=== PATIENT | female | born 1965 | race Hispanic/Latino ===

== ENCOUNTER 2022-10-01 13:36 | Observation (INO) | payer BC ==
--- OUTSIDE RECORDS SUMMARY | 2022-10-01 13:44 | XMS REPORT | Continuity of Care Document ---
:1965 Author Organization [facility] t Address [address] [place] [address] Care Team Providers Name Role Phone Asked, No Pcp Primary Care Physician Unavailable МАРИЯ CANTU Attending Clinician Unavailable XIANG GANDHI Attending Clinician Unavailable ADITI AYON Attending Clinician Unavailable ADITI AYON Attending Clinician Unavailable Mario_R Attending Clinician Unavailable Varsha_Milagro_WAGDNU Attending Clinician Unavailable Juan Ferrari MD Attending Clinician Latanya Jama Attending Clinician Unavailable Deon Treadwell MD Attending Clinician Lauri Clemons Attending Clinician LAURI SUNG Attending Clinician Unavailable Saira Yun RN Attending Clinician Unavailable Xiang Gandhi MD Attending Clinician LATANYA DU Attending Clinician Unavailable Saravanan Melendez MD Attending Clinician Doctor Unassigned, [place] Attending Clinician Unavailable DEON TREADWELL Attending Clinician Unavailable BRETT MONTESINOS Attending Clinician Unavailable Brett Montesinos MD Attending Clinician Fabienne Desai RN Attending Clinician Unavailable Lazara Wan MA Attending Clinician Unavailable Andrew Chairez MD Attending Clinician Tommy FOWLER, Ele Mckeon Attending Clinician TIM MARES Attending Clinician Unavailable Tim Flores Attending Clinician JOSE GARCIA Attending Clinician Unavailable Jose Garcia DO Attending Clinician JULIAN ROBLEDO Attending Clinician Unavailable Jes Clayton DO Attending Clinician Julian Robledo DO Attending Clinician SARAVANAN MELENDEZ Attending Clinician Unavailable SHABNAM MACK Attending Clinician Unavailable Shabnam Mack MD Attending Clinician LUIS ALBERTO CHRISTENSEN Attending Clinician Unavailable Luis Alberto Christensen MD Attending Clinician JES CLAYTON Attending Clinician Unavailable Carlee De La O PT Attending Clinician Unavailable Luigi Ngo MD Attending Clinician LUIGI NGO Attending Clinician Unavailable Nickie PTPaola A Attending Clinician Unavailable Lab, Ang - Db Attending Clinician Unavailable Мария Cantu MD Attending Clinician Te Ortega MD Attending Clinician LINDEN PARIS Attending Clinician Unavailable Ro Claudio Attending Clinician Linden Paris DO Attending Clinician Haleigh Viera RN Attending Clinician Unavailable Joie Nair Attending Clinician Carlee Pierson MD Attending Clinician Provider, [facility] Attending Clinician Unavailable Leta Conn MD Attending Clinician LETA CONN Attending Clinician Unavailable Unknown, Attending Attending Clinician Unavailable UNKNOWN, ATTENDING Attending Clinician Unavailable 2, Adc Lab Attending Clinician Unavailable Alejandra Moreira MD Attending Clinician Brooke RN, Phill A Attending Clinician Unavailable Candice Krishnan Attending Clinician CANDICE LOZA Attending Clinician Unavailable Alejandra Moreira MD Attending Clinician Unavailable МАРИЯ CANTU Admitting Clinician Unavailable Yannick Admitting Clinician Unavailable Bipin Admitting Clinician Unavailable BRETT MONTESINOS Admitting Clinician Unavailable ELE SANDERS Admitting Clinician Unavailable JULIAN ROBLEDO Admitting Clinician Unavailable Julian Robledo DO Admitting Clinician JOSE GARCIA Admitting Clinician Unavailable SHABNAM MACK Admitting Clinician Unavailable Shabnam Mack MD Admitting Clinician LUIS ALBERTO CHRISTENSEN Admitting Clinician Unavailable Мария Cantu MD Admitting Clinician Carlee Pierson MD Admitting Clinician LETA CONN Admitting Clinician Unavailable CANDICE LOZA Admitting Clinician Unavailable Payers Payer Name Policy Type Policy Number Effective Date Expiration Date S lio [employer] [place] [id number] 2012 00:[id number] 2022 [place] [id number] 2012 00:00:00 Problems Condition Condition Condition Status Onset Resolution Last Treating Co mments Source Name Details Category Date Date Treatment Clinician Date Type 2 Type 2 Problem Active [facility] diabetes Diabetes 3-28 Family mellitus Mellitus 00:00: Practi c 00 e Morbid Morbid Problem Active [place] obesity Obesity 3- Family 00:00: Practic 00 e 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 00 e Diabetes Diabetes Problem Active [facility] mellitus Mellitus 2-04 Family 00:00: Practic 00 e Hyperlipid Hyperlipid Problem Active [facility] emia emia 2-04 Family 00:00: Practic 00 e Essential Essential Problem Active [facility] hypertensi Hypertensi 2-04 Fa serge on on 00:00: Practic 00 e Nodule of Nodule of Problem Active [facility] lung Lung 2-04 Family 00:00: Practic 00 e Arthritis Arthritis Problem Active [facility] 2-04 Family 00:00: Practic 00 e Chronic Chronic Problem Active [place] back pain Back Pain 2-04 Fami ly 00:00: Practic 00 e Vertigo Vertigo Problem Active [place] 2-04 Family 00:00: Practic 00 e History of History of Problem Active [facility] malignant Malignant 2-04 Fami ly neoplasm Neoplasm 00:00: Practi c of cervix of Cervix 00 e Pulmonary Pulmonary Disease Active Uni vers nodule nodule 3-25 ity of 00:00: [place] 00 Medical Branch Diabetic Diabetic Disease Active Unive rs gastropare gastropare 3-25 it y of sis sis 00:00: [place] 00 Medical Branch Lactic Lactic Disease Active Methodi acid acid 2-25 st acidosis acidosis 00:00: Hospit a 00 l Abdominal Abdominal Disease Active Met hodi pain, pain, 2-25 st acute, acute, 00:00: Hospita generalize generalize 00 l d d Intractabl Intractabl Disease Active U nivers e vomiting e vomiting 1-14 it y of with with 00:00: [place] nausea nausea 00 Medical Branch Obesity Obesity Disease Active Univers (BMI (BMI 1-14 ity of 30-39.9) 30-39.9) 00:00: [place] 00 Medical Branch Chronic Chronic Disease Active Univers gout due gout due 9-22 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 Added automatic ally from request for surgery [id number] Polyp of Polyp of Disease Active Unive rs colon, colon, 3-08 ity of unspecifie unspecifie [place] of d part of 00 Medi [place] colon, colon, Branch unspecifie unspecifie d type d type Lichen Lichen Disease Active Univers simplex simplex 3-08 ity of chronicus chronicus 00:[place] [facility] [place] Intractabl Intractabl Disease Active U nivers e e 1-14 ity of abdominal abdominal 00:[place] pain pain 00 [facility] Morbid Morbid Disease Active Univers obesity obesity 1-12 ity of with body with body 00:[place] mass index mass index 00 Me dical of of Branch 40.0-49.9 40.0-49.9 Vomiting Vomiting Disease Active Unive rs 1-11 ity of 00:00: [place] [facility] Diabetic Diabetic Disease Active Unive rs retinopath retinopath 5-08 it y of y y 00:00: [place] [facility] Right Right Disease Active Univers sided sided 3-19 ity of sciatica sciatica 00:00: [place] [facility] Elevated Elevated Disease Active 2018-06 Unive rs alkaline alkaline 0-31 ity of phosphatas phosphatas 00:[place] e level 00 Medical [facility] Osteoarthr Osteoarthr Disease Active U nivers itis of itis of 1-02 ity of both hips both hips 00:00[place] [facility] Dyslipidem Dyslipidem Disease Active 2017-06 U nivers ia ia 1-13 ity of 00:00: [place] [facility] TACOS TACOS Disease Active 2017-06 Univers (obstructi (obstructi 1-13 it y of ve sleep ve sleep 00:00: [place] apnea) apnea) 00 Medical Branch Essential Essential Disease Active Uni vers hypertensi hypertensi 4-21 it y of on, benign on, benign 00:00: [place] [facility] Type 2 Type 2 Disease Active Univers diabetes diabetes 4-21 ity of mellitus mellitus 00:00: [place] with with 00 Medical proteinuri proteinuri Br anch c diabetic c diabetic nephropath nephropath y y History of History of Disease Active U nivers colon colon ity of polyps polyps [facility] Branch Allergies, Adverse Reactions, Alerts Allergy Allergy Status Severity Reaction(s) Onset Inactive Treating Comm ents Source Name Type Date Date Clinician Scopolam Propensi Active GI Method i ine ty to Intolerance 08-06 st adverse 00:00: Hospita reaction 00 l s to drug Scopolam Propensi Active Nausea Univer s ine ty to and/or 01-10 ity of adverse Vomiting 00:00: [place] reaction Medical s Branch SCOPOLAM DRUG Active N/V Univers INE INGREDI 01-10 ity of 00:00: [place] 00 [facility] Family History Family Member Diagnosis Comments Start Date Stop Date Source Natural father Diabetes [facility] Natural mother Diabetes [facility] Natural sister Other [facility] Social History Social Habit Start Date Stop Date Quantity Comments Source Alcohol intake 2022-01-10 2022-01-10 Ex-drinker [facility] 00:00:00 00:00:00 (finding) [facility] Tobacco use and 2022-01-06 2022-01-06 Smokeless tobacco Un iversity of exposure 00:00:00 00:00:00 non-user [facility] Sex [birth year] [facility] 00:00:00 00:00:00 Smoking Status Start Date Stop Date Source Tobacco smoking consumption [facility] unknown Never smoked tobacco [facility] Medications Ordered Filled Start Stop Current Ordering Indication Dosage Frequency Signature Comments Components Source Medication Medication Date Date Medication? Clinician (SIG) Name Name lisinopriL- Yes [id number] 1{tbl} TAKE 1 Univers hydrochloro 3-24 TABLET BY ity of thiazide 00:00: MOUTH [place] 20-12.5 mg 00 DAILY Medical per tablet Branch lisinopriL- Yes [id number] 1{tbl} TAKE 1 Univers hydrochloro 3-24 TABLET BY ity of thiazide 00:00: MOUTH [place] 20-12.5 mg 00 DAILY Medical per tablet Branch lisinopriL- 2021-06 Yes [id number] 1{tbl} TAKE 1 Univers hydrochloro 2-24 TABLET BY ity of thiazide 00:00: MOUTH [place] 20-12.5 mg 00 DAILY Medical per tablet Branch lisinopriL- 2021-06 Yes [id number] 1{tbl} TAKE 1 Univers hydrochloro 2-24 TABLET BY ity of thiazide 00:00: MOUTH [place] 20-12.5 mg 00 DAILY Medical per tablet Branch lisinopriL- 2021-06 Yes [id number] 1{tbl} TAKE 1 Univers hydrochloro 2-24 TABLET BY ity of thiazide 00:00: MOUTH [place] 20-12.5 mg 00 DAILY Medical per tablet [place]ie lisinopriL- 2021-06- No [id number] 1{tbl} TAKE 1 Univers hydrochloro 2-24 03-24 TABLET BY it y of thiazide 00:00: 00:00 MOUTH [place] 20-12.5 mg 00 :00 DAILY Medical per tablet Branch flash 2021-06 Yes [id number] 1{each} Apply 1 Un keyonna glucose 2-07 Each to ity of sensor 00:00: skin every [place] (FREESTYLE 00 14 Medical ZELDA 2 (fourteen) Branch SENSOR) Kit days. Change sensor every 14 days. Dx E11.21 flash 2021-06 Yes [id number] 1{each} Apply 1 Un [place] glucose 2-07 Each to ity of sensor 00:00: skin every (FREESTYLE 00 14 Medical ZELDA 2 (fourteen) Branch SENSOR) Kit days. Change sensor every 14 days. Dx E11.21 flash 2021-06 Yes [id number] 1{each} Apply 1 Un [place] glucose 2-07 Each to ity of sensor 00:00: skin every (FREESTYLE 00 14 Medical ZELDA 2 (fourteen) Branch SENSOR) Kit days. Change sensor every 14 days. Dx E11.21 flash 2021-06 Yes [id number] 1{each} Apply 1 Un [place] glucose 2-07 Each to ity of sensor 00:00: skin every (FREESTYLE 00 14 Medical ZELDA 2 (fourteen) Branch SENSOR) Kit days. Change sensor every 14 days. Dx E11.21 flash 2021-06 Yes [id number] 1{each} Apply 1 Un [place] glucose 2-07 Each to ity of sensor 00:00: skin every [place] (FREESTYLE 00 14 Medical ZELDA 2 (fourteen) Branch SENSOR) Kit days. Change sensor every 14 days. Dx E11.21 flash 2021-06 Yes [id number] 1{each} Apply 1 Un [place] glucose 2-07 Each to ity of sensor 00:00: skin every [place] (FREESTYLE 00 14 Medical ZELDA 2 (fourteen) Branch SENSOR) Kit days. Change sensor every 14 days. Dx E11.21 EDVINGA 10 0 Yes [id number] 10mg TAKE 1 U nivers mg tablet 8-28 TABLET BY ity o f 00:00: MOUTH [place] DAILY Medical Branch CARINA 10 0 Yes [id number] 10mg TAKE 1 U nivers mg tablet 8-28 TABLET BY ity o f 00:00: MOUTH DAILY Medical Branch CARINA 10 0 Yes [id number] 10mg TAKE 1 U nivers mg tablet 8-28 TABLET BY ity o f 00:00: MOUTH DAILY Medical Branch CARINA 10 0 Yes [id number] 10mg TAKE 1 U nivers mg tablet 8-28 TABLET BY ity o f 00:00: MOUTH DAILY Medical Branch CARINA 10 Yes [id number] 10mg TAKE 1 U nivers mg tablet 8-28 TABLET BY ity o f 00:00: MOUTH DAILY Medical Branch CARINA 10 0 Yes [id number] 10mg TAKE 1 U nivers mg tablet 8-28 TABLET BY ity o f 00:00: MOUTH DAILY Medical Branch CARINA 10 0 Yes [id number] 10mg TAKE 1 U nivers mg tablet 8-28 TABLET BY ity o f 00:00: MOUTH DAILY Medical Branch CARINA 10 0 Yes [id number] 10mg TAKE 1 U nivers mg tablet 8-28 TABLET BY ity o f 00:00: MOUTH DAILY Medical Branch CARINA 10 0 Yes [id number] 10mg TAKE 1 U nivers mg tablet 8-28 TABLET BY ity o f 00:00: MOUTH [place] DAILY Medical Branch clobetasoL 0 Yes [id number] Apply to Univers 0.05 % 8-01 area(s) 2 ity of ointment 00:00: (two) [place] 00 times Medical daily. Branch clobetasoL 0 Yes [id number] Apply to Univers 0.05 % 8-01 area(s) 2 ity of ointment 00:00: (two) [place] 00 times Medical daily. Branch clobetasoL 0 Yes [id number] Apply to Univers 0.05 % 8-01 area(s) 2 ity of ointment 00:00: (two) [place] 00 times Medical daily. Branch clobetasoL 2022-0 Yes [id number] Apply to Univers 0.05 % 8-01 area(s) 2 ity of ointment 00:00: (two) [place] 00 times Medical daily. Branch clobetasoL 2022-0 Yes [id number] Apply to Univers 0.05 % 8-01 area(s) 2 ity of ointment 00:00: (two) [place] 00 times Medical daily. Branch clobetasoL 2022-0 Yes [id number] Apply to Univers 0.05 % 8-01 area(s) 2 ity of ointment 00:00: (two) [place] 00 times Medical daily. Branch clobetasoL 2022-0 Yes [id number] Apply to Univers 0.05 % 8-01 area(s) 2 ity of ointment 00:00: (two) [place] 00 times Medical daily. Branch clobetasoL 2022-0 Yes [id number] Apply to Univers 0.05 % 8-01 area(s) 2 ity of ointment 00:00: (two) [place] 00 times Medical daily. Branch clobetasoL 2022-0 Yes [id number] Apply to Univers 0.05 % 8-01 area(s) 2 ity of ointment 00:00: (two) [place] 00 times Medical daily. Branch clobetasoL 2022-0 Yes [id number] Apply to Univers 0.05 % 8-01 area(s) 2 ity of ointment 00:00: (two) [place] 00 times Medical daily. Branch canaglifloz 2021-0 2021- No 300mg Take 300 Univers in 7-28 07-28 mg by ity of (INVOKANA) 16:31: 00:00 [place]. [place] 300 mg 42 :00 Medical tablet Branch canaglifloz 2021-0 2021- No 300mg Take 300 Univers in 7-28 07-28 mg by ity of (INVOKANA) 16:31: 00:00 mouth. [place] 300 mg 42 :00 Medical tablet Branch Cholecalcif 2021-0 Yes Take by Uni vers kaycee, 7-28 mouth ity of Vitamin D3, 16:07: daily. [place] 25 mcg 14 Medical (1,000 Branch unit) capsule calcium 2021-0 Yes 1{tbl} Take 1 Univer s carbonate/v 7-28 tablet by ity of itamin D3 16:07: mouth [place] (CALCIUM 14 daily. Medical 600 + D,3, Branch ORAL) insulin 2021-0 Yes 50U inject 50 Unive rs glargine-li 7-28 Units ity of xisenatide 16:07: [place] (SOLIQUA 14 skin. Medical 100/) 100 Branch unit-33 mcg/mL InPn multivitami 0 Yes 1{tbl} Take 1 Un keyonna n tablet 7-28 tablet by ity of 16:07: mouth [place] 14 every Medical morning. Branch Cholecalcif 0 Yes Take by Uni vers kaycee, 7-28 mouth ity of Vitamin D3, 16:07: daily. [place] 25 mcg 14 Medical (1,000 Branch unit) capsule calcium 0 Yes 1{tbl} Take 1 Univer s carbonate/v 7-28 tablet by ity of itamin D3 16:07: mouth [place] (CALCIUM 14 daily. Medical 600 + D,3, Branch ORAL) insulin 2021-0 Yes 50U inject 50 Unive rs glargine-li 7-28 Units ity of xisenatide 16:07: under the [place] (SOLIQUA 14 skin. Medical /) 100 Branch unit-33 mcg/mL InPn multivitami 0 Yes 1{tbl} Take 1 Un keyonna n tablet 7-28 tablet by ity of 16:07: mouth [place] 14 every Medical morning. Branch Cholecalcif 0 Yes Take by Uni vers kaycee, 7-28 mouth ity of Vitamin D3, 16:07: daily. [place] 25 mcg 14 Medical (1,000 Branch unit) capsule calcium 2021-0 Yes 1{tbl} Take 1 Univer s carbonate/v 7-28 tablet by ity of itamin D3 16:07: mouth [place] (CALCIUM 14 daily. Medical 600 + D,3, Branch ORAL) insulin 2021-0 Yes 50U inject 50 Unive rs glargine-li 7-28 Units ity of xisenatide 16:07: under the [place] (SOLIQUA 14 skin. Medical 100/) 100 Branch unit-33 mcg/mL InPn multivitami 0 Yes 1{tbl} Take 1 Un keyonna n tablet 7-28 tablet by ity of 16:07: mouth [place] 14 every Medical morning. Branch Cholecalcif 0 Yes Take by Uni vers kaycee, 7-28 mouth ity of Vitamin D3, 16:07: daily. [place] 25 mcg 14 Medical (1,000 Branch unit) capsule calcium 0 Yes 1{tbl} Take 1 Univer s carbonate/v 7-28 tablet by ity of itamin D3 16:07: mouth [place] (CALCIUM 14 daily. Medical 600 + D,3, Branch ORAL) insulin 2021-0 Yes 50U inject 50 Unive rs glargine-li 7-28 Units ity of xisenatide 16:07: under the [place] (SOLIQUA 14 skin. Medical 100/) 100 Branch unit-33 mcg/mL InPn multivitami 0 Yes 1{tbl} Take 1 Un keyonna n tablet 7-28 tablet by ity of 16:07: mouth [place] 14 every Medical morning. Branch Cholecalcif 0 Yes Take by Uni vers kaycee, 7-28 mouth ity of Vitamin D3, 16:07: daily. [place] 25 mcg 14 Medical (1,000 Branch unit) capsule calcium 0 Yes 1{tbl} Take 1 Univer s carbonate/v 7-28 tablet by ity of itamin D3 16:07: mouth [place] (CALCIUM 14 daily. Medical 600 + D,3, Branch ORAL) insulin 2021-0 Yes 50U inject 50 Unive rs glargine-li 7-28 Units ity of xisenatide 16:07: under the [place] (SOLIQUA 14 skin. Medical 100/) 100 Branch unit-33 mcg/mL InPn multivitami 0 Yes 1{tbl} Take 1 Un keyonna n tablet 7-28 tablet by ity of 16:07: mouth [place] 14 every Medical morning. Branch Cholecalcif 0 Yes Take by Uni vers kaycee, 7-28 mouth ity of Vitamin D3, 16:07: daily. [place] 25 mcg 14 Medical (1,000 Branch unit) capsule calcium 0 Yes 1{tbl} Take 1 Univer s carbonate/v 7-28 tablet by ity of itamin D3 16:07: mouth [place] (CALCIUM 14 daily. Medical 600 + D,3, Branch ORAL) insulin 2021-0 Yes 50U inject 50 Unive rs glargine-li 7-28 Units ity of xisenatide 16:07: under the [place] (SOLIQUA 14 skin. Medical 100/33) 100 Branch unit-33 mcg/mL InPn multivitami 0 Yes 1{tbl} Take 1 Un keyonna n tablet 7-28 tablet by ity of 16:07: mouth [place] 14 every Medical morning. Branch Cholecalcif 0 Yes Take by Uni vers kaycee, 7-28 mouth ity of Vitamin D3, 16:07: daily. [place] 25 mcg 14 Medical (1,000 Branch unit) capsule calcium 0 Yes 1{tbl} Take 1 Univer s carbonate/v 7-28 tablet by ity of itamin D3 16:07: mouth [place] (CALCIUM 14 daily. Medical 600 + D,3, Branch ORAL) insulin 0 Yes 50U inject 50 Unive rs glargine-li 7-28 Units ity of xisenatide 16:07: under the [place] (SOLIQUA 14 skin. Medical 100/) 100 Branch unit-33 mcg/mL InPn multivitami 0 Yes 1{tbl} Take 1 Un keyonna n tablet 7-28 tablet by ity of 16:07: mouth [place] 14 every Medical morning. Branch Cholecalcif 0 Yes Take by Uni vers kaycee, 7-28 mouth ity of Vitamin D3, 16:07: daily. [place] 25 mcg 14 Medical (1,000 Branch unit) capsule calcium 0 Yes 1{tbl} Take 1 Univer s carbonate/v 7-28 tablet by ity of itamin D3 16:07: mouth [place] (CALCIUM 14 daily. Medical 600 + D,3, Branch ORAL) insulin 0 Yes 50U inject 50 Unive rs glargine-li 7-28 Units ity of xisenatide 16:07: under the [place] (SOLIQUA 14 skin. Medical 100/33) 100 Branch unit-33 mcg/mL InPn multivitami 2022-0 Yes 1{tbl} Take 1 Un keyonna n tablet 7-28 tablet by ity of 16:07: mouth [place] 14 every Medical morning. Branch Cholecalcif 0 Yes Take by Uni vers kaycee, 7-28 mouth ity of Vitamin D3, 16:07: daily. [place] 25 mcg 14 Medical (1,000 Branch unit) capsule calcium 2021-0 Yes 1{tbl} Take 1 Univer s carbonate/v 7-28 tablet by ity of itamin D3 16:07: mouth [place] (CALCIUM 14 daily. Medical 600 + D,3, Branch ORAL) insulin 2021-0 Yes 50U inject 50 Unive rs glargine-li 7-28 Units ity of xisenatide 16:07: under the [place] (SOLIQUA 14 skin. Medical 100/33) 100 Branch unit-33 mcg/mL InPn multivitami 2021-0 Yes 1{tbl} Take 1 Un keyonna n tablet 7-28 tablet by ity of 16:07: mouth [place] 14 every Medical morning. Branch Cholecalcif 0 Yes Take by Uni vers kaycee, 7-28 mouth ity of Vitamin D3, 16:07: daily. [place] 25 mcg 14 Medical (1,000 Branch unit) capsule calcium 0 Yes 1{tbl} Take 1 Univer s carbonate/v 7-28 tablet by ity of itamin D3 16:07: mouth [place] (CALCIUM 14 daily. Medical 600 + D,3, Branch ORAL) insulin 2021-0 Yes 50U inject 50 Unive rs glargine-li 7-28 Units ity of xisenatide 16:07: under the [place] (SOLIQUA 14 skin. Medical 100/33) 100 Branch unit-33 mcg/mL InPn multivitami 2021-0 Yes 1{tbl} Take 1 Un keyonna n tablet 7-28 tablet by ity of 16:07: mouth [place] 14 every Medical morning. Branch Cholecalcif 0 Yes Take by Uni vers kaycee, 7-28 mouth ity of Vitamin D3, 16:07: daily. [place] 25 mcg 14 Medical (1,000 Branch unit) capsule calcium 2021-0 Yes 1{tbl} Take 1 Univer s carbonate/v 7-28 tablet by ity of itamin D3 16:07: mouth [place] (CALCIUM 14 daily. Medical 600 + D,3, Branch ORAL) insulin Yes 50U inject 50 Unive rs glargine-li 7-28 Units ity of xisenatide 16:07: under the [place] (SOLIQUA 14 skin. Medical 100/33) 100 Branch unit-33 mcg/mL InPn multivitami Yes 1{tbl} Take 1 Un keyonna n tablet 7-28 tablet by ity of 16:07: mouth [place] 14 every Medical morning. Branch Cholecalcif Yes Take by Uni vers kaycee, 7-28 mouth ity of Vitamin D3, 16:07: daily. [place] 25 mcg 14 Medical (1,000 Branch unit) capsule calcium Yes 1{tbl} Take 1 Univer s carbonate/v 7-28 tablet by ity of itamin D3 16:07: mouth [place] (CALCIUM 14 daily. Medical 600 + D,3, Branch ORAL) insulin Yes 50U inject 50 Unive rs glargine-li 7-28 Units ity of xisenatide 16:07: under the [place] (SOLIQUA 14 skin. Medical 100/33) 100 Branch unit-33 mcg/mL InPn multivitami Yes 1{tbl} Take 1 Un keyonna n tablet 7-28 tablet by ity of 16:07: mouth [place] 14 every Medical morning. Branch hydrocortis 2021- No [id number] Apply to Univers one 2.5 % 01-06 area(s) 2 ity of cream 00:00: 00:00 (two) [place] 00 :00 times Medical daily. Branch hydrocortis 2021- No [id number] Apply to Univers one 2.5 % 01-06 area(s) 2 ity of cream 00:00: 00:00 (two) [place] 00 :00 times Medical daily. Branch hydrocortis 2021- No [id number] Apply to Univers one 2.5 % 01-06 area(s) 2 ity of cream 00:00: 00:00 (two) [place] 00 :00 times Medical daily. Branch pantoprazol Yes [id number] 40mg Take 1 U nivers e 40 mg EC 6-24 tablet by ity of tablet 00:00: mouth [place] 00 daily. Medical Branch metformin 0 Yes [id number] 1000mg Take 2 Univers ER 500 mg 6-24 tablets by ity of 24 hr 00:00: mouth 2 [place] tablet 00 (two) Medical times Branch daily with meals. flash Yes [id number] 1{each} Apply 1 Un keyonna glucose 6-24 Each to ity of sensor 00:00: skin every [place] (FREESTYLE 00 14 Medical ZELDA 2 (fourteen) Branch SENSOR) Kit days. Change sensor every 14 days. Dx E11.21 pioglitazon Yes [id number] 30mg Take 1 Univers e 30 mg 6-24 tablet by ity of tablet 00:00: mouth [place] 00 daily. Medical Branch atorvastati Yes [id number] 40mg Take 1 Univers n 40 mg 6-24 tablet by ity of tablet 00:00: mouth at [place] 00 bedtime. Medical Branch allopurinoL Yes [id number] 100mg Take 1 Univers 100 mg 6-24 9109 tablet by ity of tablet 00:00: mouth [place] 00 daily. Medical Branch lisinopriL- 0 Yes [id number] 1{tbl} Take 1 Univers hydrochloro 6-24 tablet by ity of thiazide 00:00: mouth [place] 20-12.5 mg 00 daily. Medical per tablet Branch pantoprazol Yes [id number] 40mg Take 1 U nivers e 40 mg EC 6-24 tablet by ity of tablet 00:00: mouth [place] 00 daily. Medical Branch metformin Yes [id number] 1000mg Take 2 Univers ER 500 mg 6-24 tablets by ity of 24 hr 00:00: mouth 2 [place] tablet 00 (two) Medical times Branch daily with meals. flash 2021-0 Yes [id number] 1{each} Apply 1 Un kyeonna glucose 6-24 Each to ity of sensor 00:00: skin every [place] (FREESTYLE 00 14 Medical ZELDA 2 (fourteen) Branch SENSOR) Kit days. Change sensor every 14 days. Dx E11.21 pioglitazon 2021-0 Yes [id number] 30mg Take 1 Univers e 30 mg 6-24 tablet by ity of tablet 00:00: mouth [place] 00 daily. Medical Branch atorvastati Yes [id number] 40mg Take 1 Univers n 40 mg 6-24 tablet by ity of tablet 00:00: mouth at [place] 00 bedtime. Medical Branch allopurinoL Yes [id number] 100mg Take 1 [facility] 100 mg 6-24 9109 tablet by ity of tablet 00:00: mouth [place] 00 daily. Medical Branch lisinopriL- 0 Yes [id number] 1{tbl} Take 1 [facility] hydrochloro 6-24 tablet by ity of thiazide 00:00: mouth [place] 20-12.5 mg 00 daily. Medical per tablet Branch pantoprazol Yes [id number] 40mg Take 1 U nivers e 40 mg EC 6-24 tablet by ity of tablet 00:00: mouth [place] 00 daily. Medical Branch metformin Yes [id number] 1000mg Take 2 [facility] ER 500 mg 6-24 tablets by ity of 24 hr 00:00: mouth 2 [place] tablet 00 (two) Medical times Branch daily with meals. pioglitazon Yes [id number] 30mg Take 1 [facility] e 30 mg 6-24 tablet by ity of tablet 00:00: mouth [place] 00 daily. Medical Branch atorvastati Yes [id number] 40mg Take 1 [facility] n 40 mg 6-24 tablet by ity of tablet 00:00: mouth at [place] 00 bedtime. Medical Branch allopurinoL Yes [id number] 100mg Take 1 [facility] 100 mg 6-24 9109 tablet by ity of tablet 00:00: mouth [place] 00 daily. Medical Branch lisinopriL- Yes [id number] 1{tbl} Take 1 [facility] hydrochloro 6-24 tablet by ity of thiazide 00:00: mouth [place] 20-12.5 mg 00 daily. Medical per tablet Branch pantoprazol 0 Yes [id number] 40mg Take 1 U nivers e 40 mg EC 6-24 tablet by ity of tablet 00:00: mouth [place] 00 daily. Medical Branch metformin 0 Yes [id number] 1000mg Take 2 [facility] ER 500 mg 6-24 tablets by ity of 24 hr 00:00: mouth 2 [place] tablet 00 (two) Medical times Branch daily with meals. pioglitazon 0 Yes [id number] 30mg Take 1 [facility] e 30 mg 6-24 tablet by ity of tablet 00:00: mouth [place] 00 daily. Medical Branch atorvastati 0 Yes [id number] 40mg Take 1 [facility] n 40 mg 6-24 tablet by ity of tablet 00:00: mouth at [place] 00 bedtime. Medical Branch allopurinoL 0 Yes [id number] 100mg Take 1 [facility] 100 mg 6-24 9109 tablet by ity of tablet 00:00: mouth [place] 00 daily. Medical Branch pantoprazol 0 Yes [id number] 40mg Take 1 U nivers e 40 mg EC 6-24 tablet by ity of tablet 00:00: mouth [place] 00 daily. Medical Branch metformin 0 Yes [id number] 1000mg Take 2 [facility] ER 500 mg 6-24 tablets by ity of 24 hr 00:00: mouth 2 [place] tablet 00 (two) Medical times Branch daily with meals. pioglitazon Yes [id number] 30mg Take 1 [facility] e 30 mg 6-24 tablet by ity of tablet 00:00: mouth [place] 00 daily. Medical Branch atorvastati 0 Yes [id number] 40mg Take 1 [facility] n 40 mg 6-24 tablet by ity of tablet 00:00: mouth at [place] 00 bedtime. Medical Branch allopurinoL 0 Yes [id number] 100mg Take 1 [facility] 100 mg 6-24 9109 tablet by ity of tablet 00:00: mouth [place] 00 daily. Medical Branch pantoprazol 0 Yes [id number] 40mg Take 1 U nivers e 40 mg EC 6-24 tablet by ity of tablet 00:00: mouth [place] 00 daily. Medical Branch metformin 2021-0 Yes [id number] 1000mg Take 2 [facility] ER 500 mg 6-24 tablets by ity of 24 hr 00:00: mouth 2 [place] tablet 00 (two) Medical times Branch daily with meals. pioglitazon 0 Yes [id number] 30mg Take 1 [facility] e 30 mg 6-24 tablet by ity of tablet 00:00: mouth [place] 00 daily. Medical Branch atorvastati 0 Yes [id number] 40mg Take 1 [facility] n 40 mg 6-24 tablet by ity of tablet 00:00: mouth at [place] 00 bedtime. Medical [facility] allopurinoL 0 Yes [id number] 100mg Take 1 [facility] 100 mg 6-24 9109 tablet by ity of tablet 00:00: mouth [place] 00 daily. Medical Branch pantoprazol 2021-0 Yes [id number] 40mg Take 1 [facility] nivers e 40 mg EC 6-24 tablet by ity of tablet 00:00: mouth [place] 00 daily. Medical Branch metformin 2021-0 Yes [id number] 1000mg Take 2 [facility] ER 500 mg 6-24 tablets by ity of 24 hr 00:00: mouth 2 [place] tablet 00 (two) Medical times Branch daily with meals. pioglitazon 0 Yes [id number] 30mg Take 1 [facility] e 30 mg 6-24 tablet by ity of tablet 00:00: mouth [place] 00 daily. Medical Branch atorvastati 0 Yes [id number] 40mg Take 1 [facility] n 40 mg 6-24 tablet by ity of tablet 00:00: mouth at [place] 00 bedtime. Medical Branch allopurinoL 0 Yes [id number] 100mg Take 1 [facility] 100 mg 6-24 9109 tablet by ity of tablet 00:00: mouth [place] 00 daily. Medical Branch pantoprazol 0 Yes [id number] 40mg Take 1 [facility] nivers e 40 mg EC 6-24 tablet by ity of tablet 00:00: mouth [place] 00 daily. Medical Branch metformin 0 Yes [id number] 1000mg Take 2 [facility] ER 500 mg 6-24 tablets by ity of 24 hr 00:00: mouth 2 [place] tablet 00 (two) Medical times Branch daily with meals. pioglitazon 2021-0 Yes [id number] 30mg Take 1 [facility] e 30 mg 6-24 tablet by ity of tablet 00:00: mouth [place] 00 daily. Medical Branch atorvastati 0 Yes [id number] 40mg Take 1 [facility] n 40 mg 6-24 tablet by ity of tablet 00:00: mouth at [place] 00 bedtime. Medical Branch allopurinoL 0 Yes [id number] 100mg Take 1 [facility] 100 mg 6-24 9109 tablet by ity of tablet 00:00: mouth [place] 00 daily. Medical Branch pantoprazol 2021-0 Yes [id number] 40mg Take 1 [facility] nivers e 40 mg EC 6-24 tablet by ity of tablet 00:00: mouth [place] 00 daily. Medical Branch metformin Yes [id number] 1000mg Take 2 [facility] ER 500 mg 6-24 tablets by ity of 24 hr 00:00: mouth 2 [place] tablet 00 (two) Medical times Branch daily with meals. flash Yes [id number] 1{each} Apply 1 [facility] keyonna glucose 6-24 Each to ity of sensor 00:00: skin every [place] (FREESTYLE 00 14 Medical ZELDA 2 (fourteen) Branch SENSOR) Kit days. Change sensor every 14 days. Dx E11.21 pioglitazon Yes [id number] 30mg Take 1 [facility] e 30 mg 6-24 tablet by ity of tablet 00:00: mouth [place] 00 daily. Medical Branch atorvastati Yes [id number] 40mg Take 1 [facility] n 40 mg 6-24 tablet by ity of tablet 00:00: mouth at [place] 00 bedtime. Medical Branch allopurinoL Yes [id number] 100mg Take 1 [facility] 100 mg 6-24 9109 tablet by ity of tablet 00:00: mouth [place] 00 daily. Medical Branch lisinopriL- Yes [id number] 1{tbl} Take 1 [facility] hydrochloro 6-24 tablet by ity of thiazide 00:00: mouth [place] 20-12.5 mg 00 daily. Medical per tablet Branch pantoprazol Yes [id number] 40mg Take 1 [facility] nivers e 40 mg EC 6-24 tablet by ity of tablet 00:00: mouth [place] 00 daily. Medical Branch metformin Yes [id number] 1000mg Take 2 [facility] ER 500 mg 6-24 tablets by ity of 24 hr 00:00: mouth 2 [place] tablet 00 (two) Medical times Branch daily with meals. flash 2021-0 Yes [id number] 1{each} Apply 1 [facility] [place] glucose 6-24 Each to ity of sensor 00:00: skin every [place] (FREESTYLE 00 14 Medical ZELDA 2 (fourteen) Branch SENSOR) Kit days. Change sensor every 14 days. Dx E11.21 pioglitazon 0 Yes [id number] 30mg Take 1 [facility] e 30 mg 6-24 tablet by ity of tablet 00:00: mouth [place] 00 daily. Medical Branch atorvastati Yes [id number] 40mg Take 1 [facility] n 40 mg 6-24 tablet by ity of tablet 00:00: mouth at [place] 00 bedtime. Medical Branch allopurinoL Yes [id number] 100mg Take 1 [facility] 100 mg 6-24 9109 tablet by ity of tablet 00:00: mouth [place] 00 daily. Medical Branch lisinopriL- Yes [id number] 1{tbl} Take 1 [facility] hydrochloro 6-24 tablet by ity of thiazide 00:00: mouth [place] 20-12.5 mg 00 daily. Medical per tablet Branch pantoprazol Yes [id number] 40mg Take 1 [facility] nivers e 40 mg EC 6-24 tablet by ity of tablet 00:00: mouth [place] 00 daily. Medical Branch metformin Yes [id number] 1000mg Take 2 [facility] ER 500 mg 6-24 tablets by ity of 24 hr 00:00: mouth 2 [place] tablet 00 (two) Medical times Branch daily with meals. flash Yes [id number] 1{each} Apply 1 [facility] [place] glucose 6-24 Each to ity of sensor 00:00: skin every [place] (FREESTYLE 00 14 Medical ZELDA 2 (fourteen) Branch SENSOR) Kit days. Change sensor every 14 days. Dx E11.21 pioglitazon Yes [id number] 30mg Take 1 [facility] e 30 mg 6-24 tablet by ity of tablet 00:00: mouth [place] 00 daily. Medical Branch atorvastati Yes [id number] 40mg Take 1 [facility] n 40 mg 6-24 tablet by ity of tablet 00:00: mouth at [place] 00 bedtime. Medical Branch allopurinoL Yes [id number] 100mg Take 1 [facility] 100 mg 6-24 9109 tablet by ity of tablet 00:00: mouth [place] 00 daily. Medical Branch lisinopriL- Yes [id number] 1{tbl} Take 1 [facility] hydrochloro 6-24 tablet by ity of thiazide 00:00: mouth [place] 20-12.5 mg 00 daily. Medical per tablet Branch pantoprazol Yes [id number] 40mg Take 1 [facility] nivers e 40 mg EC 6-24 tablet by ity of tablet 00:00: mouth [place] 00 daily. Medical Branch metformin Yes [id number] 1000mg Take 2 [facility] ER 500 mg 6-24 tablets by ity of 24 hr 00:00: mouth 2 [place] tablet 00 (two) Medical times Branch daily with meals. flash Yes [id number] 1{each} Apply 1 [facility] [place] glucose 6-24 Each to ity of sensor 00:00: skin every [place] (FREESTYLE 00 14 Medical ZELDA 2 (fourteen) Branch SENSOR) Kit days. Change sensor every 14 days. Dx E11.21 pioglitazon Yes [id number] 30mg Take 1 [facility] e 30 mg 6-24 tablet by ity of tablet 00:00: mouth [place] 00 daily. Medical Branch atorvastati Yes [id number] 40mg Take 1 [facility] n 40 mg 6-24 tablet by ity of tablet 00:00: mouth at [place] 00 bedtime. Medical Branch allopurinoL Yes [id number] 100mg Take 1 [facility] 100 mg 6-24 9109 tablet by ity of tablet 00:00: mouth [place] 00 daily. Medical Branch lisinopriL- Yes [id number] 1{tbl} Take 1 [facility] hydrochloro 6-24 tablet by ity of thiazide 00:00: mouth [place] 20-12.5 mg 00 daily. Medical per tablet Branch lisinopriL- 2021- No [id number] 1{tbl} Take 1 [facility] hydrochloro 6-24 12-24 tablet by it y of thiazide 00:00: 00:00 mouth [place] 20-12.5 mg 00 :00 daily. Medical per tablet Branch lisinopriL- 2021- No [id number] 1{tbl} Take 1 [facility] hydrochloro 6-24 12-24 tablet by it y of thiazide 00:00: 00:00 mouth [place] 20-12.5 mg 00 :00 daily. Medical per tablet Branch flash 2021- No [id number] 1{each} Apply 1 U nivers glucose 6-24 12-07 Each to ity of sensor 00:00: 00:00 skin [place] (FREESTYLE 00 :00 14 Medical ZELDA 2 (fourteen) Branch SENSOR) Kit days. Change sensor every 14 days. Dx E11.21 insulin Yes [id number] INJECT MAX [facility] aspart 4-18 DOSE 50 ity of U-100 00:00: UNITS [place] (NOVOLOG 00 UNDER THE Medica l FLEXPEN SKIN EVERY Branch U-100 DAY INSULIN) 100 unit/mL (3 mL) injection insulin Yes [id number] INJECT MAX [facility] aspart 4-18 DOSE 50 ity of U-100 00:00: UNITS [place] (NOVOLOG 00 UNDER THE Medica l FLEXPEN SKIN EVERY Branch U-100 DAY INSULIN) 100 unit/mL (3 mL) injection insulin Yes [id number] INJECT MAX [facility] aspart 4-18 DOSE 50 ity of U-100 00:00: UNITS [place] (NOVOLOG 00 UNDER THE Medica l FLEXPEN SKIN EVERY Branch U-100 DAY INSULIN) 100 unit/mL (3 mL) injection insulin Yes [id number] INJECT MAX [facility] aspart 4-18 DOSE 50 ity of U-100 00:00: UNITS [place] (NOVOLOG 00 UNDER THE Medica l FLEXPEN SKIN EVERY Branch U-100 DAY INSULIN) 100 unit/mL (3 mL) injection insulin Yes [id number] INJECT MAX [facility] aspart 4-18 DOSE 50 ity of U-100 00:00: UNITS [place] (NOVOLOG 00 UNDER THE Medica l FLEXPEN SKIN EVERY Branch U-100 DAY INSULIN) 100 unit/mL (3 mL) injection insulin Yes [id number] INJECT MAX [facility] aspart 4-18 DOSE 50 ity of U-100 00:00: UNITS [place] (NOVOLOG 00 UNDER THE Medica l FLEXPEN SKIN EVERY Branch U-100 DAY INSULIN) 100 unit/mL (3 mL) injection insulin Yes [id number] INJECT MAX [facility] aspart 4-18 DOSE 50 ity of U-100 00:00: UNITS [place] (NOVOLOG 00 UNDER THE Medica l FLEXPEN SKIN EVERY Branch U-100 DAY INSULIN) 100 unit/mL (3 mL) injection insulin Yes [id number] INJECT MAX [facility] aspart 4-18 DOSE 50 ity of U-100 00:00: UNITS [place] (NOVOLOG 00 UNDER THE Medica l FLEXPEN SKIN EVERY Branch U-100 DAY INSULIN) 100 unit/mL (3 mL) injection insulin Yes [id number] INJECT MAX [facility] aspart 4-18 DOSE 50 ity of U-100 00:00: UNITS [place] (NOVOLOG 00 UNDER THE Medica l FLEXPEN SKIN EVERY Branch U-100 DAY INSULIN) 100 unit/mL (3 mL) injection insulin Yes [id number] INJECT MAX [facility] aspart 4-18 DOSE 50 ity of U-100 00:00: UNITS [place] (NOVOLOG 00 UNDER THE Medica l FLEXPEN SKIN EVERY Branch U-100 DAY INSULIN) 100 unit/mL (3 mL) injection insulin Yes [id number] INJECT MAX [facility] aspart 4-18 DOSE 50 ity of U-100 00:00: UNITS [place] (NOVOLOG 00 UNDER THE Medica l FLEXPEN SKIN EVERY Branch U-100 DAY INSULIN) 100 unit/mL (3 mL) injection insulin Yes [id number] INJECT MAX [facility] aspart 4-18 DOSE 50 ity of U-100 00:00: UNITS [place] (NOVOLOG 00 UNDER THE Medica l FLEXPEN SKIN EVERY Branch U-100 DAY INSULIN) 100 unit/mL (3 mL) injection insulin Yes [id number] 40U inject 40 U nivers degludec 4-11 Units ity of (TRESIBA 00:00: [place] FLEXTOUCH 00 skin Medical U-200) 200 daily. Branch unit/mL (3 mL) InPn insulin Yes [id number] 40U inject 40 U nivers degludec 4-11 Units ity of (TRESIBA 00:00: under the [place] FLEXTOUCH 00 skin Medical U-200) 200 daily. Branch unit/mL (3 mL) InPn insulin Yes [id number] 40U inject 40 U nivers degludec 4-11 Units ity of (TRESIBA 00:00: under the [place] FLEXTOUCH 00 skin Medical U-200) 200 daily. Branch unit/mL (3 mL) InPn insulin Yes [id number] 40U inject 40 U nivers degludec 4-11 Units ity of (TRESIBA 00:00: under the [place] FLEXTOUCH 00 skin Medical U-200) 200 daily. Branch unit/mL (3 mL) InPn insulin Yes [id number] 40U inject 40 U nivers degludec 4-11 Units ity of (TRESIBA 00:00: under the [place] FLEXTOUCH 00 skin Medical U-200) 200 daily. Branch unit/mL (3 mL) InPn insulin Yes [id number] 40U inject 40 U nivers degludec 4-11 Units ity of (TRESIBA 00:00: under [place] FLEXTOUCH 00 skin Medical U-200) 200 daily. Branch unit/mL (3 mL) InPn insulin Yes [id number] 40U inject 40 U nivers degludec 4-11 Units ity of (TRESIBA 00:00: under the [place] FLEXTOUCH 00 skin Medical U-200) 200 daily. Branch unit/mL (3 mL) InPn insulin Yes [id number] 40U inject 40 U nivers degludec 4-11 Units ity of (TRESIBA 00:00: under the [place] FLEXTOUCH 00 skin Medical U-200) 200 daily. Branch unit/mL (3 mL) InPn insulin Yes [id number] 40U inject 40 U nivers degludec 4-11 Units ity of (TRESIBA 00:00: under [place] FLEXTOUCH 00 skin Medical U-200) 200 daily. Branch unit/mL (3 mL) InPn insulin Yes [id number] 40U inject 40 U nivers degludec 4-11 Units ity of (TRESIBA 00:00: under the [place] FLEXTOUCH 00 skin Medical U-200) 200 daily. Branch unit/mL (3 mL) InPn insulin Yes [id number] 40U inject 40 U nivers degludec 4-11 Units ity of (TRESIBA 00:00: under the [place] FLEXTOUCH 00 skin Medical U-200) 200 daily. Branch unit/mL (3 mL) InPn insulin Yes [id number] 40U inject 40 U nivers degludec 4-11 Units ity of (TRESIBA 00:00: [place] FLEXTOUCH 00 skin Medical U-200) 200 daily. Branch unit/mL (3 mL) InPn dapaglifloz Yes [id number] 10mg Take 1 [facility] in 3-02 tablet by ity of (FARXIGA) 00:00: mouth [place] 10 mg 00 daily. Medical tablet Branch dapaglifloz 2021-0 Yes [id number] 10mg Take 1 [facility] in - tablet by ity of ([facility]) 00:00: mouth [place] 10 mg 00 daily. Medical tablet Branch dapaglifloz 2021-0 Yes [id number] 10mg Take 1 [facility] in 08-11 tablet by ity of ([facility]) 00:00: mouth [place] 10 mg 00 daily. Medical tablet Branch dapaglifloz 0 2022- No [id number] 10mg Take 1 [facility] in - 08-28 tablet by ity of ([facility]) 00:00: 00:00 mouth [place] 10 mg 00 :00 daily. Medical tablet Branch multivitami 2021-0 Yes 1{tbl} QD Take 1 [facility] tablet - tablet by [facility] 15:21: mouth [facility] 01 daily. l inulin 0 Yes 1{tbl} QD Take 1 [facility] (FIBER 2- tablet by st GUMMIES 15:21: mouth [facility] ORAL) 01 daily. l allopurinoL 0 Yes 100mg QD Take 100 M ethodi (ZYLOPRIM) 2-[address] 100 MG 15:21: mouth [facility] tablet 01 daily. l atorvastati 0 Yes 40mg QD Take 40 mg Methodi n (LIPITOR) 2-[address] 40 mg 15:21: daily. [facility]ospita tablet 01 l canaglifloz 0 Yes 300mg QD Take 300 M ethodi in 2-[address] (Invokana) 15:21: mouth [facility] 300 mg 01 daily. l tablet flash 0 Yes *Freestyle Method i glucose - Zelda* st sensor 15:21: Hospita (FREESTYLE 01 l ZELDA 2 SENSOR MISC) insulin 0 Yes [id number] Inject Me thodi ASPART - [id number] under the st (NovoLOG) 15:21: 3D skin 3 Hospit a 100 unit/mL 01 (three) l injection times a day before meals. Per sliding scale insulin 2021-0 Yes 50U QD Inject 50 Metho di glargine-li 2-[address] xisenatide 15:21: under the [facility] (Soliqua 01 skin l 100/33) 100 daily. unit-33 mcg/mL insulin pen lisinopriL- Yes 1{tbl} QD Take 1 [facility] hydrochloro 2-[address] thiazide 15:21: mouth [facility] (PRINZIDE) 01 daily. l 20-12.5 mg per tablet metFORMIN 0 Yes 1000mg Q.5D Take 1,000 [facility]i XR 2-[address] (GLUCOPHAGE 15:21: mouth 2 [facility] annalisa -XR) 500 mg 01 (two) l 24 hr times a tablet day. pantoprazol 0 Yes 40mg QD Take 40 mg Methodi e 2-[address] (PROTONIX) 15:21: daily. Hospi ta 40 MG EC 01 l tablet pioglitazon Yes 30mg QD Take 30 mg Methodi e (ACTOS) 2-[address] 30 MG 15:21: daily. [facility]ospita tablet 01 l multivitami Yes 1{tbl} QD Take 1 [facility] n tablet 2-[address] 15:21: mouth [facility] 01 daily. l inulin Yes 1{tbl} QD Take 1 [facility] (FIBER 2-[address] GUMMIES 15:21: mouth [facility] ORAL) 01 daily. l allopurinoL Yes 100mg QD Take 100 M ethodi (ZYLOPRIM) 2-[address] 100 MG 15:21: mouth [facility] tablet 01 daily. l atorvastati Yes 40mg QD Take 40 mg Methodi n (LIPITOR) 2-[address] 40 mg 15:21: daily. [facility]ospita tablet 01 l canaglifloz Yes 300mg QD Take 300 M ethodi in 2-[address] (Invokana) 15:21: mouth [facility] 300 mg 01 daily. l tablet flash Yes *Freestyle Method i glucose 2-28 Zel[address]* [address] sensor 15:21: Hospita (FREESTYLE 01 l ZELDA 2 SENSOR MISC) insulin 2021-0 Yes [id number] Inject Me thodi ASPART 2- [id number] under the st (NovoLOG) 15:21: 3D skin 3 Hospit a 100 unit/mL 01 (three) l injection times a day before meals. Per sliding scale insulin Yes 50U QD Inject 50 Metho di glargine-li 2-[address] xisenatide 15:21: under the [facility] ([place] 01 skin l 100/33) 100 daily. unit-33 mcg/mL insulin pen lisinopriL- Yes 1{tbl} QD Take 1 [facility] hydrochloro 2-[address] thiazide 15:21: mouth [facility] (PRINZIDE) 01 daily. l 20-12.5 mg per tablet metFORMIN Yes 1000mg Q.5D Take 1,000 [facility] XR 2-[address] (GLUCOPHAGE 15:21: mouth 2 [facility]isa -XR) 500 mg 01 (two) l 24 hr times a tablet day. pantoprazol Yes 40mg QD Take 40 mg Methodi e 2-[address] (PROTONIX) 15:21: daily. Hospi ta 40 MG EC 01 l tablet pioglitazon Yes 30mg QD Take 30 mg Methodi e (ACTOS) 2-[address] 30 MG 15:21: daily. Hospita tablet 01 l MAGNESIUM 2021- No 800mg QD Take 800 Me [facility] ORAL 2-28 02-[address] 15:21: 00:00 mouth [facility] 01 :00 daily. l metoclopram 0 2021- No 5mg Q.[id number] Take 5 mg Methodi zheng 2-28 02-[id number] mouth [address] (REGLAN) 5 15:21: 00:00 3D (three) Hos annalisa MG tablet 01 :00 times a l day as needed. promethazin 0 202- No 25mg Q6H Insert 25 Methodi e 2-28 02-[address] (PHENERGAN) 15:21: 00:00 the rectum Hospita 25 MG 01 :00 every 6 l suppository (six) hours as needed for nausea or vomiting. promethazin 0 2022- No 25mg Q6H Take 25 mg Methodi e 2-28 02-[address] (PHENERGAN) 15:21: 00:00 every 6 [facility] spita 25 MG 01 :00 (six) l tablet hours as needed for nausea or vomiting. ondansetron 2021-0 2- No 4mg Q8H Take 1 Met hodi ODT 2-27 03-30 tablet (4 st (ZOFRAN-ODT 00:00: 04:59 mg total) Hospita ) 4 MG 00 :00 by mouth l disintegrat every 8 ing tablet (eight) hours as needed for nausea or vomiting for up to 30 days. metoclopram 2022-0 2022- No 5mg Q.25D Take 0.5 Methodi zheng 2-27 03-15 tablets (5 st (Reglan) 10 00:00: 04:59 mg total) Hospita MG tablet 00 :00 by mouth 4 l (four) times a day for 15 days. To be taken 30 minutes to 1 hour before a meal. Maximum four times a day, not to exceed further, even if taking meals in between. metoclopram 2022-0 Yes [id number] 5mg Take 1 [facility] zheng HCl 5 2-16 tablet by ity o f mg tablet 00:00: mouth [place] 00 every 8 Medical (eight) Branch hours. metoclopram 2022-0 Yes [id number] 5mg Take 1 [facility] zheng HCl 5 2-16 tablet by ity o f mg tablet 00:00: mouth [place] 00 every 8 Medical (eight) Branch hours. metoclopram 2022-0 Yes [id number] 5mg Take 1 [facility] zheng HCl 5 2-16 tablet by ity o f mg tablet 00:00: mouth [place] 00 every 8 Medical (eight) Branch hours. metoclopram 2022-0 Yes [id number] 5mg Take 1 [facility] zheng HCl 5 2-16 tablet by ity o f mg tablet 00:00: mouth [place] 00 every 8 Medical (eight) Branch hours. metoclopram 2022-0 Yes [id number] 5mg Take 1 [facility] zheng HCl 5 2-16 tablet by ity o f mg tablet 00:00: mouth [place] 00 every 8 Medical (eight) Branch hours. metoclopram 2022-0 Yes [id number] 5mg Take 1 [facility] zheng HCl 5 2-16 tablet by ity o f mg tablet 00:00: mouth [place] 00 every 8 Medical (eight) Branch hours. metoclopram 2022-0 Yes [id number] 5mg Take 1 [facility] zheng HCl 5 2-16 tablet by ity o f mg tablet 00:00: mouth [place] 00 every 8 Medical (eight) Branch hours. metoclopram 2022-0 Yes [id number] 5mg Take 1 [facility] zheng HCl 5 2-16 tablet by ity o f mg tablet 00:00: mouth [place] 00 every 8 Medical (eight) Branch hours. metoclopram 2022-0 Yes [id number] 5mg Take 1 [facility] zheng HCl 5 2-16 tablet by ity o f mg tablet 00:00: mouth [place] 00 every 8 Medical (eight) Branch hours. metoclopram 2022-0 Yes [id number] 5mg Take 1 [facility] zheng HCl 5 2-16 tablet by ity o f mg tablet 00:00: mouth [place] 00 every 8 Medical (eight) Branch hours. metoclopram 2022-0 Yes [id number] 5mg Take 1 [facility] zheng HCl 5 2-16 tablet by ity o f mg tablet 00:00: mouth [place] 00 every 8 Medical (eight) Branch hours. metoclopram 2022-0 Yes [id number] 5mg Take 1 [facility] zheng HCl 5 2-16 tablet by ity o f mg tablet 00:00: mouth [place] 00 every 8 Medical (eight) Branch hours. proMETHazin 2-0 Yes [id number] 25mg Insert 1 Univers e 25 mg 2-12 Suppositor ity of suppository 00:00: y into [place] [facility] rectum Medical every 4 Branch (four) hours as needed for N/V unresponsi ve to oral antiemetic s. proMETHazin 2-0 Yes [id number] 25mg Insert 1 Univers e 25 mg 2-12 Suppositor ity of suppository 00:00: y into [place] [facility] rectum Medical every 4 Branch (four) hours as needed for N/V unresponsi ve to oral antiemetic s. proMETHazin 2022-0 Yes [id number] 25mg Insert 1 [facility] e 25 mg 2-12 Suppositor ity of suppository 00:00: y into [place] [facility] rectum Medical every 4 Branch (four) hours as needed for N/V unresponsi ve to oral antiemetic s. proMETHazin 2022-0 Yes [id number] 25mg Insert 1 [facility] e 25 mg 2-12 Suppositor ity of suppository 00:00: y into [place] [id number] rectum Medical every 4 Branch (four) hours as needed for N/V unresponsi ve to oral antiemetic s. proMETHazin 0 Yes [id number] 25mg Insert 1 [facility] e 25 mg 2-12 Suppositor ity of suppository 00:00: y [place] rectum Medical every 4 Branch (four) hours as needed for N/V unresponsi ve to oral antiemetic s. proMETHazin 0 Yes [id number] 25mg Insert 1 [facility] e 25 mg 2-12 Suppositor ity of suppository 00:00: y into [place] rectum Medical every 4 Branch (four) hours as needed for N/V unresponsi ve to oral antiemetic s. proMETHazin 0 Yes [id number] 25mg Insert 1 [facility] e 25 mg 2-12 Suppositor ity of suppository 00:00: y into [place] rectum Medical every 4 Branch (four) hours as needed for N/V unresponsi ve to oral antiemetic s. proMETHazin 0 Yes [id number] 25mg Insert 1 [facility] e 25 mg 2-12 Suppositor ity of suppository 00:00: y into [place] rectum Medical every 4 Branch (four) hours as needed for N/V unresponsi ve to oral antiemetic s. proMETHazin 0 Yes [id number] 25mg Insert 1 [facility] e 25 mg 2-12 Suppositor ity of suppository 00:00: y into [place] rectum Medical every 4 Branch (four) hours as needed for N/V unresponsi ve to oral antiemetic s. proMETHazin 0 Yes [id number] 25mg Insert 1 [facility] e 25 mg 2-12 Suppositor ity of suppository 00:00: y into [place] 00 rectum Medical every 4 Branch (four) hours as needed for N/V unresponsi ve to oral antiemetic s. proMETHazin 0 Yes [id number] 25mg Insert 1 [facility] e 25 mg 2-12 Suppositor ity of suppository 00:00: y into [place] rectum Medical every 4 Branch (four) hours as needed for N/V unresponsi ve to oral antiemetic s. proMETHazin 0 Yes [id number] 25mg Insert 1 [facility] e 25 mg 2-12 Suppositor ity of suppository 00:00: y into [place] 00 rectum Medical every 4 Branch (four) hours as needed for N/V unresponsi ve to oral antiemetic s. dicyclomine 2-0 Yes [id number] 20mg Take 1 [facility] 20 mg 1-10 tablet by ity of tablet 00:00: mouth [place] 00 every 6 Medical (six) Branch hours as needed for Abdominal pain. dicyclomine 2-0 Yes [id number] 20mg Take 1 [facility] 20 mg 1-10 tablet by ity of tablet 00:00: mouth [place] 00 every 6 Medical (six) Branch hours as needed for Abdominal pain. dicyclomine 2-0 Yes [id number] 20mg Take 1 [facility] 20 mg 1-10 tablet by ity of tablet 00:00: mouth [place] 00 every 6 Medical (six) Branch hours as needed for Abdominal pain. dicyclomine 2-0 Yes [id number] 20mg Take 1 [facility] 20 mg 1-10 tablet by ity of tablet 00:00: mouth [place] 00 every 6 Medical (six) Branch hours as needed for Abdominal pain. dicyclomine 2-0 Yes [id number] 20mg Take 1 [facility] 20 mg 1-10 tablet by ity of tablet 00:00: mouth [place] 00 every 6 Medical (six) Branch hours as needed for Abdominal pain. dicyclomine 2-0 Yes [id number] 20mg Take 1 [facility] 20 mg 1-10 tablet by ity of tablet 00:00: mouth [place] 00 every 6 Medical (six) Branch hours as needed for Abdominal pain. dicyclomine 2022-0 Yes [id number] 20mg Take 1 [facility] 20 mg 1-10 tablet by ity of tablet 00:00: mouth [place] 00 every 6 Medical (six) Branch hours as needed for Abdominal pain. dicyclomine 2022-0 Yes [id number] 20mg Take 1 [facility] 20 mg 1-10 tablet by ity of tablet 00:00: mouth [place] 00 every 6 Medical (six) Branch hours as needed for Abdominal pain. dicyclomine 2022-0 Yes [id number] 20mg Take 1 [facility] 20 mg 1-10 tablet by ity of tablet 00:00: mouth [place] 00 every 6 Medical (six) Branch hours as needed for Abdominal pain. dicyclomine 2-0 Yes [id number] 20mg Take 1 [facility] 20 mg 1-10 tablet by ity of tablet 00:00: mouth [place] 00 every 6 Medical (six) Branch hours as needed for Abdominal pain. dicyclomine 2-0 Yes [id number] 20mg Take 1 [facility] 20 mg 1-10 tablet by ity of tablet 00:00: mouth [place] 00 every 6 Medical (six) Branch hours as needed for Abdominal pain. dicyclomine 2-0 Yes [id number] 20mg Take 1 [facility] 20 mg 1-10 tablet by ity of tablet 00:00: mouth [place] 00 every 6 Medical (six) Branch hours as needed for Abdominal pain. flash 2020-06 Yes [id number] 1{each} 1 Each Uni vers glucose 1-23 daily. Use ity of scanning 00:00: [place]. [place] [facility] (FREESTYLE Branch ZELDA 2 READER) [facility] flash 2020-06 Yes [id number] 1{each} 1 Each Uni vers glucose 1-23 daily. Use ity of scanning 00:00: [place]. [place] . Medical (FREESTYLE Branch ZELDA 2 READER) [facility] flash 2020-06 Yes [id number] 1{each} 1 Each Uni vers glucose 1-23 daily. Use ity of scanning 00:00: [place]. [place] . Medical (FREESTYLE Branch ZELDA 2 READER) [facility] flash 2020-06 Yes [id number] 1{each} 1 Each Uni vers glucose 1-23 daily. Use ity of scanning 00:00: [place]. [place] . Medical (FREESTYLE Branch ZELDA 2 READER) [facility] flash 2020-06 Yes [id number] 1{each} 1 Each Uni vers glucose 1-23 daily. Use ity of scanning 00:00: [place]. [place] . Medical (FREESTYLE Branch ZELDA 2 READER) [facility] flash 2020- Yes [id number] 1{each} 1 Each Uni vers glucose 1-23 daily. Use ity of scanning 00:00: daily. [place] . Medical (FREESTYLE Branch ZELDA 2 READER) [facility] flash 2020-06 Yes [id number] 1{each} 1 Each Uni vers glucose 1-23 daily. Use ity of scanning 00:00: daily. [place] E11.21 Medical (FREESTYLE Branch ZELDA 2 READER) [facility] flash 2020-06 Yes [id number] 1{each} 1 Each Uni vers glucose 1-23 daily. Use ity of scanning 00:00: daily. [place] E11.21 Medical (FREESTYLE Branch ZELDA 2 READER) Mis flash 2020-06 Yes [id number] 1{each} 1 Each Uni vers glucose 1-23 daily. Use ity of scanning 00:00: daily. [place] E11. Medical (FREESTYLE Branch ZELDA 2 READER) [facility] flash 2020-06 Yes [id number] 1{each} 1 Each Uni vers glucose 1-23 daily. Use ity of scanning 00:00: daily. D[place] E11. Medical (FREESTYLE Branch ZELDA 2 READER) [facility] flash 2020-06 Yes [id number] 1{each} 1 Each Uni vers glucose 1-23 daily. Use ity of scanning 00:00: daily. [place] E11. Medical (FREESTYLE Branch ZELDA 2 READER) Mis flash 2020-06 Yes [id number] 1{each} 1 Each Uni vers glucose 1-23 daily. Use ity of scanning 00:00: daily. Dx [place] reader E11.21 Medical (FREESTYLE Branch ZELDA 2 READER) [facility] colchicine Yes [id number] 2 tabs po [facility] 0.6 mg 9- 9109 x 1 dose ity of tablet 00:00: PRN at [place] 00 onset of Medical gout Branch attack, may take 1 tab 1 hour later x 1 dose if still in pain; Max 3 tabs per 24 hours. colchicine Yes [id number] 2 tabs po [facility] 0.6 mg 9- 9109 x 1 dose ity of tablet 00:00: PRN at [place] 00 onset of Medical gout Branch attack, may take 1 tab 1 hour later x 1 dose if still in pain; Max 3 tabs per 24 hours. colchicine Yes [id number] 2 tabs po [facility] 0.6 mg 9- 9109 x 1 dose ity of tablet 00:00: PRN at [place] 00 onset of Medical gout Branch attack, may take 1 tab 1 hour later x 1 dose if still in pain; Max 3 tabs per 24 hours. colchicine 2020-0 Yes [id number] 2 tabs po [facility] 0.6 mg 9-22 9109 x 1 dose ity of tablet 00:00: PRN at [place] 00 onset of Medical gout Branch attack, may take 1 tab 1 hour later x 1 dose if still in pain; Max 3 tabs per 24 hours. colchicine 2020-0 Yes [id number] 2 tabs po Univers 0.6 mg 9-22 9109 x 1 dose ity of tablet 00:00: PRN at [place] [address] onset of Medical gout Branch attack, may take 1 tab 1 hour later x 1 dose if still in pain; Max 3 tabs per 24 hours. colchicine 2020-0 Yes [id number] 2 tabs po Univers 0.6 mg 9-22 9109 x 1 dose ity of tablet 00:00: PRN at [place] [address] onset of Medical gout Branch attack, may take 1 tab 1 hour later x 1 dose if still in pain; Max 3 tabs per 24 hours. colchicine 2020-0 Yes [id number] 2 tabs po [facility] 0.6 mg 9-22 9109 x 1 dose ity of tablet 00:00: PRN at [place] [address] onset of Medical gout Branch attack, may take 1 tab 1 hour later x 1 dose if still in pain; Max 3 tabs per 24 hours. colchicine 2020-0 Yes [id number] 2 tabs po [facility] 0.6 mg 9-22 9109 x 1 dose ity of tablet 00:00: PRN at [place] [address] onset of Medical gout Branch attack, may take 1 tab 1 hour later x 1 dose if still in pain; Max 3 tabs per 24 hours. colchicine 2020-0 Yes [id number] 2 tabs po [facility] 0.6 mg 9-22 9109 x 1 dose ity of tablet 00:00: PRN at [place] [address] onset of Medical gout Branch attack, may take 1 tab 1 hour later x 1 dose if still in pain; Max 3 tabs per 24 hours. colchicine 2020-0 Yes [id number] 2 tabs po [facility] 0.6 mg 9-22 9109 x 1 dose ity of tablet 00:00: PRN at [place] 00 onset of Medical gout Branch attack, may take 1 tab 1 hour later x 1 dose if still in pain; Max 3 tabs per 24 hours. colchicine Yes [id number] 2 tabs po [facility] 0.6 mg 03-03 9109 x 1 dose ity of tablet 00:00: PRN at [place] 00 onset of Medical gout Branch attack, may take 1 tab 1 hour later x 1 dose if still in pain; Max 3 tabs per 24 hours. colchicine Yes [id number] 2 tabs po [facility] 0.6 mg 03-03 9109 x 1 dose ity of tablet 00:00: PRN at [place] 00 onset of Medical gout Branch attack, may take 1 tab 1 hour later x 1 dose if still in pain; Max 3 tabs per 24 hours. hydrocortis 2021- No [id number] Apply to [facility] one 2.5 % 11-25 area(s) 2 ity of cream 00:00: 00:00 (two) [place] 00 :00 times Medical daily. Branch hydrocortis 2021- No [id number] Apply to Univers one 2.5 % 11-25 area(s) 2 ity of cream 00:00: 00:00 (two) [place] 00 :00 times Medical daily. Branch clobetasoL 2021- No [id number] Apply to Univers 0.05 % 08-18 area(s) ity of ointment 00:00: 00:00 every [place] 00 :00 Monday Medical and Branch in the evening. Use for 6 weeks, if no improvemen t, then make another appointmen t clobetasoL 2021- No [id number] Apply to Univers 0.05 % 08-18 area(s) ity of ointment 00:00: 00:00 every [place] 00 :00 Monday Medical and Branch in the evening. Use for 6 weeks, if no improvemen t, then make another appointmen t clobetasoL 2021- No [id number] Apply to Univers 0.05 % 08-18 area(s) ity of ointment 00:00: 00:00 every [place] 00 :00 Monday Medical and Branch in the evening. Use for 6 weeks, if no improvemen t, then make another appointmen t pen needle, 2018-06 Yes [id number] 1{each} inject 1 Univers diabetic 2-30 Each under ity o f (NOVOFINE 00:00: [place] PLUS[place] 32 00 daily. Use Medic al gauge x as Branch 1/6" Ndle directed. E11.21 once daily pen needle, 2018-06 Yes [id number] 1{each} inject 1 [facility] diabetic 2-30 Each under ity o f (NOVOFINE 00:00: [place] PLUS[place] 32 00 daily. Use Medic al gauge x as Branch 1/6" Ndle directed. E11.21 once daily pen needle, 2018-06 Yes [id number] 1{each} inject 1 [facility] diabetic 2-30 Each under ity o f (NOVOFINE 00:00: [place] PLUS[place] 32 00 daily. Use Medic al gauge x as Branch 1/6" Ndle directed. E11.21 once daily pen needle, 2018-06 Yes [id number] 1{each} inject 1 [facility] diabetic 2-30 Each under ity o f (NOVOFINE 00:00: [place] PLUS[place] 32 00 daily. Use Medic al gauge x as Branch 1/6" Ndle directed. E11.21 once daily pen needle, 2018-06 Yes [id number] 1{each} inject 1 [facility] diabetic 2-30 Each under ity o f (NOVOFINE 00:00: [place] PLUS[place] 32 00 daily. Use Medic al gauge x as Branch 1/6" Ndle directed. E11.21 once daily pen needle, 2018-06 Yes [id number] 1{each} inject 1 [facility] diabetic 2-30 Each under ity o f (NOVOFINE 00:00: [place] PLUS[place] 32 00 daily. Use Medic al gauge x as Branch 1/6" Ndle directed. E11.21 once daily pen needle, 2018-06 Yes [id number] 1{each} inject 1 [facility] diabetic 2-30 Each under ity o f (NOVOFINE 00:00: [place] PLUS[place] 32 00 daily. Use Medic al gauge x as Branch 1/6" Ndle directed. E11.21 once daily pen needle, 2018-06 Yes [id number] 1{each} inject 1 [facility] diabetic 2-30 Each under ity o f (NOVOFINE 00:00: the [place] PLUS[place] 32 00 daily. Use Medic al gauge x as Branch 1/6" Ndle directed. E11. once daily pen needle, 2018-06 Yes [id number] 1{each} inject 1 [facility] diabetic 2-30 Each under ity o f (NOVOFINE 00:00: the [place] PLUS[place] 32 00 daily. Use Medic al gauge x as Branch 1/6" Ndle directed. E11 once daily pen needle, 2018-06 Yes [id number] 1{each} inject 1 [facility] diabetic 2-30 Each under ity o f (NOVOFINE 00:00: the [place] PLUS[place] 32 00 daily. Use Medic al gauge x as Branch 1/6" Ndle directed. E11 once daily pen needle, 2018-06 Yes [id number] 1{each} inject 1 [facility] diabetic 2-30 Each under ity o f (NOVOFINE 00:00: the [place] PLUS[place] 32 00 daily. Use Medic al gauge x as Branch 1/6" Ndle directed. E11. once daily pen needle, 2018-06 Yes [id number] 1{each} inject 1 [facility] diabetic 2-30 Each under ity o f (NOVOFINE 00:00: the [place] PLUS[place] 32 00 daily. Use Medic al gauge x as Branch 1/6" Ndle directed. E11 once daily allopurinol allopurinol No allopurino [place] 100 mg 100 mg l 100 mg Family tablet TAKE tablet TAKE tablet Practic 1 TABLET BY 1 TABLET BY TAKE 1 e MOUTH DAILY MOUTH DAILY TABLET BY MOUTH DAILY atorvastati atorvastati No atorvastat [place] n 40 mg n 40 mg in 40 mg Famil y tablet TAKE tablet TAKE tablet Practic 1 TABLET BY 1 TABLET BY TAKE 1 e MOUTH AT MOUTH AT TABLET BY BEDTIME BEDTIME MOUTH AT BEDTIME clobetasol clobetasol No clobetasol [place] 0.05 % 0.05 % 0.05 % Family topical topical topical Practi c ointment ointment ointment e APPLY APPLY APPLY TOPICALLY TOPICALLY TOPICALLY TO THE TO THE TO THE AFFECTED AFFECTED AFFECTED AREA TWICE AREA TWICE AREA TWICE DAILY DAILY DAILY colchicine colchicine No colchicine [place] 0.6 mg 0.6 mg 0.6 mg Family tablet TAKE tablet TAKE tablet Practic 2 TABLETS 2 TABLETS TAKE 2 e BY MOUTH AT BY MOUTH AT TABLETS BY ONSET OF ONSET OF MOUTH AT GOUT FOR 1 GOUT FOR 1 ONSET OF DOSE DOSE GOUT FOR 1 NEEDED. MAY NEEDED. MAY DOSE TAKE 1 TAKE 1 NEEDED. TABLET 1 TABLET 1 MAY TAKE 1 HOUR LATER HOUR LATER TABLET 1 FOR 1 DOSE FOR 1 DOSE HOUR LATER IF STILL IN IF STILL IN FOR 1 DOSE PAIN. MAX 3 PAIN. MAX 3 IF STILL TABLET PER TABLET PER IN PAIN. 24 HOURS 24 HOURS MAX 3 TABLET PER 24 HOURS cyclobenzap cyclobenzap No 1 TID cyclobenza [facility] rine 5 mg rine 5 mg isabella 5 mg Family tablet Take tablet Take tablet Practic 1 tablet 3 1 tablet 3 Take 1 e times a day times a day tablet 3 by oral by oral times a route as route as day by needed for needed for oral route 10 days. 10 days. as needed for 10 days. Farxiga 10 Farxiga 10 No [employer] [facility] [place] mg tablet mg tablet mg tablet Family TAKE 1 TAKE 1 TAKE 1 Practic TABLET BY TABLET BY TABLET BY e MOUTH DAILY MOUTH DAILY MOUTH DAILY FreeStyle FreeStyle No [facility] 2 Zelda 2 Zelda 2 Family [place] [facility] Practic FOLLOW FOLLOW FOLLOW e DIRECTED DIRECTED DIRECTED FreeStyle Free[facility] Zelda 2 Zelda 2 Family Sensor kit Sensor kit Sensor kit Practic APPLY 1 APPLY 1 APPLY 1 e SENSOR TO SENSOR TO SENSOR TO SKIN EVERY SKIN EVERY SKIN EVERY 14 DAYS 14 DAYS 14 DAYS Humalog Humalog No Humalog [place] KwikPen KwikPen KwikPen Family (U-100) (U-100) (U-100) Practi c Insulin 100 Insulin 100 Insulin e unit/mL unit/mL 100 subcutaneou subcutaneou unit/mL s USE s USE subcutaneo INSTRUCTED. INSTRUCTED. us USE MAX DOSE OF MAX DOSE OF INSTRUCTED 50 UNITS 50 UNITS . MAX DOSE EVERY DAY EVERY DAY OF 50 UNITS EVERY DAY hydrocortis hydrocortis No hydrocorti [facility] one 2.5 % one 2.5 % sone 2.5 % [facility] topical topical topical Practi c cream APPLY cream APPLY cream e TOPICALLY TOPICALLY APPLY TO THE TO THE TOPICALLY AFFECTED AFFECTED TO THE AREA TWICE AREA TWICE AFFECTED DAILY DAILY AREA TWICE DAILY lisinopril lisinopril No lisinopril [facility] 20 20 20 Family mg-hydrochl mg-hydrochl mg-hydroch Practic orothiazide orothiazide lorothiazi e 12.5 mg 12.5 mg de 12.5 mg tablet TAKE tablet TAKE tablet 1 TABLET BY 1 TABLET BY TAKE 1 MOUTH DAILY MOUTH DAILY TABLET BY MOUTH DAILY meloxicam meloxicam No 1 Q1D meloxicam [place] 15 mg 15 mg 15 mg Family tablet Take tablet Take tablet Practic 1 tablet 1 tablet Take 1 e every day every day tablet by oral by oral every day route with route with by oral meals for meals for route with 30 days. 30 days. meals for 30 days. metformin metformin No metformin [place] ER 500 mg ER 500 mg ER 500 mg Family tablet,exte tablet,exte tablet,ext Practic nded nded ended e release 24 release 24 release 24 hr TAKE 2 hr TAKE 2 hr TAKE 2 TABLETS BY TABLETS BY TABLETS BY MOUTH TWICE MOUTH TWICE MOUTH DAILY WITH DAILY WITH TWICE MEALS MEALS DAILY WITH MEALS metoclopram metoclopram No metoclopra [facility] zheng 10 mg zheng 10 mg mide 10 mg Family tablet TAKE tablet TAKE tablet Practic 1 TABLET BY 1 TABLET BY TAKE 1 e MOUTH MOUTH TABLET BY BEFORE BEFORE MOUTH MEALS AND MEALS AND BEFORE AT BEDTIME AT BEDTIME MEALS AND AT BEDTIME metoclopram metoclopram No metoclopra [facility] zheng 5 mg zheng 5 mg mide 5 mg Fa serge tablet TAKE tablet TAKE tablet Practic 1 TABLET BY 1 TABLET BY TAKE 1 e MOUTH EVERY MOUTH EVERY TABLET BY 8 HOURS 8 HOURS MOUTH EVERY 8 HOURS Novolin Novolin No Novolin [place] 70-30 70-30 70-30 Family FlexPen FlexPen FlexPen Practi c U-100 30 U-100 30 U-100 30 e units in units in units in the am and the am and the am and 30 units in 30 units in 30 units pm sq pm sq in pm sq pantoprazol pantoprazol No pantoprazo [place] e 40 mg e 40 mg le 40 mg Famil y tablet,ramiro tablet,ramiro tablet,del Practic yed release yed release ayed e TAKE 1 TAKE 1 release TABLET BY TABLET BY TAKE 1 MOUTH DAILY MOUTH DAILY TABLET BY MOUTH DAILY pioglitazon pioglitazon No pioglitazo [place] e 30 mg e 30 mg ne 30 mg Famil y tablet TAKE tablet TAKE tablet Practic 1 TABLET BY 1 TABLET BY TAKE 1 e MOUTH DAILY MOUTH DAILY TABLET BY MOUTH DAILY allopurinol allopurinol No allopurino [facility] 100 mg 100 mg l 100 mg Family tablet TAKE tablet TAKE tablet Practic 1 TABLET BY 1 TABLET BY TAKE 1 e MOUTH DAILY MOUTH DAILY TABLET BY MOUTH DAILY atorvastati atorvastati No atorvastat [facility] n 40 mg n 40 mg in 40 mg Famil y tablet TAKE tablet TAKE tablet Practic 1 TABLET BY 1 TABLET BY TAKE 1 e MOUTH AT MOUTH AT TABLET BY BEDTIME BEDTIME MOUTH AT BEDTIME clobetasol clobetasol No clobetasol [place] 0.05 % 0.05 % 0.05 % Family topical topical topical Practi c ointment ointment ointment e APPLY APPLY APPLY TOPICALLY TOPICALLY TOPICALLY TO THE TO THE TO THE AFFECTED AFFECTED AFFECTED AREA TWICE AREA TWICE AREA TWICE DAILY DAILY DAILY colchicine colchicine No colchicine [facility] 0.6 mg 0.6 mg 0.6 mg Family tablet TAKE tablet TAKE tablet Practic 2 TABLETS 2 TABLETS TAKE 2 e BY MOUTH AT BY MOUTH AT TABLETS BY ONSET OF ONSET OF MOUTH AT GOUT FOR 1 GOUT FOR 1 ONSET OF DOSE DOSE GOUT FOR 1 NEEDED. MAY NEEDED. MAY DOSE TAKE 1 TAKE 1 NEEDED. TABLET 1 TABLET 1 MAY TAKE 1 HOUR LATER HOUR LATER TABLET 1 FOR 1 DOSE FOR 1 DOSE HOUR LATER IF STILL IN IF STILL IN FOR 1 DOSE PAIN. MAX 3 PAIN. MAX 3 IF STILL TABLET PER TABLET PER IN PAIN. 24 HOURS 24 HOURS MAX 3 TABLET PER 24 HOURS cyclobenzap cyclobenzap No cyclobenza [facility] rine 5 mg rine 5 mg isabella 5 mg Family tablet TAKE tablet TAKE tablet Practic 1 TABLET BY 1 TABLET BY TAKE 1 e MOUTH THREE MOUTH THREE TABLET BY TIMES DAILY TIMES DAILY MOUTH FOR 10 DAYS FOR 10 DAYS THREE NEEDED NEEDED TIMES DAILY FOR 10 DAYS NEEDED Farxiga 10 Farxiga 10 No Farxiga 10 [place] mg tablet mg tablet mg tablet Family TAKE 1 TAKE 1 TAKE 1 Practic TABLET BY TABLET BY TABLET BY e MOUTH DAILY MOUTH DAILY MOUTH DAILY FreeStyle FreeStyle No FreeStyle [facility] Zelda 2 Zelda 2 Zelda 2 Family [place] [facility] FOLLOW FOLLOW FOLLOW e DIRECTED DIRECTED DIRECTED FreeStyle FreeStyle No FreeStyle [facility] Zelda 2 Zelda 2 Zelda 2 Family Sensor kit Sensor kit Sensor kit Practic APPLY 1 APPLY 1 APPLY 1 e SENSOR TO SENSOR TO SENSOR TO SKIN EVERY SKIN EVERY SKIN EVERY 14 DAYS 14 DAYS 14 DAYS furosemide furosemide No 1 Q1D furosemide [place] 20 mg 20 mg 20 mg Family tablet Take tablet Take tablet Practic 1 tablet 1 tablet Take 1 e every day every day tablet by oral by oral every day route in route in by oral the morning the morning route in for 7 days. for 7 days. the morning for 7 days. Humalog Humalog No Humalog [place] KwikPen KwikPen KwikPen Family (U-100) (U-100) (U-100) Practi c Insulin 100 Insulin 100 Insulin e unit/mL unit/mL 100 subcutaneou subcutaneou unit/mL s USE s USE subcutaneo INSTRUCTED. INSTRUCTED. us USE MAX DOSE OF MAX DOSE OF INSTRUCTED 50 UNITS 50 UNITS . MAX DOSE EVERY DAY EVERY DAY OF 50 UNITS EVERY DAY hydrocortis hydrocortis No hydrocorti [place] one 2.5 % one 2.5 % sone 2.5 % Family topical topical topical Practi c cream APPLY cream APPLY cream e A THIN A THIN APPLY A LAYER TO LAYER TO THIN LAYER THE THE TO THE AFFECTED AFFECTED AFFECTED AREA(S) BY AREA(S) BY AREA(S) BY TOPICAL TOPICAL TOPICAL ROUTE 2 ROUTE 2 ROUTE 2 TIMES PER TIMES PER TIMES PER DAY DAY DAY lidocaine 5 lidocaine 5 No lidocaine [place] % topical % topical 5 % Famil y patch APPLY patch APPLY topical Practic 1 PATCH BY 1 PATCH BY patch e TOPICAL TOPICAL APPLY 1 ROUTE ONCE ROUTE ONCE PATCH BY DAILY (MAY DAILY (MAY TOPICAL WEAR UP TO WEAR UP TO ROUTE ONCE 12HOURS.) 12HOURS.) DAILY (MAY WEAR UP TO 12HOURS.) lisinopril lisinopril No lisinopril [facility] 20 20 20 Family mg-hydrochl mg-hydrochl mg-hydroch Practic orothiazide orothiazide lorothiazi e 12.5 mg 12.5 mg de 12.5 mg tablet TAKE tablet TAKE tablet 1 TABLET BY 1 TABLET BY TAKE 1 MOUTH DAILY MOUTH DAILY TABLET BY MOUTH DAILY meloxicam meloxicam No meloxicam [facility] 15 mg 15 mg 15 mg Family tablet TAKE tablet TAKE tablet Practic 1 TABLET BY 1 TABLET BY TAKE 1 e MOUTH EVERY MOUTH EVERY TABLET BY DAY WITH DAY WITH MOUTH MEALS MEALS EVERY DAY WITH MEALS metformin metformin No metformin [facility] ER 500 mg ER 500 mg ER 500 mg Family tablet,exte tablet,exte tablet,ext Practic nded nded ended e release 24 release 24 release 24 hr TAKE 2 hr TAKE 2 hr TAKE 2 TABLETS BY TABLETS BY TABLETS BY MOUTH TWICE MOUTH TWICE MOUTH DAILY WITH DAILY WITH TWICE MEALS MEALS DAILY WITH MEALS metoclopram metoclopram No metoclopra [place] zheng 10 mg zheng 10 mg mide 10 mg Family tablet TAKE tablet TAKE tablet Practic 1 TABLET BY 1 TABLET BY TAKE 1 e MOUTH MOUTH TABLET BY BEFORE BEFORE MOUTH MEALS AND MEALS AND BEFORE AT BEDTIME AT BEDTIME MEALS AND AT BEDTIME metoclopram metoclopram No metoclopra [place] zheng 5 mg zheng 5 mg mide 5 mg Fa serge tablet TAKE tablet TAKE tablet Practic 1 TABLET BY 1 TABLET BY TAKE 1 e MOUTH EVERY MOUTH EVERY TABLET BY 8 HOURS 8 HOURS MOUTH EVERY 8 HOURS montelukast montelukast No 1 Q1D montelukas [place] 10 mg 10 mg t 10 mg Family tablet Take tablet Take tablet Practic 1 tablet 1 tablet Take 1 e every day every day tablet by oral by oral every day route at route at by oral bedtime for bedtime for route at 30 days. 30 days. bedtime for 30 days. naproxen naproxen No naproxen [place] sodium 550 sodium 550 sodium 550 Family mg tablet mg tablet mg tablet Practic TAKE 1 TAKE 1 TAKE 1 e TABLET BY TABLET BY TABLET BY MOUTH EVERY MOUTH EVERY MOUTH 12 HOURS 12 HOURS EVERY 12 WITH MEALS WITH MEALS HOURS WITH MEALS Novolin Novolin No Novolin [place] 70-30 70-30 70-30 Family FlexPen FlexPen FlexPen Practi c U-100 30 U-100 30 U-100 30 e units in units in units in the am and the am and the am and 30 units in 30 units in 30 units pm sq pm sq in pm sq Novolog Novolog No Novolog [place] FlexPen FlexPen FlexPen Family U-100 U-100 U-100 Practic Insulin Insulin Insulin e aspart 100 aspart 100 aspart 100 unit/mL (3 unit/mL (3 unit/mL (3 mL) mL) mL) subcutaneou subcutaneou subcutaneo s Inject s Inject us Inject max dose of max dose of max dose 50 units 50 units of 50 under the under the units skin daily skin daily under the skin daily pantoprazol pantoprazol No pantoprazo [place] e 40 mg e 40 mg le 40 mg Famil y tablet,ramiro tablet,ramiro tablet,del Practic yed release yed release ayed e TAKE 1 TAKE 1 release TABLET BY TABLET BY TAKE 1 MOUTH DAILY MOUTH DAILY TABLET BY MOUTH DAILY pioglitazon pioglitazon No pioglitazo [place] e 30 mg e 30 mg ne 30 mg Famil y tablet TAKE tablet TAKE tablet Practic 1 TABLET BY 1 TABLET BY TAKE 1 e MOUTH DAILY MOUTH DAILY TABLET BY MOUTH DAILY allopurinol allopurinol No allopurino [facility] 100 mg 100 mg l 100 mg Family tablet TAKE tablet TAKE tablet Practic 1 TABLET BY 1 TABLET BY TAKE 1 e MOUTH DAILY MOUTH DAILY TABLET BY MOUTH DAILY atorvastati atorvastati No atorvastat [place] n 40 mg n 40 mg in 40 mg Famil y tablet TAKE tablet TAKE tablet Practic 1 TABLET BY 1 TABLET BY TAKE 1 e MOUTH AT MOUTH AT TABLET BY BEDTIME BEDTIME MOUTH AT BEDTIME clobetasol clobetasol No 1applic BID clobetasol [place] 0.05 % 0.05 % ation(s 0.05 % Family topical topical ) topical Practi c ointment ointment ointment e Apply 1 Apply 1 Apply 1 application application applicatio twice a day twice a day n twice a by topical by topical day by route for 7 route for 7 topical days. days. route for 7 days. colchicine colchicine No colchicine [facility] 0.6 mg 0.6 mg 0.6 mg Family tablet TAKE tablet TAKE tablet Practic 2 TABLETS 2 TABLETS TAKE 2 e BY MOUTH AT BY MOUTH AT TABLETS BY ONSET OF ONSET OF MOUTH AT GOUT FOR 1 GOUT FOR 1 ONSET OF DOSE DOSE GOUT FOR 1 NEEDED. MAY NEEDED. MAY DOSE TAKE 1 TAKE 1 NEEDED. TABLET 1 TABLET 1 MAY TAKE 1 HOUR LATER HOUR LATER TABLET 1 FOR 1 DOSE FOR 1 DOSE HOUR LATER IF STILL IN IF STILL IN FOR 1 DOSE PAIN. MAX 3 PAIN. MAX 3 IF STILL TABLET PER TABLET PER IN PAIN. 24 HOURS 24 HOURS MAX 3 TABLET PER 24 HOURS FreeStyle FreeStyle No FreeStyle [facility] Zelda 2 Zelda 2 Zelda 2 Family [place] [facility] [place] [facility] FOLLOW FOLLOW FOLLOW e DIRECTED DIRECTED DIRECTED FreeStyle FreeStyle No FreeStyle [facility] Zelda 2 Zelda 2 Zelda 2 Family Sensor kit Sensor kit Sensor kit Practic APPLY 1 APPLY 1 APPLY 1 e SENSOR TO SENSOR TO SENSOR TO SKIN EVERY SKIN EVERY SKIN EVERY 14 DAYS 14 DAYS 14 DAYS furosemide furosemide No furosemide [place] 20 mg 20 mg 20 mg Family tablet TAKE tablet TAKE tablet Practic 1 TABLET BY 1 TABLET BY TAKE 1 e MOUTH EVERY MOUTH EVERY TABLET BY DAY IN THE DAY IN THE MOUTH MORNING FOR MORNING FOR EVERY DAY 7 DAYS 7 DAYS IN THE MORNING FOR 7 DAYS hydrocortis hydrocortis No 1applic BID hydrocorti [place] one 2.5 % one 2.5 % ation(s sone 2.5 % Family topical topical ) topical Practi c cream Apply cream Apply cream e 1 1 Apply 1 application application applicatio twice a day twice a day n twice a by topical by topical day by route for route for topical 15 days. 15 days. route for 15 days. lidocaine 5 lidocaine 5 No 1patch( Q1D lidocaine [place] % topical % topical es) 5 % Famil y patch Apply patch Apply topical Practic 1 patch 1 patch patch e every day every day Apply 1 by topical by topical patch route for route for every day 30 days. 30 days. by topical route for 30 days. lisinopril lisinopril No 1 Q1D lisinopril [facility] 20 20 20 Family mg-hydrochl mg-hydrochl mg-hydroch Practic orothiazide orothiazide lorothiazi e 12.5 mg 12.5 mg de 12.5 mg tablet Take tablet Take tablet 1 tablet 1 tablet Take 1 every day every day tablet by oral by oral every day route for route for by oral 90 days. 90 days. route for 90 days. metformin metformin metformin [facility] ER 500 mg ER 500 mg ER 500 mg Family tablet,exte tablet,exte tablet,ext Practic nded nded ended e release 24 release 24 release 24 hr TAKE 2 hr TAKE 2 hr TAKE 2 TABLETS BY TABLETS BY TABLETS BY MOUTH TWICE MOUTH TWICE MOUTH DAILY WITH DAILY WITH TWICE MEALS MEALS DAILY WITH MEALS montelukast montelukast No 1 Q1D montelukas [facility] 10 mg 10 mg t 10 mg Family tablet Take tablet Take tablet Practic 1 tablet 1 tablet Take 1 e every day every day tablet by oral by oral every day route at route at by oral bedtime for bedtime for route at 90 days. 90 days. bedtime for 90 days. Novolin Novolin No Novolin [facility] 70-30 70-30 70-30 Family FlexPen FlexPen FlexPen Practi c U-100 30 U-100 30 U-100 30 e units in units in units in the am and the am and the am and 30 units in 30 units in 30 units pm sq pm sq in pm sq Novolog Novolog No Novolog [facility] FlexPen FlexPen FlexPen Family U-100 U-100 U-100 Practic Insulin Insulin Insulin e aspart 100 aspart 100 aspart 100 unit/mL (3 unit/mL (3 unit/mL (3 mL) mL) mL) subcutaneou subcutaneou subcutaneo s INJECT s INJECT us INJECT UNDER THE UNDER THE UNDER THE SKIN SKIN SKIN DIRECTED DIRECTED DIRECTED MAX DOSE OF MAX DOSE OF MAX DOSE 50 UNITS 50 UNITS OF 50 DAILY DAILY UNITS DAILY pantoprazol pantoprazol No pantoprazo [place] e 40 mg e 40 mg le 40 mg Famil y tablet,ramiro tablet,ramiro tablet,del Practic yed release yed release ayed e TAKE 1 TAKE 1 release TABLET BY TABLET BY TAKE 1 MOUTH DAILY MOUTH DAILY TABLET BY MOUTH DAILY pioglitazon pioglitazon No 1 Q1D pioglitazo [place] e 30 mg e 30 mg ne 30 mg Famil y tablet Take tablet Take tablet Practic 1 tablet 1 tablet Take 1 e every day every day tablet by oral by oral every day route for route for by oral 90 days. 90 days. route for 90 days. allopurinol allopurinol No allopurino [facility] 100 mg 100 mg l 100 mg Family tablet TAKE tablet TAKE tablet Practic 1 TABLET BY 1 TABLET BY TAKE 1 e MOUTH DAILY MOUTH DAILY TABLET BY MOUTH DAILY atorvastati atorvastati No atorvastat [place] n 40 mg n 40 mg in 40 mg Famil y tablet TAKE tablet TAKE tablet Practic 1 TABLET BY 1 TABLET BY TAKE 1 e MOUTH AT MOUTH AT TABLET BY BEDTIME BEDTIME MOUTH AT BEDTIME clobetasol clobetasol No 1applic BID clobetasol [place] 0.05 % 0.05 % ation(s 0.05 % Family topical topical ) topical Practi c ointment ointment ointment e Apply 1 Apply 1 Apply 1 application application applicatio twice a day twice a day n twice a by topical by topical day by route for 7 route for 7 topical days. days. route for 7 days. colchicine colchicine No colchicine [facility] 0.6 mg 0.6 mg 0.6 mg Family tablet TAKE tablet TAKE tablet Practic 2 TABLETS 2 TABLETS TAKE 2 e BY MOUTH AT BY MOUTH AT TABLETS BY ONSET OF ONSET OF MOUTH AT GOUT FOR 1 GOUT FOR 1 ONSET OF DOSE DOSE GOUT FOR 1 NEEDED. MAY NEEDED. MAY DOSE TAKE 1 TAKE 1 NEEDED. TABLET 1 TABLET 1 MAY TAKE 1 HOUR LATER HOUR LATER TABLET 1 FOR 1 DOSE FOR 1 DOSE HOUR LATER IF STILL IN IF STILL IN FOR 1 DOSE PAIN. MAX 3 PAIN. MAX 3 IF STILL TABLET PER TABLET PER IN PAIN. 24 HOURS 24 HOURS MAX 3 TABLET PER 24 HOURS FreeStyle FreeStyle No FreeStyle [facility] Zelda 2 Zelda 2 Zelda 2 Family [place] [facility] [place] Practic FOLLOW FOLLOW FOLLOW e DIRECTED DIRECTED DIRECTED FreeStyle FreeStyle No FreeStyle [facility] Zelda 2 Zelda 2 Zelda 2 Family Sensor kit Sensor kit Sensor kit Practic APPLY 1 APPLY 1 APPLY 1 e SENSOR TO SENSOR TO SENSOR TO SKIN EVERY SKIN EVERY SKIN EVERY 14 DAYS 14 DAYS 14 DAYS furosemide furosemide No furosemide [facility] 20 mg 20 mg 20 mg [facility] tablet TAKE tablet TAKE tablet Practic 1 TABLET BY 1 TABLET BY TAKE 1 e MOUTH EVERY MOUTH EVERY TABLET BY DAY IN THE DAY IN THE MOUTH MORNING FOR MORNING FOR EVERY DAY 7 DAYS 7 DAYS IN THE MORNING FOR 7 DAYS Humulin R Humulin R No Humulin R [facility] U-500 U-500 U-500 [facility] (Conc) (Conc) (Conc) Practic Insulin Insulin Insulin e Kwikpen 500 Kwikpen 500 Kwikpen unit/mL (3 unit/mL (3 500 mL) mL) unit/mL (3 subcutaneou subcutaneou mL) s Give 40 s Give 40 subcutaneo units units us Give 40 before before units breakfast breakfast before and dinner and dinner breakfast and and and dinner increase as increase as and directed: directed: increase TDD 200 TDD 200 as directed: TDD 200 hydrocortis hydrocortis No 1applic BID hydrocorti [facility] one 2.5 % one 2.5 % ation(s sone 2.5 % [facility] topical topical ) topical Practi c cream Apply cream Apply cream e 1 1 Apply 1 application application applicatio twice a day twice a day n twice a by topical by topical day by route for route for topical 15 days. 15 days. route for 15 days. Jardiance Jardiance No 1 Q1D Jardiance [facility] 25 mg 25 mg 25 mg Family tablet Take tablet Take tablet Practic 1 tablet 1 tablet Take 1 e every day every day tablet by oral by oral every day route in route in by oral the morning the morning route in for 30 for 30 the days. days. morning for 30 days. lidocaine 5 lidocaine 5 No 1patch( Q1D lidocaine [place] % topical % topical es) 5 % Famil y patch Apply patch Apply topical Practic 1 patch 1 patch patch e every day every day Apply 1 by topical by topical patch route for route for every day 30 days. 30 days. by topical route for 30 days. lisinopril lisinopril No lisinopril [facility] 20 20 20 Family mg-hydrochl mg-hydrochl mg-hydroch Practic orothiazide orothiazide lorothiazi e 12.5 mg 12.5 mg de 12.5 mg tablet Take tablet Take tablet 1 tablet 1 tablet Take 1 every day every day tablet by oral by oral every day route for route for by oral 90 days. 90 days. route for 90 days. magnesium magnesium No 1 Q1D magnesium [facility] 250 mg (as 250 mg (as 250 mg (as [facility] magnesium magnesium magnesium Practic oxide) oxide) oxide) e tablet Take tablet Take tablet 1 tablet 1 tablet Take 1 every day every day tablet by oral by oral every day route. route. by oral route. metformin metformin No 2 BID metformin [facility] ER 500 mg ER 500 mg ER 500 mg Family 24 hr 24 hr 24 hr Practic tablet,exte tablet,exte tablet,ext e nded nded ended release release release Take 2 Take 2 Take 2 tablets tablets tablets twice a day twice a day twice a by oral by oral day by route with route with oral route meals for meals for with meals 90 days. 90 days. for 90 days. metformin metformin No metformin [facility] ER 500 mg ER 500 mg ER 500 mg Family tablet,exte tablet,exte tablet,ext Practic nded nded ended e release 24 release 24 release 24 hr TAKE 2 hr TAKE 2 hr TAKE 2 TABLETS BY TABLETS BY TABLETS BY MOUTH TWICE MOUTH TWICE MOUTH DAILY WITH DAILY WITH TWICE MEALS MEALS DAILY WITH MEALS montelukast montelukast No 1 Q1D montekas [facility] 10 mg 10 mg t 10 mg Family tablet Take tablet Take tablet Practic 1 tablet 1 tablet Take 1 e every day every day tablet by oral by oral every day route at route at by oral bedtime for bedtime for route at 90 days. 90 days. bedtime for 90 days. Novolin Novolin No Novolin [facility] 70-30 70-30 70-30 Family FlexPen FlexPen FlexPen Practi c U-100 30 U-100 30 U-100 30 e units in units in units in the am and the am and the am and 30 units in 30 units in 30 units pm sq pm sq in pm sq Novolog Novolog No Novolog [facility] FlexPen FlexPen FlexPen Family U-100 U-100 U-100 Practic Insulin Insulin Insulin e aspart 100 aspart 100 aspart 100 unit/mL (3 unit/mL (3 unit/mL (3 mL) mL) mL) subcutaneou subcutaneou subcutaneo s INJECT s INJECT us INJECT UNDER THE UNDER THE UNDER THE SKIN SKIN SKIN DIRECTED DIRECTED DIRECTED MAX DOSE OF MAX DOSE OF MAX DOSE 50 UNITS 50 UNITS OF 50 DAILY DAILY UNITS DAILY Ozempic 1 Ozempic 1 No 1mg Q1W Ozempic 1 [facility] mg/dose (4 mg/dose (4 mg/dose (4 Family mg/3 mL) mg/3 mL) mg/3 mL) Pra ctic subcutaneou subcutaneou subcutaneo e s pen s pen us pen injector injector injector Inject 1 mg Inject 1 mg Inject 1 every week every week mg every by by week by subcutaneou subcutaneou subcutaneo s route for s route for us route 30 days. 30 days. for 30 days. pantoprazol pantoprazol No pantoprazo [place] e 40 mg e 40 mg le 40 mg Famil y tablet,ramiro tablet,ramiro tablet,del Practic yed release yed release ayed e TAKE 1 TAKE 1 release TABLET BY TABLET BY TAKE 1 MOUTH DAILY MOUTH DAILY TABLET BY MOUTH DAILY pioglitazon pioglitazon No 1 Q1D pioglitazo [place] e 15 mg e 15 mg ne 15 mg Famil y tablet Take tablet Take tablet Practic 1 tablet 1 tablet Take 1 e every day every day tablet by oral by oral every day route for route for by oral 30 days. 30 days. route for 30 days. pioglitazon pioglitazon No pioglitazo [place] e 30 mg e 30 mg ne 30 mg Famil y tablet TAKE tablet TAKE tablet Practic 1 TABLET BY 1 TABLET BY TAKE 1 e MOUTH DAILY MOUTH DAILY TABLET BY MOUTH DAILY allopurinol allopurinol No allopurino [facility] 100 mg 100 mg l 100 mg Family tablet TAKE tablet TAKE tablet Practic 1 TABLET BY 1 TABLET BY TAKE 1 e MOUTH DAILY MOUTH DAILY TABLET BY MOUTH DAILY atorvastati atorvastati No atorvastat [facility] n 40 mg n 40 mg in 40 mg Famil y tablet TAKE tablet TAKE tablet Practic 1 TABLET BY 1 TABLET BY TAKE 1 e MOUTH AT MOUTH AT TABLET BY BEDTIME BEDTIME MOUTH AT BEDTIME clobetasol clobetasol No clobetasol [facility] 0.05 % 0.05 % 0.05 % [facility] topical topical topical Practi c ointment ointment ointment e APPLY APPLY APPLY TOPICALLY TOPICALLY TOPICALLY TO THE TO THE TO THE AFFECTED AFFECTED AFFECTED AREA TWICE AREA TWICE AREA TWICE DAILY DAILY DAILY colchicine colchicine No colchicine [place] 0.6 mg 0.6 mg 0.6 mg Family tablet TAKE tablet TAKE tablet Practic 2 TABLETS 2 TABLETS TAKE 2 e BY MOUTH AT BY MOUTH AT TABLETS BY ONSET OF ONSET OF MOUTH AT GOUT FOR 1 GOUT FOR 1 ONSET OF DOSE DOSE GOUT FOR 1 NEEDED. MAY NEEDED. MAY DOSE TAKE 1 TAKE 1 NEEDED. TABLET 1 TABLET 1 MAY TAKE 1 HOUR LATER HOUR LATER TABLET 1 FOR 1 DOSE FOR 1 DOSE HOUR LATER IF STILL IN IF STILL IN FOR 1 DOSE PAIN. MAX 3 PAIN. MAX 3 IF STILL TABLET PER TABLET PER IN PAIN. 24 HOURS 24 HOURS MAX 3 TABLET PER 24 HOURS cyclobenzap cyclobenzap No 1 TID cyclobenza [place] rine 5 mg rine 5 mg isabella 5 mg Family tablet Take tablet Take tablet Practic 1 tablet 3 1 tablet 3 Take 1 e times a day times a day tablet 3 by oral by oral times a route as route as day by needed for needed for oral route 10 days. 10 days. as needed for 10 days. Farxiga 10 Farxiga 10 No Farxiga 10 [facility] mg tablet mg tablet mg tablet Family TAKE 1 TAKE 1 TAKE 1 Practic TABLET BY TABLET BY TABLET BY e MOUTH DAILY MOUTH DAILY MOUTH DAILY FreeStyle FreeStyle [facility] 2 Zelda 2 Zelda 2 [facility] [place] Practic FOLLOW FOLLOW FOLLOW e DIRECTED DIRECTED DIRECTED FreeStyle FreeStyle No FreeStyle [facility] Zelda 2 Zelda 2 Family Sensor kit Sensor kit Sensor kit Practic APPLY 1 APPLY 1 APPLY 1 e SENSOR TO SENSOR TO SENSOR TO SKIN EVERY SKIN EVERY SKIN EVERY 14 DAYS 14 DAYS 14 DAYS Humalog Humalog No Humalog [place] [facility] KwikPen KwikPen KwikPen Family (U-100) (U-100) (U-100) Practi c Insulin 100 Insulin 100 Insulin e unit/mL unit/mL 100 subcutaneou subcutaneou unit/mL s USE s USE subcutaneo INSTRUCTED. INSTRUCTED. us USE MAX DOSE OF MAX DOSE OF INSTRUCTED 50 UNITS 50 UNITS . MAX DOSE EVERY DAY EVERY DAY OF 50 UNITS EVERY DAY hydrocortis hydrocortis No hydrocorti [facility] one 2.5 % one 2.5 % sone 2.5 % Family topical topical topical Practi c cream APPLY cream APPLY cream e TOPICALLY TOPICALLY APPLY TO THE TO THE TOPICALLY AFFECTED AFFECTED TO THE AREA TWICE AREA TWICE AFFECTED DAILY DAILY AREA TWICE DAILY lisinopril lisinopril No lisinopril [facility] 20 20 20 Family mg-hydrochl mg-hydrochl mg-hydroch Practic orothiazide orothiazide lorothiazi e 12.5 mg 12.5 mg de 12.5 mg tablet TAKE tablet TAKE tablet 1 TABLET BY 1 TABLET BY TAKE 1 MOUTH DAILY MOUTH DAILY TABLET BY MOUTH DAILY meloxicam meloxicam No 1 Q1D meloxicam [facility] 15 mg 15 mg 15 mg Family tablet Take tablet Take tablet Practic 1 tablet 1 tablet Take 1 e every day every day tablet by oral by oral every day route with route with by oral meals for meals for route with 30 days. 30 days. meals for 30 days. metformin metformin No metformin [facility] ER 500 mg ER 500 mg ER 500 mg Family tablet,exte tablet,exte tablet,ext Practic nded nded ended e release 24 release 24 release 24 hr TAKE 2 hr TAKE 2 hr TAKE 2 TABLETS BY TABLETS BY TABLETS BY MOUTH TWICE MOUTH TWICE MOUTH DAILY WITH DAILY WITH TWICE MEALS MEALS DAILY WITH MEALS metoclopram metoclopram No metoclopra [facility] zheng 10 mg zheng 10 mg mide 10 mg Family tablet TAKE tablet TAKE tablet Practic 1 TABLET BY 1 TABLET BY TAKE 1 e MOUTH MOUTH TABLET BY BEFORE BEFORE MOUTH MEALS AND MEALS AND BEFORE AT BEDTIME AT BEDTIME MEALS AND AT BEDTIME metoclopram metoclopram No metoclopra [facility] zheng 5 mg zheng 5 mg mide 5 mg [facility] tablet TAKE tablet TAKE tablet Practic 1 TABLET BY 1 TABLET BY TAKE 1 e MOUTH EVERY MOUTH EVERY TABLET BY 8 HOURS 8 HOURS MOUTH EVERY 8 HOURS Novolin Novolin No Novolin [facility] 70-30 70-30 70-30 Family FlexPen FlexPen FlexPen Practi c U-100 30 U-100 30 U-100 30 e units in units in units in the am and the am and the am and 30 units in 30 units in 30 units pm sq pm sq in pm sq pantoprazol pantoprazol No pantoprazo [place] e 40 mg e 40 mg le 40 mg Famil y tablet,ramiro tablet,ramiro tablet,del Practic yed release yed release ayed e TAKE 1 TAKE 1 release TABLET BY TABLET BY TAKE 1 MOUTH DAILY MOUTH DAILY TABLET BY MOUTH DAILY pioglitazon pioglitazon No pioglitazo [place] e 30 mg e 30 mg ne 30 mg Famil y tablet TAKE tablet TAKE tablet Practic 1 TABLET BY 1 TABLET BY TAKE 1 e MOUTH DAILY MOUTH DAILY TABLET BY MOUTH DAILY Immunizations Ordered Filled Immunization Date Status Comments Sour e Immunization Name Name COVID-19, mRNA, COVID-19, mRNA, 2022-02-24 Completed [facility] Family LNP-S, bivalent LNP-S, bivalent 00:00:00 Prac madsiyn booster, PF, 30 booster, PF, 30 mcg/0.3 mL dose mcg/0.3 mL dose (Yillio) - (Gratafy-GridCraft) - ML ML Influenza Virus 2021-02-19 Completed [facility] Vaccine 00:00:00 [facility] Influenza Virus 2021-02-19 Completed [facility] Vaccine 00:00:00 [facility] Influenza Virus 2021-02-19 Completed [facility] Vaccine 00:00:00 [facility] Influenza Virus 2021-02-19 Completed [facility] Vaccine 00:00:00 [facility] Influenza Virus 2021-02-19 Completed [facility] Vaccine 00:00:00 [facility] Influenza Virus 2021-02-19 Completed [facility] Vaccine 00:00:00 [facility] Influenza Virus 2021-02-19 Completed [facility] Vaccine 00:00:00 [facility] Influenza Virus 2021-02-19 Completed [facility] Vaccine 00:00:00 [facility] Influenza Virus 2021-02-19 Completed [facility] Vaccine 00:00:00 [facility] Influenza Virus 2021-02-19 Completed [facility] Vaccine 00:00:00 [facility] Influenza Virus 2021-02-19 Completed [facility] Vaccine 00:00:00 [facility] Influenza Virus 2021-02-19 Completed [facility] Vaccine 00:00:00 [facility] SARS-COV-2 COVID-19 2020-11-20 Completed Unive rsity of PFIZER VACCINE 00:00:00 [facility] SARS-COV-2 COVID-19 2020-11-20 Completed Unive rsity of PFIZER VACCINE 00:00:00 [facility] SARS-COV-2 COVID-19 2020-11-20 Completed Unive rsity of PFIZER VACCINE 00:00:00 [facility] SARS-COV-2 COVID-19 2020-11-20 Completed Unive rsity of PFIZER VACCINE 00:00:00 [facility] SARS-COV-2 COVID-19 2020-11-20 Completed Unive rsity of PFIZER VACCINE 00:00:00 [facility] SARS-COV-2 COVID-19 2020-11-20 Completed Unive rsity of PFIZER VACCINE 00:00:00 [facility] SARS-COV-2 COVID-19 2020-11-20 Completed Unive rsity of PFIZER VACCINE 00:00:00 [facility] SARS-COV-2 COVID-19 2020-11-20 Completed Unive rsity of PFIZER VACCINE 00:00:00 [facility] SARS-COV-2 COVID-19 2020-11-20 Completed Unive rsity of PFIZER VACCINE 00:00:00 [facility] SARS-COV-2 COVID-19 2020-11-20 Completed Unive rsity of PFIZER VACCINE 00:00:00 [facility] SARS-COV-2 COVID-19 2020-11-20 Completed Unive rsity of PFIZER VACCINE 00:00:00 [facility] SARS-COV-2 COVID-19 2020-11-20 Completed Unive rsity of PFIZER VACCINE 00:00:00 [facility] COVID-19, mRNA, COVID-19, mRNA, 2020-11-20 Completed Vill age Family LNP-S, PF, 30 LNP-S, PF, 30 00:00:00 Practice mcg/0.3 mL dose mcg/0.3 mL dose (Pfizer-BioNTech) - (Pfizer-BioNTech) - ML ML SARS-COV-2 COVID-19 2020-10-30 Completed Unive rsity of PFIZER VACCINE 00:00:00 [facility] SARS-COV-2 COVID-19 2020-10-30 Completed Unive rsity of PFIZER VACCINE 00:00:00 [facility] SARS-COV-2 COVID-19 2020-10-30 Completed Unive rsity of PFIZER VACCINE 00:00:00 [facility] SARS-COV-2 COVID-19 2020-10-30 Completed Unive rsity of PFIZER VACCINE 00:00:00 [facility] SARS-COV-2 COVID-19 2020-10-30 Completed Unive rsity of PFIZER VACCINE 00:00:00 [facility] SARS-COV-2 COVID-19 2020-10-30 Completed Unive rsity of PFIZER VACCINE 00:00:00 [facility] SARS-COV-2 COVID-19 2020-10-30 Completed Unive rsity of PFIZER VACCINE 00:00:00 [facility] SARS-COV-2 COVID-19 2020-10-30 Completed Unive rsity of PFIZER VACCINE 00:00:00 [facility] SARS-COV-2 COVID-19 2020-10-30 Completed Unive rsity of PFIZER VACCINE 00:00:00 [facility] SARS-COV-2 COVID-19 2020-10-30 Completed Unive rsity of PFIZER VACCINE 00:00:00 [facility] SARS-COV-2 COVID-19 2020-10-30 Completed Unive rsity of PFIZER VACCINE 00:00:00 [facility] SARS-COV-2 COVID-19 2020-10-30 Completed Unive rsity of PFIZER VACCINE 00:00:00 [facility] COVID-19, mRNA, COVID-19, mRNA, 2020-10-30 Completed Vill [facility] Family LNP-S, PF, 30 LNP-S, PF, 30 00:00:00 Practice mcg/0.3 mL dose mcg/0.3 mL dose (Pfizer-BioNTech) - (Pfizer-BioNTech) - ML ML influenza, influenza, 2020-03-12 Completed [facility] injectable, injectable, 00:00:00 Practice quadrivalent quadrivalent influenza, influenza, 2020-03-12 Completed [facility] injectable, injectable, 00:00:00 Practice quadrivalent quadrivalent influenza, influenza, 2020-03-12 Completed [facility] injectable, injectable, 00:00:00 Practice quadrivalent quadrivalent influenza, influenza, 2020-03-12 Completed [facility] Family injectable, injectable, 00:00:00 Practice quadrivalent quadrivalent influenza, influenza, 2020-03-12 Completed [facility] Family injectable, injectable, 00:00:00 Practice quadrivalent quadrivalent influenza, influenza, 2020-03-12 Completed [facility] Family injectable, injectable, 00:00:00 Practice quadrivalent quadrivalent Influenza Virus 2020-02-18 Completed [facility] Vaccine Recomb Quad 00:00:00 [facility], Preserv and ABX Branc h Free 18-64 YRS Influenza Virus 2020-02-18 Completed [facility] Vaccine Recomb Quad 00:00:00 [facility], Preserv and ABX Branc h Free 18-64 YRS Influenza Virus 2020-02-18 Completed [facility] Vaccine Recomb Quad 00:00:00 [facility], Preserv and ABX Branc h Free 18-64 YRS Influenza Virus 2020-02-18 Completed [facility] Vaccine Recomb Quad 00:00:00 [facility], Preserv and ABX Branc h Free 18-64 YRS Influenza Virus 2020-02-18 Completed [facility] Vaccine Recomb Quad 00:00:00 [facility], Preserv and ABX Branc h Free 18-64 YRS Influenza Virus 2020-02-18 Completed [facility] Vaccine Recomb Quad 00:00:00 [facility], Preserv and ABX Branc h Free 18-64 YRS Influenza Virus 2020-02-18 Completed [facility] Vaccine Recomb Quad 00:00:00 [facility], Preserv and ABX Branc h Free 18-64 YRS Influenza Virus 2020-02-18 Completed [facility] Vaccine Recomb Quad 00:00:00 [facility], Preserv and ABX Branc h Free 18-64 YRS Influenza Virus 2020-02-18 Completed [facility] Vaccine Recomb Quad 00:00:00 [facility], Preserv and ABX Branc h Free 18-64 YRS Influenza Virus 2020-02-18 Completed [facility] of Vaccine Recomb Quad 00:00:00 [facility], Preserv and ABX Branc h Free 18-64 YRS Influenza Virus 2020-02-18 Completed [facility] Vaccine Recomb Quad 00:00:00 [facility], Preserv and ABX Branc h Free 18-64 YRS Influenza Virus 2020-02-18 Completed [facility] Vaccine Recomb Quad 00:00:00 [facility], Preserv and ABX Branc h Free 18-64 YRS Influenza Virus 2019-02-24 Completed [facility] Vaccine Quad .5 mL 00:00:00 [facility] 6[facility] Influenza Virus 2019-02-24 Completed [facility] Vaccine [facility] .5 mL 00:00:00 [facility] 6[facility] Influenza Virus 2019-02-24 Completed [facility] Vaccine [facility] .5 mL 00:00:00 [facility] 6+ [facility] Influenza Virus 2019-02-24 Completed [facility] Vaccine [facility] .5 mL 00:00:00 [facility] 6+ [place] [facility] Influenza Virus 2019-02-24 Completed [facility] Vaccine [facility] .5 mL 00:00:00 [facility] 6[facility] [place] [facility] Influenza Virus 2019-02-24 Completed [facility] Vaccine [facility] .5 mL 00:00:00 [facility] 6+ [place] [facility] Influenza Virus 2019-02-24 Completed [facility] Vaccine [facility] .5 mL 00:00:00 [facility] 6+ [place] [facility] Influenza Virus 2019-02-24 Completed [facility] Vaccine [facility] .5 mL 00:00:00 [facility] 6+ [place] [facility] Influenza Virus 2019-02-24 Completed [facility] Vaccine Quad .5 mL 00:00:00 [facility] 6+ [place] [facility] Influenza Virus 2019-02-24 Completed [facility] Vaccine Quad .5 mL 00:00:00 [facility] 6+ [place] [facility] Influenza Virus 2019-02-24 Completed [facility] Vaccine [facility] .5 mL 00:00:00 [facility] 6+ [place] [facility] Influenza Virus 2019-02-24 Completed [facility] Vaccine Quad .5 mL 00:00:00 [facility] 6+ [place] [facility] TDAP (ADACEL) 2019-01-03 Completed University of VACCINE 00:00:00 [facility] TDAP (ADACEL) 2019-01-03 Completed University of VACCINE 00:00:00 [facility] TDAP (ADACEL) 2019-01-03 Completed [facility] of VACCINE 00:00:00 [facility] TDAP (ADACEL) 2019-01-03 Completed [facility] of VACCINE 00:00:00 [facility] TDAP (ADACEL) 2019-01-03 Completed [facility] of VACCINE 00:00:00 [facility] TDAP (ADACEL) 2019-01-03 Completed [facility] of VACCINE 00:00:00 [facility] TDAP (ADACEL) 2019-01-03 Completed [facility] of VACCINE 00:00:00 [facility] TDAP (ADACEL) 2019-01-03 Completed University of VACCINE 00:00:00 [facility] TDAP (ADACEL) 2019-01-03 Completed University of VACCINE 00:00:[address] [facility] TDAP (ADACEL) 2019-01-03 Completed University of VACCINE 00:00:00 [facility] TDAP (ADACEL) 2019-01-03 Completed University of VACCINE 00:00:00 [facility] TDAP (ADACEL) 2019-01-03 Completed University of VACCINE 00:00:00 [facility] Zoster Vaccine 2018-06-28 Completed University of Recombinant 00:00:00 [facility] Zoster Vaccine 2018-06-28 Completed University of Recombinant 00:00:00 [facility] Zoster Vaccine 2018-06-28 Completed University of Recombinant 00:00:00 [facility] Zoster Vaccine 2018-06-28 Completed University of Recombinant 00:00:00 [facility] Zoster Vaccine 2018-06-28 Completed University of Recombinant 00:00:00 [facility] Zoster Vaccine 2018-06-28 Completed University of Recombinant 00:00:00 [facility] Zoster Vaccine 2018-06-28 Completed University of Recombinant 00:00:00 [facility] Zoster Vaccine 2018-06-28 Completed University of Recombinant 00:00:00 [facility] Zoster Vaccine 2018-06-28 Completed University of Recombinant 00:00:00 [facility] Zoster Vaccine 2018-06-28 Completed University of Recombinant 00:00:00 [facility] Zoster Vaccine 2018-06-28 Completed University of Recombinant 00:00:00 [facility] Zoster Vaccine 2018-06-28 Completed University of Recombinant 00:00:00 [facility] Zoster Vaccine 2018-03-06 Completed University of Recombinant 00:00:00 [facility] Zoster Vaccine 2018-03-06 Completed University of Recombinant 00:00:00 [facility] Zoster Vaccine 2018-03-06 Completed University of Recombinant 00:00:00 [facility] Zoster Vaccine 2018-03-06 Completed University of Recombinant 00:00:00 [facility] Zoster Vaccine 2018-03-06 Completed University of Recombinant 00:00:[address] [facility] Zoster Vaccine 2018-03-06 Completed University of Recombinant 00:00:00 [facility] Zoster Vaccine 2018-03-06 Completed University of Recombinant 00:00:00 [facility] Zoster Vaccine 2018-03-06 Completed [facility] of Recombinant 00:00:00 [facility] Zoster Vaccine 2018-03-06 Completed University of Recombinant 00:00:00 [facility] Zoster Vaccine 2018-03-06 Completed University of Recombinant 00:00:00 [facility] Zoster Vaccine 2018-03-06 Completed [facility] of Recombinant 00:00:00 [facility] Zoster Vaccine 2018-03-06 Completed [facility] of Recombinant 00:00:00 [facility] Influenza Virus 2018-03-03 Completed Universit y of Vaccine 00:00:00 [facility] Influenza Virus 2018-03-03 Completed Universit y of Vaccine 00:00:00 [facility] Influenza Virus 2018-03-03 Completed Universit y of Vaccine 00:00:00 [facility] Influenza Virus 2018-03-03 Completed Universit y of Vaccine 00:00:00 [facility] Influenza Virus 2018-03-03 Completed Universit y of Vaccine 00:00:00 [facility] Influenza Virus 2018-03-03 Completed Universit y of Vaccine 00:00:00 [facility] Influenza Virus 2018-03-03 Completed Universit y of Vaccine 00:00:00 [facility] Influenza Virus 2018-03-03 Completed Universit y of Vaccine 00:00:00 [facility] Influenza Virus 2018-03-03 Completed Universit y of Vaccine 00:00:00 [facility] Influenza Virus 2018-03-03 Completed Universit y of Vaccine 00:00:00 [facility] Influenza Virus 2018-03-03 Completed Universit y of Vaccine 00:00:00 [facility] Influenza Virus 2018-03-03 Completed Universit y of Vaccine 00:00:00 [facility] Pneumococcal 2016-06-12 Completed University o f Polysaccharide, 00:00:00 [place] [facility] PPSV23 (PNEUMOVAX) [facility] Pneumococcal 2016-06-12 Completed University o f Polysaccharide, 00:00:00 [place] [facility] PPSV23 (PNEUMOVAX) [facility] Pneumococcal 2016-06-12 Completed University o f Polysaccharide, 00:00:00 [place] [facility] PPSV23 (PNEUMOVAX) [facility] Pneumococcal 2016-06-12 Completed University o f Polysaccharide, 00:00:00 [place] [facility] PPSV23 (PNEUMOVAX) Branch Pneumococcal 2016-06-12 Completed University o f Polysaccharide, 00:00:00 [place] [facility] PPSV23 (PNEUMOVAX) Branch Pneumococcal 2016-06-12 Completed University o f Polysaccharide, 00:00:00 [place] [facility] PPSV23 (PNEUMOVAX) Branch Pneumococcal 2016-06-12 Completed University o f Polysaccharide, 00:00:00 [place] [facility] PPSV23 (PNEUMOVAX) Branch Pneumococcal 2016-06-12 Completed University o f Polysaccharide, 00:00:00 [place] [facility] PPSV23 (PNEUMOVAX) Branch Pneumococcal 2016-06-12 Completed University o f Polysaccharide, 00:00:00 [place] [facility] PPSV23 (PNEUMOVAX) Branch Pneumococcal 2016-06-12 Completed University o f Polysaccharide, 00:00:00 [place] [facility] PPSV23 (PNEUMOVAX) Branch Pneumococcal 2016-06-12 Completed University o f Polysaccharide, 00:00:00 [place] [facility] PPSV23 (PNEUMOVAX) [facility] Pneumococcal 2016-06-12 Completed University o f Polysaccharide, 00:00:00 [place] [facility] PPSV23 (PNEUMOVAX) [facility] Vital Signs Vital Name Observation Time Observation Value Comments Source BP Diastolic 2022-09-06 00:00:00 87 mm[Hg] [facility] Height 2022-09-06 00:00:00 61 [in_i] [facility] BMI (Body Mass 2022-09-06 00:00:00 42.4 kg/m2 [facility] BP Systolic 2022-09-06 00:00:00 142 mm[Hg] [facility] Body Weight 2022-09-06 00:00:00 224.6 [lb_av] [facility] BP Diastolic 2022-08-29 00:00:00 86 mm[Hg] [facility] Height 2022-08-29 00:00:00 61 [in_i] [facility] BMI (Body Mass 2022-08-29 00:00:00 41 kg/m2 [facility] BP Systolic 2022-08-29 00:00:00 126 mm[Hg] [facility] Body Weight 2022-08-29 00:00:00 217 [lb_av] [facility] BP Diastolic 2022-08-05 00:00:00 81 mm[Hg] [facility] Height 2022-08-05 00:00:00 61 [in_i] [facility] BMI (Body Mass 2022-08-05 00:00:00 42.4 kg/m2 [facility] BP Systolic 2022-08-05 00:00:00 128 mm[Hg] [facility] Body Weight 2022-08-05 00:00:00 224.4 [lb_av] [facility] BP Diastolic 2022-07-16 00:00:00 79 mm[Hg] [facility] Height 2022-07-16 00:00:00 61 [in_i] [facility] BMI (Body Mass 2022-07-16 00:00:00 40.7 kg/m2 [facility] BP Systolic 2022-07-16 00:00:00 115 mm[Hg] [facility] Body Weight 2022-07-16 00:00:00 215.4 [lb_av] [facility] Systolic blood 2022-01-06 21:04:00 116 mm[Hg] [facility] Diastolic blood 2022-01-06 21:04:00 81 mm[Hg] Unive rs[facility] Heart rate 2022-01-06 21:04:00 101 /min [facility] Respiratory rate 2022-01-06 21:04:00 18 /min [facility] 2022-01-06 21:04:[address] [facility] Body weight 2022-01-06 21:04:[address] [facility] BMI 2022-01-06 21:04:00 34.37 kg/m2 [facility] BP Diastolic 2020-08-10 00:00:00 83 mm[Hg] [facility] Height 2020-08-10 00:00:00 61 [in_i] [facility] BMI (Body Mass 2020-08-10 00:00:00 45.5 kg/m2 [facility] BP Systolic 2020-08-10 00:00:00 120 mm[Hg] [facility] Body Weight 2020-08-10 00:00:00 241 [lb_av] [facility] Respiratory rate 2021-08-08 18:50:52 18 /min [facility] Oxygen saturation in 2021-08-08 18:50:52 95 /min [facility] Arterial blood by Pulse oximetry Systolic blood 2021-08-08 18:50:52 107 mm[Hg] [facility] pressure Diastolic blood 2021-08-08 18:50:52 60 mm[Hg] [facility] pressure Heart rate 2021-08-08 18:50:52 76 /min [facility] Body temperature 2021-08-08 18:50:52 36.72 Veronica [facility] Body weight 2021-08-08 11:28:[address] [facility] Procedures Procedure Date / Time Performing Clinician Source Performed US, abdomen, complete 2022-08-29 00:00:00 [facility] MAMMO, screening, 2022-08-29 00:00:00 [facility] Reina valentine digital, bilateral Practice US, duplex, venous, lower 2022-08-05 00:00:00 [facility] X-RAY OF LUMBAR SPINE 2 2022-07-27 00:00:00 [facility] age Family OR [address], chest, w/o contrast 2022-07-16 00:00:00 [facility] Practice X-RAY OF LUMBAR SPINE 2 2022-07-16 00:00:00 [facility] age Family OR 3 VIEW Practice MAMMO, screening, 2022-07-16 00:00:00 [facility] Reina lua, bilateral Practice bone density 2022-07-16 00:00:00 [facility] HIGH RISK HPV-THIN PREP 2022-01-06 21:32:00 Xiang Gandhi [facility] PAP SMEAR-LIQUID BASED-CP 2022-01-06 21:32:00 [facility] 2021-12-22 00:00:00 [facility] POC GLUCOSE 2021-08-08 18:56:00 [facility] 2021-08-08 14:52:00 [facility]-19 ANTI-SPIKE IGG 2021-08-08 11:21:00 Julian Brown [facility] ANTIBODY TITER Jeremy COMPREHENSIVE METABOLIC 2021-08-08 11:21:00 Katie Dangelo [facility] PANEL MAGNESIUM LEVEL 2021-08-08 11:21:00 Katie Dangelo [facility] spital PHOSPHORUS LEVEL 2021-08-08 11:21:00 [facility] HC COMPLETE BLD COUNT 2021-08-08 11:21:00 [facility], [facility] W/AUTO DIFF COVID-19 SEROLOGY PATIENT 2021-08-08 11:21:00 [facility] Brown [facility] SURVEILLANCE Jeremy ESTIMATED GFR 2021-08-08 11:21:00 [facility] POT[facility]SIUM L[facility] 2021-08-08 04:56:00 Antolin, [facility] POC GLUCOSE 2021-08-08 03:33:00 [facility] POC GLUCOSE 2021-08-07 23:41:00 [facility] ECG 12-LEAD 2021-08-07 23:22:19 [facility]olin, [facility] spital POC GLUCOSE 2021-08-07 18:55:00 [facility] CBC WITH PLATELET AND 2021-08-07 17:11:00 Antolin, [facility] DIFFERENTIAL MANUAL DIFFERENTIAL 2021-08-07 17:11:00 [facility] HCG QUALITATIVE, URINE 2021-08-07 16:49:00 [facility] SCREEN SODIUM LEVEL, URINE, 2021-08-07 16:48:00 [facility], [facility] RANDOM OSMOLALITY, URINE 2021-08-07 16:48:00 [facility], [facility] POTASSIUM, URINE, RANDOM 2021-08-07 16:48:00 Antolin, [facility] CHLORIDE LEVEL, URINE, 2021-08-07 16:48:00 [facility], [facility] RANDOM POC GLUCOSE 2021-08-07 15:21:00 [facility] THYROID STIMULATING 2021-08-07 10:20:00 Antolin, [facility] HORMONE T4, FREE 2021-08-07 10:20:00 Antolin [facility] HEMOGLOBIN A1C 2021-08-07 10:20:00 Antolin [facility] spital COMPREHENSIVE METABOLIC 2021-08-07 10:20:00 Antolin, [facility] PANEL MAGNESIUM LEVEL 2021-08-07 10:20:00 Antolin, [facility] spital PHOSPHORUS LEVEL 2021-08-07 10:20:00 Antolin, [facility] H ospital LACTIC ACID LEVEL 2021-08-07 10:20:00 Antolin, [facility] LIPID PANEL 2021-08-07 10:20:00 Antolin, [facility] spital ESTIMATED GFR 2021-08-07 10:20:00 [facility] TROPONIN T 2021-08-07 06:00:00 Antolin, [facility] spital POC GLUCOSE 2021-08-07 02:32:00 [facility] 2021-08-07 00:55:00 [facility] BLOOD CULTURE, AEROBIC & 2021-08-06 23:53:00 [facility] ANAEROBIC [place] URINE CULTURE 2021-08-06 23:53:00 [facility] URINALYSIS SCREEN AND 2021-08-06 23:53:00 [facility] MICROSCOPY, WITH REFLEX TO CULTURE MAGNESIUM LEVEL 2021-08-06 23:53:00 Antolin, [facility] spital PHOSPHORUS LEVEL 2021-08-06 23:53:00 [facility], [facility] ospital URINE DRUGS OF ABUSE 2021-08-06 23:53:00 [facility] SCREEN [place] CT ABDOMEN PELVIS W 2021-08-06 19:37:22 [facility] CONTRAST RESPIRATORY PATHOGEN 2021-08-06 18:10:00 [facility] PANEL WITH COVID-19 RT-PCR HC COMPLETE BLD COUNT 2021-08-06 17:21:00 [facility] W/AUTO DIFF COMPREHENSIVE METABOLIC 2021-08-06 17:21:00 [facility] PANEL LIPASE LEVEL 2021-08-06 17:21:00 [facility] LACTIC ACID LEVEL, SEPSIS 2021-08-06 17:21:00 [facility] - NOW AND REPEAT 2X EVERY 3 HOURS ESTIMATED GFR 2021-08-06 17:21:00 [facility] ECG 12-LEAD 2021-08-06 17:05:17 [facility] ECG ED PRELIMINARY 2021-08-06 17:04:53 [facility] INTERPRETATION X-RAY OF FOOT 3+ VIEW 2020-08-10 00:00:00 Josemanuel [facility]ier Practice Plan of Care Planned Activity Planned Date Details Comments Source Future Scheduled Test 2022-09-13 Hepatitis C screening [facility] 04:43:19 (procedure) [code = 340193495] Future Scheduled Test 2022-09-13 Screening for [facility] 04:43:19 malignant neoplasm of cervix (procedure) [code = 455201773] Future Scheduled Test 2022-09-13 BREAST CANCER [facility] 04:43:19 SCREENING [code = BREAST CANCER SCREENING] Future Scheduled Test 2022-09-13 COLONOSCOPY SCREENING [facility] 04:43:19 [code = COLONOSCOPY SCREENING] Future Scheduled Test 2022-09-13 COVID-19 VACCINE (3 - [facility] 04:43:19 Booster for Pfizer series) [code = COVID-19 VACCINE (3 - Booster for Pfizer series)] Future Scheduled Test 2022-09-13 INFLUENZA VACCINE [facility] 04:43:19 [code = INFLUENZA VACCINE] Diagnostic Test 2022-09-06 glucose, fingerstick, Mine [facility] Pending 00:00:00 blood [code = Practice glucose, fingerstick, blood] Diagnostic Test 2022-09-06 C-peptide, serum Jaye [facility] Pending 00:00:00 [code = C-peptide, Practice serum] Diagnostic Test 2022-09-06 diabetes panel, serum Mine wayne [facility] Pending 00:00:00 [code = diabetes Practice panel, serum] Future Scheduled Test 2021-10-28 Pneumococcal Vaccine: [facility] 19:26:17 Pediatrics (0 to 5 Years) and At-Risk Patients (6 to 64 Years) (1 - PCV) [code = Pneumococcal Vaccine: Pediatrics (0 to 5 Years) and At-Risk Patients (6 to 64 Years) (1 - PCV)] Future Scheduled Test 2021-10-28 DIABETES: RETINAL EYE [facility] 19:26:17 EXAM [code = DIABETES: RETINAL EYE EXAM] Future Scheduled Test 2021-10-28 DIABETIC FOOT EXAM [facility] 19:26:17 [code = DIABETIC FOOT EXAM] Future Scheduled Test 2021-10-28 URINE MICROALBUMIN [facility] 19:26:17 [code = URINE MICROALBUMIN] Future Scheduled Test 2021-10-28 Hepatitis C screening [facility] 19:26:17 (procedure) [code = 723091347] Future Scheduled Test 2021-10-28 Screening for [facility] 19:26:17 malignant neoplasm of cervix (procedure) [code = [id number]] Future Scheduled Test 2021-10-28 BREAST CANCER [facility] 19:26:17 SCREENING [code = BREAST CANCER SCREENING] Future Scheduled Test 2021-10-28 COLONOSCOPY SCREENING [facility] 19:26:17 [code = COLONOSCOPY SCREENING] Future Scheduled Test 2021-10-28 COVID-19 VACCINE (3 - [facility] 19:26:17 Booster for Pfizer series) [code = COVID-19 VACCINE (3 - Booster for Pfizer series)] Future Scheduled Test 2021-10-28 INFLUENZA VACCINE [facility] 19:26:17 [code = INFLUENZA VACCINE] Future Appointment 2023-01-12 Kasey De Oliveira, [address] [facility] 00:00:00 Jey La Sal ; [address], [place] [address] Future Appointment 2022-11-29 Melissa Rayo, [address] [facility] 10:00:00 Melissa Ruiz; [address], [place] [address] Future Appointment 2022-11-01 Berry Brooks, [address] [facility] 09:30:[address]; Practice [address], [place] [address] Future Appointment 2022-10-18 Berry Brooks, [address] [place] [address] 00:00:[address]; Practice [address], [place] [address] Future Appointment 2022-10-07 Kasey De Oliveira, [address] [facility] 18:00:00 Jey cedeno [address], [place] [address] [facility] Encounters Start End Encounter Admission Attending Care Care Encounter Source Date/Time Date/Time Type Type Clinicians Facility Department ID 2021-04-12 Outpatient R PEPE [facility] [id number] Univers 01:27:09 МАРИЯ [facility] 2021-04-10 Emergency [facility] [id number] Univers 16:36:25 [facility] 2023-01-10 2023-01-10 Outpatient R XIANG GANDHI [facility] [id number] Univers 10:00:00 10:00:00 [facility] 2022-09-12 2022-09-12 Outpatient R ADITI AYON [facility] [id number] Univers 10:30:00 10:30:00 ADITI AYON [facility] 2022-09-06 2022-09-06 Outpatient Alvarez_R VFP VFP [id number] [place] [address] 00:00:00 00:00:00 [id number] Family Practic e 2022-09-06 2022-09-06 Outpatient Dykes_V_WAG VFP VFP [address] [place] [address] 00:00:00 00:00:00 DNU [id number] Family Practic e 2022-09-06 2022-09-06 Berry VFP [place] - [id number] V illage 00:00:00 00:00:00 [facility] Michael Brooks - Shadi rivera MD: [id number] [place] - e Shadow VM_HOU_Sh[address], [place] [address] , Ph. 2022-09-04 2022-09-04 Outpatient Alvarez_R VFP VFP [id number] [place] [address] 00:00:00 00:00:00 [id number] Family Practic e 2022-09-02 2022-09-02 [facility] [id number] Univers 00:00:00 00:00:00 Juan [facility] [id number] it y naif [place] [id number] Jose as ALEXI?BLEA [id number] De max [address] 2022-09-02 2022-09-02 Annabel Ferrari [facility] [id number] Univers 00:00:00 00:00:00 Juan Barreto [facility] [id number] [facility] [id number] Jose as ALEXI?BLEA [id number] [address] 2022-08-29 2022-08-29 Outpatient Alvarez_R VFP VFP [id number] 05-01 [facility] 00:00:00 00:00:00 [id number] Family Practic e 2022-08-29 2022-08-29 Melissa VFP [place] - [id number] V illage 00:00:00 00:00:00 MD Jim: [address] - e [address], _[facility] [address] , Ph. 2022-08-28 2022-08-28 Outpatient Alvarez_R VFP VFP [id number] [facility] 00:00:00 00:00:00 [id number] Family Practic e 2022-08-28 2022-08-28 Outpatient Dykes_V_WAG VFP VFP [id number] [facility] 00:00:00 00:00:00 DNU [id number] Family Practic e 2022-08-19 2022-08-19 Outpatient Alvarez_R VFP VFP [id number] [facility] 00:00:00 00:00:00 [id number] Family Practic e 2022-08-19 2022-08-19 Outpatient Alvarez_R VFP VFP [id number] [facility] 00:00:00 00:00:00 [id number] Family Practic e 2022-08-16 2022-08-16 Outpatient Alvarez_R VFP VFP [id number] [facility] 00:00:00 00:00:00 [id number] Family Practic e 2022-08-16 2022-08-16 Outpatient Dykes_V_WAG VFP VFP [id number] [facility] 00:00:00 00:00:00 DNU [id number] Family Practic e 2022-08-05 2022-08-05 Outpatient Alvarez_R VFP VFP [id number] [place] [address] 00:00:00 00:00:00 [id number] Family Practic e 2022-08-05 2022-08-05 Kasey VFP [place] - [id number] V illage 00:00:00 00:00:00 Alvino PAINTER DECORATOR: [address] [place] e [place], VM_HOU_[place]. [place] [address], [facility] ([facility] [place] [place] [address] , Ph. 2022-08-02 2022-08-02 Outpatient Alvarez_R VFP VFP [id number] [place] [address] 00:00:00 00:00:00 [id number] Family Practic e 2022-08-02 2022-08-02 [facility] [id number] 00:00:00 00:00:00 [facility] [id number] it y of [place] [id number] Jose as ALEXI?BLEA [id number] De lisa[address] MEDICAL OFFICE BUILDING 2022-07-27 2022-07-27 Outpatient Alvarez_R VFP VFP [id number] 00:00:00 00:00:00 [id number] Family Practic e 2022-07-27 2022-07-27 Kasey VFP [place] - [id number] V illage 00:00:00 00:00:00 Alvino PAINTER DECORATOR: [facility] [address] [facility] 3[facility] [place] - [place] ZENAIDA_HOU_Malissa [address] asia Stein , Ph. 2022-07-16 2022-07-16 Outpatient Alvarez_R VFP VFP [id number] [place] [address] 00:00:00 00:00:00 [id number] Family Practic e 2022-07-16 2022-07-16 Outpatient Dykes_V_WAG VFP VFP [id number] [facility] 00:00:00 00:00:00 DNU [id number] Family Practic e 2022-07-16 2022-07-16 Outpatient Dykes_V_WAG VFP VFP [id number] Village 00:00:00 00:00:00 DNU [id number] Family Practic e 2022-07-16 2022-07-16 Kasey VFP [place] - [id number] V illage 00:00:00 00:00:00 Alvino PAINTER DECORATOR: [facility] javan [address] [facility] [place] - e d , VM_HOU_N. [address], [facility] [place] ([place] [address] , Ph. 2022-07-13 2022-07-13 Outpatient Alvarez_R VFP VFP [id number] 11-20 [facility] 00:00:00 00:00:00 [id number] Family Practic e 2022-06-04 2022-06-04 RefANDRES Tafoya [id number] Univers 00:00:00 00:00:00 Latanya HEALTH [id number] it y of [place] [id number] Jose as ALEXI?BLEA [id number] De max [address] MEDICAL OFFICE BUILDING 2022-05-18 2022-05-18 Patient ANDRES Du [id number] Univers 00:00:00 00:00:00 Secure Msg Latanya MULTISPEC [id number] [id number] [place] [id number] [place] f[place]is AND MAURICIO [address] [facility] 2022-04-29 2022-04-29 Annabel Treadwell MIKEYLA [id number] Univers 00:00:00 00:00:00 Wondiful A HEALTH [id number] ity of [place] [id number] Jose as ALEXI?BLEA [id number] De max YARBROUGH [address] MEDICAL OFFICE BUILDING 2022-04-27 2022-04-27 ANDRES Rodas [id number] Univers 00:00:00 00:00:00 Lauri HEALTH [id number] it y of [place] [id number] Jose as ALEXI?BLEA [id number] De max [address] MEDICAL OFFICE BUILDING 2022-02-06 2022-02-06 Annabel Ana [facility] [id number] Univers 00:00:00 00:00:00 Latanya HEALTH [id number] it y of [place] [id number] Jose as ALEXI?BLEA [id number] [facility] Parissania [facility] OFFICE [facility] 2022-01-28 2022-01-28 Outpatient Asia SUNG [facility] [id number] Univers 11:30:00 11:30:00 LAURIMethodist [facility] 2022-01-28 2022-01-28 Outpatient Asia SUNG [facility] [id number] Univers 11:30:00 11:30:00 LAURIMethodist [facility] 2022-01-28 2022-01-28 Outpatient Asia SUNG [facility] [id number] Univers 11:30:00 11:30:00 LAURIMethodist [facility] 2022-01-10 2022-01-10 Patient Case, Saira [facility] 1.2.840.114 [id number] Univers 00:00:00 00:00:00 Secure Msg Rich RAMOS 350.1.13.10 ity of PEDIATRIC 4.[address].7.[address] [facility] [phone] [address] 2022-01-06 2022-01-06 Outpatient R XIANG GANDHI [facility] [id number] Univers 15:30:00 16:47:11 ity of [facility] 2022-01-06 2022-01-06 Office Xiang Gandhi [facility] 1.2.840.114 [id number] Univers 15:30:00 16:47:11 Visit RICHARD 350.1.13.10 it y of [place] [id number] [address] 2022-01-06 2022-01-06 Outpatient R XIANG GANDHI [facility] [id number] Univers 15:30:00 16:47:11 ity of [facility] 2022-01-05 2022-01-05 Xiang aYn [facility] 1.2.840.114 [id number] Univers 00:00:00 00:00:00 (Out) RICHARD 350.1.13.10 it y of [place] [id number] [facility] [address] 2021-12-07 2021-12-07 Refill [facility] 1.2.840.114 [id number] Univers 00:00:00 00:00:00 Latanya HEALTH 350.1.13.10 it y of [place] 4.2.7.2.686 Jose as ALEXI?BLEA [phone] [address] MEDICAL OFFICE BUILDING 2021-12-03 2021-12-03 [facility] [id number] Univers 11:00:00 11:37:11 [facility] 2021-[facility]-03 2021-12-03 Office [facility] 1.2.840.114 [id number] Univers 11:00:00 11:37:11 Visit Latanya HEALTH 350.1.13.10 it y [facility] 4.2.7.2.686 Jose as ALEXI?BLEA [phone] [address] MEDICAL OFFICE BUILDING 2021-12-03 2021-12-03 [facility] [id number] Univers 11:00:00 11:37:11 LATANYA ity [facility] 2021-12-03 2021-12-03 Outpatient [facility] [id number] Univers 11:00:00 11:00:00 LATANYA [facility] 2021-10-27 2021-10-27 Patient [facility] 1.2.840.114 [id number] Univers 00:00:00 00:00:00 Secure Msg Latanya MULTISPEC 350.1.13.10 ity of [place] C[place] [id number] [facility] [address] [facility] 2021-10-14 2021-10-14 Refill Nora MIKEYLA 1.2.840.114 [id number] Univers 00:00:00 00:00:00 Saravanan HEALTH 350.1.13.10 it y [facility] 4.2.7.2.686 Jose as ALEXI?BLEA [id number] [facility] [address] MEDICAL OFFICE BUILDING 2021-10-13 2021-10-13 Refcharla Du MIKEYLA 1.2.840.114 [id number] Univers 00:00:00 00:00:00 Latanya HEALTH 350.1.13.10 it y [facility] 4.2.7.2.686 Jose as ALEXI?BLEA [id number] [facility] [address] MEDICAL OFFICE BUILDING 2021-10-06 2021-10-06 Orders Doctor TIFFANIE 1.2.840.114 [id number] Univers 00:00:00 00:00:00 Only Unassigned, KENDRA 350.1.13.10 [facility] 4.2.7.2.686 Jose as [phone] [facility] [address] 2021-10-04 2021-10-04 Refill Nora [facility] 1.2.840.114 [id number] Univers 00:00:00 00:00:00 Saravanan HEALTH 350.1.13.10 it y [facility] 4.2.7.2.686 Jose as ALEXI?BLEA [phone] [facility] [address] MEDICAL OFFICE BUILDING 2021-09-27 2021-09-27 Refill Eben MIKEYLA 1.2.840.114 [id number] Univers 00:00:00 00:00:00 Wondiful A HEALTH 350.1.13.10 ity of [place] 4.2.7.2.686 Jose as PROFESSIO [phone] [facility] Parissania [address] OFFICE BUILDING ONE 2021-09-25 2021-09-25 Refill Nora MIKEYLA 1.2.840.114 [id number] Univers 00:00:00 00:00:00 Saravanan MULTISPEC 350.1.13.10 ity of [place] [phone] [facility] AND [address] DI[facility]ES CLINIC 2021-09-20 2021-09-20 Patient Ana Laura [facility] 1.2.840.114 [id number] Univers 00:00:00 00:00:00 Secure Msg Latanya HEALTH 350.1.13.10 ity of [place] 4.2.7.2.686 Jose as ALEXI?BLEA [phone] [address] OFFICE [facility] 2021-09-18 2021-09-18 Outpatient Dykes_V_WAG VFP VFP 134 [id number] Village 00:00:00 00:00:00 DNU [id number] Family Practic e 2021-09-18 2021-09-18 Outpatient Alvarez_R VFP VFP [id number] 11-20 [facility] 00:00:00 00:00:00 [id number] Family Practic e 2021-09-17 2021-09-17 Refill Ana [facility] 1.2.840.114 [id number] Univers 00:00:00 00:00:00 [facility] 350.1.13.10 it y of [place] 4.2.7.2.686 Jose as ALEXI?BLEA [id number] [address] OFFICE [facility] 2021-09-11 2021-09-11 [facility]ill [facility] 1.2.840.114 [id number] Univers 00:00:00 00:00:00 Saravanan [place] 350.1.13.10 i ty of [place] 4.2.7.2.686 [place] [facility] [phone] [address] 2021-09-03 2021-09-03 Outpatient [facility] [id number] Univers 15:30:00 16:38:53 LATANYA ity of [facility] 2021-09-03 2021-09-03 Office Ana [facility] 1.2.840.114 [id number] Univers 15:30:00 16:38:[address] HEALTH 350.1.13.10 it y of [place] 4.2.7.2.686 Jose as ALEXI?BLEA [phone] De max YARBROUGHGINNA [address] MEDICAL OFFICE BUILDING 2021-09-03 2021-09-03 Outpatient R ANA LAURA [facility] [id number] Univers 15:30:00 16:38:53 LATANYA ity of [facility] 2021-09-03 2021-09-03 Outpatient R EBEN [facility] [id number] Univers 10:45:00 11:42:07 WONDIFUL ity o f [facility] 2021-09-03 2021-09-03 Office [facility] 1.2.840.114 [id number] Univers 10:45:00 11:42:07 [facility] 350.1.13.10 ity of [place] 4.2.7.2.686 Jose as ALEXI?BLEA [phone] De max [address] MEDICAL OFFICE BUILDING 2021-08-25 2021-08-25 Outpatient R [facility] [id number] Univers 07:40:42 23:59:00 BRETT Judd o f [facility] 2021-08-25 2021-08-25 [facility] 1.2.840.114 [id number] Univers 07:40:42 23:59:00 Encounter Brett judd 350.1.13.10 ity of [place].2.[place] [id number] [facility] [address] 2021-08-24 2021-08-24 Annabel MelendezPRES[facility]TERIAN [facility] 1.2.840.114 [id number] Univers 00:00:00 00:00:00 Saravanan MULTISPEC 350.1.13.10 ity of [facility] 4.2.7.2.686 [place] [phone] [facility] AND MAURICIO [address] [facility] 2021-08-23 2021-08-23 Outpatient XIANG JOHNSON [facility] [id number] Univers 09:00:00 09:00:00 ity of [facility] 2021-08-23 2021-08-23 Outpatient XIANG JOHNSON [facility] [id number] Univers 09:00:00 09:00:00 ity [facility] 2021-08-23 2021-08-23 Outpatient R XIANG GANDHI [facility] [id number] Univers 09:00:00 09:00:00 ity [facility] 2021-08-13 2021-08-13 Orders Doctor TIFFANIE 1.2.840.114 [id number] Univers 00:00:00 00:00:00 Only Unassigned, KENDRA 350.1.13.10 it[place] of [place] [facility] 4.2.7.2.686 Jose [phone] [facility] [address] 2021-08-11 2021-08-11 Patient Ana Laura [facility] 1.2.840.114 [id number] Univers 00:00:00 00:00:00 Secure Msg Latanya TATEPEC 350.1.13.10 ity of [facility] 4.2.7.2.686 [facility] [phone] [facility] AND [facility] [address] [facility] 2021-08-10 2021-08-10 Patient Lloyd, 1.2.840.1 [id number] Methodi 00:00:00 00:00:00 Outreach Fabienne 50844.1.[address] 3.430.2.7 Hospit a .3.295709 l .8 2021-08-09 2021-08-09 Patient Savage, 1.2.840.1 [id number] Methodi 00:00:00 00:00:00 Outreach Lazara 77154.1.[address] 3.430.2.7 Hospit a .3.761438 l .8 2021-08-06 2021-08-08 Hospital Andrew Chairez 1.2.840.1 [id number] Methodi 11:09:00 15:21:00 Encounter Ele Sanders 78343.1.[address] 3.430.2.7 Hospit a .3.234346 l .8 2021-08-06 2021-08-06 Outpatient R ANA LAURA [facility] [id number] Univers 09:30:00 09:30:00 LATANYA ity [facility] 2021-08-04 2021-08-04 Emergency X SUZAN, [facility] ERT [id number] Univers 14:28:00 16:14:00 TIM de souza [facility] 2021-08-04 2021-08-04 Emergency [facility] 1.2.840.114 [id number] Univers 14:28:00 16:14:00 Tim PHANBRIAN 350.1.13.10 i ty of [place] 4.2.7.2.686 [facility] [phone] [address] 2021-08-04 2021-08-04 Emergency X , [facility] ERT [id number] Univers 08:16:00 10:16:00 JOSE de souza [facility] 2021-08-04 2021-08-04 Emergency [facility] 1.2.025.707 [id number] Univers 08:16:00 10:16:00 Jose HATCH 350.1.13.10 i ty of [place] 4.2.7.2.[address] [place] [phone] 2021-07-27 2021-07-28 Outpatient X [facility] ABDON [id number] Univers 07:36:00 14:27:00 JULIAN de souza [facility] 2021-07-27 2021-07-28 Emergency Jes Clayton [facility] 1.2.8 40.114 [id number] Univers 07:36:00 14:27:00 Julian Robledo 350.1.13.10 it[facility] 4.2.7.2.[address] [place] [phone] 2021-07-24 2021-07-24 Emergency X [facility] ERT [id number] Univers 13:22:00 17:15:00 JOSE de souza [facility] 2021-07-24 2021-07-24 Emergency [facility] 1.2.410.348 [id number] Univers 13:22:00 17:15:00 Jose HATCH 350.1.13.10 i ty of [place] 4.2.7.2.686 [facility] [id number] [address] 2021-07-12 2021-07-12 Outpatient R NORA [facility] [id number] Univers 09:30:00 09:30:00 SARAVANAN [facility] 2021-07-04 2021-07-04 Refill Leigh[facility]imPRES[facility] 1.2.840.114 [id number] Univers 00:00:00 00:00:00 [facility] 350.1.13.10 it y of [place] 4.2.7.2.686 Jose as ALEXI?BLEA [id number] [address] MEDICAL OFFICE BUILDING 2021-06-25 2021-06-26 Outpatient X ANDREEA [facility] ABDON [id number] Univers 16:05:00 13:48:00 [facility] 2021-06-25 2021-06-26 Emergency Tim Mares [facility] 1.2.840 .114 [id number] Univers 16:05:00 13:48:00 [facility] 350.1.13.10 ity [facility] 4.2.7.2.686 [facility] [phone] [address] 2021-06-20 2021-06-21 Emergency X [facility]MINPRES[facility] ERT [id number] Univers 22:22:00 01:23:00 [facility] 2021-06-20 2021-06-21 Emergency FerminPRES[facility]TERIAN [facility] 1.2.768.843 [id number] Univers 22:22:00 01:23:00 Luis Alberto HATCH 350.1.13.10 y [facility] 4.2.7.2.686 [facility] [phone] [address] 2021-06-20 2021-06-21 Emergency X [facility]MINPRES[facility] ERT [id number] Univers 22:22:00 01:23:00 LUIS ALBERTO [facility] 2021-06-19 2021-06-20 Emergency X MATILDEPRESBYTERIAN [facility] ERT [id number] Univers 20:47:00 01:30:00 JES [facility] 2021-06-19 2021-06-20 Emergency MatildePRESBYTERIAN [facility] 1.2.840.114 [id number] Univers 20:47:00 01:30:00 Jes HATCH 350.1.13.10 ity [facility] 4.2.7.2.[place] [phone] [facility] [address] 2021-06-19 2021-06-19 Outpatient Dykes_V[facility] 134 6111-20 [facility] 05:46:00 05:46:00 DNU [id number] Family Practic e 2021-06-18 2021-06-18 Telephone EbenPRESBYTERIAN [facility] 1.2.840.114 [id number] Univers 00:00:00 00:00:00 Wondiful A HEALTH 350.1.13.10 ity of [place] 4.2.7.2.686 Jose as ALEXI?BLEA [phone] [address] 2021-05-09 2021-05-09 Refcharla MelendezPRESBYTERIAN [facility] 1.2.840.114 [id number] Univers 00:00:00 00:00:00 Saravanan [facility] 350.1.13.10 i ty of [place] 4.2.7.2.686 [place] [facility] [phone] [address] 2021-05-03 2021-05-03 Annabel MelendezPRESBYTERIAN [facility] 1.2.840.114 [id number] Univers 00:00:00 00:00:00 Saravanan HEALTH 350.1.13.10 it y of [place] 4.2.7.2.686 Jose as ALEXI?BLEA [id number] [address] 2021-05-02 2021-05-02 Refcharla TreadwellPRESBYTERIAN KAS[facility] 1.2.840.114 [id number] Univers 00:00:00 00:00:00 Wondiful A HEALTH 350.1.13.10 ity of [place] 4.2.7.2.686 Jose as ALEXI?BLEA [id number] [address] 2021-04-13 2021-04-13 Annabel MelendezPRESBYTERIAN [facility] 1.2.840.114 [id number] Univers 00:00:00 00:00:00 Saravanan HEALTH 350.1.13.10 it y of [facility] 4.2.7.2.686 Jose as ALEXI?BLEA [id number] [address] OFFICE [facility] 2021-04-10 2021-04-10 Beverleycharla Abrahamjim [facility] 1.2.840.114 [id number] Univers 00:00:00 00:00:00 Saravanan [facility] 350.1.13.10 i ty [facility] 4.2.7.2.[place] PROF[place] [id number] [address] 2021-04-06 2021-04-06 Outpatient R ANA LAURA [facility] [id number] Univers 11:00:00 11:13:50 LATANYA ity of [facility] 2021-04-06 2021-04-06 Office [facility] 1.2.840.114 [id number] Univers 10:36:17 11:13:50 Visit [facility] 350.1.13.10 it y of [place] 4.2.7.2.686 Jose as ALEXI?BLEA [id number] [address] OFFICE [facility] 2021-04-06 2021-04-06 Orders Doctor TIFFANIE 1.2.840.114 [id number] Univers 00:00:00 00:00:00 Only Unassigned, KENDRA 350.1.13.10 [place] [facility] 4.2.7.2.686 Jose as [id number] [address] 2021-03-25 2021-03-25 Orders Doctor TIFFANIE 1.2.840.114 [id number] Univers 00:00:00 00:00:00 Only Unassigned, KENDRA 350.1.13.10 [place] [facility] 4.2.7.2.686 Jose as [id number] [address] 2021-03-23 2021-03-23 Ancillary Carlee De La O [facility] 1.2.840. 114 [id number] Univers 13:01:06 13:44:17 Visit Luigi Ngoton 350.1.13.10 ity of [place].2.[place] [phone] De dical nal [address] 2021-03-23 2021-03-23 Telephone Nora [facility] 1.2.840.114 [id number] Univers 00:00:00 00:00:00 Saravanan MULTISPEC 350.1.13.10 ity of [place].2.686 [place] CENTER [id number] [facility] AND [facility] [address] [facility] 2021-03-21 2021-03-21 Patient Leighjim [facility] 1.2.840.114 [id number] Univers 00:00:00 00:00:00 Secure Msg Saravanan Health 350.1.13.10 ity of [place] 4.2.7.2.686 Jose as Alexi?Blea [phone] [facility] [address] Medical Office Building 2021-03-18 2021-03-18 Ancillary Carlee De La O [facility] 1.2.840. 114 [id number] Univers 14:48:30 15:28:30 Visit Luigi Ngo 350.1.13.10 ity of [place].2.[place] Profess[place] [phone] De dical nal 179 [facility] 2021-03-16 2021-03-16 Ancillary Carlee De La O [facility] 1.2.840. 114 [id number] Univers 14:45:32 15:25:32 Visit Luigi Ngo 350.1.13.10 ity of [place].7.2.[place] [phone] De dical nal [address] [facility] 2021-03-16 2021-03-16 Outpatient R JENI [facility] [id number] Univers 14:40:00 14:40:00 LUIGI de souza of [facility] 2021-03-14 2021-03-14 Refill [facility] 1.2.840.114 [id number] Univers 00:00:00 00:00:00 Saravanan [place] 350.1.13.10 i ty of [place].2.[place] Profess[place] [phone] De dical nal [address] [facility] 2021-03-11 2021-03-11 Ancillary NickieYaneliPaola A [facility] 1.2. 840.114 [id number] Univers 13:01:29 13:41:29 Visit Luigi Ngo 350.1.13.10 ity of [place].2.[place] [phone] De dical nal [address] [facility] 2021-03-09 2021-03-09 Ancillary Carlee De La O [facility] 1.2.840. 114 [id number] Univers 13:00:37 14:00:37 Visit Deon Treadwell 350.1.13. 10 ity of [place].7.2.686 [place] [phone] De dical nal 179 [facility] 2021-03-09 2021-03-09 Outpatient R EBEN [facility] [id number] Univers 13:00:00 13:00:00 DEON ity o f [facility] 2021-03-09 2021-03-09 Refill [facility] 1.2.840.114 [id number] Univers 00:00:00 00:00:00 Saravanan Health 350.1.13.10 it y of [place] 4.2.7.2.686 Jose as Alexi?Blea [phone] [address] Office [facility] 2021-03-05 2021-03-05 Patient Nora [facility] 1.2.840.114 [id number] Univers 00:00:00 00:00:00 Secure Msg Saravanan Health 350.1.13.10 ity of [place] 4.2.7.2.686 Jose as Alexi?Blea [phone] [facility] 220 [facility] Office [facility] 2021-03-05 2021-03-05 Refill Nora [facility] 1.2.840.114 [id number] Univers 00:00:00 00:00:00 Saravanan Health 350.1.13.10 it y of [place] 4.2.7.2.686 Jose as Alexi?Blea [phone] De max [place] [address] Medical Office Building 2021-03-03 2021-03-03 [facility] 1.2.840.114 [id number] Univers 00:00:00 00:00:00 Management Wondiful A Health 350.1.13.10 ity of [place] 4.2.7.2.686 Jose as Alexi?Blea [phone] De max [address] Medical Office [facility] 2021-02-26 2021-02-26 [facility] 1.2.840.114 [id number] Univers 00:00:00 00:00:00 Wondiful A Health 350.1.13.10 ity of [place] 4.2.7.2.686 Jose as Alexi?Blea [phone] [facility] 044 [facility] Office [facility] 2021-02-25 2021-02-25 [facility] 1.2.840.114 [id number] Univers 00:00:00 00:00:00 Saravanan MULTISPEC 350.1.13.10 ity of [place] [id number] [address] [facility] 2021-02-25 2021-02-25 [facility]endez[facility] 1.2.840.114 [id number] Univers 00:00:00 00:00:00 Saravanan MULTISPEC 350.1.13.10 ity of [place].2.[place] [phone] [address] [facility]ES [facility]IC 2021-02-24 2021-02-24 [facility] 1.2.588.859 [id number] Univers 08:31:14 23:59:00 Encounter Wondiful A Health 350.1.13.10 ity of [place] 4.2.7.2.686 Jose as Alexi?Blea [phone] De max [address]rows 809 [facility] Office [facility] 2021-02-24 2021-02-24 Telephonic Case Manager Lab, Ang - Db [facility] 1.2.840.1 14 [id number] Univers 08:30:50 08:45:50 Visit eDon [facility] 350.1.13.1 0 ity of [place] 4.2.7.2.686 Jose as Alexi?Blea [phone] [facility] Parissania [address] [facility] Building 2021-02-24 2021-02-24 [facility] [id number] Univers 08:45:00 08:45:00 WONDIFUL ity o f [facility] 2021-02-24 2021-02-24 [facility] 1.2.224.644 [id number] Univers 08:29:02 08:30:00 Encounter Wondiful A Health 350.1.13.10 ity of [place] 4.2.7.2.686 Jose as Alexi?Blea [phone] [facility] zenon [address] Medical Office [facility] 2021-02-24 2021-02-24 Case [facility] 1.2.840.114 [id number] Univers 00:00:00 00:00:00 Management Wondiful A Health 350.1.13.10 ity of [place] 4.2.7.2.686 Jose as Alexi?Blea [phone] [facility] zenon [address] Medical Office [facility] 2021-02-22 2021-02-22 [facility] 1.2.023.004 [id number] Univers 15:55:00 23:59:00 Encounter Wondiful A Health 350.1.13.10 ity of [place] 4.2.7.2.686 Jose as Alexi?Blea [phone] [facility] Parissania burrows [address] [facility] Building 2021-02-22 2021-02-22 Office [facility] 1.2.840.114 [id number] Univers 15:10:54 16:00:00 Visit Wondiful A Health 350.1.13.10 ity of [place] 4.2.7.2.686 Jose as Alexi?Blea [phone] [facility] zenon [address] [facility] Building 2021-02-22 2021-02-22 [facility] 1.2.496.530 [id number] [facility] 15:50:00 15:54:00 Encounter Wondiful A Health 350.1.13.10 ity of [place] 4.2.7.2.686 Jose as Alexi?Blea [phone] De max burrows 809 [facility] Office [facility] 2021-02-22 2021-02-22 Outpatient [facility] [id number] 2527 [facility] 15:15:00 15:15:00 WONDIFUL ity o f [facility] 2021-02-21 2021-02-21 [facility] 1.2.840.114 [id number] Univers 00:00:00 00:00:00 Saravan[facility] Health 350.1.13.10 it y of [place] 4.2.7.2.686 Jose as Alexi?Blea [phone] [facility] Parissania yarbrough [address] [facility] 2021-02-14 2021-02-14 Refcharla MelendezPRESBYTERIAN [facility] 1.2.840.114 [id number] Univers 00:00:00 00:00:00 Saravanan [place] 350.1.13.10 [place] [phone] [address] 2021-02-14 2021-02-14 Refcharla MelendezPRESBYTERIAN [facility] 1.2.840.114 [id number] Univers 00:00:00 00:00:00 Saravanan [place] 350.1.13.10 i ty of [place].2.[place] [phone] [address] 2021-02-12 2021-02-12 Annabel MelendezPRESBYTERIAN [facility] 1.2.840.114 [id number] Univers 00:00:00 00:00:00 Saravanan [place] 350.1.13.10 i ty of [place] 4[place].2.[place] [phone] [address] 2021-02-12 2021-02-12 Refcharla MelendezPRESBYTERIAN [facility] 1.2.840.114 [id number] Univers 00:00:00 00:00:00 Saravanan [place] 350.1.13.10 i ty of [place].7.2.[place] [id number] De dical nal 220 [facility] 2021-02-10 2021-02-10 Refcharla Melendez, [facility] 1.2.840.114 [id number] [employer] 00:00:00 00:00:00 [place] 350.1.13.10 [place] 4[place]2.[place] [phone] [facility] 2021-02-10 2021-02-10 [facility] 1.2.840.114 [id number] [facility] 00:00:00 00:00:00 [place] 350.1.13.10 [place] 4[place]2.[place] [phone] [facility] [address] [facility] 2021-02-09 2021-02-09 [facility] 1.2.840.114 [id number] [facility] 00:00:00 00:00:00 [place] 350.1.13.10 [place] 4[place]2.[place] [phone] [facility] nal [address] [facility] 2021-02-09 2021-02-09 [facility] 1.2.840.114 [id number] [facility] 00:00:00 00:00:00 [place] 350.1.13.10 [place] 4[place]2.[place] [phone] [facility] [address] [facility] 2021-01-29 2021-01-29 [facility] 1.2.840.114 [id number] [facility] 00:00:00 00:00:00 [place] 350.1.13.10 [place] 4[place]2.[place] [phone] [facility] [address] [place] [address] 2021-01-29 2021-01-29 [facility] 1.2.840.114 [id number] [facility] 00:00:00 00:00:00 [place] 350.1.13.10 [place] 4[place]2.7.2.[place] [phone] [address] 2021-01-15 2021-01-15 [facility] 1.2.840.114 [id number] [facility] 00:00:00 00:00:00 [place] 350.1.13.10 [place] 4[place]7.2.[place] [phone] [address] 2021-01-04 2021-01-04 [facility] 1.2.840.114 [id number] Univers 08:49:36 09:53:15 Visit Saravanan [place] 350.1.13.10 [place] 4[place]7.2.[place] [phone] [address] 2021-01-04 2021-01-04 Outpatient R [facility] [id number] Univers 09:00:00 09:00:00 SARAVANAN ity [facility] 2021-01-03 2021-01-03 [facility] 1.2.840.114 [id number] [facility] 00:00:00 00:00:00 [place]avanan [place] 350.1.13.10 [place] 4[place]7.2.[place] [phone] [address] 2020-12-29 2020-12-29 Refill [facility] 1.2.840.114 [id number] Univers 00:00:00 00:00:00 Saravanan [place] 350.1.13.10 [place] [phone] [address] 2020-12-28 2020-12-28 Office Formerly [facility] 1.2.487.413 [id number] Univers 09:29:13 09:53:17 Visit Мария Holden 350.1.13.10 [place] [phone] [address] 2020-12-28 2020-12-28 [facility] [id number] Univers 09:45:00 09:45:00 МАРИЯ de souza [facility] 2020-12-28 2020-12-28 Orders Doctor TIFFANIE 1.2.840.114 [id number] Univers 00:00:00 00:00:00 Only Unassigned, KENDRA 350.1.13.10 [place] [facility] 4.2.7.2.686 Jose as [phone] [address] 2020-12-11 2020-12-11 Hospital Formerly [facility] 1.2.840.114 [id number] Univers 07:59:00 10:40:00 Encounter Мария Hatch 350.1.13.10 [place] Surgical [phone] [facility] [address] 2020-12-11 2020-12-11 Surgery Formerly [facility] 1.2.185.500 [id number] 0650 Univers 09:27:00 10:21:00 Мария Hatch 350.1.13.10 [place] [phone] [facility] [address] 2020-12-11 2020-12-11 Orders Doctor TIFFANIE 1.2.840.114 [id number] Univers 00:00:00 00:00:00 Only UnassignedKENDRA 350.1.13.10 [place] [facility] 4.2.7.2.686 Jose as [phone] [address] 2020-12-10 2020-12-10 Outpatient [facility] [id number] Univers 08:15:00 08:15:00 МАРИЯ de souza [facility] 2020-11-30 2020-11-30 Refill Nora [facility] 1.2.840.114 [id number] Univers 00:00:00 00:00:00 Saravanan [place] 350.1.13.10 [place] [phone] De dical nal 220 [facility] 2020-11-25 2020-11-25 Patient Jordan, [facility] 1.2.840.114 [id number] Univers 00:00:00 00:00:00 [facility] 350.1.13.10 ity of [place] 4.2.7.2.686 [place] as Professio [phone] [address] Office [facility] One 2020-11-20 2020-11-20 Outpatient R [facility] [id number] Univers 10:00:00 10:00:00 LINDEN ity of [facility] 2020-11-15 2020-11-15 Refill Doctor [facility] 1.2.840.114 [id number] Univers 00:00:00 00:00:00 Unassigned, Holden 350.1.13.10 [place] [phone] [facility] nal [address] [place] [address] 2020-11-15 2020-11-15 Refill Nora [facility] 1.2.840.114 [id number] Univers 00:00:00 00:00:00 Saravanan Hatch 350.1.13.10 [place] [phone] De dical nal 220 [facility] 2020-11-14 2020-11-14 Refill Nora [facility] 1.2.840.114 [id number] [id number] Univers 00:00:00 00:00:00 Saravanan [place] 350.1.13.10 [place] [phone] De dical nal 220 [facility] 2020-11-10 2020-11-10 Office Pepe [facility] 1.2.492.688 [id number] Univers 14:40:02 15:10:02 Visit Мария Holden 350.1.13.10 i ty of [place].2.[place] [phone] De dical nal 188 [facility] 2020-11-10 2020-11-10 Outpatient R CANTU, [facility] [id number] Univers 15:00:00 15:00:00 МАРИЯ [facility] 2020-11-10 2020-11-10 Prep For Barry [facility] 1..840.114 [id number] Univers 00:00:00 00:00:00 Surgery Ro [place] 350.1.13.10 ity of [place] [phone] [facility] 204 [facility] 2020-11-08 2020-11-08 [facility]ill [facility] ..840.114 [id number] [id number] Univers 00:00:00 00:00:00 Saravanan Hatch 350.1.13.10 i ty of [place] [phone] [facility] 220 [facility] 2020-10-30 2020-10-30 Outpatient [facility] [id number] Univers 11:00:00 11:00:00 LINDEN [facility] 2020-10-28 2020-10-28 Patient Nora [facility] 1..840.114 [id number] Univers 00:00:00 00:00:00 Secure Msg Saravanan MULTISPEC 350.1.13.10 ity of [place].2.7.2.[place] C[place] [phone] [place]is AND MAURICIO [address] [facility] 2020-10-22 2020-10-22 Telephone Nora [facility] 1..840.114 8 [id number] Univers 00:00:00 00:00:00 Saravanan Hatch 350.1.13.10 i ty [place] [phone] [address] 2020-10-12 2020-10-12 Refill [facility] 1.2.840.114 [id number] Univers 00:00:00 00:00:00 Saraavnan [place] 350.1.13.10 [place].2.[place] [phone] [address] 2020-10-09 2020-10-09 Office Eben [facility] 1.2.840.114 [id number] Univers 10:23:15 11:35:17 Visit Wondiful [facility] Health 350.1.13.10 ity of [place] 4.2.7.2.686 Jose as Professio [phone] [address] One 2020-10-09 2020-10-09 Outpatient R EBEN [facility] [id number] Univers 10:30:00 10:30:00 WONDIFUL ity o f [facility] 2020-09-25 2020-09-25 Refill [facility] 1.2.840.114 [id number] Univers 00:00:00 00:00:00 Saravanan [place] 350.1.13.10 [place] [phone] [address] 2020-09-18 2020-09-18 Patient Eben [facility] 1.2.840.114 [id number] [id number] Univers 00:00:00 00:00:00 Secure Msg [facility] 350.1.13.10 ity of [place] 4.2.7.2.686 Jose as Professio [phone] [address] One 2020-09-18 2020-09-18 Telephone [facility] 1.2.840.114 [id number] Univers 00:00:00 00:00:00 W[facility]iful [facility] 350.1.13.10 ity of [place] 4.2.7.2.686 Jose as Professio [phone] [address] One 2020-09-14 2020-09-14 Refill Pineda [facility] 1.2.840.114 [id number] Univers 00:00:00 00:00:00 Lauri [facility] 350.1.13.10 it y of [place] 4.2.7.2.686 Jose as Professio [phone] [facility] 044 [facility] One 2020-09-01 2020-09-01 Refcharla [facility] 1.2.840.114 [id number] Univers 00:00:00 00:00:00 Saravanannadia Phanton 350.1.13.10 [place] [facility] [phone] De dical nal 220 [facility] 2020-08-30 2020-08-30 Refcharla [facility] 1.2.840.114 [id number] Univers 00:00:00 00:00:00 [facility] 350.1.13.10 ity of [facility] 4.2.7.2.686 [place] [phone] [facility] AND [facility] [address] [facility] 2020-08-26 2020-08-26 Hospital Xiang Gandhi [facility] 1.2.840.114 [id number] Univers 10:23:06 23:59:00 Encounter [place] 350.1.13.10 it[place] of [place]2.[place].2.[place] [phone] [facility] [address] 2020-08-26 2020-08-26 Outpatient Dykes_V_WAG VFP VFP 134 [id number] [facility] 05:12:00 05:12:00 [id number] Family Practic e 2020-08-26 2020-08-26 Outpatient R XIANG GANDHI [facility] [id number] Univers 00:00:00 00:00:00 ity of [facility] 2020-08-22 2020-08-22 Patient Wellington [facility] 1.2.840.114 [id number] Univers 00:00:00 00:00:00 Outreach Linden NEWBERRY 350.1.13.10 i ty of [facility] 4.2.7.2.[place] PAV[place]ION [phone] De dic[address] 2020-08-18 2020-08-18 Outpatient R XIANG GANDHI [facility] [id number] Univers 10:00:00 10:00:00 [facility] 2020-08-17 2020-08-17 Outpatient R [facility] [id number] Univers 10:00:00 10:00:00 [facility] 2020-08-10 2020-08-10 Outpatient Dykes[facility] [id number] Village 12:27:00 12:27:00 [id number] Family Practic e 2020-08-10 2020-08-10 Outpatient Alvarez_R [facility] 01253 11-20 Village 12:27:00 12:27:00 [id number] Family Practic e 2020-08-10 2020-08-10 Kiranchand [facility] [place] - [id number] Village 00:00:00 00:00:00 [facility] - Pract more Loredo MD: VM_HOU_[facility] [address] [facility], [facility] [address], [place] [address] , Ph. 2020-07-13 2020-07-13 Refcharla Melendez [facility] 1.2.840.114 [id number] Univers 00:00:00 00:00:00 Saravanan Hatch 350.1.13.10 [place] [phone] [address] 2020-07-12 2020-07-12 Refill Nora [facility] 1.2.840.114 [id number] Univers 00:00:00 00:00:00 Saravanan Hatch 350.1.13.10 i [place].2.[place] [phone] [address] 2020-07-06 2020-07-06 Office Nora [facility] 1.2.840.114 [id number] Univers 08:56:51 09:43:26 Visit Saravanan Holden 350.1.13.10 i [place].2.[place] [phone] De dical nal [address] Building 2020-07-06 2020-07-06 Outpatient R NORA [facility] [id number] Univers 09:00:00 09:00:00 SARAVANAN ity of [facility] 2020-07-06 2020-07-06 Orders Doctor TIFFANIE 1.2.840.114 [id number] Univers 00:00:00 00:00:00 Only Unassigned, KENDRA 350.1.13.10 [place] [facility] 4.2.7.2.686 Jose as [phone] [facility] [address] 2020-07-02 2020-07-02 Office Pineda [facility] 1.2.840.114 [id number] Univers 15:26:51 15:56:51 [facility] 350.1.13.10 it y of [place] 4.2.7.2.686 Jose as Professio [phone] [facility] [address] Building One 2020-07-02 2020-07-02 Outpatient R PINEDA [facility] [id number] Univers 15:30:00 15:30:00 LAURI de souza [facility] 2020-06-29 2020-06-29 Transition Juliana Viera 1.2.840.114 [id number] Univers 00:00:00 00:00:00 of Care Haleigh Silva 350.1.13.10 i ty of [place].2.7.2.686 [place] [phone] [facility] [address] 2020-06-22 2020-06-26 Hospital Joie Lauren [facility] 1.2.840.1 14 [id number] Univers 17:40:00 15:27:00 Encounter WaltCarlee vizcarra [place] 350.1.13.10 it[place] of [place].2.[place] [phone] [facility] 0[address] 2020-06-22 2020-06-22 Urgent Provider, [facility] 1.2.840.114 [id number] Univers 10:16:58 10:36:58 Care Lauri Sung [facility] 350.1.13.10 ity of [place] 4.2.7.2.686 Jose as Professio [phone] [facility] [address] Office Building One 2020-06-22 2020-06-22 Outpatient R PINEDA [facility] [id number] Univers 10:20:00 10:20:00 LAURI ity of [facility] 2020-06-21 2020-06-21 Emergency [facility] 1.2.491.057 [id number] Univers 16:19:00 18:50:00 Leta Hatch 350.1.13.10 i [place].2.[place] [phone] [facility] [address] 2020-06-21 2020-06-21 Emergency X [facility] ERT [id number] Univers 16:19:00 18:50:00 LETA ity [facility] 2020-06-21 2020-06-21 Orders Doctor TIFFANIE 1.2.840.114 [id number] Univers 00:00:00 00:00:00 Only Unassigned, KENDRA 350.1.13.10 [place] [facility] 4.2.7.2.686 Jose as [phone] [facility] [address] 2020-06-09 2020-06-09 Refill [facility] 1.2.840.114 [id number] [id number] Univers 00:00:00 00:00:00 Saravanan Hatch 350.1.13.10 [place] [phone] De dical nal 220 [facility] 2020-06-08 2020-06-08 Refcharla MelendezPRES[facility] 1.2.840.114 [id number] [id number] Univers 00:00:00 00:00:00 Saravanan Holden 350.1.13.10 [place].2.[place] [phone] De dical nal 220 [facility] 2020-06-02 2020-06-02 Refill [facility] 1.2.840.114 [id number] Univers 00:00:00 00:00:00 Saravanan [place] 350.1.13.10 [place].2.[place] [phone] [facility] nal [address] [place] [address] 2020-05-27 2020-05-27 Patient Nora, [facility] 1.2.840.114 [id number] Univers 00:00:00 00:00:00 Secure Msg Saravanan [place] 350.1.13.10 [place].2.[place] [phone] [address] 2020-05-25 2020-05-25 Telephone [facility] 1.2.840.114 [id number] Univers 00:00:00 00:00:00 Saravanan [place] 350.1.13.10 [place] 4[place]2.[place].2.[place] [phone] [address] 2020-05-18 2020-05-18 Refill [facility] 1.2.840.114 [id number] Univers 00:00:00 00:00:00 Saravanan [place] 350.1.13.10 i [place] 4[place].7.2.[place] [phone] [address] 2020-05-18 2020-05-18 Patient Nora, [facility] 1.2.840.114 [id number] Univers 00:00:00 00:00:00 Secure Msg Saravanan [place] 350.1.13.10 [place] of [place] 4[place]2.7.2.[place] [phone] [address] 2020-05-17 2020-05-17 Refill [facility] 1.2.840.114 [id number] Univers 00:00:00 00:00:00 Saravanan [place] 350.1.13.10 [place].2.[place] [phone] [facility] 220 [facility] 2020-03-30 2020-03-30 Office Nora [facility] 1.2.840.114 [id number] Univers 08:57:42 09:40:17 Visit Saravanan [place] 350.1.13.10 [place] 4[place]2.[place].2.[place] [phone] [facility] 220 [facility] 2020-03-30 2020-03-30 Outpatient R MARIOZARAJIM [facility] [id number] Univers 09:00:00 09:00:00 SARAVANAN ity of [facility] 2020-03-27 2020-03-27 Urgent Provider, [facility] 1.2.840.114 [id number] Univers 17:20:13 18:51:55 Care Unknown, Attending Health 350.1.13.10 ity of [place] 4.2.7.2.686 Jose as Professio [phone] [facility] [address] Office [facility] One 2020-03-27 2020-03-27 Outpatient R UNKNOWN, [facility] [id number] Univers 17:20:00 17:20:00 ATTENDING ity [facility] 2020-01-30 2020-01-30 Refill MarioluiPRES[facility]TER[facility] 1.2840.114 [id number] Univers 00:00:00 00:00:00 Saravanan MULTISPEC 350.1.13.10 ity of [place].2.[place] C[place] [phone] [facility] AND [address] [facility] 2019-12-25 2019-12-25 Patient Leighrajatalexis [facility] 1.2.840.114 [id number] Univers 00:00:00 00:00:00 Secure Msg Saraavnan [place] 350.1.13.10 [place].2.[place] [phone] [facility] 220 [facility] 2019-12-18 2019-12-18 Refill Eben [facility] 1.2.840.114 [id number] Univers 00:00:00 00:00:00 Wonfigueroa A [place] 350.1.13.10 [place] of [place] 4.2.7.2.[place] [phone] De dical nal 044 [facility] 2019-12-16 2019-12-16 Telephonic Case Manager 2, Adc Lab [facility] 1.2.840.114 [id number] Univers 10:35:24 10:50:24 Visit Saravanan Melendez 350.1.13.10 [place].2.7.2.[place] [phone] De dical nal 353 [facility] 2019-12-16 2019-12-16 Office Nora [facility] 1.2.840.114 [id number] [facility] 09:21:31 10:16:37 Visit Saravanan Hatch 350.1.13.10 i ty of [place] 4.2.7.2.[place] [phone] De dical nal 220 [facility] 2019-12-16 2019-12-16 Outpatient R NORA [facility] [id number] Univers 09:30:00 09:30:00 SARAVANAN ity of [facility] 2019-12-16 2019-12-16 Orders Doctor TIFFANIE 1.2.840.114 [id number] Univers 00:00:00 00:00:00 Only Unassigned, KENDRA 350.1.13.10 [place] [facility] 4.2.7.2.686 Jose as [phone] [address] 2019-12-11 2019-12-11 Refcharla Moreira [facility] 1.2.840.114 [id number] Univers 00:00:00 00:00:00 Alejandra Rich PhanPortis 350.1.13.10 [place] of [place] 4[place].2.[place] [phone] De dical nal 220 [facility] 2019-12-11 2019-12-11 Annabel Moreira [facility] 1.2.840.114 [id number] Univers 00:00:00 00:00:00 Alejandra A [place] 350.1.13.10 [place] of [place] 4.2.7.2.[place] [phone] De dical nal 220 [facility] 2019-11-26 2019-11-26 Transition Juliana Cox 1.2.840.114 [id number] Univers 00:00:00 00:00:00 of Care Phill Hadleyy 350.1.13.10 ity of [place] 4.2.7.2.686 [place] [phone] [facility] [address] 2019-11-23 2019-11-23 Emergency [facility]PRES[facility] 1.2.840.114 [id number] Univers 15:15:30 18:31:00 Folusho F [place] 350.1.13.10 ity of [place] 4.2.7.2.686 [place] [phone] [facility] [address] 2019-11-23 2019-11-23 Emergency X [facility] [id number] Univers 15:15:30 18:31:00 FOLUSHO ity of [facility] 2019-11-23 2019-11-23 Orders Doctor TIFFANIE 1.2.840.114 [id number] Univers 00:00:00 00:00:00 Only Unassigned, KENDRA 350.1.13.10 it[place] [facility] 4.2.7.2.686 Jose as [phone] [facility] [address] 2019-11-14 2019-11-14 Refcharla TreadwellPRESBYTER[facility] 1.2.840.114 [id number] Univers 00:00:00 00:00:00 Wondiful A [place] 350.1.13.10 it[place] of [place] 4.[place].7.2.[place] [phone] [facility] 220 [facility] 2019-11-13 2019-11-13 Refcharla TreadwellPRESBYTERIAN [facility] 1.2.840.114 [id number] Univers 00:00:00 00:00:00 Wondiful A [place] 350.1.13.10 [place].7.2.[place] [phone] [address] 2019-10-16 2019-10-16 Arnold Treadwell [facility] 1.2.840.114 [id number] Univers 00:00:00 00:00:00 Wondiful A [place] 350.1.13.10 [place] 4[place].7.2.[place] [phone] [address] 2019-10-15 2019-10-15 Orders Doctor TIFFANIE 1.2.840.114 [id number] Univers 00:00:00 00:00:00 Only Unassigned, KENDRA 350.1.13.10 [place] [facility] 4.2.7.2.686 Jose as [phone] [address] 2019-10-11 2019-10-11 Telephone [facility] 1.2.840.114 [id number] Univers 00:00:00 00:00:00 Saravanan Holden 350.1.13.10 i ty [place].2.[place] [phone] [facility] 220 [facility] 2019-10-08 2019-10-08 Refcharla Treadwell [facility] 1.2.840.114 [id number] Univers 00:00:00 00:00:00 Wondiful A Health 350.1.13.10 ity of [place] 4.2.7.2.686 Jose as Professio [phone] [address] One 2019-09-09 2019-09-09 Telemedici [facility]PRES[facility] 1.2.840.114 [id number] Univers 08:17:05 08:47:05 ne Visit Saravanan Holden 350.1.13.10 [place] of [place] 4[place]2.7.2.[place] [phone] [address] 2019-09-09 2019-09-09 Outpatient R NORA [facility] [id number] Univers 08:30:00 08:30:00 SARAVANAN ity of [facility] 2019-09-04 2019-09-04 Annabel Moreira [facility] 1.2.840.114 [id number] Univers 00:00:00 00:00:00 Alejandra Holden 350.1.13.10 i ty [place]2.7.2.[place] [phone] [facility] 220 [facility] 2019-09-04 2019-09-04 Refill [facility] 1.2.840.114 [id number] Univers 00:00:00 00:00:00 Wondiful A Health 350.1.13.10 ity of [place] 4.2.7.2.686 Jose as Professio [phone] [address] Office [facility] One 2019-09-04 2019-09-04 Refill L[facility]iePRES[facility] 1.2.840.114 [id number] Univers 00:00:00 00:00:00 Alejandra [place] 350.1.13.10 i ty of [place]2.7.2.[place] [phone] [facility] 220 [facility] 2019-09-04 2019-09-04 Refill [facility] 1.2.840.114 [id number] Univers 00:00:00 00:00:00 Saravanan [place] 350.1.13.10 i ty [place] 4[place]2.7.2.[place] [phone] [facility] 220 [facility] 2019-08-29 2019-08-29 Office [facility] 1.2.840.114 [id number] Univers 15:35:37 16:08:25 Visit Wondiful A Health 350.1.13.10 ity of [place] 4.2.7.2.686 Jose as Professio [phone] [address] Office [facility] 2019-08-29 2019-08-29 Outpatient R EBEN [facility] [id number] Univers 15:30:00 15:30:00 WONDIFUL ity o f [facility] 2019-08-29 2019-08-29 Letter [facility]PRES[facility] 1.2.840.114 [id number] Univers 00:00:00 00:00:00 (Out) Wondiful A Health 350.1.13.10 ity of [place] 4.2.7.2.686 Jose as Professio [phone] [address] Office [facility] One 2019-08-15 2019-08-15 Telephone [facility] 1.2.840.114 [id number] Univers 00:00:00 00:00:00 Saravanan [place] 350.1.13.10 i ty [place].2.[place] [phone] [facility] 220 [facility] 2019-08-13 2019-08-13 Patient Eben [facility] 1.2.840.114 [id number] Univers 00:00:00 00:00:00 Secure Msg Wondiful [facility] 350.1.13.10 ity of [place] 4.2.7.2.686 Jose as Professio [phone] [address] One 2019-08-12 2019-08-12 Refill [facility] 1.2.840.114 [id number] Univers 00:00:00 00:00:00 Wondiful A [place] 350.1.13.10 [place].2.[place] [phone] [facility] 220 [facility] 2019-08-12 2019-08-12 Refill [facility] 1.2.840.114 [id number] Univers 00:00:00 00:00:00 Wondiful A [place] 350.1.13.10 [place].2.[place] [phone] [address] 2019-08-12 2019-08-12 Refcharla Moreira [facility] 1.2.840.114 [id number] Univers 00:00:00 00:00:00 Alejandra [place] 350.1.13.10 i ty [place].2.[place] [phone] [facility] 220 [facility] 2019-08-12 2019-08-12 Refcharla MoreiraPRES[facility]TERIAN [facility] 1.2.840.114 [id number] Univers 00:00:00 00:00:00 Alejandra A [place] 350.1.13.10 [place] [phone] [facility] nal 220 [facility] 2019-07-11 2019-07-11 ANDRES Howard 1.2.840.114 [id number] Univers 00:00:00 00:00:00 Wondiful A [place] 350.1.13.10 [place] [phone] [facility] 044 [facility] 2019-07-10 2019-07-10 Refcharla Treadwell MIKEYLA 1.2.840.114 [id number] Univers 00:00:00 00:00:00 Wondiful A [place] 350.1.13.10 [place] [phone] [facility] 220 [facility] 2019-07-05 2019-07-05 Orders Doctor TIFFANIE 1.2.840.114 [id number] Univers 00:00:00 00:00:00 Only Unassigned, KENDRA 350.1.13.10 [facility] 4.2.7.2.686 Jose as [phone] [address] 2019-02-27 2019-02-27 Annabel Treadwell [facility] 1.2.840.114 [id number] Univers 00:00:00 00:00:00 Wondiful A Health 350.1.13.10 ity of [place] 4.2.7.2.686 [place] as Professio [phone] [address] Office [facility] One 2019-01-25 2019-01-25 ANDRES Casiano 1.2.840.114 [id number] Univers 00:00:00 00:00:00 (Out) Wondiful A Health 350.1.13.10 ity of [place] 4.2.7.2.686 [place] as Professio [phone] [address] Office [facility] 2019-01-10 2019-01-10 ANDRES Hyatt 1.2.840.114 [id number] Univers 00:00:00 00:00:00 Wondiful A Health 350.1.13.10 ity of [place] 4.2.7.2.686 [place] as Professio [phone] De dical nal [address] One Results Test Description Test Time Test Comments Results Result Comments Source Glucose [Mass/volume] in Capillary blood 2022-09-06 15:13:58 Test Item Value Reference Range Interpretation Comme nts Blood Glucose: mg/dl (test code = Blood Glucose: mg/dl) [address] [facility] in Serum or Owieya7609-05-81 00:00:00 Test Item Value Reference Range Interpretation Comments magnesium (test code = magnesium) 1.5 mg/dL 1.6-2.3 L [facility] metabolic alutp1174-69-24 03:30:00 Test Item Value Reference Range Interpretation Comments glucose (test code 120 mg/dL 65-99 H = glucose) urea nitrogen 20 mg/dL 7-25 (BUN) (test code = urea nitrogen (BUN)) creatinine (test 0.76 mg/dL 0.50-1.03 code = creatinine) eGFR (test code = 91 mL/min/1.73m2 See_Comment [Auto mated eGFR) message] The sy stem which generated this result transmitted reference range : > or = 60. The reference range was not used to interpret this result as normal/abnormal . BUN/creatinine not applicable 6-22 ratio (test code = BUN/creatinine ratio) sodium (test code 142 mmol/L 135-146 = sodium) potassium (test 4.2 mmol/L 3.5-5.3 code = potassium) chloride (test 104 mmol/L 98-110 code = chloride) carbon dioxide 29 mmol/L 20-32 (test code = carbon dioxide) calcium (test code 10.6 mg/dL 8.6-10.4 H = calcium) [facility]2022-08-09 03:30:00 Test Item Value Reference Range Interpretation Comments B type natriuretic peptide (BNP) 9 pg/mL <100 (test code = B type natriuretic peptide (BNP)) [facility] metabolic [id number] 03:30:00 Test Item Value Reference Range Interpretation Comments glucose (test code 120 mg/dL 65-99 H = glucose) urea nitrogen 20 mg/dL 7-25 (BUN) (test code = urea nitrogen (BUN)) creatinine (test 0.76 mg/dL 0.50-1.03 code = creatinine) eGFR (test code = 91 mL/min/1.73m2 See_Comment [Auto mated eGFR) message] The sy stem which generated this result transmitted reference range : > or = 60. The reference range was not used to interpret this result as normal/abnormal . BUN/creatinine not applicable 6-22 ratio (test code = BUN/creatinine ratio) sodium (test code 142 mmol/L 135-146 = sodium) potassium (test 4.2 mmol/L 3.5-5.3 code = potassium) chloride (test 104 mmol/L 98-110 code = chloride) carbon dioxide 29 mmol/L 20-32 (test code = carbon dioxide) calcium (test code 10.6 mg/dL 8.6-10.4 H = calcium) [facility]2022-08-09 03:30:00 Test Item Value Reference Range Interpretation Comments B type natriuretic peptide (BNP) 9 pg/mL <100 (test code = B type natriuretic peptide (BNP)) [facility] FEU [Mass/volume] in Platelet poor plasma 2022-08-09 00:00:00 Test Item Value Reference Range Interpretation Comments D-dimer, quantitative (test 0.40 mcg/mL feu <0.50 code = D-dimer, quantitative) [facility] Differential panel - [id number] 00:00:00 Test Item Value Reference Range Interpretation Comments white blood cell count (test 10.1 thousand/uL 3.8-10.8 code = white blood cell count) red blood cell count (test 4.39 million/uL 3.80-5.10 code = red blood cell count) hemoglobin (test code = 13.0 g/dL 11.7-15.5 hemoglobin) hematocrit (test code = 39.7 % 35.0-45.0 hematocrit) MCV (test code = MCV) 90.4 fL 80.0-100.0 MCH (test code = MCH) 29.6 pg 27.0-33.0 MCHC (test code = MCHC) 32.7 g/dL 32.0-36.0 RDW (test code = RDW) 13.9 % 11.0-15.0 platelet count (test code = 398 thousand/uL 140-400 platelet count) MPV (test code = MPV) 10.5 fL 7.5-12.5 absolute neutrophils (test 4262 cells/uL 5249-9315 code = absolute neutrophils) absolute lymphocytes (test 4242 cells/uL 850-3900 H code = absolute lymphocytes) absolute monocytes (test 949 cells/uL 200-950 code = absolute monocytes) absolute eosinophils (test 596 cells/uL 15-500 H code = absolute eosinophils) absolute basophils (test 51 cells/uL 0-200 code = absolute basophils) neutrophils (test code = 42.2 % neutrophils) lymphocytes (test code = 42.0 % lymphocytes) monocytes (test code = 9.4 % monocytes) eosinophils (test code = 5.9 % eosinophils) basophils (test code = 0.5 % basophils) [facility] FEU [Mass/volume] in Platelet poor plasma 2022-08-09 00:00:00 Test Item Value Reference Range Interpretation Comments D-dimer, quantitative (test 0.40 mcg/mL feu <0.50 code = D-dimer, quantitative) [facility] Auto Differential panel - [id number] 00:00:00 Test Item Value Reference Range Interpretation Comments white blood cell count (test 10.1 thousand/uL 3.8-10.8 code = white blood cell count) red blood cell count (test 4.39 million/uL 3.80-5.10 code = red blood cell count) hemoglobin (test code = 13.0 g/dL 11.7-15.5 hemoglobin) hematocrit (test code = 39.7 % 35.0-45.0 hematocrit) MCV (test code = MCV) 90.4 fL 80.0-100.0 MCH (test code = MCH) 29.6 pg 27.0-33.0 MCHC (test code = MCHC) 32.7 g/dL 32.0-36.0 RDW (test code = RDW) 13.9 % 11.0-15.0 platelet count (test code = 398 thousand/uL 140-400 platelet count) MPV (test code = MPV) 10.5 fL 7.5-12.5 absolute neutrophils (test 4262 cells/uL 4716-5447 code = absolute neutrophils) absolute lymphocytes (test 4242 cells/uL 850-3900 H code = absolute lymphocytes) absolute monocytes (test 949 cells/uL 200-950 code = absolute monocytes) absolute eosinophils (test 596 cells/uL 15-500 H code = absolute eosinophils) absolute basophils (test 51 cells/uL 0-200 code = absolute basophils) neutrophils (test code = 42.2 % neutrophils) lymphocytes (test code = 42.0 % lymphocytes) monocytes (test code = 9.4 % monocytes) eosinophils (test code = 5.9 % eosinophils) basophils (test code = 0.5 % basophils) [facility]Hem[facility] A1c/Hemoglobin.total in [id number] 00:00:00 Test Item Value Reference Range Interpretation Comments Hemoglobin A1c/Hemoglobin.total in 8.6 % 1.0-5.7 H Blood (test code = 4548-4) average blood glucose (calculation) 200 mg/dL (test code = average blood glucose (calculation)) [facility] A1c/Hemoglobin.total in [id number] 00:00:00 Test Item Value Reference Range Interpretation Comments Hemoglobin A1c/Hemoglobin.total in 8.6 % 1.0-5.7 H Blood (test code = 4548-4) average blood glucose (calculation) 200 mg/dL (test code = average blood glucose (calculation)) [facility] HospitalLip[facility] 1996 panel - Serum or [id number] 00:00:00 Test Item Value Reference Range Interpretation Comments HDL (test code = HDL) 43 mg/dL L triglyceride (test code = 90 mg/dL <150 triglyceride) VLDL (calculated) (test code = VLDL 18 mg/dL (calculated)) cholesterol/HDL ratio (test code = 2.5 mg/dL cholesterol/HDL ratio) non-HDL cholesterol (calculated) 63 mg/dL <160 (test code = non-HDL cholesterol (calculated)) cholesterol (test code = 106 mg/dL <200 cholesterol) Cholesterol in LDL [Mass/volume] in 45 mg/dL <130 Serum or Plasma (test code = 2089-1) [facility] HospitalYpuhpdrx54-Ikzeoraeykyvif D3+25-Hydroxyvitamin D2 [Mass/volume] in Serum or [id number] 00:00:00 Test Item Value Reference Range Interpretation Comments vitamin D 25OH (test code = 44.6 NG/mL 30.0-96.0 vitamin D 25OH) [facility] HospitalThyrotropin [Units/volume] in Serum or [id number] 00:00:00 Test Item Value Reference Range Interpretation Comments TSH (test code = TSH) 1.553 uIU/mL 0.350-4.[address] [facility]Com[facility] metabolic 1999 panel - Serum or Plasma 2022-07-18 00:00:00 Test Item Value Reference Range Interpretation Comments ALT (test code = ALT) 23 U/L 0-55 AST (test code = AST) 18 U/L 5-34 BUN (test code = BUN) 17.1 mg/dL 9.8-25.0 alk phos (test code = alk phos) 104 unit/L 40-150 glucose (test code = glucose) 89 mg/dL 70-99 albumin (test code = albumin) 4.1 g/dL 3.4-5.1 creatinine (test code = 0.75 mg/dL 0.57-1.11 creatinine) eGFR (test code = eGFR) >60 total bilirubin (test code = 0.6 mg/dL 0.2-1.2 total bilirubin) sodium (test code = sodium) 141 mEq/L 135-145 potassium (test code = potassium) 3.9 mEq/L 3.5-5.3 chloride (test code = chloride) 105 mmol/L 98-110 total protein (test code = total 7.1 g/dL 6.1-8.2 protein) calcium (test code = calcium) 10.3 mg/dL 8.4-10.4 CO2 (test code = CO2) 25.0 mmol/L 20.0-32.0 anion gap (test code = anion gap) [address] [facility] HospitalMicroalbumin/Creatinine [Mass Ratio] in [id number] 00:00:00 Test Item Value Reference Range Interpretation Comments microalbumin random urine 20 ug/mL (test code = microalbumin random urine) creatinine random urine (test 64.7 mg/dL 20.0-320.0 code = creatinine random urine) microalbumin/creatinine 31 mcg/mg creat H (random urine) ratio calculated (test code = microalbumin/creatinine (random urine) ratio calculated) [facility] HospitalLip[facility] 1995 panel - Serum or [id number] 00:00:00 Test Item Value Reference Range Interpretation Comments HDL (test code = HDL) 43 mg/dL L triglyceride (test code = 90 mg/dL <150 triglyceride) VLDL (calculated) (test code = VLDL 18 mg/dL (calculated)) cholesterol/HDL ratio (test code = 2.5 mg/dL cholesterol/HDL ratio) non-HDL cholesterol (calculated) 63 mg/dL <160 (test code = non-HDL cholesterol (calculated)) cholesterol (test code = 106 mg/dL <200 cholesterol) Cholesterol in LDL [Mass/volume] in 45 mg/dL <130 Serum or Plasma (test code = 2089-1) [facility] HospitalTijjonlg02-Emdcexntzcamrh D3+25-Hydroxyvitamin D2 [Mass/volume] in Serum or [id number] 00:00:00 Test Item Value Reference Range Interpretation Comments vitamin D 25OH (test code = 44.6 NG/mL 30.0-96.0 vitamin D 25OH) [facility] HospitalThyrotropin [Units/volume] in Serum or [id number] 00:00:00 Test Item Value Reference Range Interpretation Comments TSH (test code = TSH) 1.553 uIU/mL 0.350-4.[address] [facility]Com[facility] metabolic 2000 panel - Serum or Plasma 2022-07-18 00:00:00 Test Item Value Reference Range Interpretation Comments ALT (test code = ALT) 23 U/L 0-55 AST (test code = AST) 18 U/L 5-34 BUN (test code = BUN) 17.1 mg/dL 9.8-25.0 alk phos (test code = alk phos) 104 unit/L 40-150 glucose (test code = glucose) 89 mg/dL 70-99 albumin (test code = albumin) 4.1 g/dL 3.4-5.1 creatinine (test code = 0.75 mg/dL 0.57-1.11 creatinine) eGFR (test code = eGFR) >60 total bilirubin (test code = 0.6 mg/dL 0.2-1.2 total bilirubin) sodium (test code = sodium) 141 mEq/L 135-145 potassium (test code = potassium) 3.9 mEq/L 3.5-5.3 chloride (test code = chloride) 105 mmol/L 98-110 total protein (test code = total 7.1 g/dL 6.1-8.2 protein) calcium (test code = calcium) 10.3 mg/dL 8.4-10.4 CO2 (test code = CO2) 25.0 mmol/L 20.0-32.0 anion gap (test code = anion gap) [address] [facility] HospitalMicroalbumin/Creatinine [Mass Ratio] in [id number] 00:00:00 Test Item Value Reference Range Interpretation Comments microalbumin random urine 20 ug/mL (test code = microalbumin random urine) creatinine random urine (test 64.7 mg/dL 20.0-320.0 code = creatinine random urine) microalbumin/creatinine 31 mcg/mg creat H (random urine) ratio calculated (test code = microalbumin/creatinine (random urine) ratio calculated) [facility] W Auto Differential panel - [id number] 00:00:00 Test Item Value Reference Range Interpretation Comments WBC (test code = WBC) 10.3 x10e3/uL 3.4-10.8 RBC (test code = RBC) 4.74 x10e6/uL 3.77-5.28 hemoglobin (test code = 14.1 g/dL 11.1-15.9 hemoglobin) hematocrit (test code = 42.4 % 34.0-46.6 hematocrit) MCV (test code = MCV) 90 fL 79-97 MCH (test code = MCH) 29.7 pg 26.6-33.0 MCHC (test code = MCHC) 33.3 g/dL 31.5-35.7 RDW (test code = RDW) 13.9 % 11.7-15.4 platelets (test code = 349 x10e3/uL 150-450 platelets) neutrophils (test code = 40 % not estab. neutrophils) lymphs (test code = lymphs) 47 % not estab. monocytes (test code = 8 % not estab. monocytes) eos (test code = eos) 4 % not estab. basos (test code = basos) 1 % not estab. immature cells (test code = comment immature cells) neutrophils (absolute) (test 4.1 x10e3/uL 1.4-7.0 code = neutrophils (absolute)) lymphs (absolute) (test code = 4.9 x10e3/uL 0.7-3.1 H lymphs (absolute)) monocytes(absolute) (test code 0.8 x10e3/uL 0.1-0.9 = monocytes(absolute)) eos (absolute) (test code = eos 0.4 x10e3/uL 0.0-0.4 (absolute)) baso (absolute) (test code = 0.1 x10e3/uL 0.0-0.2 baso (absolute)) immature granulocytes (test 0 % not estab. code = immature granulocytes) immature grans (abs) (test code 0.0 x10e3/uL 0.0-0.1 = immature grans (abs)) hematology comments: (test code comment = hematology comments:) [facility] HospitalMagnesium [Mass/volume] in Serum or [id number] 00:00:00 Test Item Value Reference Range Interpretation Comments magnesium (test code = magnesium) 1.5 mg/dL 1.6-2.[address] [facility] W Auto Differential panel - [id number] 00:00:00 Test Item Value Reference Range Interpretation Comments WBC (test code = WBC) 10.3 x10e3/uL 3.4-10.8 RBC (test code = RBC) 4.74 x10e6/uL 3.77-5.28 hemoglobin (test code = 14.1 g/dL 11.1-15.9 hemoglobin) hematocrit (test code = 42.4 % 34.0-46.6 hematocrit) MCV (test code = MCV) 90 fL 79-97 MCH (test code = MCH) 29.7 pg 26.6-33.0 MCHC (test code = MCHC) 33.3 g/dL 31.5-35.7 RDW (test code = RDW) 13.9 % 11.7-15.4 platelets (test code = 349 x10e3/uL 150-450 platelets) neutrophils (test code = 40 % not estab. neutrophils) lymphs (test code = lymphs) 47 % not estab. monocytes (test code = 8 % not estab. monocytes) eos (test code = eos) 4 % not estab. basos (test code = basos) 1 % not estab. immature cells (test code = comment immature cells) neutrophils (absolute) (test 4.1 x10e3/uL 1.4-7.0 code = neutrophils (absolute)) lymphs (absolute) (test code = 4.9 x10e3/uL 0.7-3.1 H lymphs (absolute)) monocytes(absolute) (test code 0.8 x10e3/uL 0.1-0.9 = monocytes(absolute)) eos (absolute) (test code = eos 0.4 x10e3/uL 0.0-0.4 (absolute)) baso (absolute) (test code = 0.1 x10e3/uL 0.0-0.2 baso (absolute)) immature granulocytes (test 0 % not estab. code = immature granulocytes) immature grans (abs) (test code 0.0 x10e3/uL 0.0-0.1 = immature grans (abs)) hematology comments: (test code comment = hematology comments:) [facility] HospitalMagnesium [Mass/volume] in Serum or [id number] 00:00:00 Test Item Value Reference Range Interpretation Comments magnesium (test code = magnesium) 1.5 mg/dL 1.6-2.[address] [facility] HospitalEC 12 [id number] 00:40:20 Test Item Value Reference Range Interpretation Comments Ventricular rate (test code = 253) Atrial rate (test code = 255) WA interval (test code = 266) QRSD interval (test code = 260) QT interval (test code = 264) QTC interval (test code = 265) P axis 1 (test code = 267) QRS axis 1 (test code = 268) T wave axis (test code = 270) EKG impression (test Normal sinus rhythm-Low code = 273) voltage QRS-Borderline ECG-In automated comparison with ECG of 06-AUG-2021 11:05,-Nonspecific T wave abnormality no longer evident in Anterolateral leads-QT has shortened-Electronicall y Signed By Batsheva FOWLER, [facility] ([id number]) on 08/07/2021 6:40:15 PM [facility] Preliminary Interpretation - Not an [id number] 17:04:53 Test Item Value Reference Range Interpretation Comments RIZWANA (test code = RIZWANA) Adnrew Chairez MD 08/15/2021 6:59 [facility] Preliminary Interpretation - Not an OrderPerformed by: Andrew Chairez MDAuthorized by: Andrew Chairez MD ECG reviewed by ED Physician in the absence of a drop worker: yes Interpretation: Interpretation: abnormal Rate: ECG rate: 100 ECG rate assessment: tachycardic Rhythm: Rhythm: sinus tachycardia QRS: QRS axis: Normal QRS intervals: NormalST segments: ST segments: NormalT waves: T waves: inverted Other findings: Other findings: prolonged qTc interval Lab Interpretation Abnormal (test code = 43624-8) [facility]
[2022-10-01 14:41] LABS: Absolute Lymphocytes (CBC) 3.6 K/uL (0.7-4.9); Lymphocytes % 19.4 % (15.3-44.8); MCV 89.9 fL (80-100); MPV 8.5 fL (7.6-11.3); RBC Red Blood Cell Count 4.89 M/uL (3.86-4.86)
[2022-10-01 14:49] LABS: Specific Gravity > 1.030 (1.005-1.030); Urine Bacteria <20 /HPF (<20); Urine Bilirubin NEGATIVE (Negative); Urine Blood Negative (Negative); Urine Clarity Clear (Clear); Urine Color Light-Yellow (Yellow); Urine Glucose 4+ (Over) (Negative); Urine Mucus Slight /HPF (None Seen); Urine Protein 1+ (Negative); Urine Urobilinogen Normal (Normal)
[2022-10-01] MEDS ORDERED: FAMOTIDINE 20 MG/2 ML VIAL IV ONE (14:52)
[2022-10-01] MEDS ORDERED: NA CHLORIDE 0.9% 1,000 ML ONE ×2 (14:52→15:09)
[2022-10-01] MEDS ORDERED: ONDANSETRON 4 MG/2 ML VIAL ONE ×2 (14:52→15:47)
[2022-10-01 15:05] LABS: Albumin 4.4 g/dL (3.4-5.0); Potassium 4.2 mEq/L (3.5-5.1); Protein, Total 8.9 g/dL (6.4-8.2)
[2022-10-01] MEDS ORDERED: lisinopriL 20 MG TAB ONE (15:09)
[2022-10-01] MEDS ORDERED: hydroCHLOROthiazide 25 MG TAB ONE (15:09)
--- NOTE | 2022-10-01 15:58 | RAD REPORT ---
EXAM DESCRIPTION: CTAbdomen Pelvis W Contrast - 10/01/2022 3:48 pm CLINICAL HISTORY: ABD PAIN COMPARISON: No comparisons TECHNIQUE: CT of the abdomen and pelvis was performed with IV contrast. All CT scans are performed using dose optimization technique as appropriate and may include automated exposure control or mA/KV adjustment according to patient size. FINDINGS: Lower chest: 4 mm nodule right middle lobe 8 mm nodule in the left lower lobe. Liver: No acute abnormality or suspicious lesions. Biliary: Cholecystectomy. Stomach: No significant focal abnormality. Duodenum: No significant focal abnormality. Pancreas: No significant abnormality. Spleen: No significant abnormality. Adrenal: No suspicious lesions. Kidney/ureter: No hydronephrosis. No renal calculi. Retroperitoneum: No retroperitoneal adenopathy. Vascular: No aneurysm. Atherosclerosis Bowel: No significant focal abnormality. No appendicitis . Peritoneum: No ascites or free air. Bladder: Grossly unremarkable. Reproductive: No adnexal masses. Bones: No acute fracture. Other: n/a IMPRESSION: No acute intra-abdominal or pelvic finding. Pulmonary nodules in the lower lungs, the largest in the left lower lobe measuring 8 millimeters. Rec ommend three-month follow-up dedicated chest CT.
[2022-10-01 16:01] LABS: Blood Gas Oxyhemoglobin 93.2 % (94-97); Blood O2 Saturation 95.9 % (92-98.5)
[2022-10-01] MEDS ORDERED: INSULIN -REGULAR HUMAN 100 UNIT in NA CHLORIDE 0.9% 100 ML IV SCH (16:15)
--- NOTE | 2022-10-01 16:15 | P.HP ---
Certification for Inpatient Patient admitted to: Observation With expected LOS: <2 Midnights Patient will require the following post-hospital care: None Practitioner: I am a practitioner with admitting privileges, knowledge of patient current condition, hospital course, and medical plan of care. Services: Services provided to patient in accordance with Admission requirements found in Title 42 Section 412.3 of the Code of Federal Regulations Patient History Date of Service: 10/01/22 Reason for admission: Diabetic ketoacidosis History of Present Illness: Patient is a 57-year-old female who came to the hospital with diabetic ketoacidosis. Patient has a history of diabetes. Patient also recently started on Ozempic. Patient started having persistent nausea with vomiting. Also was having some abdominal discomfort. Patient came into the emergency room for further evaluation. In the emergency room, patient was found to have diabetic ketoacidosis. Patient was started on IV fluids and insulin drip. Patient clinical symptoms started improving. Patient clinically doing much better. At this time patient was be admitted to the hospital for further treatment of her diabetic ketoacidosis. We will go ahead and start her on clear liquid diet and advance as tolerated. Hopefully we can get her off the insulin drip over the next 24 to 48 hours. Allergies scopolamine Adverse Reaction (Verified 10/01/22 17:39) dizziness Home Medications: Allopurinol 100 mg PO DAILY 10/01/22 Atorvastatin Calcium 10 mg PO BEDTIME 10/01/22 Empagliflozin [Jardiance] 1 tab PO DAILY 10/01/22 Insulin Regular, Human [Humulin R U-500 Kwikpen] 500 unit SQ BREAKFAST 10/01/22 Insulin Regular, Human [Humulin R U-500 Kwikpen] 500 unit SQ DAILY AT SUPPER 10/01/22 Lisinopril/Hydrochlorothiazide [Lisinopril-Hctz 20-12.5 mg Tab] 1 each PO DAILY 10/01/22 Metformin ER [Glucophage ER] 1,000 mg PO BID 10/01/22 Montelukast [Singulair] 10 mg PO DAILY 10/01/22 Pantoprazole Sodium [Protonix] 40 mg PO DAILY 10/01/22 Pioglitazone [Actos] 15 mg PO DAILY 10/01/22 Semaglutide [Ozempic] 0.25 mg SQ TU 10/01/22 - Past Medical/Surgical History -: Diabetes -: Hypertension -: Gout -: Morbid obesity Past Surgical History: Patient denies surgical history - Family History Father Medical History: Diabetes Mother Medical History: Heart disease, Hypertension, Diabetes Brother Medical History: Hypertension, Diabetes Sister Medical History: Diabetes - Social History Smoking Status: Never smoker Alcohol use: No CD- Drugs: No Review of Systems 10-point ROS is otherwise unremarkable Physical Examination - Vital Signs Temperature: 98 F Blood Pressure: 140/80 Pulse: 80 Respirations: 18 Pulse Ox (%): 95 - Physical Exam General: Alert, In no apparent distress, Oriented x3 HEENT: Atraumatic, PERRLA, Mucous membr. moist/pink, EOMI, Sclerae nonicteric Neck: Supple, 2+ carotid pulse no bruit, No LAD, Without JVD or thyroid abnormality Respiratory: Clear to auscultation bilaterally, Normal air movement Cardiovascular: Regular rate/rhythm, Normal S1 S2 Gastrointestinal: Normal bowel sounds, No tenderness Musculoskeletal: No tenderness Integumentary: No rashes Neurological: Normal gait, Normal speech, Normal strength at 5/5 x4 extr, Normal tone, Normal affect Lymphatics: No axilla or inguinal lymphadenopathy - Studies Laboratory Data (last 24 hrs) 10/01/22 14:30: Sodium 130 L, Potassium 4.2, BUN 38 H, Creatinine 1.06 H, Glucose 248 H, Total Bilirubin 1.0, AST 12 L, ALT 30, Alkaline Phosphatase 85, Lipase 18 10/01/22 14:30: WBC 18.30 H, Hgb 14.5, Hct 44.0, Plt Count 372 Assessment & Plan - Problems (Diagnosis) (1) Diabetic ketoacidosis Current Visit: Yes Status: Acute (2) Diabetic neuropathy Current Visit: Yes Status: Acute - Plan 1. Continue with insulin drip 2. Continue with aggressive IV hydration 3. Monitor hemoglobin A1c 4. Blood sugars every hour 5. Check BMP every 6 hours 6. Cad Drafter regarding blood sugars 7. Repeat acetone level in a.m. 8. GI DVT prophylaxis Discharge Plan: Home Plan to discharge in: Greater than 2 days - Advance Directives Does patient have a Living Will: No Does patient have a Durable POA for Healthcare: No - Code Status/Comfort Care Code Status Assessed: Yes Code Status: Full Code Critical Care: No Time Spent Managing PTS Care (In Minutes): 45
--- NOTE | 2022-10-01 16:20 | EDPHYS ---
Physician Documentation [facility] Name: Guerita Loza Age: 57 yrs Sex: Female : 1965 Arrival Date: 10/01/2022 Time: 13:36 Bed 14 Private MD: ED Physician Mikel Cho HPI: 10/01 13:58 This 57 yrs old Female presents to ER via Unassigned with complaints of kb Nausea/Vomiting. 13:58 The patient presents to the emergency department with nausea, vomiting. Onset: The kb symptoms/episode began/occurred 3 day(s) ago. Possible causes: possible due to ozempic that was started 3 weeks ago. The symptoms are aggravated by nothing. The symptoms are alleviated by nothing. Associated signs and symptoms: Pertinent positives: nausea, vomiting, Pertinent negatives: abdominal pain, diarrhea, fever. Severity of symptoms: At their worst the symptoms were moderate in the emergency department the symptoms are unchanged. The patient has not experienced similar symptoms in the past. The patient has not recently seen a physician. Historical: - Allergies: 14:04 unknown medication for dizziness; ll1 - PMHx: 14:04 Diabetes - NIDDM; High Cholesterol; Hypertension; Gout; ll1 - PSHx: 14:04 Cholecystectomy; section; ll1 - Immunization history:: Adult Immunizations up to date. - Social history:: Smoking status: Patient denies any tobacco usage or history of. ROS: 13:56 Constitutional: Negative for fever, chills, and weight loss. kb 13:56 Abdomen/GI: Positive for nausea and vomiting, Negative for abdominal pain. 13:56 All other systems are negative. Exam: 13:56 Constitutional: This is a well developed, well nourished patient who is awake, alert, kb and in no acute distress. Head/Face: Normocephalic, atraumatic. ENT: Moist Mucous membranes Cardiovascular: Regular rate and rhythm with a normal S1 and S2. No gallops, murmurs, or rubs. No pulse deficits. Respiratory: Respirations even and unlabored. No increased work of breathing. Talking in full sentences Abdomen/GI: Soft, non-tender. No distention Skin: Warm, dry with normal turgor. Normal color. MS/ Extremity: Pulses equal, no cyanosis. Neurovascular intact. Full, normal range of motion. Neuro: Awake and alert, GCS 15, oriented to person, place, time, and situation. Moves all extremities. Normal gait. Vital Signs: 14:02 BP 152 / 85; Pulse 105; Resp 22; Temp 98; Pulse Ox 96% ; Weight 97.52 kg; Height 5 ft. ll1 3 in. ; 15:18 BP 176 / 86; Pulse 98; Resp 18; Pulse Ox 97% on R/A; kr3 14:02 Body Mass Index 38.08 (97.52 kg, 160.02 cm) ll1 MDM: 13:56 Patient medically screened. kb 13:57 Differential diagnosis: Nonspecific abd pain, viral gastroenteritis, adverse reaction. kb Data reviewed: vital signs, nurses notes. 16:19 Consideration of Admission/Observation Patient was admitted/placed on observation. kb Management of patient was discussed with the following: Hospitalist: Dr Moreira accepts pt for admission. Counseling: I had a detailed discussion with the patient and/or guardian regarding: the historical points, exam findings, and any diagnostic results supporting the discharge/admit diagnosis, lab results, radiology results, the need for further work-up and treatment in the hospital. 10/01 13:56 Order name: CBC with Diff; Complete Time: 14:50 kb 10/01 13:56 Order name: CMP; Complete Time: 15:27 kb 10/01 13:56 Order name: Lipase; Complete Time: 15:27 kb 10/01 13:56 Order name: Urinalysis w/ reflexes; Complete Time: 14:53 kb 10/01 14:53 Order name: Urine Culture EDPA 10/01 15:27 Order name: Acetone, Serum; Complete Time: 15:58 kb 10/01 15:28 Order name: ABG; Complete Time: 16:52 kb 10/01 16:16 Order name: Acetone Level EDPA 10/01 16:16 Order name: Acetone Level EDPA 10/01 16:16 Order name: Acetone Level EDPA 10/01 16:16 Order name: Acetone Level EDPA 10/01 16:16 Order name: Acetone Level EDPA 10/01 16:16 Order name: Acetone Level EDPA 10/01 16:16 Order name: Basic Metabolic Panel EDPA 10/01 16:16 Order name: Basic Metabolic Panel EDPA 10/01 16:16 Order name: Basic Metabolic Panel EDMS 10/01 16:16 Order name: Basic Metabolic Panel EDMS 10/01 16:16 Order name: Basic Metabolic Panel EDMS 10/01 16:16 Order name: Basic Metabolic Panel EDMS 10/01 16:16 Order name: Calcium Level EDMS 10/01 16:16 Order name: Calcium Level EDMS 10/01 16:16 Order name: Calcium Level EDMS 10/01 16:16 Order name: Calcium Level EDMS 10/01 16:16 Order name: CBC with Automated Diff EDMS 10/01 16:16 Order name: CBC with Automated Diff EDMS 10/01 16:16 Order name: CBC with Automated Diff EDMS 10/01 16:16 Order name: CBC with Automated Diff EDMS 10/01 16:16 Order name: Magnesium EDMS 10/01 16:16 Order name: Magnesium EDMS 10/01 16:16 Order name: Magnesium EDMS 10/01 16:16 Order name: Magnesium EDMS 10/01 14:53 Order name: CT Abd/Pelvis - IV Contrast Only; Complete Time: 16:00 kb 10/01 16:16 Order name: Clear Liquid EDMS 10/01 13:56 Order name: IV Saline Lock; Complete Time: 14:24 kb 10/01 13:56 Order name: Labs collected and sent; Complete Time: 14:24 kb Administered Medications: 14:50 Drug: NS 0.9% IV 1000 ml Route: IV; Rate: 1 bolus; Site: right antecubital; kr3 14:55 Drug: Ondansetron IVP 4 mg Route: IVP; Site: right antecubital; kr3 15:00 Drug: Famotidine IVP 20 mg Route: IVP; Site: right antecubital; kr3 15:13 Drug: NS 0.9% IV 1000 ml Route: IV; Rate: 1000 ml; Site: right antecubital; kr3 15:13 Drug: Lisinopril PO 20 mg Route: PO; kr3 15:13 Drug: Hydrochlorothiazide PO 12.5 mg Route: PO; kr3 15:58 Drug: Ondansetron IVP 4 mg Route: IVP; Site: right antecubital; kr3 17:04 Drug: Insulin Drip - (Insulin Regular Human IVP 100 units, NS 0.9% IV 100 ml) jl7 {Co-Signature: kr3 (Roxana Ford RN).} {Note: Medication mixed and brought to ICU per ADMINISTRATIVE HEARING OFFICER request and ERP gave verbal approval.} Route: IV; Rate: calculated rate; Site: right antecubital; Disposition: 18:40 Co-signature as Attending Physician, Mikel Cho MD I reviewed the patient's care rt provided by the Advanced Practice Provider and agree with the diagnosis and treatment plan. Disposition Summary: 10/01/22 16:19 Hospitalization Ordered Hospitalization Status: Inpatient Admission kb Provider: Stormy Moreira Location: Intensive Care Unit kb Condition: Stable kb Problem: new kb Symptoms: are unchanged kb Bed/Room Type: Standard Room Assignment: 7-(10/01/22 16:30) dw Diagnosis - Diabetes mellitus due to underlying condition with ketoacidosis without coma kb Forms: - Medication Reconciliation Form kb - SBAR form kb Signatures: Dispatcher [employer] EDMS Amalia Monique, SUELLEN QUILL WORKER-Emmy Mondragon RN RN Stephanie Cantu RN RN jl7 Viry Gonzlaes RN RN ll1 Roxana Ford, RACQUEL RN kr3 Mikel Cho MD MD rt Roxana Ford RN kr3 Corrections: (The following items were deleted from the chart) 16:30 16:19 kb dw
--- NOTE | 2022-10-01 16:20 | ER ---
Nurse's Notes [facility] Name: Guerita Loza Age: 57 yrs Sex: Female : 1965 Arrival Date: 10/01/2022 Time: 13:36 Bed 14 Private MD: Diagnosis: Diabetes mellitus due to underlying condition with ketoacidosis without coma Presentation: 10/01 14:02 Chief complaint: Patient states: N/V since . No fevers. Coronavirus screen: ll1 Client denies travel out of the [place] in the last 14 days. At this time, the client does not indicate any symptoms associated with coronavirus-19. Ebola Screen: Patient denies travel to an Ebola-affected area in the 21 days before illness onset. Initial Sepsis Screen: Does the patient meet any 2 criteria? RR > 20 per min. No. Patient's initial sepsis screen is negative. Does the patient have a suspected source of infection? Yes: Acute abdominal pain. Risk Assessment: Do you want to hurt yourself or someone else? Patient reports no desire to harm self or others. Onset of symptoms was September 29, 2022. 14:02 Method Of Arrival: Ambulatory [facility] 14:02 Acuity: BELEN 3 ll1 Historical: - Allergies: 14:04 unknown medication for dizziness; ll1 - PMHx: 14:04 Diabetes - NIDDM; High Cholesterol; Hypertension; Gout; ll1 - PSHx: 14:04 Cholecystectomy; section; ll1 - Immunization history:: Adult Immunizations up to date. - Social history:: Smoking status: Patient denies any tobacco usage or history of. Assessment: 15:14 General: Appears in no apparent distress. uncomfortable, Behavior is calm, cooperative, kr3 appropriate for age. Pain: Complains of pain in abdomen. Neuro: Level of Consciousness is awake, alert, obeys commands, Oriented to person, place, time, situation. Cardiovascular: Patient's skin is warm and dry. Respiratory: Airway is patent Respiratory effort is even, unlabored, Respiratory pattern is regular, symmetrical. GI: Reports nausea. : No signs and/or symptoms were reported regarding the genitourinary system. Derm: No signs and/or symptoms reported regarding the dermatologic system. Musculoskeletal: No signs and/or symptoms reported regarding the musculoskeletal system. Vital Signs: 14:02 BP 152 / 85; Pulse 105; Resp 22; Temp 98; Pulse Ox 96% ; Weight 97.52 kg; Height 5 ft. ll1 3 in. ; 15:18 BP 176 / 86; Pulse 98; Resp 18; Pulse Ox 97% on R/A; kr3 14:02 Body Mass Index 38.08 (97.52 kg, 160.02 cm) ll1 ED Course: 13:42 Patient arrived in ED. jj6 13:44 [facility]alia Mon[facility]C [facility] kb 13:44 Mikel Cho MD is Attending Physician. kb 14:04 Triage completed. ll1 14:05 Arm band placed on Patient placed in an exam room, on a stretcher. ll1 14:24 Initial lab(s) drawn, by me, sent to lab. Inserted saline lock: 22 gauge in right mm9 antecubital area, using aseptic technique. Blood collected. 14:41 Urinalysis w/ reflexes Sent. mm9 14:41 Lipase Sent. mm9 14:41 CMP Sent. mm9 14:41 CBC with Diff Sent. mm9 14:44 Roxana Ford RN is Primary Nurse. kr3 15:39 Acetone, Serum Sent. kr3 15:50 CT Abd/Pelvis - IV Contrast Only In Process Unspecified. EDMS 16:19 Stormy Moreira MD is Hospitalizing Provider. kb 16:54 Report given to RACQUEL Mcgregor ICU. kr3 Administered Medications: 14:50 Drug: NS 0.9% IV 1000 ml Route: IV; Rate: 1 bolus; Site: right antecubital; kr3 14:55 Drug: Ondansetron IVP 4 mg Route: IVP; Site: right antecubital; kr3 15:00 Drug: Famotidine IVP 20 mg Route: IVP; Site: right antecubital; kr3 15:13 Drug: NS 0.9% IV 1000 ml Route: IV; Rate: 1000 ml; Site: right antecubital; kr3 15:13 Drug: Lisinopril PO 20 mg Route: PO; kr3 15:13 Drug: Hydrochlorothiazide PO 12.5 mg Route: PO; kr3 15:58 Drug: Ondansetron IVP 4 mg Route: IVP; Site: right antecubital; kr3 17:04 Drug: Insulin Drip - (Insulin Regular Human IVP 100 units, NS 0.9% IV 100 ml) jl7 {Co-Signature: kr3 (Roxana Ford RN).} {Note: Medication mixed and brought to ICU per SUPERVISOR PUBLICATIONS request and ERP gave verbal approval.} Route: IV; Rate: calculated rate; Site: right antecubital; Outcome: 16:19 Decision to Hospitalize by Provider. kb 17:15 Patient left the ED. kr3 Signatures: Dispatcher [employer] EDMS mAalia Monique, MINA-C RN EMERGENCY ROOM-Stephanie Chanel, RN RN jl7 Viry Gonzales RN RN ll1 Irina Frank jj6 Roxana Ford, RN RN kr3 Kasey Loza 9 Roxana Ford RN kr3 Corrections: (The following items were deleted from the chart) 14:04 14:02 Pulse 105bpm; Resp 22bpm; Pulse Ox 96%; Temp 98F; 97.52 kg; Height 5 ft. 3 in.; ll1 BMI: 38.0; ll1
[2022-10-01] MEDS ORDERED: INSULIN -REGULAR HUMAN 50 UNIT/0.5 ML ML ONE (17:05)
[2022-10-01] MEDS ORDERED: NA CHLORIDE 0.9% 100 ML ONE (17:06)
[2022-10-01] MEDS ORDERED: LORazepam 2 MG/ML VIAL IV ONE (18:09)
[2022-10-01] MEDS ORDERED: PROMETHAZINE 25 MG TABLET PO PRN (18:09)
[2022-10-01] MEDS: D5 0.9 NS 1,000 ML IV SCH (18:11)
[2022-10-01 18:36] VITALS: BMI 36.3
[2022-10-01 20:43] LABS: BUN Blood Urea Nitrogen 29 mg/dL (7-18); Bicarbonate 24 mEq/L (21-32); Glomerular Filtration Rate 71 ml/min (=/>90); Glucose Level 181 mg/dL (74-106); Sodium Level 132 mEq/L (136-145)
[2022-10-01 20:44] LABS: Potassium 4.2 mEq/L (3.5-5.1)
[2022-10-02] MEDS: D5 0.9 NS 1,000 ML IV SCH (00:35)
[2022-10-02 00:47] LABS: BUN Blood Urea Nitrogen 25 mg/dL (7-18); Bicarbonate 23 mEq/L (21-32); Glomerular Filtration Rate 79 ml/min (=/>90); Glucose Level 169 mg/dL (74-106); Potassium 3.7 mEq/L (3.5-5.1); Sodium Level 134 mEq/L (136-145)
[2022-10-02 05:10] LABS: Absolute Lymphocytes (CBC) 3.9 K/uL (0.7-4.9); Hematocrit 40.3 % (36.0-45.0); Lymphocytes % 22.9 % (15.3-44.8); MCV 90.1 fL (80-100); MPV 8.1 fL (7.6-11.3); RBC Red Blood Cell Count 4.48 M/uL (3.86-4.86)
[2022-10-02] MEDS ORDERED: D50W 25 GM/50 ML SYRINGE IV PRN (05:18)
[2022-10-02] MEDS ORDERED: GLUCAGON 1 MG/VIAL IM PRN (05:18)
[2022-10-02 05:23] LABS: BUN Blood Urea Nitrogen 22 mg/dL (7-18); Bicarbonate 25 mEq/L (21-32); Glomerular Filtration Rate 92 ml/min (=/>90); Glucose Level 162 mg/dL (74-106); Magnesium 2.2 mg/dL (1.6-2.4); Potassium 3.5 mEq/L (3.5-5.1); Sodium Level 133 mEq/L (136-145)
[2022-10-02] MEDS ORDERED: D10W 125 ML IV PRN (06:09)
[2022-10-02] MEDS: ENOXAPARIN 40 MG/0.4 ML SQ SCH (07:43)
[2022-10-02] MEDS: CEFTRIAXONE 1,000 MG in NA CHLORIDE 0.9% 50 ML IVPB SCH (07:43)
[2022-10-02] MEDS: allopurinoL 100 MG TAB PO SCH (07:43)
[2022-10-02 08:38] LABS: BUN Blood Urea Nitrogen 20 mg/dL (7-18); Bicarbonate 25 mEq/L (21-32); Glomerular Filtration Rate 92 ml/min (=/>90); Glucose Level 165 mg/dL (74-106); Potassium 3.5 mEq/L (3.5-5.1); Sodium Level 135 mEq/L (136-145)
[2022-10-02] MEDS: INSULIN 70/30 100 UNITS/ML SQ SCH (08:43)
[2022-10-02] MEDS ORDERED: POTASSIUM CL SA 10 MEQ TAB PO ONE (09:00)
[2022-10-02] MEDS ORDERED: PANTOPRAZOLE SODIUM 40 MG PO SCH (09:00)
[2022-10-02] MEDS ORDERED: MONTELUKAST 10 MG PO SCH (09:00)
[2022-10-02] MEDS: ONDANSETRON 4 MG/2 ML VIAL IV PRN ×2 (12:04→17:50)
[2022-10-02 12:29] LABS: BUN Blood Urea Nitrogen 19 mg/dL (7-18); Bicarbonate 24 mEq/L (21-32); Glomerular Filtration Rate 101 ml/min (=/>90); Glucose Level 158 mg/dL (74-106); Potassium 3.9 mEq/L (3.5-5.1); Sodium Level 132 mEq/L (136-145)
[2022-10-02] MEDS ORDERED: PANTOPRAZOLE 40MG TABLET PO ONE (13:00)
--- NOTE | 2022-10-02 13:47 | P.DS ---
Discharge Date: 10/02/22 Disposition: ROUTINE DISCHARGE Discharge Condition: GOOD Reason for Admission: Diabetic ketoacidosis - Problems (1) Diabetic ketoacidosis Current Visit: Yes Status: Acute (2) Diabetic neuropathy Current Visit: Yes Status: Acute Brief History of Present Illness: Patient is a 57-year-old female who came to the hospital with diabetic ketoacidosis. Patient has a history of diabetes. Patient also recently started on Ozempic. Patient started having persistent nausea with vomiting. Also was having some abdominal discomfort. Patient came into the emergency room for further evaluation. In the emergency room, patient was found to have diabetic ketoacidosis. Patient was started on IV fluids and insulin drip. Patient clinical symptoms started improving. Patient clinically doing much better. At this time patient was be admitted to the hospital for further treatment of her diabetic ketoacidosis. We will go ahead and start her on clear liquid diet and advance as tolerated. Hopefully we can get her off the insulin drip over the next 24 to 48 hours. Hospital Course: Patient done well during hospitalization. Continue with long-acting insulin. Continue with antibiotic therapy. Patient is clinically doing well. At this time patient clinically is doing much better and stable for discharge with outpatient follow-up. Vital Signs/Physical Exam: Temp Pulse Resp BP Pulse Ox 98 F 80 18 140/80 95 10/02/22 13:42 10/02/22 13:42 10/02/22 13:42 10/02/22 13:42 10/02/22 13:42 General: Alert, In no apparent distress, Oriented x3 Laboratory Data at Discharge: WBC 17.00 thou/uL (4.3-10.9) H 10/02/22 04:37 Hgb 13.3 g/dL (12.0-15.0) D 10/02/22 04:37 Hct 40.3 % (36.0-45.0) 10/02/22 04:37 Plt Count 312 thou/uL (152-406) 10/02/22 04:37 Sodium 132 mEq/L (136-145) L 10/02/22 12:00 Potassium 3.9 mEq/L (3.5-5.1) 10/02/22 12:00 BUN 19 mg/dL (7-18) H 10/02/22 12:00 Creatinine 0.69 mg/dL (0.55-1.02) 10/02/22 12:00 Glucose 158 mg/dL (74-106) H 10/02/22 12:00 Magnesium Cancelled 10/02/22 05:00 Total Bilirubin 1.0 mg/dL (0.2-1.0) 10/01/22 14:30 AST 12 U/L (15-37) L 10/01/22 14:30 ALT 30 U/L (13-56) 10/01/22 14:30 Alkaline Phosphatase 85 U/L (45-117) 10/01/22 14:30 Lipase 18 U/L (13-75) 10/01/22 14:30 Home Medications: Allopurinol 100 mg PO DAILY 10/01/22 Atorvastatin Calcium 10 mg PO BEDTIME 10/01/22 Lisinopril/Hydrochlorothiazide [Lisinopril-Hctz 20-12.5 mg Tab] 1 each PO DAILY 10/01/22 Metformin ER [Glucophage ER*] 1,000 mg PO BID 10/01/22 Montelukast [Singulair*] 10 mg PO DAILY 10/01/22 Pantoprazole Sodium [Protonix] 40 mg PO DAILY 10/01/22 Pioglitazone [Actos*] 15 mg PO DAILY 10/01/22 Cefdinir [Cefdinir*] 300 mg PO BID #14 cap 10/02/22 Insulin 70/30 NPH/Reg Human [Novolin 70/30*] 15 unit SQ DAILY AT SUPPER #2 vial 10/02/22 Insulin 70/30 NPH/Reg Human [Novolin 70/30*] 20 unit SQ DAILY WITH BREAKFAST #2 vial 10/02/22 Promethazine Tab [Phenergan*] 25 mg PO Q6H PRN tab 10/02/22 New Medications: Cefdinir [Cefdinir*] 300 mg PO BID #14 cap Insulin 70/30 NPH/Reg Human [Novolin 70/30*] 20 unit SQ DAILY WITH BREAKFAST #2 vial Insulin 70/30 NPH/Reg Human [Novolin 70/30*] 15 unit SQ DAILY AT SUPPER #2 vial Physician Discharge Instructions: -DC IV and DC home -Follow-up with PCP in 1 to 2 weeks -Please call Dr. Moreira at [phone] if any questions regarding hospital stay -Please call nursing station at [phone] if any nursing or medication questions -Return to the emergency room if symptoms worsen Diet: ADA Activity: Fall precautions Time spent managing pt's care (in minutes): 35
[2022-10-02] MEDS: PIOGLITAZONE 15 MG TAB PO SCH (13:55)
[2022-10-02] MEDS ORDERED: INSULIN 70/30 100 UNITS/ML SQ SCH (17:00)
[2022-10-02] MEDS: METOCLOPRAMIDE 10 MG/2mL INJ IV SCH (19:04)
[2022-10-02] MEDS ORDERED: ATORVASTATIN 10 MG TAB PO SCH (21:00)
[2022-10-03] MEDS: METOCLOPRAMIDE 10 MG/2mL INJ IV SCH (00:48)
--- NOTE | 2022-10-03 03:25 | P.PN ---
Subjective Date of Service: 10/02/22 Patient started having some vomiting after dinner. She has been worried that she has gastroparesis that she has had diabetes for such a long time. I will go ahead and order a gastric emptying study in the morning. We will restart gentle hydration. Review of Systems 10-point ROS is otherwise unremarkable Physical Examination - Vital Signs Temperature: 97.4 F Blood Pressure: 151/81 Pulse: 91 Respirations: 18 Pulse Ox (%): 94 - Physical Exam General: Alert, In no apparent distress, Oriented x3 Respiratory: Clear to auscultation bilaterally, Normal air movement Cardiovascular: Regular rate/rhythm, Normal S1 S2, No murmurs Gastrointestinal: Normal bowel sounds, Soft and benign, Non-distended, No rebound, No guarding, Tenderness Musculoskeletal: No clubbing, No swelling, No tenderness Neurological: Sensation intact, Cranial nerves 3-12 intact - Studies Medications List Reviewed: Yes Assessment & Plan - Problems (Diagnosis) (1) Diabetic ketoacidosis Current Visit: Yes Status: Acute (2) Diabetic neuropathy Current Visit: Yes Status: Acute (3) Persistent vomiting Current Visit: Yes Status: Acute - Plan Continue with plan of care as mentioned below: 1. Continue with long-acting insulin 2. Continue with hydration 3. Monitor hemoglobin A1c 4. Blood sugars every 6 hours 5. Check BMP in AM 6. Gastric emptying study in the morning 7. Monitor for ketosis 8. If tolerating diet in the morning, and gastric emptying study is okay then possible discharge home 9. GI DVT prophylaxis Discharge Plan: Home Plan to discharge in: 24 Hours - Advance Directives Does patient have a Living Will: No Does patient have a Durable POA for Healthcare: No - Code Status/Comfort Care Code Status: Full Code Critical Care: No Time Spent Managing PTS Care (In Minutes): 35
[2022-10-03] MEDS ORDERED: NA CHLORIDE 0.9% 1,000 ML IV SCH (04:00)
[2022-10-03 05:09] LABS: Absolute Lymphocytes (CBC) 4.5 K/uL (0.7-4.9); Hematocrit 41.5 % (36.0-45.0); Lymphocytes % 36.9 % (15.3-44.8); MCV 89.9 fL (80-100); RBC Red Blood Cell Count 4.61 M/uL (3.86-4.86)
[2022-10-03 05:24] LABS: Magnesium 1.8 mg/dL (1.6-2.4); Potassium 3.5 mEq/L (3.5-5.1)
[2022-10-03] MEDS ORDERED: MAGNESIUM SULFATE 1 gm IVPB 1 GM/100 ML BAG IV ONE (06:00)
[2022-10-03] MEDS ORDERED: METOPROLOL TAR 25 MG TAB PO SCH (06:00)
[2022-10-03] MEDS ORDERED: KCL 20 MEQ/100 mL IVPB 20 MEQ/100 ML BAG IV ONE (06:00)
[2022-10-03 08:01] VITALS: O2SAT 92
[2022-10-03] MEDS ORDERED: PANTOPRAZOLE 40MG TABLET PO SCH (09:00)
[2022-10-03] MEDS ORDERED: MONTELUKAST 10 MG TAB PO SCH (09:00)
--- NOTE | 2022-10-03 11:33 | RAD REPORT ---
EXAM DESCRIPTION: NM - Gastric Emptying Study - 10/03/2022 11:26 am CLINICAL HISTORY: Abdominal pain COMPARISON: None. TECHNIQUE: The patient was administered approximately 1.1 mCi Tc 99m sulfur colloid in solid egg cindy l. Imaging of the left upper quadrant was performed with time/activity curve generated. FINDINGS: Cine-loop images show normal progression of the radiopharmaceutical from the stomach into the small bowel. Time to one-half activity is 103 minutes, moderately delayed. No other significant f indings. IMPRESSION: Moderate delayed gastric emptying seen.
[2022-10-03] MEDS ORDERED: METOCLOPRAMIDE 5 MG TAB PO SCH (12:15)
[2022-10-03] MEDS: CEFTRIAXONE 1,000 MG in NA CHLORIDE 0.9% 50 ML IVPB SCH (12:35)
[2022-10-03] MEDS: INSULIN 70/30 100 UNITS/ML SQ SCH (12:35)
[2022-10-03] MEDS: ENOXAPARIN 40 MG/0.4 ML SQ SCH (12:35)
[2022-10-03] MEDS: allopurinoL 100 MG TAB PO SCH (12:37)
[2022-10-03] MEDS: PIOGLITAZONE 15 MG TAB PO SCH (12:40)
--- NOTE | 2022-10-03 13:28 | RAD REPORT ---
EXAM DESCRIPTION: XR Chest, 1 View CLINICAL HISTORY: The patient is 57 years old and is Female; tachypnea TECHNIQUE: Frontal view of the chest. COMPARISON: No relevant prior studies available. FINDINGS: LUNGS: Unremarkable. No consolidation. PLEURAL SPACE: Unremarkable. No pneumothorax. HEART: Unremarkable. No cardiomegaly. MEDIASTINUM: Unremarkable. BONES/JOINTS: Multilevel degenerative change of the spine is present. VASCULATURE: Atherosclerosis of the aorta is present. UPPER ABDOMEN: Unremarkable as visualized. IMPRESSION: No acute cardiopulmonary process. Electronically signed by: Digna Brown MD 10/02/2022 11:17 PM CDT Due to temporary technical issues with the PACS/Fluency reporting system, reports are being signed by the in house radiologist without review as a courtesy to ensure prompt reporting. The interpreting r adiologist is fully responsible for the content of the report.
[2022-10-03 13:54] VITALS: TEMP 97
--- NOTE | 2022-10-03 15:07 | P.DS ---
Admission Date: 10/01/22 Discharge Date: 10/03/22 Disposition: ROUTINE DISCHARGE Discharge Condition: GOOD Reason for Admission: Diabetic ketoacidosis Hospital Course: DIAGNOSES: # Diabetic Ketoacidosis in Type II Diabetes Mellitus - resolved # Sepsis secondary to a Urinary Tract Infection - improved # Suspect Diabetic Gastroparesis # Hypertension # Gout # Pulmonary Nodules # Microscopic Hematuria HOSPITAL COURSE: Ms. Guerita Loza is a pleasant 57 year old female with a past medical history significant for type 2 diabetes mellitus, hypertension, and gout who was admitted to the [facility] on 10/01/2022 for abdominal pain, nausea, and vomiting. She was admitted to the Medicine service. Upon further evaluation, she was found to have diabetic ketoacidosis. She was started on an IV insulin drip and IV fluids per DKA protocol. Over the course of her hospitalization, her symptoms improved significantly. Despite improvement in her glucose levels and closure of her anion gap, she continued to have some nausea/vomiting when eating. A gastric emptying study was performed, which revealed, "moderate delayed gastric emptying seen." She was started on metoclopramide, and this seemed to help her symptoms. She was advised to eat small frequent meals and to follow-up with Gastroenterology for further evaluation of potential diabetic gastroparesis. She verbalized understanding and agreed to make this follow-up appointment. Incidentally, during her evaluation, her CT abdomen/pelvis revealed, "no acute intra-abdominal or pelvic finding. Pulmonary nodules in the lower lungs, the largest in the left lower lobe measuring 8 millimeters. Recommend three-month follow-up dedicated chest CT." She was counseled extensively on these pulmonary nodules and the possibility that they may represent an underlying malignancy. She stated that she has known about these nodules and has been scheduling routine surveillance CT scans with her PCP. She was also noted to have microscopic hematuria. Although this can be seen with a urinary tract infection, she was advised that this can also be an early sign of an underlying urologic malignancy. She was advised to follow-up with her PCP for further evaluation. She verbalized understanding and agreed to make this appointment. On 10/03/2022, she was seen on rounds and deemed medically stable for discharge. She was discharged with instructions to schedule follow-up appointments with her PCP (Dr. Rayo) and with Gastroenterology (Dr. Dias). She was provided prescriptions for insulin, ondansetron, cefdinir, and metoclopramide. Her QTc interval was measured at 425 msec. She was given the opportunity to ask questions and reported no further questions. Furthermore, all questions were answered to the best of my ability. A copy of this discharge summary will be sent to the above providers to facilitate continuity of care. Today, I personally spent 35 minutes on her case, of which greater than 50% of the time was spent in patient education, counseling, and coordination of care as described above. Vital Signs/Physical Exam: Temp Pulse Resp BP Pulse Ox 97.0 F 90 17 119/72 94 10/03/22 12:00 10/03/22 13:00 10/03/22 13:00 10/03/22 13:00 10/03/22 13:00 General: Alert, In no apparent distress, Oriented x3 HEENT: Atraumatic, Mucous membr. moist/pink, Sclerae nonicteric Neck: JVD not distended Respiratory: Clear to auscultation bilaterally, Normal air movement Cardiovascular: No edema, Regular rate/rhythm, Normal S1 S2, No gallops, No rubs, No murmurs Gastrointestinal: Normal bowel sounds, Soft and benign, Non-distended, No tenderness, No rebound, No guarding Musculoskeletal: No clubbing Integumentary: No rashes Neurological: Normal speech, Normal affect Laboratory Data at Discharge: WBC 12.30 thou/uL (4.3-10.9) H 10/03/22 04:46 Hgb 13.6 g/dL (12.0-15.0) 10/03/22 04:46 Hct 41.5 % (36.0-45.0) 10/03/22 04:46 Plt Count 313 thou/uL (152-406) 10/03/22 04:46 Sodium 132 mEq/L (136-145) L 10/03/22 04:44 Potassium 3.5 mEq/L (3.5-5.1) 10/03/22 04:44 BUN 19 mg/dL (7-18) H 10/03/22 04:44 Creatinine 0.73 mg/dL (0.55-1.02) 10/03/22 04:44 Glucose 164 mg/dL (74-106) H 10/03/22 04:44 Magnesium 1.8 mg/dL (1.6-2.4) 10/03/22 04:44 Total Bilirubin 1.0 mg/dL (0.2-1.0) 10/01/22 14:30 AST 12 U/L (15-37) L 10/01/22 14:30 ALT 30 U/L (13-56) 10/01/22 14:30 Alkaline Phosphatase 85 U/L (45-117) 10/01/22 14:30 Lipase 18 U/L (13-75) 10/01/22 14:30 Home Medications: Allopurinol 100 mg PO DAILY 10/01/22 Atorvastatin Calcium 10 mg PO BEDTIME 10/01/22 Lisinopril/Hydrochlorothiazide [Lisinopril-Hctz 20-12.5 mg Tab] 1 each PO DAILY 10/01/22 Metformin ER [Glucophage ER*] 1,000 mg PO BID 10/01/22 Montelukast [Singulair*] 10 mg PO DAILY 10/01/22 Pantoprazole Sodium [Protonix] 40 mg PO DAILY 10/01/22 Pioglitazone [Actos*] 15 mg PO DAILY 10/01/22 Cefdinir [Cefdinir*] 300 mg PO BID #14 cap 10/02/22 Insulin 70/30 NPH/Reg Human [Novolin 70/30*] 15 unit SQ DAILY AT SUPPER #2 vial 10/02/22 Insulin 70/30 NPH/Reg Human [Novolin 70/30*] 20 unit SQ DAILY WITH BREAKFAST #2 vial 10/02/22 Ondansetron [Zofran] 4 mg PO Q6H PRN #20 tab 10/02/22 Metoclopramide HCl 5 mg PO ACHS PRN 15 Days #60 tab 10/03/22 Metoprolol Tartrate [Lopressor*] 25 mg PO BID 6AM 6PM #60 tab 10/03/22 New Medications: Cefdinir [Cefdinir*] 300 mg PO BID #14 cap Metoprolol Tartrate [Lopressor*] 25 mg PO BID 6AM 6PM #60 tab Metoclopramide HCl 5 mg PO ACHS PRN 15 Days #60 tab PRN Reason: Nausea / Vomiting Insulin 70/30 NPH/Reg Human [Novolin 70/30*] 20 unit SQ DAILY WITH BREAKFAST #2 vial Insulin 70/30 NPH/Reg Human [Novolin 70/30*] 15 unit SQ DAILY AT SUPPER #2 vial Ondansetron [Zofran] 4 mg PO Q6H PRN #20 tab PRN Reason: Nausea / Vomiting Physician Discharge Instructions: PROBLEM: Diabetic Keto Acidosis GOAL: Clear understanding of disease process INSTRUCTIONS:Please call and schedule a follow-up appointment with your PCP (Dr. Rayo) in 3-5 days - As we discussed, you have two small spots on your lung. It is unclear if these are cancer or not. Please follow-up with your PCP for further evaluation. - You were found to have a small amount of blood in your urine, which can sometimes be seen in bladder/kidney cancer. Please follow-up with your PCP for further evaluation. -Please call and schedule a follow-up appointment with Gastroenterology (Dr. Dias) in 5-7 days to further evaluate your gastroparesis -Please call nursing station at [phone] if any nursing or medication questions -Return to the emergency room if symptoms worsen Resume Lisinopril tomorrow 10/04/2022 as per instructions Diet: ADA Activity: Fall precautions DME DME: Date Ordered: Name of Company: [employer] Services Needed: Name of Company: Date or Referral: IMMUNIZATION Influenza Vaccine Indicated: Influenza Vaccine Given: Date Given: Pneumonia Vaccine Indicated: No Pneumonia Vaccine Given: Date Given: -Please call and schedule a follow-up appointment with your PCP (Dr. Rayo) in 3-5 days - As we discussed, you have two small spots on your lung. It is unclear if these are cancer or not. Please follow-up with your PCP for further evaluation. - You were found to have a small amount of blood in your urine, which can sometimes be seen in bladder/kidney cancer. Please follow-up with your PCP for further evaluation. -Please call and schedule a follow-up appointment with Gastroenterology (Dr. Dias) in 5-7 days to further evaluate your gastroparesis -Please call nursing station at [phone] if any nursing or medication questions -Return to the emergency room if symptoms worsen Diet: ADA Activity: Fall precautions Followup: Jarrod Dias MD [OUTSIDE PHYSICIAN] - Time spent managing pt's care (in minutes): 35
[2022-10-03 16:12] VITALS: BP 124/67
[2022-10-04] MEDS ORDERED: HOME MED 1 EA UNK (Semaglutide [Ozempic] 0.25 MG/0.2 ML Pen.Injctr) SQ SCH (05:15)
--- NOTE | 2022-10-05 16:49 | EKG ---
Test Date: 2022-10-03 Test Time: 15:16:31 [employer]: [facility] MEASUREMENT RESULTS: Intervals: Rate: 87 SD: 154 QRSD: 72 QT: 354 QTc: 425 [place]: P: 47 SD: 154 QRS: 57 T: 22 INTERPRETIVE STATEMENTS: Normal sinus rhythm Normal ECG Compared to ECG 05/13/2004 16:28:00 No significant changes Electronically Signed On 10-05-22 16:47:33 CDT by Lavelle Tirado
== END 2022-10-03 16:04 | disposition home or self-care (01) ==
LOC: ER 13:36 → ERHOLD 16:11 → 3RD-ICU 17:08
PROVIDERS: ADMIT Hospitalist; ATTEND Internal Medicine
DX: E11.10 Type 2 diabetes mellitus with ketoacidosis without coma (principal); E11.43 Type 2 diabetes mellitus with diabetic autonomic (poly)neuropathy; K31.84 Gastroparesis; E11.40 Type 2 diabetes mellitus with diabetic neuropathy, unspecified; N39.0 Urinary tract infection, site not specified; M10.9 Gout, unspecified; I10 Essential (primary) hypertension; R31.29 Other microscopic hematuria; R11.10 Vomiting, unspecified; R91.8 Other nonspecific abnormal finding of lung field
CPT/HCPCS: 93005; 87088; 85025 ×3; 81001; 87086; 80048 ×6; 36415 ×2; 82010 ×6; 83735 ×2; 82947 ×17; 83036; 83690; 80053; 74177; 71045; 82805; 78264; 96375; 96374; 99284; Q9967; J1815 ×3; Q0169; J3480; J3475; J2765 ×2; J1650 ×2; J2405 ×4; J7042 ×2; J7030 ×3; J0696 ×2; A9541; G0378 ×4

== ENCOUNTER 2023-01-28 14:58 | Emergency (ER) | payer BC ==
--- OUTSIDE RECORDS SUMMARY | 2023-01-28 15:07 | XMS REPORT | Continuity of Care Document ---
:1965 Author Organization [facility] t Address [address] [place] [address] Care Team Providers Name Role Phone Asked, No Pcp Primary Care Physician Unavailable МАРИЯ CANTU Attending Clinician Unavailable Marlee Attending Clinician Unavailable Juan Ferrari MD Attending Clinician XIANG GANDHI Attending Clinician Unavailable Yohana_BELTRANGDNU Attending Clinician Unavailable Deon Treadwell MD Attending Clinician Latanya Jama Attending Clinician Unavailable ADITI AYON Attending Clinician Unavailable ADITI AYON Attending Clinician Unavailable Mario_Asia Attending Clinician Unavailable Lauri Clemons Attending Clinician LAURI SUNG Attending Clinician Unavailable Saira Yun RN Attending Clinician Unavailable Xiang Gandhi MD Attending Clinician LATANYA DU Attending Clinician Unavailable Saravanan Melendez MD Attending Clinician Doctor Unassigned, [place] Attending Clinician Unavailable DEON TREADWELL Attending Clinician Unavailable BRETT MONTESINOS Attending Clinician Unavailable Brett Montesinos MD Attending Clinician Lloyd CLEMENT, Fabienne Attending Clinician Unavailable Lazara Wan MA Attending Clinician Unavailable Andrew Chairez MD Attending Clinician Ele Sanders MD Attending Clinician TIM MARES Attending Clinician Unavailable [...] Attending Clinician JES CLAYTON Attending Clinician Unavailable Jairon BONDS, Carlee Resendez Attending Clinician Unavailable Luigi Ngo MD Attending Clinician LUIGI NGO Attending Clinician Unavailable Nickie PTPaola Attending Clinician Unavailable Lab, Ang - Db [...] Unavailable Alejandra Moreira MD Attending Clinician Brooke CLEMENT, Phill Villanueva Attending Clinician Unavailable Candice Krishnan Attending Clinician CANDICE LOZA Attending Clinician Unavailable Lillie FOWLER, Alejandra Cross Attending Clinician Unavailable МАРИЯ CANTU Admitting Clinician Unavailable Marlee Admitting Clinician Unavailable Bipin Admitting Clinician Unavailable Mario_R Admitting Clinician Unavailable BRETT MONTESINOS Admitting Clinician [...] Policy Number Effective Date Expiration Date S [facility] [place] [id number] 2012 00:00:00 [place] [id number] 2022 [place] [id number] 2012 00:00:00 Problems Condition Condition Condition Status Onset Resolution Last Treating Co mments Source Name Details Category Date Date Treatment Clinician Date Type 2 Type 2 Problem Active [facility] diabetes Diabetes 3-28 Family mellitus Mellitus 00:00: Practi c 00 e Morbid Morbid Problem Active [place] obesity Obesity 3 Family 00:00: Practic 00 e 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 00 e Diabetes Diabetes Problem Active [place] [facility] mellitus Mellitus 2-04 Family 00:00: Practic 00 e Hyperlipid Hyperlipid Problem Active [facility] emia emia 2-04 Family 00:00: Practic 00 e Essential Essential Problem Active Mine rosana hypertensi Hypertensi 2-04 Fa serge on on 00:00: Practic 00 e Nodule of Nodule of Problem Active Mine k[place]us[place] lung Lung 2-04 Family 00:00: Practic 00 e Arthritis Arthritis Problem Active Mine krausee 2-04 Family 00:00: Practic 00 e Chronic [...] vers nodule nodule 3-25 ity of 00:00: [place] [facility] Diabetic Diabetic Disease Active Unive rs gastropare gastropare 3-25 it y of sis sis 00:00: [place] [facility] Lactic Lactic Disease Active Methodi acid acid 2-25 st acidosis acidosis 00:00: Hospit a 00 l Abdominal Abdominal Disease Active Met hodi pain, pain, 2-25 st acute, acute, 00:00: Hospita generalize generalize 00 l d d Intractabl Intractabl Disease Active U nivers e vomiting e vomiting 1-14 it y of with with 00:00: [place] nausea nausea 00 Medical Branch Obesity Obesity Disease Active Univers (BMI (BMI 1-14 ity of 30-39.9) 30-39.9) 00:00: [place] 00 Medical Branch Chronic Chronic Disease Active Univers gout due gout due 9-22 ity of to drug to drug 00:00: [place] without without 00 Medical tophus, tophus, Branch unspecifie unspecifie d site d site Chronic Chronic Disease Active Univers bilateral bilateral 9-15 ity of low back low back 00:00: [place] pain with pain with 00 Medi [place] bilateral bilateral Bran ch sciatica sciatica Screening Screening Disease Active Overview: Univers for for 11-11 Formattin ity of colorectal colorectal 00:00: g of this [place] cancer cancer 00 note Medical might be Branch different from the original. Added automatic ally from request for surgery [id number] Polyp of Polyp of Disease Active Unive [...] 3-19 ity of sciatica sciatica 00:00: [place] 00 Medical Branch Elevated Elevated Disease Active 2018-06 Unive rs alkaline alkaline 0-31 ity of phosphatas phosphatas 00:[place] e level 00 Medical Branch Osteoarthr Osteoarthr Disease Active U faviolaers itis of itis of 1-02 ity of both hips both hips 00:00[place] [facility] [place] Dyslipidem Dyslipidem Disease Active 2017-06 U nivers ia ia 1-13 ity of 00:00: [place] 00 Medical Branch TACOS TACOS Disease Active 2017-06 Univers (obstructi (obstructi 1-13 it y of ve sleep ve sleep 00:00: [place] apnea) apnea) 00 Medical Branch Essential Essential Disease Active Uni vers hypertensi hypertensi 4-21 it y of on, benign on, benign 00:00[place] [facility] Type 2 Type 2 Disease Active Univers diabetes diabetes 4-21 ity of mellitus mellitus 00:00: [place] with with 00 Medical proteinuri proteinuri Br anch c diabetic c diabetic nephropath nephropath y y History of History of Disease Active U nivers colon colon ity of polyps polyps [facility] Allergies, Adverse Reactions, Alerts Allergy Allergy Status Severity Reaction(s) Onset Inactive Treating Comm ents Source Name Type Date Date Clinician Isabel Springensi Active GI Method i ine ty to Intolerance 08-06 st adverse 00:00: Hospita reaction 00 l s to drug Scopolam Propensi Active Nausea Univer s ine ty to and/or 01-10 ity of adverse Vomiting 00:00: [place] reaction 00 Medical s Branch SCOPOLAM DRUG Active N/V Univers INE INGREDI 01-10 ity of 00:00: [place] 00 [facility] Family History Family Member Diagnosis Comments Start Date Stop Date Source Natural father Diabetes [facility] Natural mother Diabetes [facility] Natural sister Other [facility] Social History Social Habit Start Date Stop Date Quantity Comments Source Sexual orientation Method [facility] Gender identity [facility] Alcohol intake 2022-01-10 2022-01-10 Ex-drinker [facility] 00:00:00 00:00:00 (finding) [facility] Tobacco use and 2022-01-06 2022-01-06 Smokeless Universit y of exposure 00:00:00 00:00:00 tobacco non-user [facility] History of Social 2021-08-08 2021-08-[address] function 00:00:00 00:00:00 Hospital Sex Ass[birth year] At [birth year] Z[employer] 00:00:00 00:00:00 Hospital Smoking Status Start Date Stop Date Source Tobacco smoking consumption [facility] unknown Never smoked tobacco [facility] Medications Ordered Filled Start Stop Current Ordering Indication Dosage Frequency Signature Comments Components Source Medication Medication Date Date Medication? Clinician (SIG) Name Name ALLOPURINOL Yes [id number] 100mg TAKE 1 Univers 100 mg 8-16 9109 TABLET BY ity of tablet 00:00: MOUTH [place] 00 DAILY Medical Branch lisinopriL- Yes [id number] 1{tbl} TAKE 1 Univers hydrochloro 3-24 TABLET BY ity of thiazide 00:00: MOUTH [place] 20-12.5 mg 00 DAILY Medical per tablet Branch lisinopriL- Yes [id number] 1{tbl} TAKE 1 Univers hydrochloro 3-24 TABLET BY ity of thiazide 00:00: MOUTH [place] 20-12.5 mg 00 DAILY Medical per tablet Branch lisinopriL- Yes [id number] 1{tbl} TAKE 1 Univers hydrochloro 3-24 TABLET BY ity of thiazide 00:00: MOUTH [place] 20-12.5 mg 00 DAILY Medical per tablet Branch lisinopriL- Yes [id number] 1{tbl} TAKE 1 Univers hydrochloro 3-24 TABLET BY ity of thiazide 00:00: MOUTH [place] 20-12.5 mg 00 DAILY Medical per tablet Branch lisinopriL- Yes [id number] 1{tbl} TAKE 1 Univers hydrochloro 3-24 TABLET BY ity of thiazide 00:00: MOUTH [place] 20-12.5 mg 00 DAILY Medical per tablet Branch lisinopriL- Yes [id number] 1{tbl} TAKE 1 Univers hydrochloro 3-24 TABLET BY ity of thiazide 00:00: MOUTH [place] 20-12.5 mg 00 DAILY Medical per tablet Branch lisinopriL- 2021-06 Yes [id number] 1{tbl} TAKE 1 Univers hydrochloro 2-24 TABLET BY ity of thiazide 00:00: MOUTH [place] 20-12.5 mg 00 DAILY Medical per tablet Branch lisinopriL- 2021-06 Yes [id number] 1{tbl} TAKE 1 Univers hydrochloro 2-24 TABLET BY ity of thiazide 00:00: MOUTH [place] 20-12.5 mg 00 DAILY Medical per tablet Branch lisinopriL- 2021-06 Yes [id number] 1{tbl} TAKE 1 Univers hydrochloro 2-24 TABLET BY ity of thiazide 00:00: MOUTH [place] 20-12.5 mg 00 DAILY Medical per tablet Branch lisinopriL- 2021-06 No [id number] 1{tbl} TAKE 1 Univers hydrochloro 2-24 03-24 TABLET BY it y of thiazide 00:00: 00:00 MOUTH [place] 20-12.5 mg 00 :00 DAILY Medical per tablet Branch flash 2021-06 Yes [id number] 1{each} Apply 1 Un keyonna glucose 2-07 Each to ity of sensor 00:00: skin every [place] (FREESTYLE 00 14 Medical ZELDA 2 (fourteen) Branch SENSOR) Kit days. Change sensor every 14 days. Dx E11.21 flash 2021-06 Yes [id number] 1{each} Apply 1 Un keyonna glucose 2-07 Each to ity of sensor 00:00: skin every [place] (FREESTYLE 00 14 Medical ZELDA 2 (fourteen) Branch SENSOR) Kit days. Change sensor every 14 days. Dx E11. flash 2021-06 Yes [id number] 1{each} Apply 1 Un keyonna glucose 2-07 Each to ity of sensor 00:00: skin every [place] (FREESTYLE 00 14 Medical ZELDA 2 (fourteen) Branch SENSOR) Kit days. Change sensor every 14 days. Dx E11. flash 2021-06 Yes [id number] 1{each} Apply 1 Un keyonna glucose 2-07 Each to ity of sensor 00:00: skin every [place] (FREESTYLE 00 14 Medical ZELDA 2 (fourteen) Branch SENSOR) Kit days. Change sensor every 14 days. Dx E11. flash 2021-06 Yes [id number] 1{each} Apply 1 Un keyonna glucose 2-07 Each to ity of sensor 00:00: skin every [place] (FREESTYLE 00 14 Medical ZELDA 2 (fourteen) Branch SENSOR) Kit days. Change sensor every 14 days. Dx E11. flash 2021-06 Yes [id number] 1{each} Apply 1 Un keyonna glucose 2-07 Each to ity of sensor 00:00: skin every [place] (FREESTYLE 00 14 Medical ZELDA 2 (fourteen) Branch SENSOR) Kit days. Change sensor every 14 days. Dx E11. flash 2021-06 Yes [id number] 1{each} Apply 1 Un keyonna glucose 2-07 Each to ity of sensor 00:00: skin every [place] (FREESTYLE 00 14 Medical ZELDA 2 (fourteen) Branch SENSOR) Kit days. Change sensor every 14 days. Dx E11. flash 2021-06 Yes [id number] 1{each} Apply 1 Un keyonna glucose 2-07 Each to ity of sensor 00:00: skin every [place] (FREESTYLE 00 14 Medical ZELDA 2 (fourteen) Branch SENSOR) Kit days. Change sensor every 14 days. Dx E11.21 flash 2021-06 Yes [id number] 1{each} Apply 1 Un keyonna glucose 2-07 Each to ity of sensor 00:00: skin every [place] (FREESTYLE 00 14 Medical ZELDA 2 (fourteen) Branch SENSOR) Kit days. Change sensor every 14 days. Dx E11.21 flash 2021-06 Yes [id number] 1{each} Apply 1 Un keyonna glucose 2-07 Each to ity of sensor 00:00: skin every [place] (FREESTYLE 00 14 Medical ZELDA 2 (fourteen) Branch SENSOR) Kit days. Change sensor every 14 days. Dx E11.21 FARXIGA 10 0 Yes [id number] 10mg TAKE 1 U nivers mg tablet 8-28 TABLET BY ity o f 00:00: MOUTH [place] DAILY Medical Branch FARXIGA 10 Yes [id number] 10mg TAKE 1 U nivers mg tablet 8-28 TABLET BY ity o f 00:00: MOUTH [place] DAILY Medical Branch FARXIGA 10 Yes [id number] 10mg TAKE 1 U nivers mg tablet 8-28 TABLET BY ity o f 00:00: MOUTH [place] DAILY Medical Branch FARXIGA 10 Yes [id number] 10mg TAKE 1 U nivers mg tablet 8-28 TABLET BY ity o f 00:00: MOUTH DAILY Medical Branch FARXIGA 10 Yes [id number] 10mg TAKE 1 U nivers mg tablet 8-28 TABLET BY ity o f 00:00: MOUTH DAILY Medical Branch FARXIGA 10 0 Yes [id number] 10mg TAKE 1 U nivers mg tablet 8-28 TABLET BY ity o f 00:00: MOUTH [place] DAILY Medical Branch FARXIGA 10 0 Yes [id number] 10mg TAKE 1 U nivers mg tablet 8-28 TABLET BY ity o f 00:00: MOUTH [place] DAILY Medical Branch FARXIGA 10 0 Yes [id number] 10mg TAKE 1 U nivers mg tablet 8-28 TABLET BY ity o f 00:00: MOUTH [place] DAILY Medical Branch FARXIGA 10 0 Yes [id number] 10mg TAKE 1 U nivers mg tablet 8-28 TABLET BY ity o f 00:00: MOUTH [place] DAILY Medical Branch FARXIGA 10 0 Yes [id number] 10mg TAKE 1 U nivers mg tablet 8-28 TABLET BY ity o f 00:00: MOUTH [place] DAILY Medical Branch FARXIGA 10 Yes [id number] 10mg TAKE 1 U nivers mg tablet 8-28 TABLET BY ity o f 00:00: MOUTH [place] 00 DAILY Medical Branch EDVINGA 10 2-0 Yes [id number] 10mg TAKE 1 U nivers mg tablet 8-28 TABLET BY ity o f 00:00: MOUTH [place] 00 DAILY Medical Branch EDVINGA 10 2-0 Yes [id number] 10mg TAKE 1 U nivers mg tablet 8-28 TABLET BY ity o f 00:00: MOUTH [place] 00 DAILY Medical Branch clobetasoL 2022-0 Yes [id number] Apply to Univers 0.05 % 8-01 area(s) 2 ity of ointment 00:00: (two) [place] 00 times Medical daily. Branch clobetasoL 2022-0 Yes [id number] Apply to Univers 0.05 % 8-01 area(s) 2 ity of ointment 00:00: (two) [place] times Medical daily. Branch clobetasoL 2022-0 Yes [id number] Apply to Univers 0.05 % 8-01 area(s) 2 ity of ointment 00:00: (two) [place] times Medical daily. Branch clobetasoL 2022-0 Yes [id number] Apply to Univers 0.05 % 8-01 area(s) 2 ity of ointment 00:00: (two) [place] times Medical daily. Branch clobetasoL 2022-0 Yes [id number] Apply to Univers 0.05 % 8-01 area(s) 2 ity of ointment 00:00: (two) [place] times Medical daily. Branch clobetasoL 2022-0 Yes [id number] Apply to Univers 0.05 % 8-01 area(s) 2 ity of ointment 00:00: (two) [place] 00 times Medical daily. Branch clobetasoL 2022-0 Yes [id number] Apply to Univers 0.05 % 8-01 area(s) 2 ity of ointment 00:00: (two) [place] 00 times Medical daily. Branch clobetasoL 2022-0 Yes [id number] Apply to Univers 0.05 % 8-01 area(s) 2 ity of ointment 00:00: (two) [place] 00 times Medical daily. Branch clobetasoL 2022-0 Yes [id number] Apply to Univers 0.05 % 8-01 area(s) 2 ity of ointment 00:00: (two) [place] 00 times Medical daily. Branch clobetasoL 2-0 Yes [id number] Apply to Univers 0.05 % 8-01 area(s) 2 ity of ointment 00:00: (two) [place] 00 times Medical daily. Branch clobetasoL 2-0 Yes [id number] Apply to Univers 0.05 % 8-01 area(s) 2 ity of ointment 00:00: (two) [place] 00 times Medical daily. Branch clobetasoL 2-0 Yes [id number] Apply to Univers 0.05 % 8-01 area(s) 2 ity of ointment 00:00: (two) [place] 00 times Medical daily. Branch clobetasoL 2-0 Yes [id number] Apply to Univers 0.05 % 8-01 area(s) 2 ity of ointment 00:00: (two) [place] 00 times Medical daily. Branch clobetasoL 2-0 Yes [id number] Apply to Univers 0.05 % 8-01 area(s) 2 ity of ointment 00:00: (two) [place] 00 times Medical daily. Branch canaglifloz 2021- No 300mg Take 300 Univers in 7-28 07-28 mg by ity of (INVOKANA) 16:31: 00:00 mouth. [place] 300 mg 42 :00 Medical tablet Branch canaglifloz 2021- No 300mg Take 300 Univers in 7-28 07-28 mg by ity of (INVOKANA) 16:31: 00:00 mouth. [place] 300 mg 42 :00 Medical tablet Branch Cholecalcif Yes Take by Uni vers kaycee, 7- mouth ity of Vitamin D3, 16:07: daily. [place] 25 mcg 14 Medical (1,000 Branch unit) capsule calcium Yes 1{tbl} Take 1 Univer s carbonate/v 01-06 tablet by ity of itamin D3 16:07: mouth [place] (CALCIUM 14 daily. Medical 600 + D,3, [...] [place] 14 every Medical morning. Branch Cholecalcif 2021-0 Yes Take by Uni [...] [place] 14 every Medical morning. Branch Cholecalcif 2021-0 Yes Take by Uni vers kaycee, 7-28 mouth ity of Vitamin D3, 16:07: daily. [place] 25 mcg 14 Medical (1,000 Branch unit) capsule calcium 2021-0 Yes 1{tbl} Take 1 Univer s carbonate/v 7-28 tablet by ity of itamin D3 16:07: mouth [place] (CALCIUM 14 daily. Medical 600 + D,3, Branch ORAL) insulin 2-0 Yes 50U inject 50 Unive rs glargine-li [...] 14 Medical (1,000 Branch unit) capsule calcium 2022-0 Yes 1{tbl} Take 1 Univer s carbonate/v [...] every Medical morning. Branch hydrocortis 2021- No [id number] Apply to Univers one 2.5 % 01-06 area(s) 2 ity of cream 00:00: 00:00 (two) [place] 00 :00 times Medical daily. Branch hydrocortis 2021- No [id number] Apply to Univers one 2.5 % 01-06 area(s) 2 ity of cream 00:00: 00:00 (two) [place] 00 :00 times Medical daily. Branch hydrocortis 2021- No [id number] Apply to Univers one 2.5 % 01-06 area(s) 2 ity of cream 00:00: 00:00 (two) [place] 00 :00 times Medical daily. Branch metformin Yes [id number] 1000mg Take 2 Univers ER 500 mg 6-24 tablets by ity of 24 hr 00:00: mouth 2 [place] tablet 00 (two) Medical times [place] daily with meals. flash Yes [id number] 1{each} Apply 1 Un keyonna glucose 6-24 Each to ity of sensor 00:00: skin every [place] (FREESTYLE 00 14 Medical ZELDA 2 (fourteen) Branch SENSOR) Kit days. Change sensor every 14 days. Dx E11.21 pioglitazon Yes [id number] 30mg Take 1 Univers e 30 mg 6-24 tablet by ity of tablet 00:00: mouth [place] 00 daily. Medical Branch atorvastati Yes [id number] 40mg Take 1 Univers n 40 mg 6-24 tablet by ity of tablet 00:00: mouth at [place] 00 bedtime. Medical Branch allopurinoL Yes [id number] 100mg Take 1 Univers 100 mg 6-24 9109 tablet by ity of tablet 00:00: mouth [place] 00 daily. Medical Branch lisinopriL- Yes [id number] 1{tbl} Take 1 Univers hydrochloro 6-24 tablet by ity of thiazide 00:00: mouth [place] 20-12.5 mg 00 daily. Medical per tablet Branch pantoprazol Yes [id number] 40mg Take 1 U nivers e 40 mg EC 6-24 tablet by ity of tablet 00:00: mouth [place] 00 daily. Medical Branch metformin Yes [id number] 1000mg Take 2 Univers ER 500 mg 6-24 tablets by ity of 24 hr 00:00: mouth 2 [place] tablet 00 (two) Medical times Branch daily with meals. flash Yes [id number] 1{each} Apply 1 Un keyonna glucose 6-24 Each to ity of sensor 00:00: skin every [place] (FREESTYLE 00 14 Medical ZELDA 2 (fourteen) Branch SENSOR) Kit days. Change sensor every 14 days. Dx E11.21 pioglitazon Yes [id number] 30mg Take 1 Univers e 30 mg 6-24 tablet by ity of tablet 00:00: mouth [place] 00 daily. Medical Branch atorvastati Yes [id number] 40mg Take 1 Univers n 40 mg 6-24 tablet by ity of tablet 00:00: mouth at [place] 00 bedtime. Medical Branch allopurinoL Yes [id number] 100mg Take 1 Univers 100 mg 6-24 9109 tablet by ity of tablet 00:00: mouth [place] 00 daily. Medical Branch lisinopriL- 0 Yes [id number] 1{tbl} Take 1 Univers hydrochloro 6-24 tablet by ity of thiazide 00:00: mouth [place] 20-12.5 mg 00 daily. Medical per tablet Branch pantoprazol Yes [id number] 40mg Take 1 U nivers e 40 mg EC 6-24 tablet by ity of tablet 00:00: mouth [place] 00 daily. Medical Branch metformin Yes [id number] 1000mg Take 2 Univers ER 500 mg 6-24 tablets by ity of 24 hr 00:00: mouth 2 [place] tablet 00 (two) Medical times Branch daily with meals. flash 2021-0 Yes [id number] 1{each} Apply 1 Un keyonna glucose 6-24 Each to ity of sensor 00:00: skin every [place] (FREESTYLE 00 14 Medical ZELDA 2 (fourteen) Branch SENSOR) Kit days. Change sensor every 14 days. Dx E11.21 pioglitazon 2021-0 Yes [id number] 30mg Take 1 Univers e 30 mg 6-24 tablet by ity of tablet 00:00: mouth [place] 00 daily. Medical Branch atorvastati Yes [id number] 40mg Take 1 Univers n 40 mg 6-24 tablet by ity of tablet 00:00: mouth at [place] 00 bedtime. Medical Branch allopurinoL Yes [id number] 100mg Take 1 Univers 100 mg 6-24 9109 tablet by ity of tablet 00:00: mouth [place] 00 daily. Medical Branch lisinopriL- Yes [id number] 1{tbl} Take 1 Univers hydrochloro 6-24 tablet by ity of thiazide 00:00: mouth [place] 20-12.5 mg 00 daily. Medical per tablet Branch pantoprazol Yes [id number] 40mg Take 1 U nivers e 40 mg EC 6-24 tablet by ity of tablet 00:00: mouth [place] 00 daily. Medical Branch metformin Yes [id number] 1000mg Take 2 Univers ER 500 mg 6-24 tablets by ity of 24 hr 00:00: mouth 2 [place] tablet 00 (two) Medical times Branch daily with meals. flash Yes [id number] 1{each} Apply 1 Un keyonna glucose 6-24 Each to ity of sensor 00:00: skin every [place] (FREESTYLE 00 14 Medical ZELDA 2 (fourteen) Branch SENSOR) Kit days. Change sensor every 14 days. Dx E11.21 pioglitazon Yes [id number] 30mg Take 1 Univers e 30 mg 6-24 tablet by ity of tablet 00:00: mouth [place] 00 daily. Medical Branch atorvastati Yes [id number] 40mg Take 1 Univers n 40 mg 6-24 tablet by ity of tablet 00:00: mouth at [place] 00 bedtime. Medical Branch allopurinoL Yes [id number] 100mg Take 1 Univers 100 mg 6-24 9109 tablet by ity of tablet 00:00: mouth [place] 00 daily. Medical Branch lisinopriL- Yes [id number] 1{tbl} Take 1 Univers hydrochloro 6-24 tablet by ity of thiazide 00:00: mouth [place] 20-12.5 mg 00 daily. Medical per tablet Branch pantoprazol Yes [id number] 40mg Take 1 U nivers e 40 mg EC 6-24 tablet by ity of tablet 00:00: mouth [place] 00 daily. Medical Branch metformin 0 Yes [id number] 1000mg Take 2 Univers ER 500 mg 6-24 tablets by ity of 24 hr 00:00: mouth 2 [place] tablet 00 (two) Medical times Branch daily with meals. flash Yes [id number] 1{each} Apply 1 Un keyonna glucose 6-24 Each to ity of sensor 00:00: skin every [place] (FREESTYLE 00 14 Medical ZELDA 2 (fourteen) Branch SENSOR) Kit days. Change sensor every 14 days. Dx E11.21 pioglitazon Yes [id number] 30mg Take 1 Univers e 30 mg 6-24 tablet by ity of tablet 00:00: mouth [place] 00 daily. Medical Branch atorvastati Yes [id number] 40mg Take 1 Univers n 40 mg 6-24 tablet by ity of tablet 00:00: mouth at [place] 00 bedtime. Medical Branch allopurinoL 0 Yes [id number] 100mg Take 1 Univers 100 mg 6-24 9109 tablet by ity of tablet 00:00: mouth [place] 00 daily. Medical Branch lisinopriL- Yes [id number] 1{tbl} Take 1 Univers hydrochloro 6-24 tablet by ity of thiazide 00:00: mouth [place] 20-12.5 mg 00 daily. Medical per tablet Branch pantoprazol 0 Yes [id number] 40mg Take 1 U nivers e 40 mg EC 6-24 tablet by ity of tablet 00:00: mouth [place] 00 daily. Medical Branch metformin Yes [id number] 1000mg Take 2 Univers ER 500 mg 6-24 tablets by ity of 24 hr 00:00: mouth 2 [place] tablet 00 (two) Medical times Branch daily with meals. flash 2021-0 Yes [id number] 1{each} Apply 1 Un kyeonna glucose 6-24 Each to ity of sensor 00:00: skin every [place] (FREESTYLE 00 14 Medical ZELDA 2 (fourteen) Branch SENSOR) Kit days. Change sensor every 14 days. Dx E11.21 pioglitazon 2021-0 Yes [id number] 30mg Take 1 Univers e 30 mg 6-24 tablet by ity of tablet 00:00: mouth [place] 00 daily. Medical Branch atorvastati Yes [id number] 40mg Take 1 Univers n 40 mg 6-24 tablet by ity of tablet 00:00: mouth at [place] 00 bedtime. Medical Branch allopurinoL Yes [id number] 100mg Take 1 Univers 100 mg 6-24 9109 tablet by ity of tablet 00:00: mouth [place] 00 daily. Medical Branch lisinopriL- Yes [id number] 1{tbl} Take 1 Univers hydrochloro 6-24 tablet by ity of thiazide 00:00: mouth [place] 20-12.5 mg 00 daily. Medical per tablet Branch pantoprazol Yes [id number] 40mg Take 1 U nivers e 40 mg EC 6-24 tablet by ity of tablet 00:00: mouth [place] 00 daily. Medical Branch metformin Yes [id number] 1000mg Take 2 Univers ER 500 mg 6-24 tablets by ity of 24 hr 00:00: mouth 2 [place] tablet 00 (two) Medical times Branch daily with meals. pioglitazon Yes [id number] 30mg Take 1 Univers e 30 mg 6-24 tablet by ity of tablet 00:00: mouth [place] 00 daily. Medical Branch atorvastati Yes [id number] 40mg Take 1 Univers n 40 mg 6-24 tablet by ity of tablet 00:00: mouth at [place] 00 bedtime. Medical Branch allopurinoL Yes [id number] 100mg Take 1 Univers 100 mg 6-24 9109 tablet by ity of tablet 00:00: mouth [place] 00 daily. Medical Branch lisinopriL- Yes [id number] 1{tbl} Take 1 Univers hydrochloro 6-24 tablet by ity of thiazide 00:00: mouth [place] 20-12.5 mg 00 daily. Medical per tablet Branch pantoprazol Yes [id number] 40mg Take 1 U nivers e 40 mg EC 6-24 tablet by ity of tablet 00:00: mouth [place] 00 daily. Medical Branch metformin Yes [id number] 1000mg Take 2 Univers ER 500 mg 6-24 tablets by ity of 24 hr 00:00: mouth 2 [place] tablet 00 (two) Medical times Branch daily with meals. pioglitazon Yes [id number] 30mg Take 1 Univers e 30 mg 6-24 tablet by ity of tablet 00:00: mouth [place] 00 daily. Medical Branch atorvastati 0 Yes [id number] 40mg Take 1 Univers n 40 mg 6-24 tablet by ity of tablet 00:00: mouth at [place] 00 bedtime. Medical Branch allopurinoL 2021-0 Yes [id number] 100mg Take 1 [facility] 100 mg 6-24 9109 tablet by ity of tablet 00:00: mouth [place] 00 daily. Medical Branch pantoprazol 2021-0 Yes [id number] 40mg Take 1 [facility] nivers e 40 mg EC 6-24 tablet by ity of tablet 00:00: mouth [place] 00 daily. Medical Branch metformin 0 Yes [id number] 1000mg Take 2 [facility] ER 500 mg 6-24 tablets by ity of 24 hr 00:00: mouth 2 [place] tablet 00 (two) Medical times Branch daily with meals. pioglitazon 2021-0 Yes [id number] 30mg Take 1 [facility] e 30 mg 6-24 tablet by ity of tablet 00:00: mouth [place] 00 daily. Medical Branch atorvastati 0 Yes [id number] 40mg Take 1 [facility] n 40 mg 6-24 tablet by ity of tablet 00:00: mouth at [place] 00 bedtime. Medical Branch allopurinoL 0 Yes [id number] 100mg Take 1 [facility] 100 mg 6-24 9109 tablet by ity of tablet 00:00: mouth [place] 00 daily. Medical [facility] pantoprazol 2021-0 Yes [id number] 40mg Take 1 [facility] nivers e 40 mg EC 6-24 tablet by ity of tablet 00:00: mouth [place] 00 daily. Medical [facility] metformin 2021-0 Yes [id number] 1000mg Take 2 [facility] ER 500 mg 6-24 tablets by ity of 24 hr 00:00: mouth 2 [place] tablet 00 (two) Medical times Branch daily with meals. pioglitazon 2021-0 Yes [id number] 30mg Take 1 [facility] e 30 mg 6-24 tablet by ity of tablet 00:00: mouth [place] 00 daily. Medical Branch atorvastati 0 Yes [id number] 40mg Take 1 [facility] n 40 mg 6-24 tablet by ity of tablet 00:00: mouth at [place] 00 bedtime. Medical Branch allopurinoL 2022-0 Yes [id number] 100mg Take 1 [facility] 100 mg 6-24 9109 tablet by ity of tablet 00:00: mouth [place] 00 daily. [facility] pantoprazol 0 Yes [id number] 40mg Take 1 U nivers e 40 mg EC 6-24 tablet by ity of tablet 00:00: mouth [place] 00 daily. Medical [facility] metformin 0 Yes [id number] 1000mg Take 2 [facility] ER 500 mg 6-24 tablets by ity of 24 hr 00:00: mouth 2 [place] tablet 00 (two) Medical times Branch daily with meals. pioglitazon 0 Yes [id number] 30mg Take 1 [facility] e 30 mg 6-24 tablet by ity of tablet 00:00: mouth [place] 00 daily. Medical Branch atorvastati Yes [id number] 40mg Take 1 [facility] n 40 mg 6-24 tablet by ity of tablet 00:00: mouth at [place] 00 bedtime. Medical Branch allopurinoL Yes [id number] 100mg Take 1 [facility] 100 mg 6-24 9109 tablet by ity of tablet 00:00: mouth [place] 00 daily. Medical Branch pantoprazol Yes [id number] 40mg Take 1 [facility] nivers e 40 mg EC 6-24 tablet by ity of tablet 00:00: mouth [place] 00 daily. Medical Branch metformin Yes [id number] 1000mg Take 2 [facility] ER 500 mg 6-24 tablets by ity of 24 hr 00:00: mouth 2 [place] tablet 00 (two) Medical times Branch daily with meals. pioglitazon 0 Yes [id number] 30mg Take 1 [facility] e 30 mg 6-24 tablet by ity of tablet 00:00: mouth [place] 00 daily. Medical Branch atorvastati 0 Yes [id number] 40mg Take 1 [facility] n 40 mg 6-24 tablet by ity of tablet 00:00: mouth at [place] 00 bedtime. Medical Branch allopurinoL 0 Yes [id number] 100mg Take 1 [facility] 100 mg 6-24 9109 tablet by ity of tablet 00:00: mouth [place] 00 daily. [facility] pantoprazol 0 Yes [id number] 40mg Take 1 [facility] nivers e 40 mg EC 6-24 tablet by ity of tablet 00:00: mouth [place] 00 daily. [facility] metformin 0 Yes [id number] 1000mg Take 2 [facility] ER 500 mg 6-24 tablets by ity of 24 hr 00:00: mouth 2 [place] tablet 00 (two) Medical times Branch daily with meals. pioglitazon 0 Yes [id number] 30mg Take 1 [facility] e 30 mg 6-24 tablet by ity of tablet 00:00: mouth [place] 00 daily. Medical Branch atorvastati 0 Yes [id number] 40mg Take 1 [facility] n 40 mg 6-24 tablet by ity of tablet 00:00: mouth at [place] 00 bedtime. Medical Branch allopurinoL 0 Yes [id number] 100mg Take 1 [facility] 100 mg 6-24 9109 tablet by ity of tablet 00:00: mouth [place] 00 daily. [facility] pantoprazol 0 Yes [id number] 40mg Take 1 [facility] nivers e 40 mg EC 6-24 tablet by ity of tablet 00:00: mouth [place] 00 daily. [facility] metformin 0 Yes [id number] 1000mg Take 2 [facility] ER 500 mg 6-24 tablets by ity of 24 hr 00:00: mouth 2 [place] tablet 00 (two) Medical times Branch daily with meals. pioglitazon 0 Yes [id number] 30mg Take 1 [facility] e 30 mg 6-24 tablet by ity of tablet 00:00: mouth [place] 00 daily. Medical Branch atorvastati 0 Yes [id number] 40mg Take 1 [facility] n 40 mg 6-24 tablet by ity of tablet 00:00: mouth at [place] 00 bedtime. Medical Branch allopurinoL 2021-0 Yes [id number] 100mg Take 1 [facility] 100 mg 6-24 9109 tablet by ity of tablet 00:00: mouth [place] 00 daily. [facility] pantoprazol 2021-0 Yes [id number] 40mg Take 1 [facility] nivers e 40 mg EC 6-24 tablet by ity of tablet 00:00: mouth [place] 00 daily. Medical [facility] metformin 0 Yes [id number] 1000mg Take 2 [facility] ER 500 mg 6-24 tablets by ity of 24 hr 00:00: mouth 2 [place] tablet 00 (two) Medical times Branch daily with meals. pioglitazon 2021-0 Yes [id number] 30mg Take 1 [facility] e 30 mg 6-24 tablet by ity of tablet 00:00: mouth [place] 00 daily. Medical Branch atorvastati Yes [id number] 40mg Take 1 [facility] n 40 mg 6-24 tablet by ity of tablet 00:00: mouth at [place] 00 bedtime. Medical Branch pantoprazol Yes [id number] 40mg Take 1 [facility] nivers e 40 mg EC 6-24 tablet by ity of tablet 00:00: mouth [place] 00 daily. Medical [facility] metformin Yes [id number] 1000mg Take 2 [facility] ER 500 mg 6-24 tablets by ity of 24 hr 00:00: mouth 2 [place] tablet 00 (two) Medical times Branch daily with meals. pioglitazon Yes [id number] 30mg Take 1 [facility] e 30 mg 6-24 tablet by ity of tablet 00:00: mouth [place] 00 daily. Medical Branch atorvastati Yes [id number] 40mg Take 1 [facility] n 40 mg 6-24 tablet by ity of tablet 00:00: mouth at [place] 00 bedtime. Medical Branch pantoprazol Yes [id number] 40mg Take 1 [facility] n[facility] e 40 mg EC 6-24 tablet by ity of tablet 00:00: mouth [place] 00 daily. Medical Branch allopurinoL 2022- No [id number] 100mg Take 1 [facility] 100 mg 6-24 08-16 9109 tablet by ity of tablet 00:00: 00:00 mouth [place] 00 :00 daily. Medical Branch lisinopriL- 2021- No [id number] 1{tbl} Take 1 [facility] hydrochloro 6-24 12-24 tablet by it y of thiazide 00:00: 00:00 mouth [place] 20-12.5 mg 00 :00 daily. Medical per tablet Branch lisinopriL- 2021- No [id number] 1{tbl} Take 1 [facility] hydrochloro 6-24 12-24 tablet by it y of thiazide 00:00: 00:00 mouth [place] 20-12.5 mg 00 :00 daily. Medical per tablet Branch flash 2021- No [id number] 1{each} Apply 1 [facility] nivers glucose 6-24 12-07 Each to ity of sensor 00:00: 00:00 skin [place] (FREESTYLE 00 :00 14 Medical ZELDA 2 (fourteen) Branch SENSOR) Kit days. Change sensor every 14 days. Dx E11.21 insulin 0 Yes [id number] INJECT MAX [facility] aspart 4-18 DOSE 50 ity of U-100 00:00: UNITS [place] (NOVOLOG 00 UNDER THE Medica l FLEXPEN SKIN EVERY Branch U-100 DAY INSULIN) 100 unit/mL (3 mL) injection insulin Yes [id number] INJECT MAX [facility] aspart 4-18 DOSE 50 ity of U-100 00:00: UNITS [place] (NOVOLOG 00 UNDER THE Medica l FLEXPEN SKIN EVERY Branch U-100 DAY INSULIN) 100 unit/mL (3 mL) injection insulin Yes [id number] INJECT MAX [facility] aspart 4-18 DOSE 50 ity of U-100 00:00: UNITS [place] (NOVOLOG 00 UNDER THE Medica l FLEXPEN SKIN EVERY Branch U-100 DAY INSULIN) 100 unit/mL (3 mL) injection insulin Yes [id number] INJECT MAX [facility] aspart 4-18 DOSE 50 ity of U-100 00:00: UNITS [place] (NOVOLOG 00 UNDER THE Medica l FLEXPEN SKIN EVERY Branch U-100 DAY INSULIN) 100 unit/mL (3 mL) injection insulin Yes [id number] INJECT MAX [facility] aspart 4-18 DOSE 50 ity of U-100 00:00: UNITS [place] (NOVOLOG 00 UNDER THE Medica l FLEXPEN SKIN EVERY Branch U-100 DAY INSULIN) 100 unit/mL (3 mL) injection insulin Yes [id number] INJECT MAX [facility] aspart 4-18 DOSE 50 ity of U-100 00:00: UNITS [place] (NOVOLOG 00 UNDER THE Medica l FLEXPEN SKIN EVERY Branch U-100 DAY INSULIN) 100 unit/mL (3 mL) injection insulin Yes [id number] INJECT MAX [facility] aspart 4-18 DOSE 50 ity of U-100 00:00: UNITS [place] (NOVOLOG 00 UNDER THE Medica l FLEXPEN SKIN EVERY Branch U-100 DAY INSULIN) 100 unit/mL (3 mL) injection insulin Yes [id number] INJECT MAX [facility] aspart 4-18 DOSE 50 ity of U-100 00:00: UNITS [place] (NOVOLOG 00 UNDER THE Medica l FLEXPEN SKIN EVERY Branch U-100 DAY INSULIN) 100 unit/mL (3 mL) injection insulin Yes [id number] INJECT MAX [facility] aspart 4-18 DOSE 50 ity of U-100 00:00: UNITS [place] (NOVOLOG 00 UNDER THE Medica l FLEXPEN SKIN EVERY Branch U-100 DAY INSULIN) 100 unit/mL (3 mL) injection insulin Yes [id number] INJECT MAX [facility] aspart 4-18 DOSE 50 ity of U-100 00:00: UNITS [place] (NOVOLOG 00 UNDER THE Medica l FLEXPEN SKIN EVERY Branch U-100 DAY INSULIN) 100 unit/mL (3 mL) injection insulin Yes [id number] INJECT MAX [facility] aspart 4-18 DOSE 50 ity of U-100 00:00: UNITS [place] (NOVOLOG 00 UNDER THE Medica l FLEXPEN SKIN EVERY Branch U-100 DAY INSULIN) 100 unit/mL (3 mL) injection insulin Yes [id number] INJECT MAX [facility] aspart 4-18 DOSE 50 ity of U-100 00:00: UNITS [place] (NOVOLOG 00 UNDER THE Medica l FLEXPEN SKIN EVERY Branch U-100 DAY INSULIN) 100 unit/mL (3 mL) injection insulin Yes [id number] INJECT MAX [facility] aspart 4-18 DOSE 50 ity of U-100 00:00: UNITS [place] (NOVOLOG 00 UNDER THE Medica l FLEXPEN SKIN EVERY Branch U-100 DAY INSULIN) 100 unit/mL (3 mL) injection insulin Yes [id number] INJECT MAX [facility] aspart 4-18 DOSE 50 ity of U-100 00:00: UNITS [place] (NOVOLOG 00 UNDER THE Medica l FLEXPEN SKIN EVERY Branch U-100 DAY INSULIN) 100 unit/mL (3 mL) injection insulin Yes [id number] INJECT MAX [facility] aspart 4-18 DOSE 50 ity of U-100 00:00: UNITS [place] (NOVOLOG 00 UNDER THE Medica l FLEXPEN SKIN EVERY Branch U-100 DAY INSULIN) 100 unit/mL (3 mL) injection insulin Yes [id number] INJECT MAX [facility] aspart 4-18 DOSE 50 ity of U-100 00:00: UNITS [place] (NOVOLOG 00 UNDER THE Medica l FLEXPEN SKIN EVERY Branch U-100 DAY INSULIN) 100 unit/mL (3 mL) injection insulin Yes [id number] 40U inject 40 U nivers degludec 4-11 Units ity of (TRESIBA 00:00: [place] FLEXTOUCH 00 skin Medical U-200) 200 daily. Branch unit/mL (3 mL) InPn insulin Yes [id number] 40U inject 40 U nivers degludec 4-11 Units ity of (TRESIBA 00:00: under [place] FLEXTOUCH 00 skin Medical U-200) 200 daily. Branch unit/mL (3 mL) InPn insulin Yes [id number] 40U inject 40 U nivers degludec 4-11 Units ity of (TRESIBA 00:00: under the [place] FLEXTOUCH 00 skin Medical U-200) 200 daily. Branch unit/mL (3 mL) InPn insulin Yes [id number] 40U inject 40 U nivers degludec 4-11 Units ity of (TRESIBA 00:00: under the [place] FLEXTOUCH 00 skin Medical U-200) 200 daily. Branch unit/mL (3 mL) InPn insulin Yes [id number] 40U inject 40 U nivers degludec 4-11 Units ity of (TRESIBA 00:00: under the [place] FLEXTOUCH 00 skin Medical U-200) 200 daily. Branch unit/mL (3 mL) InPn insulin Yes [id number] 40U inject 40 U nivers degludec 4-11 Units ity of (TRESIBA 00:00: under the [place] FLEXTOUCH 00 skin Medical U-200) 200 daily. Branch unit/mL (3 mL) InPn insulin Yes [id number] 40U inject 40 U nivers degludec 4-11 Units ity of (TRESIBA 00:00: under the [place] FLEXTOUCH 00 skin Medical U-200) 200 daily. Branch unit/mL (3 mL) InPn insulin Yes [id number] 40U inject 40 U nivers degludec 4-11 Units ity of (TRESIBA 00:00: under the [place] FLEXTOUCH 00 skin Medical U-200) 200 daily. Branch unit/mL (3 mL) InPn insulin Yes [id number] 40U inject 40 U nivers degludec 4-11 Units ity of (TRESIBA 00:00: under the [place] FLEXTOUCH 00 skin Medical U-200) 200 daily. Branch unit/mL (3 mL) InPn insulin Yes [id number] 40U inject 40 U nivers degludec 4-11 Units ity of (TRESIBA 00:00: under the [place] FLEXTOUCH 00 skin Medical U-200) 200 daily. Branch unit/mL (3 mL) InPn insulin Yes [id number] 40U inject 40 U nivers degludec 4-11 Units ity of (TRESIBA 00:00: under the [place] FLEXTOUCH 00 skin Medical U-200) 200 daily. Branch unit/mL (3 mL) InPn insulin Yes [id number] 40U inject 40 U nivers degludec 4-11 Units ity of (TRESIBA 00:00: under the [place] FLEXTOUCH 00 skin Medical U-200) 200 daily. Branch unit/mL (3 mL) InPn insulin Yes [id number] 40U inject 40 U nivers degludec 4-11 Units ity of (TRESIBA 00:00: under the [place] FLEXTOUCH 00 skin Medical U-200) 200 daily. Branch unit/mL (3 mL) InPn insulin Yes [id number] 40U inject 40 U nivers degludec 4-11 Units ity of (TRESIBA 00:00: under the [place] FLEXTOUCH 00 skin Medical U-200) 200 daily. Branch unit/mL (3 mL) InPn insulin Yes [id number] 40U inject 40 U nivers degludec 4-11 Units ity of (TRESIBA 00:00: under the [place] FLEXTOUCH 00 skin Medical U-200) 200 daily. Branch unit/mL (3 mL) InPn insulin Yes [id number] 40U inject 40 U nivers degludec 4-11 Units ity of (TRESIBA 00:00: under the [place] FLEXTOUCH 00 skin Medical U-200) 200 daily. Branch unit/mL (3 mL) InPn dapaglifloz Yes [id number] 10mg Take 1 [facility] in 3-02 tablet by ity of ([facility]) 00:00: mouth [place] 10 mg 00 daily. Medical tablet Branch dapaglifloz 2021-0 Yes [id number] 10mg Take 1 [facility] in 08-11 tablet by ity of ([facility]) 00:00: mouth [place] 10 mg 00 daily. Medical tablet Branch dapaglifloz 0 Yes [id number] 10mg Take 1 [facility] in 08-11 tablet by ity of ([facility]) 00:00: mouth [place] 10 mg 00 daily. Medical tablet Branch dapaglifloz 0 2021- No [id number] 10mg Take 1 [facility] in 08-11 08-28 tablet by ity of ([facility]) 00:00: 00:00 mouth [place] 10 mg 00 :00 daily. Medical tablet Branch pantoprazol Yes 40mg QD Take 40 mg Methodi e 2-[address] (PROTONIX) 15:21: daily. Hospi ta 40 MG EC l tablet pioglitazon Yes 30mg QD Take [...] st 40 mg 15:21: daily. Hospita tablet l canaglifloz Yes 300mg QD Take 300 M ethodi in 2-[address] (Invokana) 15:21: mouth Hospit a 300 mg 01 daily. l tablet flash Yes *Freestyle Method i glucose 2-28 Zelda* [address] sensor 15:21: Hospita (FREESTYLE 01 l ZELDA 2 SENSOR MISC) insulin 2022-0 Yes [id number] Inject Me thodi ASPART 2-[id number] (NovoLOG) 15:21: 3D skin 3 Hospit a 100 unit/mL 01 (three) l injection times a day before meals. Per sliding scale insulin 0 Yes 50U QD Inject 50 Metho di glargine-li 2-[address] xisenatide 15:21: under the Ho spita (Soliqua 01 skin l 100/33) 100 daily. unit-33 mcg/mL insulin pen lisinopriL- 0 Yes 1{tbl} QD Take 1 Me thodi [...] 40 MG EC 01 l tablet pioglitazon 0 Yes 30mg QD Take 30 mg Methodi e (ACTOS) 2-[address] 30 MG 15:21: daily. Hospita tablet 01 l multivitami 0 Yes 1{tbl} QD Take 1 Me thodi [...] ZELDA 2 SENSOR MISC) insulin 0 Yes [id number] Inject Me thodi ASPART 2-[id number] (NovoLOG) 15:21: 3D skin [...] 15:21: daily. Hospita tablet 01 l multivitami 0 Yes 1{tbl} QD Take 1 Me thodi [...] mouth [facility]osp[facility] tablet 01 daily. l atorvastati 2022-0 Yes 40mg QD Take 40 mg Methodi n (LIPITOR) 2-[address] 40 mg 15:21: daily. Hospita tablet 01 l canaglifloz Yes 300mg QD Take 300 M ethodi in 2-[address] (Invokana) 15:21: mouth Hospit a 300 mg 01 daily. l tablet flash 0 Yes *Freestyle Method i glucose 2-28 Zelda* [address] sensor 15:21: Hospita (FREESTYLE 01 l ZELDA 2 SENSOR MISC) insulin 0 Yes [id number] Inject Me thodi ASPART - [id number] under the st (NovoLOG) 15:21: 3D skin [...] l 24 hr times a tablet day. MAGNESIUM 0 2021- No 800mg QD Take 800 Me thodi ORAL 2-28 02-[address] 15:21: 00:00 mouth [facility]ospita 01 :00 daily. l metoclopram 2021-0 2021- No 5mg [id number] Take 5 mg Methodi zheng 2-28 02-[id number] (REGLAN) 5 15:21: 00:00 3D (three) Hos annalisa MG tablet 01 :00 times a l day as needed. promethazin 0 202- No 25mg Q6H Insert 25 Methodi e 2-28 02-[address] (PHENERGAN) 15:21: 00:00 the rectum Hospita 25 MG 01 :00 every 6 l suppository (six) hours as needed for nausea or vomiting. promethazin 2021-0 2021- No 25mg Q6H Take 25 mg Methodi e 2-28 02-[address] (PHENERGAN) 15:21: 00:00 every 6 Ho spita 25 MG 01 :00 (six) l tablet hours as needed for nausea or vomiting. ondansetron 2021-0 2022- No 4mg Q8H Take 1 Met hodi ODT 2-27 03-30 tablet (4 st (ZOFRAN-ODT 00:00: 04:59 mg total) Hospita ) 4 MG 00 :00 by mouth l disintegrat every 8 ing tablet (eight) hours as needed for nausea or vomiting for up to 30 days. metoclopram 2021-0 2021- No 5mg Q.25D Take 0.5 Methodi zheng 2-27 03-15 tablets (5 st (Reglan) 10 00:00: 04:59 mg total) Hospita MG tablet 00 :00 by mouth 4 l (four) times a day for 15 days. To be taken 30 minutes to 1 hour before a meal. Maximum four times a day, not to exceed further, even if taking meals in between. metoclopram 2022-0 Yes [id number] 5mg Take 1 [facility] zheng HCl 5 2-16 tablet by ity o f mg tablet 00:00: mouth [place] 00 every 8 Medical (eight) Branch hours. metoclopram 2022-0 Yes [id number] 5mg Take 1 [facility] zheng HCl 5 2-16 tablet by ity o f mg tablet 00:00: mouth [place] 00 every 8 Medical (eight) Branch hours. metoclopram 2022-0 Yes [id number] 5mg Take 1 [facility] zheng HCl 5 2-16 tablet by ity o f mg tablet 00:00: mouth [place] 00 every 8 Medical (eight) Branch hours. metoclopram 2022-0 Yes [id number] 5mg Take 1 [facility] zheng HCl 5 2-16 tablet by ity o f mg tablet 00:00: mouth [place] 00 every 8 Medical (eight) Branch hours. metoclopram 2022-0 Yes [id number] 5mg Take 1 [facility] zheng HCl 5 2-16 tablet by ity o f mg tablet 00:00: mouth [place] 00 every 8 Medical (eight) Branch hours. metoclopram 2022-0 Yes [id number] 5mg Take 1 [facility] zheng HCl 5 2-16 tablet by ity o f mg tablet 00:00: mouth [place] 00 every 8 Medical (eight) Branch hours. metoclopram 2022-0 Yes [id number] 5mg Take 1 [facility] zheng HCl 5 2-16 tablet by ity o f mg tablet 00:00: mouth [place] 00 every 8 Medical (eight) Branch hours. metoclopram 2022-0 Yes [id number] 5mg Take 1 [facility] zheng HCl 5 2-16 tablet by ity o f mg tablet 00:00: mouth [place] 00 every 8 Medical (eight) Branch hours. metoclopram 2022-0 Yes [id number] 5mg Take 1 [facility] zheng HCl 5 2-16 tablet by ity o f mg tablet 00:00: mouth [place] 00 every 8 Medical (eight) Branch hours. metoclopram 2022-0 Yes [id number] 5mg Take 1 [facility] zheng HCl 5 2-16 tablet by ity o f mg tablet 00:00: mouth [place] 00 every 8 Medical (eight) Branch hours. metoclopram 2022-0 Yes [id number] 5mg Take 1 [facility] zheng HCl 5 2-16 tablet by ity o f mg tablet 00:00: mouth [place] 00 every 8 Medical (eight) Branch hours. metoclopram 2022-0 Yes [id number] 5mg Take 1 [facility] zheng HCl 5 2-16 tablet by ity o f mg tablet 00:00: mouth [place] 00 every 8 Medical (eight) Branch hours. metoclopram 2022-0 Yes [id number] 5mg Take 1 [facility] zheng HCl 5 2-16 tablet by ity o f mg tablet 00:00: mouth [place] 00 every 8 Medical (eight) Branch hours. metoclopram 2022-0 Yes [id number] 5mg Take 1 [facility] zheng HCl 5 2-16 tablet by ity o f mg tablet 00:00: mouth [place] 00 every 8 Medical (eight) Branch hours. metoclopram 2022-0 Yes [id number] 5mg Take 1 [facility] zheng HCl 5 2-16 tablet by ity o f mg tablet 00:00: mouth [place] 00 every 8 Medical (eight) Branch hours. metoclopram 2022-0 Yes [id number] 5mg Take 1 [facility] zheng HCl 5 2-16 tablet by ity o f mg tablet 00:00: mouth [place] 00 every 8 Medical (eight) Branch hours. proMETHazin Yes [id number] 25mg Insert 1 [facility] e 25 mg 2-12 Suppositor ity of suppository 00:00: [facility] [place] [facility] Medical every 4 Branch (four) hours as needed for N/V unresponsi ve to oral antiemetic s. proMETHazin Yes [id number] 25mg Insert 1 [facility] e 25 mg 2-12 Suppositor ity of suppository 00:00: y [facility] [place] [facility] rect[facility] Medical every 4 Branch (four) hours as needed for N/V unresponsi ve to oral antiemetic s. proMETHazin Yes [id number] 25mg Insert 1 [facility] e 25 mg 2-12 Suppositor ity of suppository 00:00: y into [facility] rectum Medical every 4 Branch (four) hours as needed for N/V unresponsi ve to oral antiemetic s. proMETHazin Yes [id number] 25mg Insert 1 [facility] e 25 mg 2-12 Suppositor ity of suppository 00:00: y into [facility] rectum Medical every 4 Branch (four) hours as needed for N/V unresponsi ve to oral antiemetic s. proMETHazin Yes [id number] 25mg Insert 1 [facility] e 25 mg 2-12 Suppositor ity of suppository 00:00: y into [facility] rectum Medical every 4 Branch (four) hours as needed for N/V unresponsi ve to oral antiemetic s. proMETHazin Yes [id number] 25mg Insert 1 [facility] e 25 mg 2-12 Suppositor ity of suppository 00:00: y into [facility] rectum Medical every 4 Branch (four) hours as needed for N/V unresponsi ve to oral antiemetic s. proMETHazin 0 Yes [id number] 25mg Insert 1 [facility] e 25 mg 2-12 Suppositor ity of suppository 00:00: y into [place] [facility] rectum Medical every 4 Branch (four) hours as needed for N/V unresponsi ve to oral antiemetic s. proMETHazin Yes [id number] 25mg Insert 1 [facility] e 25 mg 2-12 Suppositor ity of suppository 00:00: y [place] rectum Medical every 4 Branch (four) hours as needed for N/V unresponsi ve to oral antiemetic s. proMETHazin 0 Yes [id number] 25mg Insert 1 [facility] e 25 mg 2-12 Suppositor ity of suppository 00:00: y [place] rectum Medical every 4 Branch (four) hours as needed for N/V unresponsi ve to oral antiemetic s. proMETHazin 0 Yes [id number] 25mg Insert 1 [facility] e 25 mg 2-12 Suppositor ity of suppository 00:00: y into [place] [facility] rectum Medical every 4 Branch (four) hours as needed for N/V unresponsi ve to oral antiemetic s. proMETHazin 0 Yes [id number] 25mg Insert 1 [facility] e 25 mg 2-12 Suppositor ity of suppository 00:00: y into [place] [facility] rectum Medical every 4 Branch (four) hours as needed for N/V unresponsi ve to oral antiemetic s. proMETHazin 0 Yes [id number] 25mg Insert 1 [facility] e 25 mg 2-12 Suppositor ity of suppository 00:00: y into [place] [facility] rectum Medical every 4 Branch (four) hours as needed for N/V unresponsi ve to oral antiemetic s. proMETHazin 0 Yes [id number] 25mg Insert 1 [facility] e 25 mg 2-12 Suppositor ity of suppository 00:00: y into [place] [facility] rectum Medical every 4 Branch (four) hours as needed for N/V unresponsi ve to oral antiemetic s. proMETHazin 0 Yes [id number] 25mg Insert 1 [facility] e 25 mg 2-12 Suppositor ity of suppository 00:00: y into [place] rectum Medical every 4 Branch (four) hours as needed for N/V unresponsi ve to oral antiemetic s. proMETHazin 0 Yes [id number] 25mg Insert 1 [facility] e 25 mg 2-12 Suppositor ity of suppository 00:00: y into [place] [facility] rectum Medical every 4 Branch (four) hours as needed for N/V unresponsi ve to oral antiemetic s. proMETHazin 2021-0 Yes [id number] 25mg Insert 1 [facility] e 25 mg 2-12 Suppositor ity of suppository 00:00: y [place] 00 rectum Medical every 4 Branch (four) hours as needed for N/V unresponsi ve to oral antiemetic s. dicyclomine 2021-0 Yes [id number] 20mg Take 1 [facility] 20 mg 1-10 tablet by ity of tablet 00:00: mouth [place] 00 every 6 Medical (six) Branch hours as needed for Abdominal pain. dicyclomine 2021-0 Yes [id number] 20mg Take 1 [facility] 20 mg 1-10 tablet by ity of tablet 00:00: mouth [place] 00 every 6 Medical (six) Branch hours as needed for Abdominal pain. dicyclomine 2021-0 Yes [id number] 20mg Take 1 [facility] 20 mg 1-10 tablet by ity of tablet 00:00: mouth [place] 00 every 6 Medical (six) Branch hours as needed for Abdominal pain. dicyclomine 2021-0 Yes [id number] 20mg Take 1 [facility] 20 mg 1-10 tablet by ity of tablet 00:00: mouth [place] 00 every 6 Medical (six) Branch hours as needed for Abdominal pain. dicyclomine 2021-0 Yes [id number] 20mg Take 1 [facility] 20 mg 1-10 tablet by ity of tablet 00:00: mouth [place] 00 every 6 Medical (six) Branch hours as needed for Abdominal pain. dicyclomine 2021-0 Yes [id number] 20mg Take 1 [facility] 20 mg 1-10 tablet by ity of tablet 00:00: mouth [place] 00 every 6 Medical (six) Branch hours as needed for Abdominal pain. dicyclomine 2021-0 Yes [id number] 20mg Take 1 [facility] 20 mg 1-10 tablet by ity of tablet 00:00: mouth [place] 00 every 6 Medical (six) Branch hours as needed for Abdominal pain. dicyclomine 2021-0 Yes [id number] 20mg Take 1 [facility] 20 mg 1-10 tablet by ity of tablet 00:00: mouth [place] 00 every 6 Medical (six) Branch hours as needed for Abdominal pain. dicyclomine 2021-0 Yes [id number] 20mg Take 1 [facility] 20 mg 1-10 tablet by ity of tablet 00:00: mouth [place] 00 every 6 Medical (six) Branch hours as needed for Abdominal pain. dicyclomine 2022-0 Yes [id number] 20mg Take 1 [facility] 20 mg 1-10 tablet by ity of tablet 00:00: mouth [place] 00 every 6 Medical (six) Branch hours as needed for Abdominal pain. dicyclomine 2022-0 Yes [id number] 20mg Take 1 [facility] 20 mg 1-10 tablet by ity of tablet 00:00: mouth [place] 00 every 6 Medical (six) Branch hours as needed for Abdominal pain. dicyclomine 2022-0 Yes [id number] 20mg Take 1 [facility] 20 mg 1-10 tablet by ity of tablet 00:00: mouth [place] 00 every 6 Medical (six) Branch hours as needed for Abdominal pain. dicyclomine 2-0 Yes [id number] 20mg Take 1 [facility] 20 mg 1-10 tablet by ity of tablet 00:00: mouth [place] 00 every 6 Medical (six) Branch hours as needed for Abdominal pain. dicyclomine 2-0 Yes [id number] 20mg Take 1 [facility] 20 mg 1-10 tablet by ity of tablet 00:00: mouth [place] 00 every 6 Medical (six) Branch hours as needed for Abdominal pain. dicyclomine 2-0 Yes [id number] 20mg Take 1 [facility] 20 mg 1-10 tablet by ity of tablet 00:00: mouth [place] 00 every 6 Medical (six) Branch hours as needed for Abdominal pain. dicyclomine 2-0 Yes [id number] 20mg Take 1 [facility] 20 mg 1-10 tablet by ity of tablet 00:00: mouth [place] 00 every 6 Medical (six) Branch hours as needed for Abdominal pain. flash 2020-06 Yes [id number] 1{each} 1 Each Uni vers glucose 1-23 daily. Use ity of [place] 00:00[place]. [place] 00 E11.21 Medical (FREESTYLE Branch ZELDA 2 READER) [facility] flash 2020-06 Yes [id number] 1{each} 1 Each Uni vers glucose 1-23 daily. Use ity of scanning 00:00: [place]. [place] 00 E11.21 Medical (FREESTYLE Branch ZELDA 2 READER) [facility] flash 2020-06 Yes [id number] 1{each} 1 Each Uni vers glucose 1-23 daily. Use ity of scanning 00:00: [place]. [place] [facility] (FREESTYLE Branch ZELDA 2 READER) Misc flash 2020-06 Yes [id number] 1{each} 1 Each Uni vers glucose 1-23 daily. Use ity of scanning 00:00: daily. [place] [facility] (FREESTYLE Branch ZELDA 2 READER) Misc flash 2020-06 Yes [id number] 1{each} 1 Each Uni vers glucose 1-23 daily. Use ity of scanning 00:00: daily. [place] [facility] (FREESTYLE Branch ZELDA 2 READER) Misc [place] 2020-06 Yes [id number] 1{each} 1 Each Uni vers glucose 1-23 daily. Use ity of scanning 00:00: [place]. [place] [facility] (FREESTYLE Branch ZELDA 2 READER) Misc flash 2020-06 Yes [id number] 1{each} 1 Each Uni vers glucose 1-23 daily. Use ity of scanning 00:00: daily. [place] [facility] (FREESTYLE Branch ZELDA 2 READER) Misc flash 2020-06 Yes [id number] 1{each} 1 Each Uni vers glucose 1-23 daily. Use ity of scanning 00:00: daily. [place] . Medical (FREESTYLE Branch ZELDA 2 READER) Misc flash 2020-06 Yes [id number] 1{each} 1 Each Uni vers glucose 1-23 daily. Use ity of scanning 00:00: daily. [place] . Medical (FREESTYLE Branch ZELDA 2 READER) Misc flash 2020-06 Yes [id number] 1{each} 1 Each Uni vers glucose 1-23 daily. Use ity of scanning 00:00: daily. [place] . Medical (FREESTYLE Branch ZELDA 2 READER) Misc flash 2020-06 Yes [id number] 1{each} 1 Each Uni vers glucose 1-23 daily. Use ity of scanning 00:00: daily. [place] . Medical (FREESTYLE Branch ZELDA 2 READER) Misc flash 2020-06 Yes [id number] 1{each} 1 Each Uni vers glucose 1-23 daily. Use ity of scanning 00:00: daily. [place] E11.21 Medical (FREESTYLE Branch ZELDA 2 READER) [facility] flash 2020-06 Yes [id number] 1{each} 1 Each Uni vers glucose 1-23 daily. Use ity of scanning 00:00: daily. [place] E11.21 Medical (FREESTYLE Branch ZELDA 2 READER) [facility] flash 2020-06 Yes [id number] 1{each} 1 Each Uni vers glucose 1-23 daily. Use ity of scanning 00:00: daily. [place] E11. Medical (FREESTYLE Branch ZELDA 2 READER) [facility] flash 2020-06 Yes [id number] 1{each} 1 Each Uni vers glucose 1-23 daily. Use ity of scanning 00:00: daily. [place] E11. Medical (FREESTYLE Branch ZELDA 2 READER) [facility] flash 2020-06 Yes [id number] 1{each} 1 Each Uni vers glucose 1-23 daily. Use ity of scanning 00:00: daily. [place] E11.21 Medical (FREESTYLE Branch ZELDA 2 READER) [facility] colchicine Yes [id number] 2 tabs po Univers 0.6 mg 9-22 9109 x 1 dose ity of tablet 00:00: PRN at [place] 00 onset of Medical gout Branch attack, may take 1 tab 1 hour later x 1 dose if still in pain; Max 3 tabs per 24 hours. colchicine Yes [id number] 2 tabs po [facility] 0.6 mg 9-22 9109 x 1 dose ity of tablet 00:00: PRN at [place] 00 onset of Medical gout Branch attack, may take 1 tab 1 hour later x 1 dose if still in pain; Max 3 tabs per 24 hours. colchicine Yes [id number] 2 tabs po [facility] 0.6 mg 9-22 9109 x 1 dose ity of tablet 00:00: PRN at [place] 00 onset of Medical gout Branch attack, may take 1 tab 1 hour later x 1 dose if still in pain; Max 3 tabs per 24 hours. colchicine Yes [id number] 2 tabs po [facility] 0.6 mg 9-22 9109 x 1 dose ity of tablet 00:00: PRN at [place] 00 onset of Medical gout Branch attack, may take 1 tab 1 hour later x 1 dose if still in pain; Max 3 tabs per 24 hours. colchicine 0 Yes [id number] 2 tabs po [facility] 0.6 mg 9-22 9109 x 1 dose ity of tablet 00:00: PRN at [place] 00 onset of Medical gout Branch attack, may take 1 tab 1 hour later x 1 dose if still in pain; Max 3 tabs per 24 hours. colchicine 0 Yes [id number] 2 tabs po [facility] 0.6 mg 9-22 9109 x 1 dose ity of tablet 00:00: PRN at [place] 00 onset of Medical gout Branch attack, may take 1 tab 1 hour later x 1 dose if still in pain; Max 3 tabs per 24 hours. colchicine 0 Yes [id number] 2 tabs po [facility] 0.6 mg 9-22 9109 x 1 dose ity of tablet 00:00: PRN at [place] [address] onset of Medical gout Branch attack, may take 1 tab 1 hour later x 1 dose if still in pain; Max 3 tabs per 24 hours. colchicine Yes [id number] 2 tabs po [facility] 0.6 mg 9-22 9109 x 1 dose ity of tablet 00:00: PRN at [place] [address] onset of Medical gout Branch attack, may take 1 tab 1 hour later x 1 dose if still in pain; Max 3 tabs per 24 hours. colchicine 0 Yes [id number] 2 tabs po [facility] 0.6 mg 9-22 9109 x 1 dose ity of tablet 00:00: PRN at [place] [address] onset of Medical gout Branch attack, may take 1 tab 1 hour later x 1 dose if still in pain; Max 3 tabs per 24 hours. colchicine 2020-0 Yes [id number] 2 tabs po [facility] 0.6 mg 9-22 9109 x 1 dose ity of tablet 00:00: PRN at [place] [address] onset of Medical gout Branch attack, may take 1 tab 1 hour later x 1 dose if still in pain; Max 3 tabs per 24 hours. colchicine 0 Yes [id number] 2 tabs po [facility] 0.6 mg 9-22 9109 x 1 dose ity of tablet 00:00: PRN at [place] 00 onset of Medical gout Branch attack, may take 1 tab 1 hour later x 1 dose if still in pain; Max 3 tabs per 24 hours. colchicine Yes [id number] 2 tabs po [facility] 0.6 mg 9-22 9109 x 1 dose ity of tablet 00:00: PRN at [place] [address] onset of Medical gout Branch attack, may take 1 tab 1 hour later x 1 dose if still in pain; Max 3 tabs per 24 hours. colchicine Yes [id number] 2 tabs po [facility] 0.6 mg 9-22 9109 x 1 dose ity of tablet 00:00: PRN at [place] [address] onset of Medical gout Branch attack, may take 1 tab 1 hour later x 1 dose if still in pain; Max 3 tabs per 24 hours. colchicine Yes [id number] 2 tabs po [facility] 0.6 mg 9-22 9109 x 1 dose ity of tablet 00:00: PRN at [place] [address] onset of Medical gout Branch attack, may take 1 tab 1 hour later x 1 dose if still in pain; Max 3 tabs per 24 hours. colchicine Yes [id number] 2 tabs po [facility] 0.6 mg 9-22 9109 x 1 dose ity of tablet 00:00: PRN at [place] [address] onset of Medical gout Branch attack, may take 1 tab 1 hour later x 1 dose if still in pain; Max 3 tabs per 24 hours. colchicine Yes [id number] 2 tabs po [facility] 0.6 mg 9-22 9109 x 1 dose ity of tablet 00:00: PRN at [place] [address] onset of Medical gout Branch attack, may take 1 tab 1 hour later x 1 dose if still in pain; Max 3 tabs per 24 hours. hydrocortis 2021- No [id number] Apply to [facility] one 2.5 % 11-25 area(s) 2 ity of cream 00:00: 00:00 (two) [place] 00 :00 times Medical daily. Branch hydrocortis 2020-2021- No [id number] Apply to Univers one 2.5 % 11-25 area(s) 2 ity of cream 00:00: 00:00 (two) [place] 00 :00 times Medical daily. Branch clobetasoL 2021- No [id number] Apply to Univers 0.05 % 08-18 area(s) ity of ointment 00:00: 00:00 every [place] 00 :00 Monday Medical and Branch in the evening. Use for 6 weeks, if no improvemen t, then make another appointmen t clobetasoL 2021- No [id number] Apply to Univers 0.05 % 08-18 area(s) ity of ointment 00:00: 00:00 every [place] 00 :00 Monday Medical and Branch in the evening. Use for 6 weeks, if no improvemen t, then make another appointmen t clobetasoL 2021- No [id number] Apply to Univers 0.05 % 08-18 area(s) ity of ointment 00:00: 00:00 every [place] 00 :00 Monday Medical and Branch in the evening. Use for 6 weeks, if no improvemen t, then make another appointmen t pen needle, 2018-06 Yes [id number] 1{each} inject 1 [facility] diabetic 2-30 Each under ity o f (NOVOFINE 00:00: [place] PLUS[place] 32 00 daily. Use Medic al gauge x as Branch 06/17" Ndle directed. E11.21 once daily pen needle, 2018-06 Yes [id number] 1{each} inject 1 [facility] diabetic 2-30 Each under ity o f (NOVOFINE 00:00: [place] PLUS[place] 32 00 daily. Use Medic al gauge x as Branch 6" Ndle directed. E11.21 once daily pen needle, 2018-06 Yes [id number] 1{each} inject 1 [facility] diabetic 2-30 Each under ity o f (NOVOFINE 00:00: [place] PLUS[place] 32 00 daily. Use Medic al gauge x as Branch 1/6" Ndle directed. E11.21 once daily pen needle, 2018-06 Yes [id number] 1{each} inject 1 [facility] diabetic 2-30 Each under ity o f (NOVOFINE 00:00: [place] PLUS[place] 32 00 daily. Use Medic al gauge x as Branch 1/6" Ndle directed. E11.21 once daily pen needle, 2018-06 Yes [id number] 1{each} inject 1 [facility] diabetic 2-30 Each under ity o f (NOVOFINE 00:00: [place] PLUS[place] 32 00 daily. Use Medic al gauge x as Branch 1/6" Ndle directed. E11.21 once daily pen needle, 2018-06 Yes [id number] 1{each} inject 1 [facility] diabetic 2-30 Each under ity o f (NOVOFINE 00:00: [place] PLUS[place] 32 00 daily. Use Medic al gauge x as Branch 1/6" Ndle directed. E11.21 once daily pen needle, 2018-06 Yes [id number] 1{each} inject 1 [facility] diabetic 2-30 Each under ity o f (NOVOFINE 00:00: [place] PLUS[place] 32 00 daily. Use Medic al gauge x as Branch 1/6" Ndle directed. E11.21 once daily pen needle, 2018-06 Yes [id number] 1{each} inject 1 [facility] diabetic 2-30 Each under ity o f (NOVOFINE 00:00: [place] PLUS[place] 32 00 daily. Use Medic al gauge x as Branch 1/6" Ndle directed. E11.21 once daily pen needle, 2018-06 Yes [id number] 1{each} inject 1 [facility] diabetic 2-30 Each under ity o f (NOVOFINE 00:00: [place] PLUS[place] 32 00 daily. Use Medic al gauge x as Branch 1/6" Ndle directed. E11.21 once daily pen needle, 2018-06 Yes [id number] 1{each} inject 1 [facility] diabetic 2-30 Each under ity o f (NOVOFINE 00:00: [place] PLUS[place] 32 00 daily. Use Medic al gauge x as Branch 1/6" Ndle directed. E11.21 once daily pen needle, 2018-06 Yes [id number] 1{each} inject 1 [facility] diabetic 2-30 Each under ity o f (NOVOFINE 00:00: [place] PLUS[place] 32 00 daily. Use Medic al gauge x as Branch 1/6" Ndle directed. E11.21 once daily pen needle, 2018-06 Yes [id number] 1{each} inject 1 [facility] diabetic 2-30 Each under ity o f (NOVOFINE 00:00: the [place] PLUS[place] 32 00 daily. Use Medic al gauge x as Branch 1/6" Ndle directed. E11. once daily pen needle, 2018-06 Yes [id number] 1{each} inject 1 [facility] diabetic 2-30 Each under ity o f (NOVOFINE 00:00: the [place] PLUS[place] 32 00 daily. Use Medic al gauge x as Branch 1/6" Ndle directed. E11. once daily pen needle, 2018-06 Yes [id number] 1{each} inject 1 [facility] diabetic 2-30 Each under ity o f (NOVOFINE 00:00: the [place] PLUS) 32 00 daily. Use Medic al gauge x as Branch 1/6" Ndle directed. E11 once daily pen needle, 2018-06 Yes [id number] 1{each} inject 1 [facility] diabetic 2-30 Each under ity o f (NOVOFINE 00:00: the [place] PLUS) 32 00 daily. Use Medic al gauge x as Branch 1/6" Ndle directed. E11. once daily pen needle, 2018-06 Yes [id number] 1{each} inject 1 [facility] diabetic 2-30 Each [...] HOURS cyclobenzap cyclobenzap No 1 TID cyclobenza [facility] rine 5 mg rine 5 mg [...] DAILY MOUTH DAILY FreeStyle FreeStyle No FreeStyle [facility] 2 Zelda 2 Zelda 2 [facility] Practic FOLLOW FOLLOW FOLLOW e DIRECTED DIRECTED DIRECTED FreeStyle [facility] 2 Zelda 2 Zelda 2 Family Sensor [...] UNITS EVERY DAY hydrocortis hydrocortis No hydrocorti [facility] one 2.5 % one 2.5 % sone 2.5 % [facility] topical topical topical Practi c cream APPLY cream APPLY cream e TOPICALLY TOPICALLY APPLY TO THE TO THE TOPICALLY AFFECTED AFFECTED TO THE AREA TWICE AREA TWICE AFFECTED DAILY DAILY AREA TWICE DAILY lisinopril lisinopril No lisinopril [facility] 20 20 20 Family mg-hydrochl mg-hydrochl mg-hydroch Practic orothiazide orothiazide lorothiazi e 12.5 mg 12.5 mg de 12.5 mg tablet TAKE tablet TAKE tablet 1 TABLET BY 1 TABLET BY TAKE 1 MOUTH DAILY MOUTH DAILY TABLET BY MOUTH DAILY meloxicam meloxicam No 1 Q1D meloxicam [facility] 15 mg 15 mg 15 mg Family tablet Take tablet Take tablet Practic 1 tablet 1 tablet Take 1 e every day every day tablet by oral by oral every day route with route with by oral meals for meals for route with 30 days. 30 days. meals for 30 days. metformin metformin No metformin [facility] ER 500 mg ER 500 mg ER 500 mg Family tablet,exte tablet,exte tablet,ext Practic nded nded ended e release 24 release 24 release 24 hr TAKE 2 hr TAKE 2 hr TAKE 2 TABLETS BY TABLETS BY TABLETS BY MOUTH TWICE MOUTH TWICE MOUTH DAILY WITH DAILY WITH TWICE MEALS MEALS DAILY WITH MEALS metoclopram metoclopram No metoclopra [facility] zheng 10 mg zheng 10 mg mide 10 mg Family tablet TAKE tablet TAKE tablet Practic 1 TABLET BY 1 TABLET BY TAKE 1 e MOUTH MOUTH TABLET BY BEFORE BEFORE MOUTH MEALS AND MEALS AND BEFORE AT BEDTIME AT BEDTIME MEALS AND AT BEDTIME metoclopram metoclopram No metoclopra [facility] zheng 5 mg zheng 5 mg [...] in pm sq pantoprazol pantoprazol No pantoprazo [facility] e 40 mg e 40 mg le 40 mg Famil y tablet,ramiro tablet,ramiro tablet,del Practic yed release yed release ayed e TAKE 1 TAKE 1 release TABLET BY TABLET BY TAKE 1 MOUTH DAILY MOUTH DAILY TABLET BY MOUTH DAILY pioglitazon pioglitazon No pioglitazo [facility] e 30 mg e 30 mg ne 30 mg Famil y tablet TAKE tablet TAKE tablet Practic 1 TABLET BY 1 TABLET BY TAKE 1 e MOUTH DAILY MOUTH DAILY TABLET BY MOUTH DAILY allopurinol allopurinol No allopurino [facility] 100 mg 100 mg l 100 mg Family tablet TAKE tablet TAKE tablet Practic 1 TABLET BY 1 TABLET BY TAKE 1 e MOUTH DAILY MOUTH DAILY TABLET BY MOUTH DAILY atorvastati atorvastati No atorvastat [facility] n 40 mg n 40 mg in 40 mg Famil y tablet TAKE tablet TAKE tablet Practic 1 TABLET BY 1 TABLET BY TAKE 1 e MOUTH AT MOUTH AT TABLET BY BEDTIME BEDTIME MOUTH AT BEDTIME clobetasol clobetasol No clobetasol [facility] 0.05 % 0.05 % 0.05 % Family topical topical topical Practi c ointment ointment ointment e APPLY APPLY APPLY TOPICALLY TOPICALLY TOPICALLY TO THE TO THE TO THE AFFECTED AFFECTED AFFECTED AREA TWICE AREA TWICE AREA TWICE DAILY DAILY DAILY colchicine colchicine No colchicine [facility] 0.6 mg 0.6 mg 0.6 mg [...] PER 24 HOURS cyclobenzap cyclobenzap No cyclobenza [facility] rine 5 mg rine 5 mg [...] DAILY MOUTH DAILY FreeStyle FreeStyle No FreeStyle [facility] Zelda 2 Zelda 2 Zelda 2 Family [facility] Practic FOLLOW FOLLOW FOLLOW e DIRECTED DIRECTED DIRECTED FreeStyle FreeStyle No FreeStyle [facility] Zelda 2 Zelda 2 Zelda 2 Family Sensor kit Sensor kit Sensor kit Practic APPLY 1 APPLY 1 APPLY 1 e SENSOR TO SENSOR TO SENSOR TO SKIN EVERY SKIN EVERY SKIN EVERY 14 DAYS 14 DAYS 14 DAYS furosemide furosemide No 1 Q1D furosemide [facility] 20 mg 20 mg 20 mg Family [...] UNITS EVERY DAY hydrocortis hydrocortis No hydrocorti [facility] one 2.5 % one 2.5 % [...] UP TO 12HOURS.) lisinopril lisinopril No lisinopril [facility] 20 20 20 Family mg-hydrochl mg-hydrochl mg-hydroch Practic orothiazide orothiazide lorothiazi e 12.5 mg 12.5 mg de 12.5 mg tablet TAKE tablet TAKE tablet 1 TABLET BY 1 TABLET BY TAKE 1 MOUTH DAILY MOUTH DAILY TABLET BY MOUTH DAILY meloxicam meloxicam No meloxicam [facility] 15 mg 15 mg 15 mg Family tablet TAKE tablet TAKE tablet Practic 1 TABLET BY 1 TABLET BY TAKE 1 e MOUTH EVERY MOUTH EVERY TABLET BY DAY WITH DAY WITH MOUTH MEALS MEALS EVERY DAY WITH MEALS metformin metformin No metformin [facility] ER 500 mg ER 500 mg [...] AND AT BEDTIME metoclopram metoclopram No metoclopra [facility] zheng 5 mg zheng 5 mg mide 5 mg Fa serge tablet TAKE tablet TAKE tablet Practic 1 TABLET BY 1 TABLET BY TAKE 1 e MOUTH EVERY MOUTH EVERY TABLET BY 8 HOURS 8 HOURS MOUTH EVERY 8 HOURS montelukast montelukast No 1 Q1D montelukas [facility] 10 mg 10 mg t 10 [...] BY MOUTH DAILY pioglitazon pioglitazon No pioglitazo [facility] e 30 mg e 30 mg ne 30 mg Famil y tablet TAKE tablet TAKE tablet Practic 1 TABLET BY 1 TABLET BY TAKE 1 e MOUTH DAILY MOUTH DAILY TABLET BY MOUTH DAILY allopurinol allopurinol No allopurino [facility] 100 mg 100 mg l 100 mg Family tablet TAKE tablet TAKE tablet Practic 1 TABLET BY 1 TABLET BY TAKE 1 e MOUTH DAILY MOUTH DAILY TABLET BY MOUTH DAILY atorvastati atorvastati No atorvastat [facility] n 40 mg n 40 mg [...] for 7 days. colchicine colchicine No colchicine [facility] 0.6 mg 0.6 mg 0.6 mg [...] PER 24 HOURS FreeStyle FreeStyle No FreeStyle [facility] Zelda 2 Zelda 2 Zelda 2 Family [facility] Practic FOLLOW FOLLOW FOLLOW e DIRECTED DIRECTED DIRECTED FreeStyle [facility] Zelda 2 Zelda 2 Family Sensor kit Sensor kit Sensor kit Practic APPLY 1 APPLY 1 APPLY 1 e SENSOR TO SENSOR TO SENSOR TO SKIN EVERY SKIN EVERY SKIN EVERY 14 DAYS 14 DAYS 14 DAYS furosemide furosemide No furosemide [facility] 20 mg 20 mg 20 mg Family [...] days. lisinopril lisinopril No 1 Q1D lisinopril [facility] 20 20 20 Family mg-hydrochl mg-hydrochl mg-hydroch Practic orothiazide orothiazide lorothiazi e 12.5 mg 12.5 mg de 12.5 mg tablet Take tablet Take tablet 1 tablet 1 tablet Take 1 every day every day tablet by oral by oral every day route for route for by oral 90 days. 90 days. route for 90 days. metformin metformin No metformin [facility] ER 500 mg ER 500 mg ER 500 mg Family tablet,exte tablet,exte tablet,ext Practic nded nded ended e release 24 release 24 release 24 hr TAKE 2 hr TAKE 2 hr TAKE 2 TABLETS BY TABLETS BY TABLETS BY MOUTH TWICE MOUTH TWICE MOUTH DAILY WITH DAILY WITH TWICE MEALS MEALS DAILY WITH MEALS montelukast montelukast No 1 Q1D montelukas [facility] 10 mg 10 mg t 10 [...] for 90 days. allopurinol allopurinol No allopurino [place] 100 mg [...] for 7 days. colchicine colchicine No colchicine [place] 0.6 mg [...] PER 24 HOURS FreeStyle FreeStyle No FreeStyle [facility] Zelda 2 Zelda 2 Zelda 2 Family [facility] Practic FOLLOW FOLLOW FOLLOW e DIRECTED DIRECTED DIRECTED FreeStyle FreeStyle No FreeStyle [facility] Zelda 2 Zelda 2 Zelda 2 Family Sensor kit Sensor kit Sensor kit Practic APPLY 1 APPLY 1 APPLY 1 e SENSOR TO SENSOR TO SENSOR TO SKIN EVERY SKIN EVERY SKIN EVERY 14 DAYS 14 DAYS 14 DAYS furosemide furosemide No furosemide [facility] 20 mg 20 mg 20 mg Family tablet TAKE tablet TAKE tablet Practic 1 TABLET BY 1 TABLET BY TAKE 1 e MOUTH EVERY MOUTH EVERY TABLET BY DAY IN THE DAY IN THE MOUTH MORNING FOR MORNING FOR EVERY DAY 7 DAYS 7 DAYS IN THE MORNING FOR 7 DAYS Humulin R Humulin R No Humulin R [facility] U-500 U-500 U-500 [facility] (Conc) (Conc) (Conc) Practic Insulin Insulin Insulin [...] 200 hydrocortis hydrocortis No 1applic BID hydrocorti [place] one 2.5 % one 2.5 % ation(s sone 2.5 % [facility] topical topical ) topical Practi c cream Apply cream Apply cream e 1 1 Apply 1 application application applicatio twice a day twice a day n twice a by topical by topical day by route for route for topical 15 days. 15 days. route for 15 days. Jardiance Jardiance No 1 Q1D Jardiance [place] 25 mg 25 mg 25 mg Family [...] for 30 days. lisinopril lisinopril No lisinopril [facility] 20 20 20 Family mg-hydrochl mg-hydrochl mg-hydroch Practic orothiazide orothiazide lorothiazi e 12.5 mg 12.5 mg de 12.5 mg tablet Take tablet Take tablet 1 tablet 1 tablet Take 1 every day every day tablet by oral by oral every day route for route for by oral 90 days. 90 days. route for 90 days. magnesium magnesium No 1 Q1D magnesium [facility] 250 mg (as 250 mg (as 250 mg (as [facility] magnesium magnesium magnesium Practic oxide) oxide) oxide) e tablet Take tablet Take tablet 1 tablet 1 tablet Take 1 every day every day tablet by oral by oral every day route. route. by oral route. metformin metformin No 2 BID metformin [facility] ER 500 mg ER 500 mg [...] for 90 days. metformin metformin No metformin [facility] ER 500 mg ER 500 mg ER 500 mg Family tablet,exte tablet,exte tablet,ext Practic nded nded ended e release 24 release 24 release 24 hr TAKE 2 hr TAKE 2 hr TAKE 2 TABLETS BY TABLETS BY TABLETS BY MOUTH TWICE MOUTH TWICE MOUTH DAILY WITH DAILY WITH TWICE MEALS MEALS DAILY WITH MEALS montelukast montelukast No 1 Q1D montelukas [facility] 10 mg 10 mg t 10 [...] BY MOUTH DAILY allopurinol allopurinol No allopurino [facility] 100 mg 100 mg l 100 mg Family tablet TAKE tablet TAKE tablet Practic 1 TABLET BY 1 TABLET BY TAKE 1 e MOUTH DAILY MOUTH DAILY TABLET BY MOUTH DAILY atorvastati atorvastati No atorvastat [facility] n 40 mg n 40 mg in 40 mg Famil y tablet TAKE tablet TAKE tablet Practic 1 TABLET BY 1 TABLET BY TAKE 1 e MOUTH AT MOUTH AT TABLET BY BEDTIME BEDTIME MOUTH AT BEDTIME colchicine colchicine No 1 Q1D colchicine [facility] 0.6 mg 0.6 mg 0.6 mg [facility] tablet Take tablet Take tablet Practic 1 tablet 1 tablet Take 1 e every day every day tablet by oral by oral every day route for route for by oral 10 days. 10 days. route for 10 days. FreeStyle FreeStyle No FreeStyle [facility] Zelda 2 Zelda 2 Zelda 2 Family [facility] Practic FOLLOW FOLLOW FOLLOW e DIRECTED DIRECTED DIRECTED FreeStyle FreeStyle No FreeStyle [facility] Zelda 2 Zelda 2 Zelda 2 Family Sensor kit Sensor kit Sensor kit Practic APPLY 1 APPLY 1 APPLY 1 e SENSOR TO SENSOR TO SENSOR TO SKIN EVERY SKIN EVERY SKIN EVERY 14 DAYS 14 DAYS 14 DAYS FreeStyle FreeStyle No FreeStyle [facility] Zelda 3 Zelda 3 Zelda 3 Family Sensor Sensor Sensor Practic device USE device USE device USE e DIRECTED DIRECTED EVERY DAY EVERY DAY DIRECTED BUT CHANGE BUT CHANGE EVERY DAY EVERY 14 EVERY 14 BUT CHANGE DAYS DAYS EVERY 14 DAYS Humulin R Humulin R No Humulin R [facility] U-500 U-500 U-500 [facility] (Conc) (Conc) (Conc) Practic Insulin Insulin Insulin e Kwikpen 500 Kwikpen 500 Kwikpen unit/mL (3 unit/mL (3 500 mL) mL) unit/mL (3 subcutaneou subcutaneou mL) s INJECT 40 s INJECT 40 subcutaneo UNITS UNDER UNITS UNDER us INJECT THE SKIN THE SKIN 40 UNITS BEFORE BEFORE UNDER THE BREAKFAST BREAKFAST SKIN AND DINNER AND DINNER BEFORE AND AND BREAKFAST INCREASE INCREASE AND DINNER DIRECTED. DIRECTED. AND TDD 200 TDD 200 INCREASE DIRECTED. TDD 200 hydrocortis hydrocortis No 1applic BID hydrocorti [place] one 2.5 % one 2.5 % ation(s sone 2.5 % [facility] topical topical ) topical Practi c cream [...] for 30 days. lisinopril lisinopril No lisinopril [facility] 20 20 20 Family mg-hydrochl mg-hydrochl mg-hydroch Practic orothiazide orothiazide lorothiazi e 12.5 mg 12.5 mg de 12.5 mg tablet Take tablet Take tablet 1 tablet 1 tablet Take 1 every day every day tablet by oral by oral every day route for route for by oral 90 days. 90 days. route for 90 days. magnesium magnesium No 1 Q1D magnesium [facility] 250 mg (as 250 mg (as 250 mg (as Family magnesium magnesium magnesium Practic oxide) oxide) oxide) e tablet Take tablet Take tablet 1 tablet 1 tablet Take 1 every day every day tablet by oral by oral every day route. route. by oral route. metformin metformin No 2 BID metformin [facility] ER 500 mg ER 500 mg ER 500 mg Family tablet,exte tablet,exte tablet,ext Practic nded nded ended e release 24 release 24 release 24 hr Take 2 hr Take 2 hr Take 2 tablets tablets tablets twice a day twice a day twice a by oral by oral day by route for route for oral route 90 days. 90 days. for 90 days. montelukast montelukast No 1 Q1D montelukas [facility] 10 mg 10 mg t 10 mg Family tablet Take tablet Take tablet Practic 1 tablet 1 tablet Take 1 e every day every day tablet by oral by oral every day route at route at by oral bedtime for bedtime for route at 90 days. 90 days. bedtime for 90 days. pantoprazol pantoprazol No pantoprazo [facility] e 40 mg e 40 mg le 40 mg Famil y tablet,ramiro tablet,ramiro tablet,del Practic yed release yed release ayed e TAKE 1 TAKE 1 release TABLET BY TABLET BY TAKE 1 MOUTH DAILY MOUTH DAILY TABLET BY MOUTH DAILY pioglitazon pioglitazon No pioglitazo [facility] e 15 mg e 15 mg ne 15 mg Famil y tablet Take tablet Take tablet Practic 1 tablet 1 tablet Take 1 e every day every day tablet by oral by oral every day route for route for by oral 30 days. 30 days. route for 30 days. allopurinol allopurinol allopurino [facility] 100 mg 100 mg l 100 mg Family tablet TAKE tablet TAKE tablet Practic 1 TABLET BY 1 TABLET BY TAKE 1 e MOUTH DAILY MOUTH DAILY TABLET BY MOUTH DAILY atorvastati atorvastati No atorvastat [facility] n 40 mg n 40 mg in 40 mg Famil y tablet TAKE tablet TAKE tablet Practic 1 TABLET BY 1 TABLET BY TAKE 1 e MOUTH AT MOUTH AT TABLET BY BEDTIME BEDTIME MOUTH AT BEDTIME colchicine colchicine No 1 Q1D colchicine [facility] 0.6 mg 0.6 mg 0.6 mg Family tablet Take tablet Take tablet Practic 1 tablet 1 tablet Take 1 e every day every day tablet by oral by oral every day route for route for by oral 10 days. 10 days. route for 10 days. Farxiga 10 Mamadouxiga 10 No 1 Q1D Farxiga 10 [facility] mg tablet mg tablet mg tablet Family Take 1 Take 1 Take 1 Practic tablet tablet tablet e every day every day every day by oral by oral by oral route in route in route in the morning the morning the for 30 for 30 morning days. days. for 30 days. fluconazole fluconazole No 1 Q1D fluconazol [facility] 150 mg 150 mg e 150 mg Family tablet Take tablet Take tablet Practic 1 tablet 1 tablet Take 1 e every day every day tablet by oral by oral every day route for 3 route for 3 by oral days. days. route for 3 days. FreeStyle FreeStyle No FreeStyle [facility] Zelda 2 Zelda 2 Zelda 2 Family [facility] Practic FOLLOW FOLLOW FOLLOW e DIRECTED DIRECTED DIRECTED FreeStyle FreeStyle No FreeStyle [facility] 2 Zelda 2 Zelda 2 Family Sensor kit Sensor kit Sensor kit Practic APPLY 1 APPLY 1 APPLY 1 e SENSOR TO SENSOR TO SENSOR TO SKIN EVERY SKIN EVERY SKIN EVERY 14 DAYS 14 DAYS 14 DAYS FreeStyle FreeStyle No FreeStyle [facility] 3 Zelda 3 Zelda 3 Family Sensor Sensor Sensor Practic device USE device USE device USE e DIRECTED DIRECTED EVERY DAY EVERY DAY DIRECTED BUT CHANGE BUT CHANGE EVERY DAY EVERY 14 EVERY 14 BUT CHANGE DAYS DAYS EVERY 14 DAYS Humulin R Humulin R No Humulin R [facility] U-500 U-500 U-500 Family (Conc) (Conc) (Conc) Practic Insulin Insulin Insulin e Kwikpen 500 Kwikpen 500 Kwikpen unit/mL (3 unit/mL (3 500 mL) mL) unit/mL (3 subcutaneou subcutaneou mL) s Give 120 s Give 120 subcutaneo units units us Give before before 120 units breakfast breakfast before and dinner and dinner breakfast and and and dinner increase as increase as and directed: directed: increase TDD 240 TDD 240 as directed: TDD 240 hydrocortis hydrocortis No 1applic BID hydrocorti [place] [...] days. 15 days. route for 15 days. lisinopril lisinopril No lisinopril [facility] 20 20 20 Family mg-hydrochl mg-hydrochl mg-hydroch Practic orothiazide orothiazide lorothiazi e 12.5 mg 12.5 mg de 12.5 mg tablet Take tablet Take tablet 1 tablet 1 tablet Take 1 every day every day tablet by oral by oral every day route. route. by oral route. magnesium magnesium No 1 Q1D magnesium [facility] 250 mg (as 250 mg (as 250 mg (as [facility] magnesium magnesium magnesium Practic oxide) oxide) oxide) e tablet Take tablet Take tablet 1 tablet 1 tablet Take 1 every day every day tablet by oral by oral every day route. route. by oral route. metformin metformin No 2 BID metformin [facility] ER 500 mg ER 500 mg ER 500 mg Family tablet,exte tablet,exte tablet,ext Practic nded nded ended e release 24 release 24 release 24 hr Take 2 hr Take 2 hr Take 2 tablets tablets tablets twice a day twice a day twice a by oral by oral day by route for route for oral route 90 days. 90 days. for 90 days. montelukast montelukast No 1 Q1D montelukas [facility] 10 mg 10 mg t 10 mg Family tablet Take tablet Take tablet Practic 1 tablet 1 tablet Take 1 e every day every day tablet by oral by oral every day route at route at by oral bedtime for bedtime for route at 90 days. 90 days. bedtime for 90 days. pantoprazol pantoprazol No pantoprazo [place] e 40 mg e 40 mg le 40 mg Famil y tablet,ramiro tablet,ramiro tablet,del Practic yed release yed release ayed e Take 1 Take 1 release tablet tablet Take 1 every day every day tablet by oral by oral every day route. route. by oral route. pioglitazon pioglitazon No pioglitazo [place] e 15 mg e 15 mg ne 15 mg Famil y tablet Take tablet Take tablet Practic 1 tablet 1 tablet Take 1 e every day every day tablet by oral by oral every day route for route for by oral 30 days. 30 days. route for 30 days. allopurinol allopurinol No 1 Q1D allopurino [facility] 100 mg 100 mg l 100 mg Family tablet Take tablet Take tablet Practic 1 tablet 1 tablet Take 1 e every day every day tablet by oral by oral every day route for route for by oral 90 days. 90 days. route for 90 days. atorvastati atorvastati No atorvastat [facility] n 40 mg n 40 mg in 40 mg Famil y tablet TAKE tablet TAKE tablet Practic 1 TABLET BY 1 TABLET BY TAKE 1 e MOUTH AT MOUTH AT TABLET BY BEDTIME BEDTIME MOUTH AT BEDTIME colchicine colchicine No 1 Q1D colchicine [facility] (gout) 0.6 (gout) 0.6 (gout) 0.6 Family mg tablet mg tablet mg tablet Practic Take 1 Take 1 Take 1 e tablet tablet tablet every day every day every day by oral by oral by oral route for route for route for 10 days. 10 days. 10 days. CoQ-10 100 CoQ-10 100 No 1capsul Q1D CoQ-10 100 [facility] mg capsule mg capsule e(s) mg capsule Family Take 1 Take 1 Take 1 Practic capsule capsule capsule e every day every day every day by oral by oral by oral route. route. [facility]. [facility] mg tablet mg tablet mg tablet Family Take 1 Take 1 Take 1 Practic tablet tablet tablet e every day every day every day by oral by oral by oral route for route for route for 30 days. 30 days. 30 days. fluconazole fluconazole No 1mg Q1D fluconazol [facility] 150 mg 150 mg e 150 mg Family tablet Take tablet Take tablet Practic 1 mg every 1 mg every Take 1 mg e day by oral day by oral every day route for 3 route for 3 by oral days. days. route for 3 days. FreeStyle FreeStyle No FreeStyle [facility] 2 Zelda 2 Zelda 2 Family [facility] Practic FOLLOW FOLLOW FOLLOW e DIRECTED DIRECTED DIRECTED FreeStyle FreeStyle No FreeStyle [facility] 2 Zelda 2 Zelda 2 Family Sensor kit Sensor kit Sensor kit Practic APPLY 1 APPLY 1 APPLY 1 e SENSOR TO SENSOR TO SENSOR TO SKIN EVERY SKIN EVERY SKIN EVERY 14 DAYS 14 DAYS 14 DAYS FreeStyle FreeStyle No FreeStyle [facility] Zelda 3 Zelda 3 Zelda 3 [facility] Sensor Sensor Sensor Practic device USE device USE device USE e DIRECTED DIRECTED EVERY DAY EVERY DAY DIRECTED BUT CHANGE BUT CHANGE EVERY DAY EVERY 14 EVERY 14 BUT CHANGE DAYS DAYS EVERY 14 DAYS Humulin R Humulin R No Humulin R [facility] U-500 U-500 U-500 [facility] (Conc) (Conc) (Conc) Practic Insulin Insulin Insulin e Kwikpen 500 Kwikpen 500 Kwikpen unit/mL (3 unit/mL (3 500 mL) mL) unit/mL (3 subcutaneou subcutaneou mL) s INJECT s INJECT subcutaneo 120 UNITS 120 UNITS us INJECT UNDER THE UNDER THE 120 UNITS SKIN BEFORE SKIN BEFORE UNDER THE BREAKFAST BREAKFAST SKIN AND DINNER AND DINNER BEFORE AND AND BREAKFAST INCREASE INCREASE AND DINNER DIRECTED DIRECTED AND TDD 240 TDD 240 INCREASE DIRECTED TDD 240 lisinopril lisinopril No lisinopril [facility] 20 20 20 Family mg-hydrochl mg-hydrochl mg-hydroch Practic orothiazide orothiazide lorothiazi e 12.5 mg 12.5 mg de 12.5 mg tablet Take tablet Take tablet 1 tablet 1 tablet Take 1 every day every day tablet by oral by oral every day route. route. by oral route. magnesium magnesium No 1 Q1D magnesium [facility] 250 mg (as 250 mg (as 250 mg (as [facility] magnesium magnesium magnesium Practic oxide) oxide) oxide) e tablet Take tablet Take tablet 1 tablet 1 tablet Take 1 every day every day tablet by oral by oral every day route. route. by oral route. metformin metformin No 2 BID metformin [facility] ER 500 mg ER 500 mg ER 500 mg Family tablet,exte tablet,exte tablet,ext Practic nded nded ended e release 24 release 24 release 24 hr Take 2 hr Take 2 hr Take 2 tablets tablets tablets twice a day twice a day twice a by oral by oral day by route for route for oral route 90 days. 90 days. for 90 days. montelukast montelukast montelukas [facility] 10 mg 10 mg t 10 mg Family tablet TAKE tablet TAKE tablet Practic 1 TABLET BY 1 TABLET BY TAKE 1 e MOUTH EVERY MOUTH EVERY TABLET BY DAY AT DAY AT MOUTH BEDTIME BEDTIME EVERY DAY AT BEDTIME pantoprazol pantoprazol No pantoprazo [place] e 40 mg e 40 mg le 40 mg Famil y tablet,ramiro tablet,ramiro tablet,del Practic yed release yed release ayed e Take 1 Take 1 release tablet tablet Take 1 every day every day tablet by oral by oral every day route. route. by oral route. pioglitazon pioglitazon No pioglitazo [place] e 15 mg e 15 mg ne 15 mg Famil y tablet Take tablet Take tablet Practic 1 tablet 1 tablet Take 1 e every day every day tablet by oral by oral every day route for route for by oral 30 days. 30 days. route for 30 days. tramadol 50 tramadol 50 No tramadol [facility] mg tablet mg tablet 50 mg Fami ly TAKE 1 TO 2 TAKE 1 TO 2 tablet Practic TABLETS BY TABLETS BY TAKE 1 TO e MOUTH EVERY MOUTH EVERY 2 TABLETS 4 HOURS 4 HOURS BY MOUTH NEEDED FOR NEEDED FOR EVERY 4 PAIN PAIN HOURS NEEDED FOR PAIN allopurinol allopurinol No allopurino [facility] 100 mg [...] [facility] 0.05 % 0.05 % 0.05 % [facility] topical topical topical Practi c ointment ointment [...] HOURS cyclobenzap cyclobenzap No 1 TID cyclobenza [facility] rine 5 mg rine 5 mg [...] DAILY MOUTH DAILY FreeStyle FreeStyle No FreeStyle [facility] Zelda 2 Zelda 2 Zelda 2 Family [facility] Practic FOLLOW FOLLOW FOLLOW e DIRECTED DIRECTED DIRECTED FreeStyle FreeStyle No FreeStyle [facility] Zelda 2 Zelda 2 Zelda 2 [...] AREA TWICE DAILY lisinopril lisinopril No lisinopril [facility] 20 20 20 Family mg-hydrochl mg-hydrochl mg-hydroch Practic orothiazide orothiazide lorothiazi e 12.5 mg 12.5 mg de 12.5 mg tablet TAKE tablet TAKE tablet 1 TABLET BY 1 TABLET BY TAKE 1 MOUTH DAILY MOUTH DAILY TABLET BY MOUTH DAILY meloxicam meloxicam No 1 Q1D meloxicam [facility] 15 mg 15 mg 15 mg [...] Immunizations Ordered Filled Immunization Date Status Comments [facility] e Immunization Name Name COVID-19, mRNA, COVID-19, mRNA, 2022-02-24 Completed [facility] age Family LNP-S, bivalent LNP-S, bivalent 00:00:00 Prac madisyn booster, PF, 30 booster, PF, 30 mcg/0.3 mL dose mcg/0.3 mL dose ([employer] - ([employer] - ML ML COVID-19, mRNA, COVID-19, mRNA, 2022-02-24 Completed [facility] age Family LNP-S, bivalent LNP-S, bivalent 00:00:00 Prac madisyn booster, PF, 30 booster, PF, 30 mcg/0.3 mL dose mcg/0.3 mL dose (Pfizer-BioNTech) - (Pf[employer]) - ML ML COVID-19, mRNA, COVID-19, mRNA, 2022-02-24 Completed [facility] age Family LNP-S, bivalent LNP-S, bivalent 00:00:00 Prac madisyn booster, PF, 30 booster, PF, 30 mcg/0.3 mL dose mcg/0.3 mL dose (Pf[employer]) - (Pf[employer]) - ML ML COVID-19, mRNA, COVID-19, mRNA, 2022-02-24 Completed [facility] age Family LNP-S, bivalent LNP-S, bivalent 00:00:00 Prac madisyn booster, PF, 30 booster, PF, 30 mcg/0.3 mL dose mcg/0.3 mL dose (Pf[employer]-BioNTech) - (Pfizer-BioNTech) - ML ML Influenza Virus 2021-02-19 Completed [facility]it [facility] Vaccine 00:00:00 [facility] Influenza Virus 2021-02-19 Completed [facility] of Vaccine 00:00:00 [facility] Influenza Virus 2021-02-19 Completed [facility] Vaccine 00:00:00 [facility] Influenza Virus 2021-02-19 Completed [facility] of Vaccine 00:00:00 [facility] Influenza Virus 2021-02-19 Completed [facility] of Vaccine 00:00:00 [facility] Influenza Virus 2021-02-19 Completed [facility] of Vaccine 00:00:00 [facility] Influenza Virus 2021-02-19 Completed [facility] y of Vaccine 00:00:00 [facility] Influenza Virus 2021-02-19 Completed [facility] y of Vaccine 00:00:00 [facility] Influenza Virus 2021-02-19 Completed [facility] y of Vaccine 00:00:00 [facility] Influenza Virus 2021-02-19 Completed [facility] y of Vaccine 00:00:00 [facility] Influenza Virus 2021-02-19 Completed [facility] y of Vaccine 00:00:00 [facility] Influenza Virus 2021-02-19 Completed [facility] y of Vaccine 00:00:00 [facility] Influenza Virus 2021-02-19 Completed [facility]it y of Vaccine 00:00:00 [facility] Influenza Virus 2021-02-19 Completed [facility]it y of Vaccine 00:00:00 [facility] Influenza Virus 2021-02-19 Completed Universit y of Vaccine 00:00:00 [facility] Influenza Virus 2021-02-19 Completed Universit y of Vaccine 00:00:00 [facility] SARS-COV-2 COVID-19 2020-11-20 Completed Unive rsity of PFIZER VACCINE 00:00:00 [facility] SARS-COV-2 COVID-19 2020-11-20 Completed Unive rsity of PFIZER VACCINE 00:00:00 [facility] SARS-COV-2 COVID-19 2020-11-20 Completed Unive rsity of PFIZER VACCINE 00:00:00 [facility] SARS-COV-2 COVID-19 2020-11-20 Completed Unive rsity of PFIZER VACCINE 00:00:00 [facility] SARS-COV-2 COVID-19 2020-11-20 Completed Unive rsity of PFIZER VACCINE 00:00:00 [facility] SARS-COV-2 COVID-19 2020-11-20 Completed Unive rsity of PFIZER VACCINE 00:00:00 [facility] SARS-COV-2 COVID-19 2020-11-20 Completed Unive rsity of PFIZER VACCINE 00:00:00 [facility] SARS-COV-2 COVID-19 2020-11-20 Completed Unive rsity of PFIZER VACCINE 00:00:00 [facility] SARS-COV-2 COVID-19 2020-11-20 Completed Unive rsity of PFIZER VACCINE 00:00:00 [facility] SARS-COV-2 COVID-19 2020-11-20 Completed Unive rsity of PFIZER VACCINE 00:00:00 [facility] SARS-COV-2 COVID-19 2020-11-20 Completed Unive rsity of PFIZER VACCINE 00:00:00 [facility] SARS-COV-2 COVID-19 2020-11-20 Completed Unive rsity of PFIZER VACCINE 00:00:00 [facility] SARS-COV-2 COVID-19 2020-11-20 Completed Unive rsity of PFIZER VACCINE 00:00:00 [facility] SARS-COV-2 COVID-19 2020-11-20 Completed Unive rsity of PFIZER VACCINE 00:00:00 [facility] SARS-COV-2 COVID-19 2020-11-20 Completed Unive rsity of PFIZER VACCINE 00:00:00 [facility] SARS-COV-2 COVID-19 2020-11-20 Completed Unive rsity of PFIZER VACCINE 00:00:00 [facility] COVID-19, mRNA, COVID-19, mRNA, 2020-11-20 Completed [facility] Family LNP-S, PF, 30 LNP-S, PF, 30 00:00:00 Practice mcg/0.3 mL dose mcg/0.3 mL dose (Pfizer-BioNTech) - (Pfizer-BioNTech) - ML ML COVID-19, mRNA, COVID-19, mRNA, 2020-11-20 Completed [facility] Family LNP-S, PF, 30 LNP-S, PF, 30 00:00:00 Practice mcg/0.3 mL dose mcg/0.3 mL dose (Pf[employer]-BioNTech) - (Pfizer-BioNTech) - ML ML COVID-19, mRNA, COVID-19, mRNA, 2020-11-20 Completed [facility] Family LNP-S, PF, 30 LNP-S, PF, 30 00:00:00 Practice mcg/0.3 mL dose mcg/0.3 mL dose (Pf[employer]-BioNTech) - (Pfizer-BioNTech) - ML ML COVID-19, mRNA, COVID-19, mRNA, 2020-11-20 Completed [facility] Family LNP-S, PF, 30 LNP-S, PF, 30 00:00:00 Practice mcg/0.3 mL dose mcg/0.3 mL dose (Pfizer-BioNTech) - (Pfizer-BioNTech) - ML ML SARS-COV-2 COVID-19 2020-10-30 Completed Unive rsity of PFIZER VACCINE 00:00:00 [facility] SARS-COV-2 COVID-19 2020-10-30 Completed Unive rsity of PFIZER VACCINE 00:00:00 [facility] SARS-COV-2 COVID-19 2020-10-30 Completed Unive rsity of PFIZER VACCINE 00:00:00 [facility] SARS-COV-2 COVID-19 2020-10-30 Completed Unive rsity of PFIZER VACCINE 00:00:00 [facility] SARS-COV-2 COVID-19 2020-10-30 Completed Unive rsity of PFIZER VACCINE 00:00:00 [facility] SARS-COV-2 COVID-19 2020-10-30 Completed Unive rsity of PFIZER VACCINE 00:00:00 [facility] SARS-COV-2 COVID-19 2020-10-30 Completed Unive rsity of PFIZER VACCINE 00:00:00 [facility] SARS-COV-2 COVID-19 2020-10-30 Completed Unive rsity of PFIZER VACCINE 00:00:00 [facility] SARS-COV-2 COVID-19 2020-10-30 Completed Unive rsity of PFIZER VACCINE 00:00:00 [facility] SARS-COV-2 COVID-19 2020-10-30 Completed Unive rsity of PFIZER VACCINE 00:00:00 [facility] SARS-COV-2 COVID-19 2020-10-30 Completed Unive rsity of PFIZER VACCINE 00:00:00 [facility] SARS-COV-2 COVID-19 2020-10-30 Completed Unive rsity of PFIZER VACCINE 00:00:00 [facility] SARS-COV-2 COVID-19 2020-10-30 Completed Unive rsity of PFIZER VACCINE 00:00:00 [facility] SARS-COV-2 COVID-19 2020-10-30 Completed Unive rsity of PFIZER VACCINE 00:00:00 [facility] SARS-COV-2 COVID-19 2020-10-30 Completed Unive rsity of PFIZER VACCINE 00:00:00 [facility] SARS-COV-2 COVID-19 2020-10-30 Completed Unive rsity of PFIZER VACCINE 00:00:00 [facility] COVID-19, mRNA, COVID-19, mRNA, 2020-10-30 Completed [facility] Family LNP-S, PF, 30 LNP-S, PF, 30 00:00:00 Practice mcg/0.3 mL dose mcg/0.3 mL dose (Pfizer-BioNTech) - (Pfizer-BioNTech) - ML ML COVID-19, mRNA, COVID-19, mRNA, 2020-10-30 Completed [facility] Family LNP-S, PF, 30 LNP-S, PF, 30 00:00:00 Practice mcg/0.3 mL dose mcg/0.3 mL dose (Pf[employer]-BioNTech) - (Pfizer-BioNT[employer]) - ML ML COVID-19, mRNA, COVID-19, mRNA, 2020-10-30 Completed [facility] Family LNP-S, PF, 30 LNP-S, PF, 30 00:00:00 Practice mcg/0.3 mL dose mcg/0.3 mL dose (Pfizer-BioNTech) - (Pfizer-BioNTech) - ML ML COVID-19, mRNA, COVID-19, mRNA, 2020-10-30 Completed [facility] Family LNP-S, PF, 30 LNP-S, PF, 30 00:00:00 Practice mcg/0.3 mL dose mcg/0.3 mL dose (Pfizer-BioNTech) - (Pfizer-BioNTech) - ML ML influenza, influenza, 2020-03-12 Completed [facility] injectable, injectable, 00:00:00 Practice quadrivalent quadrivalent influenza, influenza, 2020-03-12 Completed [facility] injectable, injectable, 00:00:00 Practice quadrivalent quadrivalent influenza, influenza, 2020-03-12 Completed [facility] injectable, injectable, 00:00:00 Practice quadrivalent quadrivalent influenza, influenza, 2020-03-12 Completed [facility] injectable, injectable, 00:00:00 Practice quadrivalent quadrivalent influenza, influenza, 2020-03-12 Completed [facility] Family injectable, injectable, 00:00:00 Practice quadrivalent quadrivalent influenza, influenza, 2020-03-12 Completed [facility] Family injectable, injectable, 00:00:00 Practice quadrivalent quadrivalent influenza, influenza, 2020-03-12 Completed [facility] Family injectable, injectable, 00:00:00 Practice quadrivalent quadrivalent influenza, influenza, 2020-03-12 Completed [facility] injectable, injectable, 00:00:00 Practice quadrivalent quadrivalent influenza, influenza, 2020-03-12 Completed [facility] injectable, injectable, 00:00:00 Practice quadrivalent quadrivalent Influenza [...] y of Vaccine Quad .5 mL 00:00:00 [facility] IM 6+ MO Branch TDAP (ADACEL) 2019-01-03 Completed [facility] VACCINE 00:00:00 [facility] TDAP (ADACEL) 2019-01-03 Completed [facility] VACCINE 00:00:00 [facility] TDAP (ADACEL) 2019-01-03 Completed [facility] VACCINE 00:00:00 [facility] TDAP (ADACEL) 2019-01-03 Completed [facility] VACCINE 00:00:00 [facility] TDAP (ADACEL) 2019-01-03 Completed [facility] VACCINE 00:00:00 [facility] Branch TDAP (ADACEL) 2019-01-03 Completed [facility] VACCINE 00:00:00 [facility] TDAP (ADACEL) 2019-01-03 Completed [facility] VACCINE 00:00:00 [facility] TDAP (ADACEL) 2019-01-03 Completed [facility] VACCINE 00:00:00 [facility] TDAP (ADACEL) 2019-01-03 Completed [facility] VACCINE 00:00:00 [facility] TDAP (ADACEL) 2019-01-03 Completed [facility] VACCINE 00:00:00 [facility] TDAP (ADACEL) 2019-01-03 Completed [facility] VACCINE 00:00:00 [facility] TDAP (ADACEL) 2019-01-03 Completed [facility] VACCINE 00:00:00 [facility] TDAP (ADACEL) 2019-01-03 Completed [facility] VACCINE 00:00:00 [facility] TDAP (ADACEL) 2019-01-03 Completed [facility] VACCINE 00:00:00 [facility] TDAP (ADACEL) 2019-01-03 Completed [facility] VACCINE 00:00:00 [facility] TDAP (ADACEL) 2019-01-03 Completed [facility] VACCINE 00:00:00 [facility] Zoster Vaccine 2018-06-28 Completed [facility] Recombinant 00:00:00 [facility] Zoster Vaccine 2018-06-28 Completed [facility] Recombinant 00:00:00 [facility] Zoster Vaccine 2018-06-28 Completed [facility] Recombinant 00:00:00 [facility] Zoster Vaccine 2018-06-28 Completed [facility] Recombinant 00:00:00 [facility] Zoster Vaccine 2018-06-28 Completed [facility] Recombinant 00:00:00 [facility] Zoster Vaccine 2018-06-28 Completed [facility] Recombinant 00:00:00 [facility] Zoster Vaccine 2018-06-28 Completed [facility] Recombinant 00:00:00 [facility] Zoster Vaccine 2018-06-28 Completed [facility] Recombinant 00:00:00 [facility] Zoster Vaccine 2018-06-28 Completed [facility] Recombinant 00:00:00 [facility] Zoster Vaccine 2018-06-28 Completed [facility] Recombinant 00:00:00 [facility] Zoster Vaccine 2018-06-28 Completed [facility] Recombinant 00:00:00 [facility] Zoster Vaccine 2018-06-28 Completed [facility] Recombinant 00:00:00 [facility] Zoster Vaccine 2018-06-28 Completed [facility] Recombinant 00:00:00 [facility] Zoster Vaccine 2018-06-28 Completed [facility] Recombinant 00:00:00 [facility] Zoster Vaccine 2018-06-28 Completed [facility] Recombinant 00:00:00 [facility] Zoster Vaccine 2018-06-28 Completed [facility] Recombinant 00:00:00 [facility] Zoster Vaccine 2018-03-06 Completed [facility] Recombinant 00:00:00 [facility] Zoster Vaccine 2018-03-06 Completed [facility] Recombinant 00:00:00 [facility] Zoster Vaccine 2018-03-06 Completed [facility] Recombinant 00:00:00 [facility] Zoster Vaccine 2018-03-06 Completed [facility] Recombinant 00:00:00 [facility] Zoster Vaccine 2018-03-06 Completed [facility] Recombinant 00:00:00 [facility] Zoster Vaccine 2018-03-06 Completed [facility] Recombinant 00:00:00 [facility] Zoster Vaccine 2018-03-06 Completed [facility] Recombinant 00:00:00 [facility] Zoster Vaccine 2018-03-06 Completed [facility] Recombinant 00:00:00 [facility] Zoster Vaccine 2018-03-06 Completed [facility] Recombinant 00:00:00 [facility] Zoster Vaccine 2018-03-06 Completed [facility] Recombinant 00:00:00 [facility] Zoster Vaccine 2018-03-06 Completed [facility] Recombinant 00:00:00 [facility] Zoster Vaccine 2018-03-06 Completed [facility] Recombinant 00:00:00 [facility] Zoster Vaccine 2018-03-06 Completed [facility] Recombinant 00:00:00 [facility] Zoster Vaccine 2018-03-06 Completed [facility] Recombinant 00:00:00 [facility] Zoster Vaccine 2018-03-06 Completed [facility] Recombinant 00:00:00 [facility] Zoster Vaccine 2018-03-06 Completed [facility] Recombinant 00:00:00 [facility] Influenza Virus 2018-03-03 Completed Universit y [facility] Vaccine 00:00:00 [facility] Influenza Virus 2018-03-03 Completed [facility] y of Vaccine 00:00:00 [facility] Influenza Virus 2018-03-03 Completed Universit y of Vaccine 00:00:00 [facility] Influenza Virus 2018-03-03 Completed [facility]it y of Vaccine 00:00:00 [facility] Influenza Virus 2018-03-03 Completed Universit y of Vaccine 00:00:00 [facility] Influenza Virus 2018-03-03 Completed Universit y of Vaccine 00:00:00 [facility] Influenza Virus 2018-03-03 Completed Universit y of Vaccine 00:00:00 [facility] Influenza Virus 2018-03-03 Completed Universit y of Vaccine 00:00:00 [facility] Influenza Virus 2018-03-03 Completed Universit y of Vaccine 00:00:00 [facility] Influenza Virus 2018-03-03 Completed Universit y of Vaccine 00:00:00 [facility] Influenza Virus 2018-03-03 Completed Universit y of Vaccine 00:00:00 [facility] Influenza Virus 2018-03-03 Completed Universit y of Vaccine 00:00:00 [facility] Influenza Virus 2018-03-03 Completed Universit y of Vaccine 00:00:00 [facility] Influenza Virus 2018-03-03 Completed Universit y of Vaccine 00:00:00 [facility] Influenza Virus 2018-03-03 Completed Universit y of Vaccine 00:00:00 [facility] Influenza Virus 2018-03-03 Completed Universit y of Vaccine 00:00:00 [facility] Pneumococcal 2016-06-12 Completed University o [...] Observation Time Observation Value Comments Source BP Systolic 2023-01-11 00:00:00 134 mm[Hg] [facility] BMI (Body Mass 2023-01-11 00:00:00 42.7 kg/m2 [facility] Family Index) Practice BP Diastolic 2023-01-11 00:00:00 84 mm[Hg] [facility] Body Weight 2023-01-11 00:00:00 226 [lb_av] [facility] Height 2023-01-11 00:00:00 61 [in_i] [facility] BP Diastolic 2022-11-01 00:00:00 76 mm[Hg] [facility] Height 2022-11-01 00:00:00 61 [in_i] [facility] BMI (Body Mass 2022-11-01 00:00:00 42 kg/m2 [facility] BP Systolic 2022-11-01 00:00:00 140 mm[Hg] [facility] Body Weight 2022-11-01 00:00:00 222.2 [lb_av] [facility] BP Diastolic 2022-10-25 00:00:00 82 mm[Hg] [facility] Height 2022-10-25 00:00:00 61 [in_i] [facility] BMI (Body Mass 2022-10-25 00:00:00 40.6 kg/m2 [facility] BP Systolic 2022-10-25 00:00:00 130 mm[Hg] [facility] Body Weight 2022-10-25 00:00:00 215 [lb_av] [facility] BP Diastolic 2022-09-06 00:00:00 87 mm[Hg] [facility] Family [facility] Height 2022-08-05 00:00:00 61 [in_i] [facility] BMI (Body Mass 2022-08-05 00:00:00 42.4 kg/m2 [facility] Practice BP Systolic 2022-08-05 00:00:00 128 mm[Hg] [facility] Body Weight 2022-08-05 00:00:00 224.4 [lb_av] [facility] BP Diastolic 2022-07-16 00:00:00 79 mm[Hg] [facility] Height 2022-07-16 00:00:00 61 [in_i] [facility] BMI (Body Mass 2022-07-16 00:00:00 40.7 kg/m2 [facility] e Family Index) Practice BP Systolic 2022-07-16 00:00:00 115 mm[Hg] [facility] Body Weight 2022-07-16 00:00:00 215.4 [lb_av] [facility] Systolic blood 2022-01-06 21:04:00 116 mm[Hg] [facility] Diastolic blood 2022-01-06 21:04:00 81 mm[Hg] Unive rsity of [facility] Heart rate 2022-01-06 21:04:00 101 /min [facility] Respiratory rate 2022-01-06 21:04:00 18 /min [facility] Body height 2022-01-06 21:04:[address] [facility] Body weight 2022-01-06 21:04:[address] [facility] BMI 2022-01-06 21:04:00 34.37 kg/m2 [facility] BP Diastolic 2020-08-10 00:00:00 83 mm[Hg] [facility] Height 2020-08-10 00:00:00 61 [in_i] [facility] BMI (Body Mass 2020-08-10 00:00:00 45.5 kg/m2 [facility] e Family Index) Practice BP Systolic 2020-08-10 00:00:00 120 mm[Hg] [facility] Body Weight 2020-08-10 00:00:00 241 [lb_av] [facility] Systolic blood 2021-08-08 18:50:52 107 mm[Hg] Method ist [facility] pressure Diastolic blood 2021-08-08 18:50:52 60 mm[Hg] [facility] pressure Heart rate 2021-08-08 18:50:52 76 /min [facility] Body temperature 2021-08-08 18:50:52 36.72 Veronica [facility] Respiratory rate 2021-08-08 18:50:52 18 /min [facility] Oxygen saturation in 2021-08-08 18:50:52 95 /min [facility] Arterial blood by Pulse oximetry Body weight 2021-08-08 11:28:00 87.6 kg [facility] Procedures Procedure Date / Time Performing Clinician Source Performed IMG RTA DETC/MNTR DS 2022-10-25 00:00:00 [facility] PHY/QHP Practice CT, abdomen, w/o contrast 2022-10-25 00:00:[address] [facility] US, abdomen, complete 2022-08-29 00:00:00 [facility] MAMMO, screening, 2022-08-29 00:00:00 [facility] Reina lua, bilateral Practice US, duplex, venous, lower 2022-08-05 00:00:00 [facility] extremity Practice X-RAY OF LUMBAR SPINE 2 2022-07-27 00:00:00 [facility] Family OR [address], chest, w/o contrast 2022-07-16 00:00:00 [facility] Practice X-RAY OF LUMBAR SPINE 2 2022-07-16 00:00:00 [facility] Family OR 3 VIEW Practice MAMMO, screening, 2022-07-16 00:00:00 [facility] serge lua, bilateral Practice bone density 2022-07-16 00:00:00 [facility] HIGH RISK HPV-THIN PREP 2022-01-06 21:32:[address] [facility] [place] PAP SMEAR-LIQUID BASED-CP 2022-01-06 21:32:00 [facility] 2021-12-22 00:00:00 [facility] Practice POC GLUCOSE 2021-08-08 18:56:00 [facility] POC GLUCOSE 2021-08-08 14:52:00 [facility] ANTI-SPIKE IGG 2021-08-08 11:21:00 Julian Brown [facility] ANTIBODY TITER Jeremy COMPREHENSIVE METABOLIC 2021-08-08 11:21:00 Katie Dangelo [facility] PANEL MAGNESIUM LEVEL 2021-08-08 11:21:00 Antolin [facility] spital PHOSPHORUS LEVEL 2021-08-08 11:21:00 Antolin, [facility] ospital HC COMPLETE BLD COUNT 2021-08-08 11:21:00 Antolin, [facility] W/AUTO DIFF COVID-19 SEROLOGY PATIENT 2021-08-08 11:21:00 Julian Brown [facility] SURVEILLANCE Jeremy ESTIMATED GFR 2021-08-08 11:21:00 Contreras [facility] POTASSIUM LEVEL 2021-08-08 04:56:00 Antolin, [facility] spital POC GLUCOSE 2021-08-08 03:33:00 [facility] POC GLUCOSE 2021-08-07 23:41:00 [facility] ECG 12-LEAD 2021-08-07 23:22:19 Antolin, [facility] spital POC GLUCOSE 2021-08-07 18:55:00 [facility] CBC WITH PLATELET AND 2021-08-07 17:11:00 [facility], [facility] DIFFERENTIAL MANUAL DIFFERENTIAL 2021-08-07 17:11:00 [facility] HCG QUALITATIVE, URINE 2021-08-07 16:49:00 [facility] S[facility] SODIUM LEVEL, URINE, 2021-08-07 16:48:00 [facility] RANDOM OSMOLALITY, URINE 2021-08-07 16:48:00 [facility], [facility] POTASSIUM, URINE, RANDOM 2021-08-07 16:48:00 [facility], [facility] CHLORIDE LEVEL, URINE, 2021-08-07 16:48:00 [facility], [facility] RANDOM POC GLUCOSE 2021-08-07 15:21:00 [facility] THYROID STIMULATING 2021-08-07 10:20:00 [facility] HORMONE T4, FREE 2021-08-07 10:20:00 Antolin, [facility] spital HEMOGLOBIN A1C 2021-08-07 10:20:00 Antolin, [facility] spital COMPREHENSIVE METABOLIC 2021-08-07 10:20:00 [facility], [facility] PANEL MAGNESIUM LEVEL 2021-08-07 10:20:00 Antolin, [facility] spital PHOSPHORUS LEVEL 2021-08-07 10:20:00 Antolin, [facility] ospital LACTIC ACID LEVEL 2021-08-07 10:20:00 Antolin, [facility] LIPID PANEL 2021-08-07 10:20:00 Antolin, [facility] spital ESTIMATED GFR 2021-08-07 10:20:00 [facility] TROPONIN T 2021-08-07 06:00:00 Antolin, [facility] spital POC GLUCOSE 2021-08-07 02:32:00 [facility] LACTIC ACID LEVEL 2021-08-07 00:55:00 [facility] BLOOD CULTURE, AEROBIC & 2021-08-06 23:53:00 [facility] ANAEROBIC [facility] URINE CULTURE 2021-08-06 23:53:00 [facility] URINALYSIS SCREEN AND 2021-08-06 23:53:00 [facility] MICROSCOPY, WITH REFLEX TO CULTURE MAGNESIUM LEVEL 2021-08-06 23:53:00 [facility], [facility] spital PHOSPHORUS LEVEL 2021-08-06 23:53:00 [facility], [facility] ospital URINE DRUGS OF ABUSE 2021-08-06 23:53:00 [facility] SCREEN [facility] CT ABDOMEN PELVIS W 2021-08-06 19:37:22 [facility] CONTRAST RESPIRATORY PATHOGEN 2021-08-06 18:10:00 [place] PANEL WITH COVID-19 RT-PCR HC COMPLETE BLD COUNT 2021-08-06 17:21:00 [facility] W/AUTO DIFF COMPREHENSIVE METABOLIC 2021-08-06 17:21:00 [facility] PANEL LIPASE LEVEL 2021-08-06 17:21:00 [facility] LACTIC ACID LEVEL, SEPSIS 2021-08-06 17:21:00 [facility] - NOW AND REPEAT 2X EVERY 3 HOURS ESTIMATED GFR 2021-08-06 17:21:00 [facility] ECG 12-LEAD 2021-08-06 17:05:17 [facility] ECG ED PRELIMINARY 2021-08-06 17:04:53 [facility] INTERPRETATION X-RAY OF FOOT 3+ VIEW 2020-08-10 00:00:00 Josemanuel judd [facility] Practice Plan of Care Planned Activity Planned Date Details Comments Source Future Scheduled Test 2023-01-16 Screening for [facility] 08:42:55 malignant neoplasm of colon (procedure) [code = 996612706] Future Scheduled Test 2023-01-16 Screening for [facility] 08:42:55 malignant neoplasm of colon (procedure) [code = 826443043] Future Scheduled Test 2023-01-16 [facility] 08:42:55 malignant neoplasm of colon (procedure) [code = 128904822] Future Scheduled Test 2023-01-16 Hepatitis C screening [facility] 08:42:55 (procedure) [code = 084500292] Future Scheduled Test 2023-01-16 Screening for [facility] 08:42:55 malignant neoplasm of cervix (procedure) [code = 327319179] Future Scheduled Test 2023-01-16 BREAST CANCER [facility] 08:42:55 SCREENING [code = BREAST CANCER SCREENING] Future Scheduled Test 2023-01-16 Screening for [facility] 08:42:55 malignant neoplasm of colon (procedure) [code = 067180968] Future Scheduled Test 2023-01-16 Screening for [facility] 08:42:55 malignant neoplasm of colon (procedure) [code = 595931406] Future Scheduled Test 2023-01-16 COVID-19 VACCINE ( - [facility] 08:42:55 Pfizer series) [code = COVID-19 VACCINE (3 - Pfizer series)] Future Scheduled Test 2023-01-16 INFLUENZA VACCINE [facility] 08:42:55 [code = INFLUENZA VACCINE] Diagnostic Test 2023-01-11 CMP, serum or plasma [facility] Pending 00:00:00 [code = CMP, serum or Practi ce plasma] Diagnostic Test 2023-01-11 lipid panel, serum [facility] 00:00:00 [code = lipid panel, Practic e serum] Diagnostic Test 2023-01-11 HbA1c (hemoglobin [facility] 00:00:00 A1c), blood [code = Practice HbA1c (hemoglobin A1c), blood] Diagnostic Test 2023-01-11 microalbumin/creatini [facility] Pending 00:00:00 ne, mass ratio, urine Practi ce [code = microalbumin/creatini ne, mass ratio, urine] Future Scheduled Test 2022-09-13 Hepatitis C screening [facility] 04:43:19 (procedure) [code = 383703437] Future Scheduled Test 2022-09-13 Screening for [facility] 04:43:19 malignant neoplasm of cervix (procedure) [code = 980867946] Future Scheduled Test 2022-09-13 BREAST CANCER [facility] 04:43:19 SCREENING [code = BREAST CANCER SCREENING] Future Scheduled Test 2022-09-13 COLONOSCOPY SCREENING [facility] 04:43:19 [code = COLONOSCOPY SCREENING] Future Scheduled Test 2022-09-13 COVID-19 VACCINE (3 - [facility] 04:43:19 Booster for Pfizer series) [code = COVID-19 VACCINE (3 - Booster for Pfizer series)] Future Scheduled Test 2022-09-13 INFLUENZA VACCINE [facility] 04:43:19 [code = INFLUENZA VACCINE] Future Scheduled Test 2021-10-28 Pneumococcal Vaccine: [facility] 19:26:17 Pediatrics (0 to 5 Years) and At-Risk Patients (6 to 64 Years) (1 - PCV) [code = Pneumococcal Vaccine: Pediatrics (0 to 5 Years) and At-Risk Patients (6 to 64 Years) (1 - PCV)] Future Scheduled Test 2021-10-28 DIABETES: RETINAL EYE [facility] 19:26:17 EXAM [code = DIABETES: RETINAL EYE EXAM] Future Scheduled Test 2021-10-28 DIABETIC FOOT EXAM [facility] 19:26:17 [code = DIABETIC FOOT EXAM] Future Scheduled Test 2021-10-28 URINE MICROALBUMIN [facility] 19:26:17 [code = URINE MICROALBUMIN] Future Scheduled Test 2021-10-28 Hepatitis C screening [facility] 19:26:17 (procedure) [code = 727081723] Future Scheduled Test 2021-10-28 Screening for [facility] 19:26:17 malignant neoplasm of cervix (procedure) [code = 657844274] Future Scheduled Test 2021-10-28 BREAST CANCER [facility] 19:26:17 SCREENING [code = BREAST CANCER SCREENING] Future Scheduled Test 2021-10-28 COLONOSCOPY SCREENING [facility] 19:26:17 [code = COLONOSCOPY SCREENING] Future Scheduled Test 2021-10-28 COVID-19 VACCINE (3 - [facility] 19:26:17 Booster for Pfizer series) [code = COVID-19 VACCINE (3 - Booster for Pfizer series)] Future Scheduled Test 2021-10-28 INFLUENZA VACCINE [facility] 19:26:17 [code = INFLUENZA VACCINE] Future Appointment 2023-04-12 Melissashannan Brantleydy, [address] [facility] 10:30:00 Melissa Ruiz; [address], [place] [address] Future Appointment 2023-02-01 Berry Reyesel, [address] [facility] 09:15:00 Shadow Larsen Bayvicki Han; Practice [address], [place] [address] Instructions [facility] Encounters Start End Encounter Admission Attending Care Care Encounter Source Date/Time Date/Time Type Type Clinicians Facility Department ID 2021-04-12 Outpatient Asia CANTU [facility] DIOGO [id number] Univers 01:27:09 МАРИЯ [facility] 2021-04-10 Emergency [facility] [id number] Univers 16:36:25 [facility] 2023-01-26 2023-01-26 Outpatient Girma_Makayla_MEHNAZU VFP VFP [id number] [facility] 00:00:00 00:00:00 _ [id number] Family Practic e 2023-01-24 2023-01-24 Annabel Ferrari [facility] [id number] Univers 00:00:00 00:00:00 Juan [facility] [id number] y naif [facility] [id number] Jose as ALEXI?BLEA [id number] Hi max [address] MEDICAL OFFICE [facility] 2023-01-11 2023-01-11 Melissa VFP [place] - [id number] V illage 00:00:00 00:00:00 MD Girma: [facility] [address] [place] [address] - [facility] e [address], VM_HOU_Memo [facility] [address] , Ph. 2023-01-10 2023-01-10 Outpatient XIANG JOHNSON [facility] [id number] [facility]:00[facility]00 [facility]-08 2023-01-08 Outpatient Reddy_M_HOU VFP VFP [id number] 00:00:00 00:00:00 _ [id number] Family Practic e 2023-01-08 2023-01-08 Outpatient Dykes_V_WAG VFP VFP [id number] 00:00:00 00:00:00 DNU [id number] Family Practic e 2023-01-08 2023-01-08 Outpatient Reddy_M_HOU VFP VFP 134 [id number] [facility] 00:00:00 00:00:00 _ [id number] Family Practic e 2022-12-21 2022-12-21 Outpatient Reddy_M_HOU VFP VFP [id number] 00:00:00 00:00:00 _ [id number] Family Practic e 2022-11-01 2022-11-01 Outpatient Dykes_V_WAG VFP VFP [id number] 00:00:00 00:00:00 DNU [id number] Family Practic e 2022-11-01 2022-11-01 Outpatient Dykes_V_WAG VFP VFP 134 [id number] [facility] 00:00:00 00:00:00 DNU [id number] Family Practic e 2022-11-01 2022-11-01 Berry VFP [place] - [id number] V illage 00:00:00 00:00:00 [facility] Pracpernell rivera MD: [id number] [place] - e Shadow _MEHNAZUDerik [facility] [place], [address], [place] [address] , Ph. 2022-10-29 2022-10-29 Outpatient Reddy_M VFP VFP [id number] Village 00:00:00 00:00:00 [id number] Family Practic e 2022-10-29 2022-10-29 Outpatient Dykes_V_WAG VFP VFP [id number] [facility] 00:00:00 00:00:00 DNU [id number] Family Practic e 2022-10-29 2022-10-29 Annabel Treadwell [facility] [id number] [facility] 00:00:00 00:00:00 [id number] [id number] Jose as ALEXI?BLEA [id number] Hi max [address] MEDICAL OFFICE BUILDING 2022-10-25 2022-10-25 Melissa VFP [place] - [id number] V illage 00:00:00 00:00:00 [facility] [address] [place] [address] Medical - Prac [facility], [place] - e [address], _MEHNAZUShayy [facility] [address] , Ph. 2022-10-22 2022-10-22 Outpatient Reddy_M VFP VFP [id number] [facility] 00:00:00 00:00:00 [id number] Family Practic e 2022-10-22 2022-10-22 Outpatient Dykes_V_WAG VFP VFP [id number] [facility] 00:00:00 00:00:00 DNU [id number] Family Practic e 2022-10-22 2022-10-22 Outpatient Dykes_V_WAG VFP VFP [id number] [facility] 00:00:00 00:00:00 DNU [id number] Family Practic e 2022-10-22 2022-10-22 Outpatient Reddy_M VFP VFP [id number] Village 00:00:00 00:00:00 [id number] Family Practic e 2022-10-20 2022-10-20 [facility]ill [facility] [id number] Univers 00:00:00 00:00:00 [facility] [id number] it y of [facility] [id number] Jose as ALEXI?BLEA [id number] [address] 2022-10-04 2022-10-04 Outpatient Reddy_M VFP VFP [id number] 20 [facility] 00:00:00 00:00:00 [id number] Family Practic e 2022-10-03 2022-10-03 [facility] [id number] [facility] 00:00:00 00:00:00 [facility] [id number] it y of [facility] [id number] Jose as ALEXI?BLEA [id number] [address] 2022-09-12 2022-09-12 Outpatient R ADITI AYON [facility] [id number] Univers 10:30:00 10:30:00 ADITI AYON [facility] 2022-09-06 2022-09-06 Outpatient Alvarez_R VFP VFP [id number] [place] [address] 00:00:00 00:00:00 [id number] Family Practic e 2022-09-06 2022-09-06 Outpatient Dykes_V_WAG VFP VFP [id number] [facility] 00:00:00 00:00:00 DNU [id number] Family Practic e 2022-09-06 2022-09-06 Berry VFP [place] - [id number] V illage 00:00:00 00:00:00 [facility] - Pracpernell rivera MD: [id number] [place] - e Shadow VM_HOU_Shad Larsen [facility], [address], [place] [address] , Ph. 2022-09-04 2022-09-04 Outpatient Alvarez_R VFP VFP [id number] [place] [address] 00:00:00 00:00:00 [id number] Family Practic e 2022-09-02 2022-09-02 [facility] [id number] Univers 00:00:00 00:00:00 [facility] 350.1.13.10 it y of [facility] 4.2.7.2.686 Jose as ALEXI?BLEA [id number] [address] 2022-09-02 2022-09-02 [facility] 1.2.272.306 [id number] Univers 00:00:00 00:00:00 [facility] 350.1.13.10 it y of [facility] 4.2.7.2.686 Jose as ALEXI?BLEA [id number] [address] 2022-08-29 2022-08-29 Outpatient Alvarez_R VFP VFP 98960 [facility] 00:00:00 00:00:00 [id number] Family Practic e 2022-08-29 2022-08-29 Melissa VFP [place] - [id number] V illage 00:00:00 00:00:00 MD Girma: [facility] [address] [place] [address] [address], _[facility] [address] , Ph. 2022-08-28 2022-08-28 Outpatient Alvarez_R VFP VFP 58545 [facility] 00:00:00 00:00:00 [id number] Family Practic e 2022-08-28 2022-08-28 Outpatient Dykes_V_WAG VFP VFP [address] 00:00:00 00:00:00 DNU [id number] Family Practic e 2022-08-19 2022-08-19 Outpatient Alvarez_R VFP VFP 33616 [facility] 00:00:00 00:00:00 [id number] Family Practic e 2022-08-19 2022-08-19 Outpatient Alvarez_R VFP VFP 46124 [facility] 00:00:00 00:00:00 [id number] Family Practic e 2022-08-16 2022-08-16 Outpatient Alvarez_R VFP VFP 24670 11-20 [facility] 00:00:00 00:00:00 [id number] Family Practic e 2022-08-16 2022-08-16 Outpatient Dykes_V_WAG VFP VFP 134 6111-20 [facility] 00:00:00 00:00:00 DNU [id number] Family Practic e 2022-08-05 2022-08-05 Outpatient Alvarez_R VFP VFP 34247 20 [facility] 00:00:00 00:00:00 [id number] Family Practic e 2022-08-05 2022-08-05 Kasey VFP [place] - [id number] V illage 00:00:00 00:00:00 Alvino CASSEROLE PREPARER: [address] [place] - e seun Dozier VM_HOU_[place] [address], [facility] [address] , Ph. 2022-08-02 2022-08-02 Outpatient Alvarez_R VFP VFP 37476 1120 [facility] 00:00:00 00:00:00 [id number] Family Practic e 2022-08-02 2022-08-02 [facility] 1.2.840.114 [id number] Univers 00:00:00 00:00:00 [facility] 350.1.13.10 it y of [place] 4.2.7.2.686 Jose as ALEXI?BLEA [id number] Hi lisa[address] MEDICAL OFFICE BUILDING 2022-07-27 2022-07-27 Outpatient Alvarez_R VFP VFP 46248 11-20 [facility] 00:00:00 00:00:00 [id number] Family Practic e 2022-07-27 2022-07-27 Kasey VFP [place] - [id number] V illage 00:00:00 00:00:00 Alvino CASSEROLE PREPARER: [facility] [address] [facility] 3, [facility] [place] VM_HOU_Malissa [address] asia Stein , Ph. 2022-07-16 2022-07-16 Outpatient Alvarez_R VFP VFP 48381 11-20 [facility] 00:00:00 00:00:00 [id number] Family Practic e 2022-07-16 2022-07-16 Outpatient Dykes_V_WAG VFP VFP 134 6111-20 [facility] 00:00:00 00:00:00 DNU [id number] Family Practic e 2022-07-16 2022-07-16 Outpatient Dykes_V_WAG VFP VFP 134 6111-20 [facility] 00:00:00 00:00:00 DNU [id number] Family Practic e 2022-07-16 2022-07-16 Kasey VFP [place] - [id number] V illage 00:00:00 00:00:00 ARNOLD De Oliveira: [facility] [address] [facility] [place] , VM_HOU_N. [address], [facility] ([facility] [place] [address] , Ph. 2022-07-13 2022-07-13 Outpatient Alvarez_R VFP VFP 21104 11-20 [facility] 00:00:00 00:00:00 [id number] Family Practic e 2022-06-04 2022-06-04 Refill Ana Laura MNKEYLA 1.2.840.114 [id number] Univers 00:00:00 00:00:00 Latanya HEALTH 350.1.13.10 it y of [place] 4.2.7.2.686 Jose as ALEXI?BLEA [phone] Hi lisa[address] MEDICAL OFFICE BUILDING 2022-05-18 2022-05-18 Patient Ana Laura MNEKYLA 1.2.840.114 [id number] Univers 00:00:00 00:00:00 Secure Msg Latanya MULTISPEC 350.1.13.10 ity of [place] 4.2.7.2.686 [place] [facility] [id number] Keya ferris AND MAURICIO [address] [place] [address] DIABETES CLINIC 2022-04-29 2022-04-29 Annabel Treadwell MNKEYLA 1.2.840.114 [id number] 409 Univers 00:00:00 00:00:00 Wondiful A HEALTH 350.1.13.10 ity of [place] 4.2.7.2.686 Jose as ALEXI?BLEA [id number] Hi max BURROWS 044 [facility] OFFICE [facility] 2022-04-27 2022-04-27 Annabel SungREHABILITATION [facility] 1.2.840.114 [id number] Univers 00:00:00 00:00:00 Lauri HEALTH 350.1.13.10 it y of [place] 4.2.7.2.686 Jose as ALEXI?BLEA [id number] Hi max YARBROUGH 044 [facility] OFFICE [facility] 2022-02-06 2022-02-06 Beverleycharla DuREHABILITATION [facility] 1.2.840.114 [id number] 73 Univers 00:00:00 00:00:00 Latanya HEALTH 350.1.13.10 it y of [place] 4.2.7.2.686 Jose as ALEXI?BLEA [id number] Hi max YARBROUGH 220 [facility] OFFICE [facility] 2022-01-28 2022-01-28 Outpatient Asia [facility] [id number] Univers 11:30:00 11:30:00 [facility] 2022-01-28 2022-01-28 Outpatient Asia [facility] [id number] Univers 11:30:00 11:30:00 [facility] 2022-01-28 2022-01-28 Outpatient Asia [facility] [id number] Univers 11:30:00 11:30:00 [facility] 2022-01-10 2022-01-10 Patient Case, Saira [facility] [place] 1.2.840.114 [id number] Univers 00:00:00 00:00:00 Secure Msg Rich RAMOS 350.1.13.10 ity of [place] [id number] [address] 2022-01-06 2022-01-06 Outpatient R XIANG [facility] [id number] Univers 15:30:00 16:47:11 ity of [facility] 2022-01-06 2022-01-06 Office Xiang Gandhi [facility] [place] 1.2.840.114 [id number] Univers 15:30:00 16:47:11 Visit RICHARD 350.1.13.10 it y of [place] 4.2.7.2.686 [place] HEALTH [id number] [address] 2022-01-06 2022-01-06 Outpatient R XIANG G[facility]HI [facility] [id number] Univers 15:30:00 16:47:11 ity [facility] 2022-01-05 2022-01-05 Xiang Yan [facility] 1.2.840.114 [id number] Univers 00:00:00 00:00:00 (Out) RICHARD 350.1.13.10 it y of W[place] 4.2.7.2.686 [place] HEALTH [id number] [address] 2021-12-07 2021-12-07 Refill [facility] 1.2.840.114 [id number] Univers 00:00:00 00:00:00 Latanya HEALTH 350.1.13.10 it y of [place] 4.2.7.2.686 Jose as ALEXI?BLEA [id number] [address] MEDICAL OFFICE [facility] 2021-12-03 2021-12-03 Outpatient R [facility] [id number] Univers 11:00:00 11:37:11 [facility] 2021-12-03 2021-12-03 Office [facility] 1.2.840.114 [id number] 56 Univers 11:00:00 11:37:11 Visit [facility] 350.1.13.10 it y of [facility] 4.2.7.2.686 Jose as ALEXI?BLEA [id number] [address] MEDICAL OFFICE BUILDING 2021-12-03 2021-12-03 Outpatient [facility] [id number] Univers 11:00:00 11:37:11 [facility] 2021-12-03 2021-12-03 Outpatient R [facility] [id number] Univers 11:00:00 11:00:00 [facility] 2021-10-27 2021-10-27 Patient Ana [facility] 1.2.840.114 [id number] Univers 00:00:00 00:00:00 Secure Msg Latanya MULTISPEC 350.1.13.10 ity of [place] 4.2.7.2.686 [place] CENTER [id number] [facility] AND [address] DIABETES CLINIC 2021-10-14 2021-10-14 Refill Nora [facility] 1.2.840.114 [id number] Univers 00:00:00 00:00:00 Saravanan HEALTH 350.1.13.10 it y of [facility] 4.2.7.2.686 Jose as ALEXI?BLEA [id number] [address] MEDICAL OFFICE [facility] 2021-10-13 2021-10-13 Refill Ana [facility] 1.2.840.114 [id number] Univers 00:00:00 00:00:00 Latanya HEALTH 350.1.13.10 it y of [facility] 4.2.7.2.686 Jose as ALEXI?BLEA [id number] [address] MEDICAL OFFICE [facility] 2021-10-06 2021-10-06 Orders Doctor TIFFANIE 1.2.840.114 [id number] Univers 00:00:00 00:00:00 Only Unassigned, KENDRA 350.1.13.10 ity of [place] [facility] 4.2.7.2.686 Jose as [id number] [place] [address] [address] 2021-10-04 2021-10-04 Refill Nora [facility] 1.2.840.114 [id number] Univers 00:00:00 00:00:00 Saravanan HEALTH 350.1.13.10 it y of [facility] 4.2.7.2.686 Jose as ALEXI?BLEA [id number] [address] MEDICAL OFFICE BUILDING 2021-09-27 2021-09-27 Refill Eben [facility] 1.2.840.114 [id number] 056 Univers 00:00:00 00:00:00 Wondiful A HEALTH 350.1.13.10 ity of [facility] 4.2.7.2.686 Jose as PROFESSIO [id number] Me max NICOLE [address] OFFICE BUILDING ONE 2021-09-25 2021-09-25 Refill Nora [facility] 1.2.840.114 [id number] Univers 00:00:00 00:00:00 Saravanan MULTISPEC 350.1.13.10 ity of [place] 4.2.7.2.686 [place] [id number] [facility] [place] [address] [facility] 2021-09-20 2021-09-20 Patient Ana Laura [facility] 1.2.840.114 [id number] Univers 00:00:00 00:00:00 Secure Msg Latanya HEALTH 350.1.13.10 ity of [place] 4.2.7.2.686 Jose as ALEXI?BLEA [id number] [address] 2021-09-18 2021-09-18 Outpatient Dykes_V_WAG VFP VFP 134 6111-20 Village 00:00:00 00:00:00 DNU [id number] Family Practic e 2021-09-18 2021-09-18 Outpatient Alvarez_R VFP VFP 24038 11-20 [place] 00:00:00 00:00:00 [id number] Family Practic e 2021-09-17 2021-09-17 Refill Ana [facility] 1.2.840.114 [id number] Univers 00:00:00 00:00:00 Latanya HEALTH 350.1.13.10 it y of [place] 4.2.7.2.686 Jose as ALEXI?BLEA [id number] [address] 2021-09-11 2021-09-11 Refill [facility] 1.2.840.114 [id number] Univers 00:00:00 00:00:00 Saravanan [place] 350.1.13.10 i ty of [place] 4.2.7.2.686 [place] [id number] Hi max [facility] 220 [facility] 2021-09-03 2021-09-03 Outpatient R ANA LAURA [facility] [id number] Univers 15:30:00 16:38:53 LATANYA ity of [facility] 2021-09-03 2021-09-03 Office Ana [facility]RE[facility] 1.2.840.114 [id number] Univers 15:30:00 16:38:53 Visit Latanya HEALTH 350.1.13.10 it y of [place] 4.2.7.2.686 Jose as ALEXI?BLEA [id number] [facility] [address] MEDICAL OFFICE BUILDING 2021-09-03 2021-09-03 Outpatient R [facility] [id number] Univers 15:30:00 16:38:53 LATANYA ity [facility] 2021-09-03 2021-09-03 Outpatient [facility] [id number] Univers 10:45:00 11:42:07 WONGENAROFUL ity o f [facility] 2021-09-03 2021-09-03 Office E[facility]RE[facility] 1.2.840.114 [id number] Univers 10:45:00 11:42:07 Visit Fernandofigueroa Rich HEALTH 350.1.13.10 ity of [facility] 4.2.7.2.686 Jose as ALEXI?BLEA [id number] [facility] [address] MEDICAL OFFICE BUILDING 2021-08-25 2021-08-25 Outpatient R [facility] [id number] Univers 07:40:42 23:59:00 BRETT Judd o f [facility] 2021-08-25 2021-08-25 [facility] 1.2.840.114 [id number] Univers 07:40:42 23:59:00 Encounter Brett judd 350.1.13.10 ity of [place] 4.2.7.2.686 [place] [id number] [facility] [address] 2021-08-24 2021-08-24 Annabel Melendez [facility] 1.2.840.114 [id number] Univers 00:00:00 00:00:00 Saravanan MULTISPEC 350.1.13.10 ity of [place] 4.2.7.2.686 [place] [id number] [facility] AND MAURICIO [address] DIABETES CLINIC 2021-08-23 2021-08-23 Outpatient R XIANG [facility]ANDHI [facility] [id number] Univers 09:00:00 09:00:00 ity of [facility] 2021-08-23 2021-08-23 Outpatient R XIANG [facility] [id number] Univers 09:00:00 09:00:00 ity of [facility] 2021-08-23 2021-08-23 Outpatient R XIANG [facility]HI [facility] [id number] Univers 09:00:00 09:00:00 ity of [facility] 2021-08-13 2021-08-13 Orders Doctor TIFFANIE 1.2.840.114 [id number] Univers 00:00:00 00:00:00 Only Unassigned, KENDRA 350.1.13.10 [facility] 4.2.7.2.686 Jose [id number] [facility] [address] 2021-08-11 2021-08-11 Patient Ana Laura [facility] 1.2.840.114 [id number] Univers 00:00:00 00:00:00 Secure Msg Latanya MULTISPEC 350.1.13.10 ity of [facility] 4.2.7.2.686 [facility] [id number] [facility] [place] [address] DIAB[facility]ES CLINIC 2021-08-10 2021-08-10 Patient Lloyd, 1.2.840.1 [id number] Methodi 00:00:00 00:00:00 Outreach Fabienne 53937.1.[address] 3.430.2.7 Hospit a .3.837239 l .8 2021-08-09 2021-08-09 Patient Wan, 1.2.840.1 [id number] Methodi 00:00:00 00:00:00 Outreach Lazara 93389.1.[address] 3.430.2.7 Hospit a .3.147822 l .8 2021-08-06 2021-08-08 Hospital Andrew Chairez 1.2.840.1 [id number] Methodi 11:09:00 15:21:00 Encounter Ele Sanders 61569.1.[address] 3.430.2.7 Hospit a .3.274814 l .8 2021-08-06 2021-08-06 Outpatient Asia ANA LAURA [facility] [id number] Univers 09:30:00 09:30:00 LATANYA [facility] 2021-08-04 2021-08-04 Emergency Jeremiah [facility]REH[facility] ERT [id number] Univers 14:28:00 16:14:00 TIM [facility] 2021-08-04 2021-08-04 Emergency KavonREH[facility] 1.2.840.114 [id number] Univers 14:28:00 16:14:00 Tim HATCH 350.1.13.10 i ty of [place] 4.2.7.2.686 [facility] [id number] [address] 2021-08-04 2021-08-04 Emergency Jeremiah G[facility]CIAREHABILITATION [facility] ERT [id number] Univers 08:16:00 10:16:00 JOSE [facility] 2021-08-04 2021-08-04 Emergency [facility] 1.2.280.082 [id number] Univers 08:16:00 10:16:00 Jose HATCH 350.1.13.10 i ty of [place] 4.2.7.2.686 [facility] [id number] [address] 2021-07-27 2021-07-28 Outpatient X MEENA [facility] ABDON [id number] Univers 07:36:00 14:27:00 JULIAN [facility] 2021-07-27 2021-07-28 Emergency Jes Clayton [facility] 1.2.8 40.114 [id number] Univers 07:36:00 14:27:00 Julian Robledo 350.1.13.10 ity [facility] 4.2.7.2.686 [facility] [id number] [address] 2021-07-24 2021-07-24 Emergency Jeremiah [facility] ERT [id number] Univers 13:22:00 17:15:00 JOSE kirk [facility] 2021-07-24 2021-07-24 Emergency [facility] 1.2.322.916 [id number] Univers 13:22:00 17:15:00 Jose HATCH 350.1.13.10 i ty of [place] 4.2.7.2.686 [facility] [id number] [address] 2021-07-12 2021-07-12 Outpatient [facility] [id number] Univers 09:30:00 09:30:00 SARAVANAN ity [facility] 2021-07-04 2021-07-04 Refill MarioluiRE[facility]IL[facility] 1.2.840.114 [id number] Univers 00:00:00 00:00:00 [facility] 350.1.13.10 it y of [place] 4.2.7.2.686 Jose as ALEXI?BLEA [id number] [address] MEDICAL OFFICE BUILDING 2021-06-25 2021-06-26 Outpatient X ANDREEA [facility] ABDON [id number] Univers 16:05:00 13:48:00 SHABNAM [facility] 2021-06-25 2021-06-26 Emergency Tim Mares B [facility] 1.2.840 .114 [id number] Univers 16:05:00 13:48:00 Shabnam Mack 350.1.13.10 ity [facility] 4.2.7.2.686 [facility] [id number] [address] 2021-06-20 2021-06-21 Emergency X CARLYREH[facility] ERT [id number] Univers 22:22:00 01:23:00 [facility] 2021-06-20 2021-06-21 Emergency [facility] 1.2.893.869 [id number] Univers 22:22:00 01:23:00 Luis Alberto HATCH 350.1.13.10 ity [facility] 4.2.7.2.686 [facility] [id number] [address] 2021-06-20 2021-06-21 Emergency [facility] ERT [id number] Univers 22:22:00 01:23:00 LUIS ALBERTO de souza [facility] 2021-06-19 2021-06-20 Emergency X MATILDEREHABILITATION [facility] ERT [id number] Univers 20:47:00 01:30:00 JES de souza [facility] 2021-06-19 2021-06-20 Emergency MatildeREHABILITATION [facility] 1.2.840.114 [id number] Univers 20:47:00 01:30:00 Jes HATCH 350.1.13.10 ity of [place] 4.2.7.2.686 [place] [id number] [facility] [address] 2021-06-19 2021-06-19 Outpatient Dykes_V_WAG VFP VFP 134 6111-20 Village 05:46:00 05:46:00 DNU [id number] Family Practic e 2021-06-18 2021-06-18 Telephone [facility]benRE[facility] 1.2.840.114 [id number] Univers 00:00:00 00:00:00 Wondiful A HEALTH 350.1.13.10 ity of [place] 4.2.7.2.686 Jose as ALEXI?BLEA [id number] [facility] 044 [facility] OFFICE [facility] 2021-05-09 2021-05-09 Refcharla MelendezREHABILITATION H[facility] 1.2.840.114 [id number] Univers 00:00:00 00:00:00 Saravanan [place] 350.1.13.10 i ty of [place] 4.2.7.2.686 [place] [facility] [id number] [facility] 220 [facility] 2021-05-03 2021-05-03 Refcharla MelendezREHABILITATION [facility] 1.2.840.114 [id number] Univers 00:00:00 00:00:00 Saravanan HEALTH 350.1.13.10 it y of [place] 4.2.7.2.686 Jose as ALEXI?BLEA [id number] [facility] 220 [facility] OFFICE [facility] 2021-05-02 2021-05-02 Refill E[facility]RE[facility] 1.2.840.114 [id number] Univers 00:00:00 00:00:00 Wondiful A HEALTH 350.1.13.10 ity of [place] 4.2.7.2.686 Jose as ALEXI?BLEA [id number] [facility] YAR[facility]OUGH 044 [facility] OFFICE [facility] 2021-04-13 2021-04-13 Refill N[facility]RE[facility] 1.2.840.114 [id number] Univers 00:00:00 00:00:00 Saravanan HEALTH 350.1.13.10 it y of [facility] 4.2.7.2.686 Jose as ALEXI?BLEA [id number] [facility] 220 [facility] OFFICE [facility] 2021-04-10 2021-04-10 Refill Marioellett memorial hospitalalexisRE[facility] 1.2.840.114 [id number] Univers 00:00:00 00:00:00 Saravanan [facility] 350.1.13.10 i ty of [place] 4.2.7.2.686 [place] PROFESS[place] [id number] [address] 2021-04-06 2021-04-06 Outpatient R [facility] [id number] Univers 11:00:00 11:13:50 LATANYA ity of [facility] 2021-04-06 2021-04-06 Office [facility] 1.2.840.114 [id number] Univers 10:36:17 11:13:50 Visit [facility] 350.1.13.10 it y of [place] 4.2.7.2.686 Jose as ALEXI?BLEA [id number] [address] OFFICE [facility] 2021-04-06 2021-04-06 Orders Doctor TIFFANIE 1.2.840.114 [id number] Univers 00:00:00 00:00:00 Only Unassigned, KENDRA 350.1.13.10 ity of [place] [facility] 4.2.7.2.686 Jose as [id number] [address] 2021-03-25 2021-03-25 Orders Doctor TIFFANIE 1.2.840.114 [id number] Univers 00:00:00 00:00:00 Only Unassigned, KENDRA 350.1.13.10 ity of [place] [facility] 4.2.7.2.686 Jose as [id number] [address] 2021-03-23 2021-03-23 Ancillary Jairon Carlee Mal [facility] 1.2.840. 114 [id number] Univers 13:01:06 13:44:17 Visit Luigi Ngo 350.1.13.10 ity of [place] 4.2.7.2.686 [place] Profess[place] [id number] Hi dical nal [address] [facility] 2021-03-23 2021-03-23 Telephone Nora [facility] 1.2.840.114 [id number] Univers 00:00:00 00:00:00 Saravanan MULTISPEC 350.1.13.10 ity of [place] 4.2.7.2.686 [place] CENTER [id number] [facility] [place] [address] [facility] 2021-03-21 2021-03-21 Patient Nora [facility] 1.2.840.114 [id number] Univers 00:00:00 00:00:00 [facility] 350.1.13.10 ity of [place] 4.2.7.2.686 Jose as Alexi?Blea [phone] [facility] [address] Medical Office Building 2021-03-18 2021-03-18 Ancillary Carlee De La O Mal [facility] 1.2.840. 114 [id number] Univers 14:48:30 15:28:30 Visit Luigi Ngo 350.1.13.10 ity of [place] 4.2.7.2.686 [place] Profess[place] [id number] Hi dical nal 179 [facility] 2021-03-16 2021-03-16 Ancillary Carlee De La O Mal [facility] 1.2.840. 114 [id number] Univers 14:45:32 15:25:32 Visit Luigi Ngo 350.1.13.10 ity of [place] 4.2.7.2.686 [place] Profess[place] [phone] Hi dical nal [address] [facility] 2021-03-16 2021-03-16 Outpatient R JENI [facility] [id number] Univers 14:40:00 14:40:00 LUIGI forbes [facility] 2021-03-14 2021-03-14 [facility] 1.2.840.114 [id number] Univers 00:00:00 00:00:00 [place] 350.1.13.10 [place] [phone] Hi dical nal [address] [facility] 2021-03-11 2021-03-11 Ancillary Paola Fu [facility] 1.2. 840.114 [id number] Univers 13:01:29 13:41:29 Visit Luigi Ngo 350.1.13.10 [place] [phone] [facility] 179 [facility] 2021-03-09 2021-03-09 Ancillary Carlee De La O [facility] 1.2.840. 114 [id number] [facility] 13:00:37 14:00:37 Visit Deon Treadwell 350.1.13. 10 [place] [phone] [facility] 179 [facility] 2021-03-09 2021-03-09 Outpatient R EBEN [facility] [id number] [facility] 13:00:00 13:00:00 DEON ity o f [facility] 2021-03-09 2021-03-09 [facility] 1..840.114 [id number] Univers 00:00:00 00:00:00 [facility] 350.1.13.10 [place] 4.2.7.2.686 Jose as Alexi?Blea [phone] [facility] 220 [facility] 2021-03-05 2021-03-05 Patient Nora [facility] 1.2.840.114 [id number] Univers 00:00:00 00:00:00 Secure Msg [facility] 350.1.13.10 [place] 4.2.7.2.686 Jose as Alexi?Blea [phone] Hi max burrows [address] [facility] 2021-03-05 2021-03-05 Refcharla [facility] 1.2.840.114 [id number] Univers 00:00:00 00:00:00 [facility] 350.1.13.10 [place] 4.2.7.2.686 Jose as Alexi?Blea [phone] [facility] [address] [facility] 2021-03-03 2021-03-03 Case [facility] 1.2.840.114 [id number] Univers 00:00:00 00:00:00 Management Wondiful [facility] 350.1.13.10 ity [place] 4.2.7.2.686 Jose as Alexi?Blea [phone] [facility] zenon [address] [facility] 2021-02-26 2021-02-26 [place] [facility] 1.2.840.114 [id number] Univers 00:00:00 00:00:00 Wondiful [facility] 350.1.13.10 [place] 4.2.7.2.686 Jose as Alexi?Blea [phone] [address] Office [facility] 2021-02-25 2021-02-25 [facility] 1.2.840.114 [id number] [id number] Univers 00:00:00 00:00:00 Saravanan MULTISPEC 350.1.13.10 [place] [phone] [address] [facility] 2021-02-25 2021-02-25 Annabel [facility] 1.2.840.114 [id number] [id number] Univers 00:00:00 00:00:00 Saravanan MULTISPEC 350.1.13.10 [place] [phone] [address] [facility] 2021-02-24 2021-02-24 [facility] 1.2.206.176 [id number] [id number] Univers 08:31:14 23:59:00 Encounter Wondiful [facility] 350.1.13.10 ity of [place] 4.2.7.2.686 Jose as Alexi?Blea [phone] Me max burrows [address] [facility] 2021-02-24 2021-02-24 Roofing Layer Lab, Ang - Db [facility] 1.2.840.1 14 [id number] Univers 08:30:50 08:45:50 Visit [facility]on [facility] 350.1.13.1 0 ity of [place] 4.2.7.2.686 Jose as Alexi?Blea [phone] Me max burrows [address] [facility] 2021-02-24 2021-02-24 [facility] [id number] Univers 08:45:00 08:45:00 WONDIFUL ity o f [facility] 2021-02-24 2021-02-24 [facility] 1.2.584.684 [id number] 6665 Univers 08:29:02 08:30:00 Encounter W[facility]iful [facility] 350.1.13.10 ity of [place] 4.2.7.2.686 Jose as Alexi?Blea [phone] Hi max burrows [address] [facility] Office [facility] 2021-02-24 2021-02-24 [facility] 1.2.840.114 [id number] Univers 00:00:00 00:00:00 Management W[facility]iful [facility] 350.1.13.10 ity of [place] 4.2.7.2.686 Jose as Alexi?Blea [phone] Hi max burrows [address] [facility] [facility] Office [facility] 2021-02-22 2021-02-22 [facility] 1.2.866.190 [id number] 5057 Univers 15:55:00 23:59:00 Encounter [facility] 350.1.13.10 ity of [place] 4.2.7.2.686 Jose as Alexi?Blea [phone] Hi max burrows [address] [facility] 2021-02-22 2021-02-22 Office [facility] 1.2.840.114 [id number] 194 Univers 15:10:54 16:00:00 Visit W[facility]iful [facility] 350.1.13.10 ity of [place] 4.2.7.2.686 Jose as Alexi?Blea [phone] Hi max burrows [address] [facility] Office [facility] 2021-02-22 2021-02-22 Hospital [facility] 1.2.009.022 6243 [id number] Univers 15:50:00 15:54:00 Encounter [facility] 350.1.13.10 ity of [place] 4.2.7.2.686 Jose as Alexi?Blea [phone] Hi max burrows [address] [facility] Office [facility] 2021-02-22 2021-02-22 [facility] [id number] Univers 15:15:00 15:15:00 WONDIFUL ity o f [facility] 2021-02-21 2021-02-21 Refcharla [facility]endezRE[facility] 1.2.840.114 [id number] [id number] Univers 00:00:00 00:00:00 Saravanan Health 350.1.13.10 it y of [place] 4.2.7.2.686 Jose as Alexi?Blea [phone] Hi max burrows [address] [facility] Office [facility] 2021-02-14 2021-02-14 Annabel [facility] 1.2.840.114 [id number] [id number] Univers 00:00:00 00:00:00 Saravanan [place] 350.1.13.10 i [place] [phone] [facility] 220 [facility] 2021-02-14 2021-02-14 Annabel [facility]RE[facility] 1.2.840.114 [id number] [id number] Univers 00:00:00 00:00:00 Saravanan [place] 350.1.13.10 i ty [place].2.[place] [phone] [address] 2021-02-12 2021-02-12 Annabel [facility]RE[facility] 1.2.840.114 871 [id number] Univers 00:00:00 00:00:00 Saravanan [place] 350.1.13.10 i ty of [place].2.7.2.[place] [phone] Hi dical nal 220 [facility] 2021-02-12 2021-02-12 Annabel Melendez, [facility] 1.2.840.114 871 [id number] Univers 00:00:00 00:00:00 Saravanan [place] 350.1.13.10 i ty of [place].2.7.2.[place] [phone] Hi dical nal 220 [facility] 2021-02-10 2021-02-10 Annabel [facility]endezRE[facility] 1.2.840.114 [id number] [id number] Univers 00:00:00 00:00:00 Saravanan [place] 350.1.13.10 i ty of [place] 4.2.7.2.[place] [phone] [facility] nal 220 [facility] 2021-02-10 2021-02-10 Annabel [facility]endezRE[facility] 1.2.840.114 870 [id number] Univers 00:00:00 00:00:00 Saravanan [place] 350.1.13.10 i ty of [place].2.7.2.[place] [phone] Hi dical nal 220 [facility] 2021-02-09 2021-02-09 [facility]endezRE[facility] 1.2.840.114 [id number] [id number] Univers 00:00:00 00:00:00 Saravanan [place] 350.1.13.10 i ty of [place].2.7.2.[place] [phone] Hi dical nal 220 [facility] 2021-02-09 2021-02-09 Annabel [facility]RE[facility] 1.2.840.114 870 [id number] Univers 00:00:00 00:00:00 Saravanan [place] 350.1.13.10 i ty of [place] 4.2.7.2.[place] [phone] [facility] nal 220 [facility] 2021-01-29 2021-01-29 Annabel Melendez [facility] 1.2.840.114 [id number] [id number] Univers 00:00:00 00:00:00 Saravanan [place] 350.1.13.10 i ty of [place]2.7.2.[place] [phone] [address] 2021-01-29 2021-01-29 Refill [facility] 1.2.840.114 867 [id number] Univers 00:00:00 00:00:00 Saravanan [place] 350.1.13.10 i ty of [place] 4.2.7.2.[place] [phone] [address] 2021-01-15 2021-01-15 Refcharla MelendezRE[facility]ABILITATION [facility] 1.2.840.114 863 [id number] Univers 00:00:00 00:00:00 Saravanan [place] 350.1.13.10 i ty of [place] 4.2.7.2.[place] [phone] [address] 2021-01-04 2021-01-04 Office [facility] 1.2.840.114 811 [id number] Univers 08:49:36 09:53:15 Visit Saravanan H[place] 350.1.13.10 i ty of [place].2.7.2.[place] [phone] [address] 2021-01-04 2021-01-04 Outpatient R [facility] [id number] Univers 09:00:00 09:00:00 SARAVANAN ity of [facility] 2021-01-03 2021-01-03 Refcharla MelendezRE[facility]ABIL[facility] 1.2.840.114 860 [id number] Univers 00:00:00 00:00:00 Saravanannadia Hatch 350.1.13.10 i [place]2.7.2.[place] [phone] [address] 2020-12-29 2020-12-29 Refcharla MelendezREHABILITATION [facility] 1.2.840.114 859 [id number] Univers 00:00:00 00:00:00 Saravanan [place] 350.1.13.10 i ty of [place].2.7.2.[place] [phone] Hi dical nal 220 [facility] 2020-12-28 2020-12-28 Office [facility] 1.2.621.676 [id number] [id number] Univers 09:29:13 09:53:17 Visit Мария Hatch 350.1.13.10 i ty of [place].2.7.2.[place] [phone] Hi dical nal 188 [facility] 2020-12-28 2020-12-28 Outpatient R [facility] [id number] Univers 09:45:00 09:45:00 МАРИЯ de souza [facility] 2020-12-28 2020-12-28 Orders Doctor TIFFANIE 1.2.840.114 [id number] Univers 00:00:00 00:00:00 Only Unassigned, KENDRA 350.1.13.10 ity of [place] [facility] 4.2.7.2.686 Jose as [phone] [facility] [address] 2020-12-11 2020-12-11 [facility] 1.2.840.114 [id number] [id number] Univers 07:59:00 10:40:00 Encounter Мария [place] 350.1.13.10 it[place] of [place].2.[place] [phone] [facility] [address] 2020-12-11 2020-12-11 Surgery [facility] 1.2.472.651 [id number] 0650 Univers 09:27:00 10:21:00 Мария Hatch 350.1.13.10 i ty of [place]2.7.2.[place] [phone] [facility] [address] 2020-12-11 2020-12-11 Orders Doctor TIFFANIE 1.2.840.114 [id number] Univers 00:00:00 00:00:00 Only Unassigned, KENDRA 350.1.13.10 ity of [place] [facility] 4.2.7.2.686 Jose as [phone] [address] 2020-12-10 2020-12-10 Outpatient R [facility] [id number] Univers 08:15:00 08:15:00 МАРИЯ de souza [facility] 2020-11-30 2020-11-30 Refill Nora [facility] 1.2.840.114 [id number] [id number] Univers 00:00:00 00:00:00 Saravanannadia Hatch 350.1.13.10 i ty of [place].2.[place] [phone] [facility] 220 [facility] 2020-11-25 2020-11-25 Patient Jordan [facility] 1.2.840.114 [id number] Univers 00:00:00 00:00:00 Secure [facility] 350.1.13.10 ity [facility] 4.2.7.2.686 Jose as Professio [phone] [address] Office Building One 2020-11-20 2020-11-20 Outpatient R [facility] [id number] Univers 10:00:00 10:00:00 LINDEN [facility] 2020-11-15 2020-11-15 Refill Doctor [facility] 1.2.840.114 [id number] Univers 00:00:00 00:00:00 UnassignedHolden 350.1.13.10 ity of [place].2.7.2.[place] [phone] [facility] 220 [facility] 2020-11-15 2020-11-15 Refill Nora [facility] 1.2.840.114 [id number] [id number] Univers 00:00:00 00:00:00 Saravanan Hatch 350.1.13.10 i ty of [place] 4.2.7.2.[place] [phone] Hi dical nal 220 [facility] 2020-11-14 2020-11-14 Refill Nora [facility] 1.2.840.114 848 [id number] Univers 00:00:00 00:00:00 Saravanan [place] 350.1.13.10 i ty of [place] 4.2.7.2.686 [place] [phone] Hi dical nal 220 [facility] 2020-11-10 2020-11-10 Office Pepe [facility] 1.2.215.990 [id number] [id number] Univers 14:40:02 15:10:02 Visit Мария Holden 350.1.13.10 i ty of [place] 4.2.7.2.686 [place] [phone] Hi dical nal 188 [facility] 2020-11-10 2020-11-10 Outpatient R [facility] [id number] Univers 15:00:00 15:00:00 МАРИЯ de souza [facility] 2020-11-10 2020-11-10 Prep For [facility]RE[facility] 1.2.840.114 [id number] Univers 00:00:00 00:00:00 Surgery Ro Hatch 350.1.13.10 ity of [place].2.[place].2.[place] [phone] Hi dical [facility] 204 [facility] 2020-11-08 2020-11-08 Refill Nora [facility] 1.2.840.114 [id number] [id number] Univers 00:00:00 00:00:00 Saravanan [place] 350.1.13.10 i ty of [place] 4.2.7.2.686 [place] [phone] Hi dical [facility] 220 [facility] 2020-10-30 2020-10-30 Outpatient [facility] [id number] Univers 11:00:00 11:00:00 LINDEN de souza [facility] 2020-10-28 2020-10-28 Patient Nora [facility] 1.2.840.114 [id number] Univers 00:00:00 00:00:00 Secure Msg Saravanan MULTISPEC 350.1.13.10 ity of [place].2.7.2.[place] [phone] [facility] AND MAURICIO [address] [place] [address] DIABETES CLINIC 2020-10-22 2020-10-22 Telephone [facility] 1.2.840.114 [id number] Univers 00:00:00 00:00:00 Saravanan [place] 350.1.13.10 i ty of [place].2.7.2.[place] [phone] Hi dical nal 220 [facility] 2020-10-12 2020-10-12 Refill [facility] 1.2.840.114 839 [id number] Univers 00:00:00 00:00:00 Saravanan [place] 350.1.13.10 i ty of [place] 4.2.7.2.[place] [phone] [address] 2020-10-09 2020-10-09 Office Eben [facility] 1.2.840.114 [id number] Univers 10:23:15 11:35:17 Visit [facility] 350.1.13.10 ity of [place] 4.2.7.2.686 Jose as Professio [phone] [address] One 2020-10-09 2020-10-09 Outpatient R [facility]EN [facility] [id number] Univers 10:30:00 10:30:00 WONDIFUL ity o f [facility] 2020-09-25 2020-09-25 Refill [facility] 1.2.840.114 [id number] [id number] Univers 00:00:00 00:00:00 Saravanan [place] 350.1.13.10 i ty of [place]2.7.2.[place] [phone] Hi dical nal [address] [place] [address] 2020-09-18 2020-09-18 Patient Eben [facility] 1.2.840.114 [id number] Univers 00:00:00 00:00:00 Secure Msg [facility] 350.1.13.10 ity of [place] 4.2.7.2.686 Jose as Professio [phone] Hi dical [facility] 044 [facility] One 2020-09-18 2020-09-18 Telephone [facility] 1.2.840.114 834 [id number] Univers 00:00:00 00:00:00 Wondiful [facility] Health 350.1.13.10 ity of [place] 4.2.7.2.686 Jose as Professio [phone] [facility] 044 [facility] One 2020-09-14 2020-09-14 Refcharla Pineda [facility] 1.2.840.114 [id number] Univers 00:00:00 00:00:00 Lauri Health 350.1.13.10 it y of [place] 4.2.7.2.686 Jose as Professio [phone] [facility] 044 [facility] One 2020-09-01 2020-09-01 Refcharla MelendezRE[facility]IL[facility] 1.2.840.114 [id number] [id number] Univers 00:00:00 00:00:00 Saravanan [place] 350.1.13.10 i ty of [place]2.7.2.686 [place] [facility] [phone] [facility] 220 [facility] 2020-08-30 2020-08-30 Refcharla MelendezRE[facility] 1.2.840.114 [id number] [id number] Univers 00:00:00 00:00:00 Saravanan MULTISPEC 350.1.13.10 ity of [facility] 4.2.7.2.686 [place] [phone] [facility] AND [place] [address] [facility] 2020-08-26 2020-08-26 Xiang Lara [facility] 1.2.840.114 8 [id number] Univers 10:23:06 23:59:00 Encounter Holden 350.1.13.10 ity of [place] 4.2.7.2.686 [place] [phone] [facility] [address] 2020-08-26 2020-08-26 Outpatient Varsha_Milagro_AMADOR VFP VFP 134 [id number] [facility] 05:12:00 05:12:00 [id number] Family Practic e 2020-08-26 2020-08-26 Outpatient R XIANG G[facility] [id number] Univers 00:00:00 00:00:00 ity of [facility] 2020-08-22 2020-08-22 Patient [place], [facility] 1.2.840.114 [id number] Univers 00:00:00 00:00:00 Outreach Linden ROHITH 350.1.13.10 i ty of [place] 4.2.7.2.686 [place]HE[place] [phone] Hi dicma [address] 2020-08-18 2020-08-18 Outpatient R XIANG GANDHI [facility] [id number] Univers 10:00:00 10:00:00 [facility] 2020-08-17 2020-08-17 Outpatient R [facility] [id number] Univers 10:00:00 10:00:00 [facility] 2020-08-10 2020-08-10 Outpatient Dykes_V_WAG VFP VFP 134 [id number] Village 12:27:00 12:27:00 [id number] Family Practic e 2020-08-10 2020-08-10 Outpatient Alvarez_R VFP VFP 45991 11-20 Village 12:27:00 12:27:00 [id number] Family Practic e 2020-08-10 2020-08-10 Kiranchand VFP [place] - [id number] 1 [place] 00:00:00 00:00:00 [facility] Pract more Lordeo MD: VM_HOU_[facility] e [address], [address], [place] [address] , Ph. 2020-07-13 2020-07-13 Annabel MelendezRE[facility] 1.2.840.114 [id number] [id number] Univers 00:00:00 00:00:00 Saravanan Hatch 350.1.13.10 i ty of [place] 4.2.7.2.686 Elizabeth Sadler [phone] Hi dical nal [address] [facility] 2020-07-12 2020-07-12 Annabel Melendez [facility] 1.2.840.114 [id number] [id number] Univers 00:00:00 00:00:00 Saravanan Hatch 350.1.13.10 i ty [place]2.7.2.[place] [phone] Hi dical nal 220 [facility] 2020-07-06 2020-07-06 Office Nora [facility] 1.2.840.114 [id number] [id number] Univers 08:56:51 09:43:26 Visit Saravanan Holden 350.1.13.10 i ty of [place] 4.2.7.2.[place] [phone] Hi dical nal 220 [facility] 2020-07-06 2020-07-06 Outpatient R [facility]A [facility] [id number] [id number] Univers 09:00:00 09:00:00 SARAVANAN nolvia [facility] 2020-07-06 2020-07-06 Orders Doctor TIFFANIE 1.2.840.114 [id number] Univers 00:00:00 00:00:00 Only Unassigned, KENDRA 350.1.13.10 ity of [place] [facility] 4.2.7.2.686 Jose as [phone] [facility] [address] 2020-07-02 2020-07-02 Office Pineda [facility] 1.2.840.114 [id number] Univers 15:26:51 15:56:51 Visit [facility] 350.1.13.10 it y of [place] 4.2.7.2.686 Jose as Professio [phone] [facility] [address] Office Building One 2020-07-02 2020-07-02 Outpatient R PINEDA [facility] [id number] Univers 15:30:00 15:30:00 LAURI ity [facility] 2020-06-29 2020-06-29 Transition SandrafionaJuliana 1.2.840.114 81 [id number] Univers 00:00:00 00:00:00 of Care Haleigh Silva 350.1.13.10 i ty of [place] 4.2.7.2.686 [place] [phone] [facility] [address] 2020-06-22 2020-06-26 Hospital Joie Lauren [facility] 1.2.840.1 14 [id number] Univers 17:40:00 15:27:00 Encounter Carlee Pierson oHlden 350.1.13.10 ity of [place] 4.2.7.2.686 [facility] [phone] [facility] [address] 2020-06-22 2020-06-22 Urgent Provider, [facility] 1.2.840.114 [id number] Univers 10:16:58 10:36:58 Lauri Bailey 350.1.13.10 ity [facility] 4.2.7.2.686 Jose as Professio [phone] [facility] [address] Office Building One 2020-06-22 2020-06-22 Outpatient R PINEDA [facility] [id number] Univers 10:20:00 10:20:00 LAURI itkirk [facility] 2020-06-21 2020-06-21 Emergency [facility] 1.2.892.034 [id number] Univers 16:19:00 18:50:00 Leta Hatch 350.1.13.10 i ty of [place] 4.2.7.2.686 [facility] [phone] [address] 2020-06-21 2020-06-21 Emergency X [facility]ENRE[facility] ERT [id number] Univers 16:19:00 18:50:00 LETA [facility] 2020-06-21 2020-06-21 Orders Doctor TIFFANIE 1.2.840.114 [id number] Univers 00:00:00 00:00:00 Only Unassigned, KENDRA 350.1.13.10 ity of [place] [facility] 4.2.7.2.686 Jose as [phone] [facility] [address] 2020-06-09 2020-06-09 Refill [facility] 1.2.840.114 805 [id number] Univers 00:00:00 00:00:00 Saravanan Holden 350.1.13.10 i ty of [place] 4.2.7.2.686 [place] [phone] Hi dical nal [address] Building 2020-06-08 2020-06-08 Refcharla Melendez [facility] 1.2.840.114 [id number] [id number] Univers 00:00:00 00:00:00 Saravanan [place] 350.1.13.10 i ty of [place] 4.2.7.2.[place] [phone] [facility] nal [address] [place] [address] 2020-06-02 2020-06-02 Refill ErendiraalexisRE[facility]IL[facility] 1.2.840.114 804 [id number] Univers 00:00:00 00:00:00 Saravanan [place] 350.1.13.10 i ty of [place] 4.2.7.2.686 [place] [phone] [facility] nal [address] [place] [address] 2020-05-27 2020-05-27 Patient LeighgirmaRE[facility]ABILITATION [facility] 1.2.840.114 [id number] Univers 00:00:00 00:00:00 Secure Msg Saravanan [place] 350.1.13.10 ity of [place] 4.2.7.2.686 [place] [phone] [address] 2020-05-25 2020-05-25 Telephone [facility] 1.2.840.114 [id number] Univers 00:00:00 00:00:00 Saravanan [place] 350.1.13.10 i ty of [place] 4.2.7.2.686 [place] [phone] [address] 2020-05-18 2020-05-18 Refill [facility] 1.2.840.114 800 [id number] Univers 00:00:00 00:00:00 Saravanan [place] 350.1.13.10 i ty of [place] 4.2.7.2.686 [place] [phone] [address] 2020-05-18 2020-05-18 Patient [facility]is[facility] 1.2.840.114 [id number] Univers 00:00:00 00:00:00 Secure Msg Saravanan [place] 350.1.13.10 ity of [place] 4.2.7.2.686 [place] [phone] Hi dicma nal [address] [place] [address] 2020-05-17 2020-05-17 Refill Nora [facility] 1.2.840.114 [id number] Univers 00:00:00 00:00:00 Saravanan [place] 350.1.13.10 i ty of [place] 4.2.7.2.686 [place] Profess[place] [phone] [facility] 220 [facility] 2020-03-30 2020-03-30 Office Nora [facility] 1.2.840.114 [id number] Univers 08:57:42 09:40:17 Visit Saravanan Hatch 350.1.13.10 i ty of [place] 4.2.7.2.686 [place] [phone] [facility] 220 [facility] 2020-03-30 2020-03-30 Outpatient R MARIOLUI [facility] [id number] Univers 09:00:00 09:00:00 SARAVANAN ity [facility] 2020-03-27 2020-03-27 Urgent Provider, [facility] 1.840.114 [id number] Univers 17:20:13 18:51:55 Care Unknown, Attending [facility] 350.1.13.10 ity of [place] 4.2.7.2.686 Jose as Professio [phone] [facility] [address] Office [facility] One 2020-03-27 2020-03-27 Outpatient R UNKNOWN, [facility] [id number] Univers 17:20:00 17:20:00 ATTENDING ity of [facility] 2020-01-30 2020-01-30 Refill [facility]oluiRE[facility] 1.840.114 [id number] [id number] Univers 00:00:00 00:00:00 Saravanan MULTISPEC 350.1.13.10 ity of [place]2.7.2.686 [place] C[place] [phone] [facility] AND [address] [facility] 2019-12-25 2019-12-25 Patient Nora [facility] 1.2.840.114 [id number] Univers 00:00:00 00:00:00 Secure Msg Saravanan Hatch 350.1.13.10 [place] [phone] [facility] [address] [facility] 2019-12-18 2019-12-18 Refcharla Treadwell [facility] 1.2.840.114 [id number] Univers 00:00:00 00:00:00 Deon H[place] 350.1.13.10 [place] [phone] [facility] [address] [facility] 2019-12-16 2019-12-16 Roofing Layer 2, Adc Lab [facility] 1.2.840.114 [id number] Univers 10:35:24 10:50:24 Visit Saravanan Melendez 350.1.13.10 [place] [phone] [facility] [address] [facility] 2019-12-16 2019-12-16 Office Nora [facility] 1.2.840.114 [id number] [facility] 09:21:31 10:16:37 Visit Saravanan Hatch 350.1.13.10 i [place] [phone] [facility] [address] [facility] 2019-12-16 2019-12-16 Outpatient R [facility] [id number] Univers 09:30:00 09:30:00 SARAVANAN ity of [facility] 2019-12-16 2019-12-16 Orders Doctor MORENO 1.2.840.114 [id number] Univers 00:00:00 00:00:00 Only Unassigned, KENDRA 350.1.13.10 ity of [place] [facility] 4.2.7.2.686 [place] as [phone] [address] 2019-12-11 2019-12-11 Refcharla Moreira [facility] 1.2.840.114 [id number] Univers 00:00:00 00:00:00 Alejandra Hatch 350.1.13.10 [place] [phone] [facility] [address] [facility] 2019-12-11 2019-12-11 Annabel Moreira [facility] 1.2.840.114 [id number] Univers 00:00:00 00:00:00 Alejandra Villanueva [place] 350.1.13.10 [place] Professio [phone] [facility] [address] [facility] 2019-11-26 2019-11-26 Transition Juliana Cox 1.2.840.114 [id number] Univers 00:00:00 00:00:00 of Care Phill Villanueva Silva 350.1.13.10 ity of [place] [phone] [facility] [address] 2019-11-23 2019-11-23 Emergency [facility] 1.2.840.114 [id number] Univers 15:15:30 18:31:00 Candice Blackwell [place] 350.1.13.10 ity of [place] [phone] [facility] [address] 2019-11-23 2019-11-23 Emergency X [facility] ERT [id number] Univers 15:15:30 18:31:00 FOLUSHO ity of [facility] 2019-11-23 2019-11-23 Orders Doctor TIFFANIE 1.2.840.114 [id number] Univers 00:00:00 00:00:00 Only Unassigned, KENDRA 350.1.13.10 ity of [place] [facility] 4.2.7.2.686 Jose as [phone] [facility] [address] [place] 2019-11-14 2019-11-14 [facility] 1.2.840.114 [id number] Univers 00:00:00 00:00:00 Wondiful A [place] 350.1.13.10 ity of [place] [phone] [facility] [address] [facility] 2019-11-13 2019-11-13 [facility] 1.2.840.114 [id number] Univers 00:00:00 00:00:00 Wondiful A [place] 350.1.13.10 [place] [phone] [facility] [address] [facility] 2019-10-16 2019-10-16 Telephone Eben [facility] 1.2.840.114 [id number] Univers 00:00:00 00:00:00 Wondiful A [place] 350.1.13.10 ity of [place] [phone] [facility] 0[address] [facility] 2019-10-15 2019-10-15 Orders Doctor TIFFANIE 1.2.840.114 [id number] Univers 00:00:00 00:00:00 Only Unassigned, KENDRA 350.1.13.10 ity of [place] [facility] 4.2.7.2.686 Jose as [phone] [address] 2019-10-11 2019-10-11 Telephone [facility] 1.2.840.114 [id number] Univers 00:00:00 00:00:00 Saravanan [place] 350.1.13.10 i ty of [place] [phone] [facility] [address] [facility] 2019-10-08 2019-10-08 Refill [facility] 1.2.840.114 [id number] Univers 00:00:00 00:00:00 Wondiful A Health 350.1.13.10 ity of [place] 4.2.7.2.686 Jose as Professio [phone] [facility] [address] Office [facility] One 2019-09-09 2019-09-09 Telemedici [facility] 1.2.840.114 [id number] Univers 08:17:05 08:47:05 ne Visit Saravanan [place] 350.1.13.10 ity of [place] [phone] [facility] [address] [facility] 2019-09-09 2019-09-09 Outpatient R [facility] [id number] Univers 08:30:00 08:30:00 SARAVANAN ity of [facility] 2019-09-04 2019-09-04 Refill Lillie [facility] 1.2.840.114 [id number] Univers 00:00:00 00:00:00 Alejandra Hatch 350.1.13.10 i ty of [place] [phone] [facility] [address] [facility] 2019-09-04 2019-09-04 Refill Eben [facility] 1.2.840.114 [id number] Univers 00:00:00 00:00:00 Wondiful A Health 350.1.13.10 ity of [place] 4.2.7.2.686 Jose as Professio [phone] [address] Office [facility] 2019-09-04 2019-09-04 Refcharla [facility] 1.2.840.114 [id number] Univers 00:00:00 00:00:00 Alejandra [place] 350.1.13.10 i ty [place] [phone] [address] 2019-09-04 2019-09-04 Refill Nora [facility] 1.2.840.114 [id number] Univers 00:00:00 00:00:00 Saravanan [place] 350.1.13.10 i ty of [place]2.[place] [phone] [facility] [address] [facility] 2019-08-29 2019-08-29 Office Eben [facility] 1.2.840.114 [id number] Univers 15:35:37 16:08:25 Visit Wondiful A Health 350.1.13.10 ity of [place] 4.2.7.2.686 [place] as Professio [phone] [address] Office [facility] 2019-08-29 2019-08-29 Outpatient R [facility] [id number] Univers 15:30:00 15:30:00 WONDIFUL ity o f [facility] 2019-08-29 2019-08-29 Letter Eben [facility] 1.2.840.114 [id number] Univers 00:00:00 00:00:00 (Out) Wondiful A Health 350.1.13.10 ity of [place] 4.2.7.2.686 [place] as Professio [phone] [address] 2019-08-15 2019-08-15 Telephone [facility] 1.2.840.114 [id number] Univers 00:00:00 00:00:00 Saravanan [place] 350.1.13.10 i ty of [place] [phone] [address] 2019-08-13 2019-08-13 Patient [facility] 1.2.840.114 [id number] Univers 00:00:00 00:00:00 Secure Msg Wondiful A Health 350.1.13.10 ity of [place] 4.2.7.2.686 [place] as Professio [phone] [address] 2019-08-12 2019-08-12 Refill [facility] 1.2.840.114 [id number] Univers 00:00:00 00:00:00 Wondiful A [place] 350.1.13.10 ity of [place] [phone] [address] 2019-08-12 2019-08-12 Refill [facility] 1.2.840.114 [id number] Univers 00:00:00 00:00:00 Wondiful A [place] 350.1.13.10 ity of [place] [phone] [address] 2019-08-12 2019-08-12 Annabel Moreira [facility] 1.2.840.114 [id number] Univers 00:00:00 00:00:00 Alejandra [place] 350.1.13.10 i ty of [place] 4[place]2.7.2.[place] [phone] [address] 2019-08-12 2019-08-12 Annabel Moreira MNKEYLA 1.2.840.114 [id number] Univers 00:00:00 00:00:00 Alejandra A [place] 350.1.13.10 ity of [place].2.[place] [phone] Hi dical nal 220 [facility] 2019-07-11 2019-07-11 Refcharla Treadwell MNKEYLA 1.2.840.114 [id number] Univers 00:00:00 00:00:00 Wondiful A [place] 350.1.13.10 ity of [place]2.[place] [phone] Hi dical nal 044 [facility] 2019-07-10 2019-07-10 Refcharla [facility] 1.2.840.114 [id number] Univers 00:00:00 00:00:00 Wondiful A [place] 350.1.13.10 ity of [place] [phone] [facility] 2019-07-05 2019-07-05 Orders Doctor TIFFANIE 1.2.840.114 [id number] Univers 00:00:00 00:00:00 Only Unassigned, KENDRA 350.1.13.10 ity of [place] [facility] 4.2.7.2.686 Jose as [phone] [address] 2019-02-27 2019-02-27 Refcharla TreadwellTARLTON, UTKEYLA 1.2.840.114 [id number] Univers 00:00:00 00:00:00 Wondiful A Health 350.1.13.10 ity of [place] 4.2.7.2.686 Jose as Professio [phone] [address] Office [facility] One 2019-01-25 2019-01-25 Benjamín Treadwell MNKEYLA 1.2.840.114 [id number] Univers 00:00:00 00:00:00 (Out) Wondiful A Health 350.1.13.10 ity of [place] 4.2.7.2.686 Jose as Professio [phone] Me [address] One 2019-01-10 2019-01-10 Telephone Eben MNKEYLA 1.2.840.114 [id number] Univers 00:00:00 00:00:00 FernandoZalando A Silvigen 350.1.13.10 [place]Ch[place] 4.2.7.2.686 Jose as Sebastián [phone] [address] One Results Test Description Test Time Test Comments Results Result Comments Source Microalbumin/Creatinine [Mass Ratio] in Urine 2022-10-26 00: 00:00 Test Item Value Reference Range Interpretation Comme nts creatinine random urine (test code = creatinine random 80.8 mg/dL 20.0-320.0 urine) microalbumin random urine (test code = microalbumin 46 ug/mL random urine) microalbumin/creatinine (random urine) ratio 57 mcg/mg creat H calculated (test code = microalbumin/creatinine (random urine) ratio calculated) [facility] panel - [id number] 14:39:00 Test Item Value Reference Range Interpretation Comments Interpretation Color (test code = Yellow Interpretation Color) Interpretation Clarity (test code = Clear Interpretation Clarity) Interpretation Glucose (mg/dL) (test Negative code = Interpretation Glucose (mg/dL)) Interpretation Bilirubin (test code Negative = Interpretation Bilirubin) Interpretation Ketone (mg/dL) (test Negative code = Interpretation Ketone (mg/dL)) Interpretation Specific [place] 1.020 (test code = Interpretation Specific [place]) Interpretation Occult Blood (test Negative code = Interpretation Occult Blood) Interpretation pH (test code = 5 Interpretation pH) Interpretation Protein (test code = Negative Interpretation Protein) Interpretation Urobilinogen (test 0.2 code = Interpretation Urobilinogen) Interpretation Nitrites (test code = Negative Interpretation Nitrites) Interpretation Leukocytes (test code Small = Interpretation Leukocytes) [facility] 2000 panel - Serum or Plasma 2022-10-25 00:00:00 Test Item Value Reference Range Interpretation Comments albumin (test code = albumin) 4.3 g/dL 3.4-5.1 alk phos (test code = alk phos) 105 unit/L 40-150 ALT (test code = ALT) 32 U/L 0-55 AST (test code = AST) 24 U/L 5-34 total bilirubin (test code = 0.7 mg/dL 0.2-1.2 total bilirubin) calcium (test code = calcium) 11.0 mg/dL 8.4-10.4 H CO2 (test code = CO2) 24.7 mmol/L 20.0-32.0 chloride (test code = chloride) 106 mmol/L 98-110 creatinine (test code = 0.80 mg/dL 0.57-1.11 creatinine) eGFR (test code = eGFR) >60 glucose (test code = glucose) 81 mg/dL 70-99 potassium (test code = potassium) 4.2 mEq/L 3.5-5.3 total protein (test code = total 7.7 g/dL 6.1-8.2 protein) sodium (test code = sodium) 143 mEq/L 135-145 BUN (test code = BUN) 19.9 mg/dL 9.8-25.0 anion gap (test code = anion gap) 12 calc [facility] A1c/Hemoglobin.total in Argya1789-69-00 00:00:00 Test Item Value Reference Range Interpretation Comments Hemoglobin A1c/Hemoglobin.total in 8.3 % 1.0-5.7 H Blood (test code = 4548-4) average blood glucose (calculation) 192 mg/dL (test code = average blood glucose (calculation)) [facility] [Mass/volume] in Capillary [id number] 15:13:58 Test Item Value Reference Range Interpretation Comments Blood Glucose: mg/dl (test code = Blood 149 Glucose: mg/dl) [facility] [Mass/volume] in Serum or [id number] 00:00:00 Test Item Value Reference Range Interpretation Comments magnesium (test code = magnesium) 1.5 mg/dL 1.6-2.3 L [facility] [id number] 03:30:00 Test Item Value Reference Range Interpretation [...] code 10.6 mg/dL 8.6-10.4 H = calcium) [facility] natriuretic peptide (BNP)2022-08-09 03:30:00 Test Item Value Reference Range Interpretation Comments B type natriuretic peptide (BNP) 9 pg/mL <100 (test code = B type natriuretic peptide (BNP)) [facility] [id number] 03:30:00 Test Item Value Reference Range Interpretation [...] code 10.6 mg/dL 8.6-10.4 H = calcium) [facility] peptide (BNP)2022-08-09 03:30:00 Test Item Value Reference Range Interpretation Comments B type natriuretic peptide (BNP) 9 pg/mL <100 (test code = B type natriuretic peptide (BNP)) [facility]Fibrin D-dimer FEU [Mass/volume] in Platelet poor plasma 2022-08-09 00:00:00 Test Item Value Reference Range Interpretation Comments D-dimer, quantitative (test 0.40 mcg/mL feu <0.50 code = D-dimer, quantitative) [facility] W Auto Differential panel - [id number] 00:00:00 Test Item Value Reference Range Interpretation [...] fL 7.5-12.5 absolute neutrophils (test 4262 cells/uL 4387-6353 code = absolute neutrophils) absolute lymphocytes (test [...] basophils (test code = 0.5 % basophils) [facility] D-dimer FEU [Mass/volume] in Platelet poor plasma 2022-08-09 00:00:00 Test Item Value Reference Range Interpretation Comments D-dimer, quantitative (test 0.40 mcg/mL feu <0.50 code = D-dimer, quantitative) [facility] W Auto Differential panel - [id number] 00:00:00 Test Item Value Reference Range Interpretation [...] fL 7.5-12.5 absolute neutrophils (test 4262 cells/uL 5533-5060 code = absolute neutrophils) absolute lymphocytes (test [...] basophils (test code = 0.5 % basophils) [facility]Hem[facility] A1c/Hemoglobin.total in Sbrff5825-72-03 00:00:00 Test Item Value Reference Range Interpretation Comments Hemoglobin A1c/Hemoglobin.total in 8.6 % 1.0-5.7 H Blood (test code = 4548-4) average blood glucose (calculation) 200 mg/dL (test code = average blood glucose (calculation)) [facility] A1c/Hemoglobin.total in [id number] 00:00:00 Test Item Value Reference Range Interpretation Comments Hemoglobin A1c/Hemoglobin.total in 8.6 % 1.0-5.7 H Blood (test code = 4548-4) average blood glucose (calculation) 200 mg/dL (test code = average blood glucose (calculation)) [facility]Lip[facility] 1995 panel - Serum or [id number] 00:00:00 Test Item Value Reference Range Interpretation [...] Serum or Plasma (test code = 2089-1) [facility] HospitalPjcghevo31-Heufqzhziiqsgv D3+25-Hydroxyvitamin D2 [Mass/volume] in Serum or [id number] 00:00:00 Test Item Value Reference Range Interpretation Comments vitamin D 25OH (test code = 44.6 NG/mL 30.0-96.0 vitamin D 25OH) [facility] HospitalThyrotropin [Units/volume] in Serum or [id number] 00:00:00 Test Item Value Reference Range Interpretation Comments TSH (test code = TSH) 1.553 uIU/mL 0.350-4.940 [facility] 1999 panel - Serum or [...] (test code = anion gap) 11 calc [facility]Microalbumin/Creatinine [Mass Ratio] in [id number] 00:00:00 Test Item Value Reference Range Interpretation Comments microalbumin random urine 20 ug/mL (test code = microalbumin random urine) creatinine random urine (test 64.7 mg/dL 20.0-320.0 code = creatinine random urine) microalbumin/creatinine 31 mcg/mg creat H (random urine) ratio calculated (test code = microalbumin/creatinine (random urine) ratio calculated) [facility]Lip[facility] 1995 panel - Serum or [id number] 00:00:00 Test Item Value Reference Range Interpretation [...] Serum or Plasma (test code = 2089-1) [facility] HospitalVtmgdywc98-Snhahluvizzcee D3+25-Hydroxyvitamin D2 [Mass/volume] in Serum or [id number] 00:00:00 Test Item Value Reference Range Interpretation Comments vitamin D 25OH (test code = 44.6 NG/mL 30.0-96.0 vitamin D 25OH) [facility] HospitalThyrotropin [Units/volume] in Serum or [id number] 00:00:00 Test Item Value Reference Range Interpretation Comments TSH (test code = TSH) 1.553 uIU/mL 0.350-4.940 [facility] 2000 panel - Serum or [...] gap (test code = anion gap) 11 [facility] Ratio] in [id number] 00:00:00 Test Item Value Reference Range Interpretation Comments microalbumin random urine 20 ug/mL (test code = microalbumin random urine) creatinine random urine (test 64.7 mg/dL 20.0-320.0 code = creatinine random urine) microalbumin/creatinine 31 mcg/mg creat H (random urine) ratio calculated (test code = microalbumin/creatinine (random urine) ratio calculated) [facility]CB W Auto Differential panel - [id number] 00:00:00 Test Item Value Reference Range Interpretation [...] comments: (test code comment = hematology comments:) [facility] HospitalMagnesium [Mass/volume] in Serum or [id number] 00:00:00 Test Item Value Reference Range Interpretation Comments magnesium (test code = magnesium) 1.5 mg/dL 1.6-2.3 L [facility]CB W Auto Differential panel - [id number] 00:00:00 Test Item Value Reference Range Interpretation [...] comments: (test code comment = hematology comments:) [facility] HospitalMagnesium [Mass/volume] in Serum or [id number] 00:00:00 Test Item Value Reference Range Interpretation Comments magnesium (test code = magnesium) 1.5 mg/dL 1.6-2.3 L [facility]EC 12 [id number] 00:40:20 Test Item Value Reference Range Interpretation Comments Ventricular rate (test code = 253) Atrial rate (test code = 255) [place] interval (test code = 266) QRSD interval [...] has shortened-Electronicall y Signed By Batsheva FOWLER, [facility] ([id number]) on 08/07/2021 6:40:15 PM [facility] ED Preliminary Interpretation - Not an [id number] 17:04:53 Test Item Value Reference Range Interpretation Comments RIZWANA (test code = RIZWANA) Andrew Chairez MD 08/15/2021 6:59 [facility] Preliminary Interpretation - Not an OrderPerformed by: Andrew Chairez MDAuthorized by: Andrew Chairez MD ECG reviewed by ED Physician in the absence of a family services coordinator: yes Interpretation: Interpretation: abnormal Rate: ECG rate: 100 ECG rate assessment: tachycardic Rhythm: Rhythm: sinus tachycardia QRS: QRS axis: Normal QRS intervals: NormalST segments: ST segments: NormalT waves: T waves: inverted Other findings: Other findings: prolonged qTc interval Lab Interpretation Abnormal (test code = 76713-4) [facility] Notes Date/Time Note Provider Source 2023-01-25 Formatting of this note might be differe nt from the original. Eneida Livingston RN [facility] 08:25:48-00:00 NOV: none ILEANA: 12/03/21 Refill denied 2023-01-24 [facility] 10:51:39-00:00 Images from the original note were not included. Electronically signed by Danielle Alicea at 01/24 10:52 AM CDT 2023-01-23 Formatting of this note might be differe nt from the original. Nevin Griffin MA [facility] 10:42:41-00:00 Patient typically gets allop urinol from PCPs office. Endo just sent curtesy refill during ILEANA. Please advise. Nevin Griffin MA 01/23/2023 10:43 AM 2022-10-29 [facility] 12:19:33-00:00 ILEANA:12/03/2021 NOV:None Plan: 5. 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 PLAN: --Continue allopurinol 100 m g tablet daily as prescribed by PCP. Courtesy refill given Patient needs to fill with P CP. Routing to PCP for review. Nevin Griffin MA 10/29/2022 12:20 PM Please call patient to sched ule an appointment for Rheumatology follow up. Nevin Griffin MA 10/29/2022 12:21 PM 2022-10-29 Formatting of this note is different fro m the original. Demetra Tompkins [facility] 10:11:49-00:00 SHERWIN Requested Prescriptions Pending Prescriptions Disp Refills ALLOPURINOL 100 mg tablet [ Pharmacy Med Name: ALLOPURINOL 100MG TABLETS] 90 tablet 1 Sig: TAKE 1 TABLET BY MOUTH DAILY Off-Protocol Failed - 10/29/2022 3:52 AM Failed - Valid encounter within last 12 months Recent Visits No visits were found meeting these conditions. Showing recent visits within past 365 days and m eeting all other requirements Future Appointments No visits were found meeting these conditions. Showing future appointments within next 365 days and meeting all other requirements Failed - Medication not assigned to a protocol, review manually.
[2023-01-28 16:08] LABS: Absolute Lymphocytes (CBC) 2.1 K/uL (0.7-4.9); Hematocrit 44.4 % (36.0-45.0); Lymphocytes % 19.1 % (15.3-44.8); MCV 87.8 fL (80-100); Platelets 381 thou/uL (152-406); RBC Red Blood Cell Count 5.06 M/uL (3.86-4.86)
[2023-01-28] MEDS ORDERED: METOCLOPRAMIDE 10 MG/2mL INJ ONE (16:12)
[2023-01-28] MEDS ORDERED: DIPHENHYDRAMINE 50 MG/ML VIAL ONE (16:12)
[2023-01-28] MEDS ORDERED: FAMOTIDINE 20 MG/2 ML VIAL IV ONE (16:12)
[2023-01-28] MEDS ORDERED: NA CHLORIDE 0.9% 1,000 ML ONE (16:12)
[2023-01-28] MEDS ORDERED: NA CHLORIDE 0.9% 50 ML ONE (16:12)
[2023-01-28 16:28] LABS: Albumin 3.7 g/dL (3.4-5.0); Bilirubin Direct 0.2 mg/dL (0-0.2); Bilirubin Indirect, Calculated 0.3 mg/dL (0.2-0.8); Bilirubin Total 0.5 mg/dL (0.2-1.0); Magnesium 1.6 mg/dL (1.6-2.4); Potassium 4.2 mEq/L (3.5-5.1); Protein, Total 7.7 g/dL (6.4-8.2); Troponin High Sensitivity 5.7 pg/mL (<58.9)
[2023-01-28 16:40] LABS: Specific Gravity 1.024 (1.005-1.030); Urine Bacteria <20 /HPF (<20); Urine Bilirubin NEGATIVE (Negative); Urine Blood Negative (Negative); Urine Clarity Clear (Clear); Urine Color Light-Yellow (Yellow); Urine Glucose 4+ (Over) (Negative); Urine Mucus Slight /HPF (None Seen); Urine Protein TRACE (Negative); Urine RBC <5 /HPF (None Seen); Urine Urobilinogen Normal (Normal); Urine pH 5.5 (5.0-7.0)
--- NOTE | 2023-01-28 16:54 | RAD REPORT ---
EXAM DESCRIPTION: Daniel Single View01/28/2023 4:24 pm CLINICAL HISTORY: EPIGASTRIC PAIN COMPARISON: Chest Single View dated 10/02/2022; Abdomen Pelvis W Contrast dated 10/01/2022 TECHNIQUE: Portable AP view of the chest. FINDINGS: Under penetration somewhat limits evaluation. The lungs show no focal opacities. Central a nd bibasilar interstitial thickening. No pneumothorax or effusion. The cardiomediastinal contours are unremarkable. IMPRESSION: Central and bibasilar interstitial thickening, could relate to mild central congestion o r interstitial pneumonitis.
--- NOTE | 2023-01-28 17:32 | RAD REPORT ---
EXAM DESCRIPTION: CT - Abdomen Pelvis W Contrast - 01/28/2023 5:15 pm CLINICAL HISTORY: ABD PAIN COMPARISON: Abdomen Pelvis W Contrast dated 10/01/2022 TECHNIQUE: Thin cut axial CT imaging of the abdomen and pelvis was performed following intravenous a dministration of 90 mL Isovue 300. Multiplanar reformats were generated and reviewed. All CT scans are performed using dose optimization technique as appropriate and may include automated exposure control or mA/KV adjustment according to patient size. FINDINGS: No suspicious findings in the lung bases. Bilateral lower lobe pulmonary nodules largest m easuring 9 millimeter, stable. The liver, spleen, and pancreas show no suspicious findings. Gallbladder was surgically removed. No e vidence of intra or extrahepatic biliary ductal dilation. Symmetric renal function is seen with no hydronephrosis or suspicious renal mass. No dilated bowel loops or bowel wall thickening. No free air, free fluid or inflammatory stranding. N o hernia, mass or bulky lymphadenopathy. The urinary bladder is without significant finding. Retrover jeremy uterus with foci of calcification, suggesting small fibroids. No suspicious bony findings. IMPRESSION: No acute intra-abdominal process.
[2023-01-28] MEDS ORDERED: ONDANSETRON 4 MG/2 ML VIAL ONE ×2 (18:16→22:26)
[2023-01-28] MEDS ORDERED: MORPHINE 4 MG/ML SYR ONE (18:16)
--- NOTE | 2023-01-28 21:55 | EDPHYS ---
Physician Documentation [facility] Name: Guerita Loza Age: 57 yrs Sex: Female : 1965 Arrival Date: 01/28/2023 Time: 14:58 Bed 19 Private MD: ED Physician Petar Tran HPI: 01/28 15:45 This 57 yrs old Female presents to ER via Ambulatory with complaints of cp Abdominal Pain, Nausea/Vomiting. 15:45 The patient presents with abdominal pain in the epigastric area. Onset: The cp symptoms/episode began/occurred yesterday. Associated signs and symptoms: Pertinent positives: nausea and vomiting, Pertinent negatives: constipation, diarrhea, fever, vomiting blood. The symptoms are described as constant. Severity of pain: in the emergency department the pain is unchanged despite home interventions. 15:45 The symptoms do not radiate. cp Historical: - Allergies: 15:26 Scopolamine HBr; nj1 15:26 Ozempic; nj1 - PMHx: 15:26 Diabetes - NIDDM; Gout; High Cholesterol; Hypertension; nj1 - PSHx: 15:26 section; Cholecystectomy; nj1 - Immunization history:: Client reports receiving the 2nd dose of the Covid vaccine. - Social history:: Smoking status: Patient denies any tobacco usage or history of. ROS: 15:50 Constitutional: Positive for poor PO intake, Negative for body aches, chills, fever. cp 15:50 Eyes: Negative for injury, pain, redness, and discharge. cp 15:50 ENT: Negative for drainage from ear(s), ear pain, sore throat, difficulty swallowing, difficulty handling secretions. 15:50 Cardiovascular: Negative for chest pain, edema, palpitations. 15:50 Respiratory: Negative for cough, shortness of breath, wheezing. 15:50 Abdomen/GI: Positive for abdominal pain, nausea and vomiting, anorexia, of the epigastric area, Negative for hematemesis. 15:50 Back: Negative for radiated pain. 15:50 : Negative for urinary symptoms. 15:50 Neuro: Negative for altered mental status, syncope. 15:50 All other systems are negative. Exam: 15:55 Constitutional: The patient appears in no acute distress, alert, awake, cp non-diaphoretic, non-toxic, well developed, well nourished, uncomfortable. 15:55 Head/Face: Normocephalic, atraumatic. cp 15:55 Eyes: Periorbital structures: appear normal, Conjunctiva: normal, no exudate, no injection, Sclera: no appreciated abnormality, Lids and lashes: appear normal, bilaterally. 15:55 ENT: External ear(s): are unremarkable, Nose: is normal, Mouth: Lips: moist, Oral mucosa: pink and intact, moist, Posterior pharynx: is normal, airway is patent, no erythema, no exudate. 15:55 Neck: ROM/movement: is normal, is supple, without pain, no range of motions limitations. 15:55 Chest/axilla: Inspection: normal. 15:55 Cardiovascular: Rate: normal, Rhythm: regular, Edema: is not appreciated, JVD: is not appreciated. 15:55 Respiratory: the patient does not display signs of respiratory distress, Respirations: normal, no use of accessory muscles, no retractions, labored breathing, is not present, Breath sounds: are clear throughout, no decreased breath sounds, no stridor, no wheezing. 15:55 Abdomen/GI: Inspection: abdomen appears normal, Bowel sounds: active, all quadrants, Palpation: soft, in all quadrants, moderate abdominal tenderness, in the epigastric area, rebound tenderness, is not appreciated, voluntary guarding, is elicited in the epigastric area. 15:55 Back: CVA tenderness, is absent. 15:55 Neuro: Orientation: to person, place \T\ time. Mentation: is normal, Motor: moves all fours, strength is normal. 16:27 ECG was reviewed by the Attending Physician. cp Vital Signs: 15:24 BP 169 / 70; Pulse 98; Resp 18; Temp 97.9; Pulse Ox 100% on R/A; Weight 99.79 kg; nj1 Height 5 ft. 2 in. ; 16:00 BP 179 / 86; Pulse 93; Resp 16; Pulse Ox 96% on R/A; db 16:30 BP 170 / 83; Pulse 92; Resp 16; Pulse Ox 96% on R/A; db 17:30 BP 163 / 85; Pulse 87; Resp 16; Pulse Ox 96% on R/A; db 18:30 BP 172 / 74; Pulse 95; Resp 16; Pulse Ox 95% on R/A; db 19:30 BP 173 / 80; Pulse 99; Resp 21; Pulse Ox 95% ; ad6 20:37 BP 170 / 88; Pulse 93; Resp 22; Pulse Ox 96% ; ad6 21:00 BP 177 / 79; Pulse 91; Resp 21; Pulse Ox 94% ; ad6 15:24 Body Mass Index 40.24 (99.79 kg, 157.48 cm) nj1 MDM: 15:30 Patient medically screened. 16:00 Differential diagnosis: gastroesophageal reflux disease, non-specific abd pain, cp pancreatitis, Peptic Ulcer Disease, Perf. Duodenal Ulcer, Perf. Gastric Ulcer, Pyelonephritis, Ureterolithiasis, urinary tract infection. 21:52 Data reviewed: vital signs, nurses notes, lab test result(s), EKG, radiologic studies, cp CT scan, plain films. 21:52 I considered the following discharge prescriptions or medication management in the emergency department Medications were administered in the Emergency Department. See MAR. Counseling: I had a detailed discussion with the patient and/or guardian regarding the historical points, exam findings, and any diagnostic results supporting the discharge/admit diagnosis, lab results, radiology results, to return to the emergency department if symptoms worsen or persist or if there are any questions or concerns that arise at home. Response to treatment: the patient's symptoms have markedly improved after treatment, and as a result, I will discharge patient. Special discussion: Based on the patient's Hx, exam, and Dx evaluation, there is no indication for emergent surgery or inpatient Tx. It is understood by the patient/guardian that if the Sx's persist or worsen they need to return immediately for re-evaluation. 01/28 15:33 Order name: Basic Metabolic Panel; Complete Time: 16:41 01/28 16:42 Interpretation: Normal except: CL 111; GLUC 188; BUN 19; GFR 65. 01/28 15:33 Order name: CBC with Diff; Complete Time: 16:41 01/28 16:42 Interpretation: Normal except: RBC 5.06; URI% 76.7; NEUT A 8.4. 01/28 15:33 Order name: LFT's; Complete Time: 16:41 01/28 19:49 Interpretation: Normal except: GLOB 4.0; A/G 0.9. 01/28 15:33 Order name: Magnesium; Complete Time: 16:41 01/28 15:33 Order name: Troponin HS; Complete Time: 16:41 cp 01/28 15:33 Order name: Lipase; Complete Time: 16:41 cp 01/28 16:21 Order name: Urinalysis W/Microscopic; Complete Time: 16:41 cp 01/28 16:42 Interpretation: Normal except: UGLUC 4+ (Over); UKET 2+; UPROT TRACE; UNIT 2+; UESTR 25.cp 01/28 17:38 Order name: COVID-19 SARS RT PCR; Complete Time: 21:59 cp 01/28 17:38 Order name: Influenza Screen (a \T\ B); Complete Time: 21:59 cp 01/28 15:33 Order name: XRAY Chest (1 view); Complete Time: 17:38 01/28 17:39 Interpretation: Report review. 01/28 16:00 Order name: CT Abd/Pelvis - IV Contrast Only; Complete Time: 17:38 01/28 17:39 Interpretation: Report reviewed. 01/28 15:33 Order name: EKG; Complete Time: 15:33 cp 01/28 15:33 Order name: Cardiac monitoring; Complete Time: 16:48 cp 01/28 15:33 Order name: EKG - Nurse/Tech; Complete Time: 16:48 01/28 15:33 Order name: IV Saline Lock; Complete Time: 16:48 01/28 15:33 Order name: Labs collected and sent; Complete Time: 16:48 01/28 15:33 Order name: O2 Per Protocol; Complete Time: 16:48 01/28 15:33 Order name: O2 Sat Monitoring; Complete Time: 16:48 01/28 16:00 Order name: Accucheck Blood Glucose; Complete Time: 16:58 cp EC:27 Rate is 72 beats/min. Rhythm is regular. MO interval is normal. QRS interval is normal. cp QT interval is normal. T waves are Inverted in lead aVR. Interpreted by me. Reviewed by me. Administered Medications: 16:15 Drug: Famotidine IVP 20 mg Route: IVP; Site: right antecubital; db 19:13 Follow up: Response: No adverse reaction db 16:15 Drug: metoCLOPramide IVP 10 mg Route: IVP; Site: right antecubital; db 19:13 Follow up: Response: No adverse reaction db 16:15 Drug: diphenhydrAMINE IVP 25 mg Route: IVP; Site: right antecubital; db 19:13 Follow up: Response: No adverse reaction db 16:15 Drug: NS 0.9% IV 1000 ml Route: IV; Rate: 500 ml/hr; Site: right antecubital; db 19:13 Follow up: Response: No adverse reaction; IV Status: Completed infusion; IV Intake: db 1000ml 18:08 Drug: Ondansetron IVP 4 mg Route: IVP; Site: left antecubital; db 19:14 Follow up: Response: No adverse reaction db 01/29 00:14 Follow up: Response: No adverse reaction ad6 01/28 18:08 Drug: morphine IVP or IV 4 mg Route: IVP; Infused Over: 4 mins; Site: left antecubital; db 19:13 Follow up: Response: No adverse reaction db 01/29 00:14 Follow up: Response: No adverse reaction ad6 01/28 22:29 Drug: Ondansetron IVP 4 mg Route: IVP; Site: left forearm; ad6 01/29 00:13 Follow up: Response: No adverse reaction ad6 Disposition Summary: 01/28/23 21:54 Discharge Ordered Location: Home cp Problem: new cp Symptoms: have improved cp Condition: Stable cp Diagnosis - Nausea with vomiting, unspecified cp - Upper abdominal pain, unspecified cp Followup: cp - With: Private Physician - When: 2 - 3 days - Reason: Recheck today's complaints Discharge Instructions: - Discharge Summary Sheet cp - Abdominal Pain, Adult cp - Nausea and Vomiting, Adult cp Forms: - Medication Reconciliation Form cp - Thank You Letter cp - Antibiotic Education cp - Prescription Opioid Use cp - Patient Portal Instructions cp - Leadership Thank You Letter cp - Work release form ll3 Prescriptions: - Protonix 40 mg Oral Tablet - take 1 tablet by ORAL route once daily; 30 tablet; Refills: 0, Product cp Selection Permitted - Zofran 4 mg Oral Tablet - take 1 tablet by ORAL route every 12 hours As needed; 20 tablet; Refills: 0, cp Product Selection Permitted Signatures: Dispatcher [facility] Jad Birmingham PA PA cp Elham Hamilton RN RN Lenora Alvarez RN RN ad6 Fani Hooper RN RN nj1 Corrections: (The following items were deleted from the chart) 22:32 08 15:45 Modifying factors: the symptoms are aggravated by food, cp cp
--- NOTE | 2023-01-28 21:55 | ER ---
Nurse's Notes [facility] Name: Guerita Loza Age: 57 yrs Sex: Female : 1965 Arrival Date: 01/28/2023 Time: 14:58 Bed 19 Private MD: Diagnosis: Nausea with vomiting, unspecified;Upper abdominal pain, unspecified Presentation: 01/28 15:24 Chief complaint: Patient states: Nausea and vomiting since yesterday. Abdominal pain nj1 "burning". Actively vomiting during triage. Coronavirus screen: Vaccine status: Patient reports receiving the 2nd dose of the covid vaccine. Ebola Screen: Patient denies travel to an Ebola-affected area in the 21 days before illness onset. Initial Sepsis Screen: Does the patient meet any 2 criteria? HR > 90 bpm. No. Patient's initial sepsis screen is negative. Does the patient have a suspected source of infection? No. Patient's initial sepsis screen is negative. Risk Assessment: Do you want to hurt yourself or someone else? Patient reports no desire to harm self or others. Onset of symptoms was January 27, 2023. 15:24 Method Of Arrival: Ambulatory [facility] 15:24 Acuity: BELEN 3 nj1 Triage Assessment: 19:14 General: Appears. db Historical: - Allergies: 15:26 Scopolamine HBr; [facility] 15:26 Ozempic; nj1 - PMHx: 15:26 Diabetes - NIDDM; Gout; High Cholesterol; Hypertension; nj1 - PSHx: 15:26 section; Cholecystectomy; nj1 - Immunization history:: Client reports receiving the 2nd dose of the Covid vaccine. - Social history:: Smoking status: Patient denies any tobacco usage or history of. Screenin:33 [facility] ED Fall Risk Assessment (Adult) History of falling in the last 3 months, db including since admission No falls in past 3 months (0 pts) Confusion or Disorientation No (0 pts) Intoxicated or Sedated No (0 pts) Impaired Gait No (0 pts) Mobility Assist Device Used No (0 pt) Altered Elimination No (0 pt) Score/Fall Risk Level 0 - 2 = Low Risk Oriented to surroundings, Maintained a safe environment. Abuse screen: Denies threats or abuse. Denies injuries from another. Nutritional screening: No deficits noted. Tuberculosis screening: No symptoms or risk factors identified. Assessment: 16:33 Reassessment: Patient appears in no apparent distress at this time. Patient and/or db family updated on plan of care and expected duration. Pain level reassessed. Patient is alert, oriented x 3, equal unlabored respirations, skin warm/dry/pink. PATIENT REPORTS NAUSEA AND VOMITING. General: Appears in no apparent distress. comfortable, Behavior is calm, cooperative. Pain: Complains of pain in abdomen. Neuro: Level of Consciousness is awake, alert, obeys commands, Oriented to person, place, time, situation. GI: Bowel sounds present X 4 quads. Abd is soft. 17:08 Reassessment: Patient appears in no apparent distress at this time. Patient and/or db family updated on plan of care and expected duration. Pain level reassessed. Patient is alert, oriented x 3, equal unlabored respirations, skin warm/dry/pink. Patient states feeling better. Patient states symptoms have improved. 18:02 Reassessment: PATIENT IV BECAME INFILTRATED. REPLACED IV TO LEFT FOREARM. NOTIFIED db PROVIDER PATIENT COMPLAINING OF NAUSEA AND ABD PAIN. 19:07 Reassessment: Patient appears in no apparent distress at this time. Patient and/or db family updated on plan of care and expected duration. Pain level reassessed. Patient is alert, oriented x 3, equal unlabored respirations, skin warm/dry/pink. PT SLEEPING AT SHIFT CHANGE Patient states feeling better. Neuro: Level of Consciousness is awake, alert, obeys commands, Oriented to person, place, time, situation. 19:38 Reassessment: Patient appears in no apparent distress at this time. Patient and/or ad6 family updated on plan of care and expected duration. Pain level reassessed. Patient is alert, oriented x 3, equal unlabored respirations, skin warm/dry/pink. Patient states feeling better. General: Appears in no apparent distress. comfortable, well groomed, Behavior is calm, quiet. Pain:. Neuro: Level of Consciousness is awake, alert, obeys commands, Oriented to person, place, time, situation. Cardiovascular: Capillary refill < 3 seconds Patient's skin is warm and dry. Respiratory: Airway is patent Respiratory effort is even, unlabored, Respiratory pattern is regular, symmetrical. GI: Reports abdominal pain of 1. : No deficits noted. No signs and/or symptoms were reported regarding the genitourinary system. EENT: No deficits noted. No signs and/or symptoms were reported regarding the EENT system. 20:36 Reassessment: Patient appears in no apparent distress at this time. No changes from ad6 previously documented assessment. Patient and/or family updated on plan of care and expected duration. Pain level reassessed. Patient is alert, oriented x 3, equal unlabored respirations, skin warm/dry/pink. Patient states feeling better. 21:30 Reassessment: Patient appears in no apparent distress at this time. No changes from ad6 previously documented assessment. Patient and/or family updated on plan of care and expected duration. Pain level reassessed. Patient is alert, oriented x 3, equal unlabored respirations, skin warm/dry/pink. Vital Signs: 15:24 BP 169 / 70; Pulse 98; Resp 18; Temp 97.9; Pulse Ox 100% on R/A; Weight 99.79 kg; nj1 Height 5 ft. 2 in. ; 16:00 BP 179 / 86; Pulse 93; Resp 16; Pulse Ox 96% on R/A; db 16:30 BP 170 / 83; Pulse 92; Resp 16; Pulse Ox 96% on R/A; db 17:30 BP 163 / 85; Pulse 87; Resp 16; Pulse Ox 96% on R/A; db 18:30 BP 172 / 74; Pulse 95; Resp 16; Pulse Ox 95% on R/A; db 19:30 BP 173 / 80; Pulse 99; Resp 21; Pulse Ox 95% ; ad6 20:37 BP 170 / 88; Pulse 93; Resp 22; Pulse Ox 96% ; ad6 21:00 BP 177 / 79; Pulse 91; Resp 21; Pulse Ox 94% ; ad6 15:24 Body Mass Index 40.24 (99.79 kg, 157.48 cm) nj1 Vitals: 16:30 Cardiac Rhythm Assessment Sinus rhythm. db ED Course: 15:00 Patient arrived in ED. ts1 15:06 Jad Birmingham PA is PHCP. cp 15:06 Petar Tran MD is Attending Physician. cp 15:26 Triage completed. nj1 15:28 Arm band placed on left wrist. nj1 15:49 Elham Hamilton, RACQUEL is Primary Nurse. db 16:00 Inserted saline lock: 20 gauge in right antecubital area, using aseptic technique. db Blood collected. 16:25 XRAY Chest (1 view) In Process Unspecified. EDMS 17:08 Patient has correct armband on for positive identification. Bed in low position. Call db light in reach. Side rails up X 1. Client placed on continuous cardiac and pulse oximetry monitoring. NIBP monitoring applied. 17:17 CT Abd/Pelvis - IV Contrast Only In Process Unspecified. EDMS 19:47 No provider procedures requiring assistance completed. ad6 20:07 Influenza Screen (a \\T\\ B) Sent. ad6 20:07 COVID-19 SARS RT PCR Sent. ad6 Administered Medications: 16:15 Drug: Famotidine IVP 20 mg Route: IVP; Site: right antecubital; db 19:13 Follow up: Response: No adverse reaction db 16:15 Drug: metoCLOPramide IVP 10 mg Route: IVP; Site: right antecubital; db 19:13 Follow up: Response: No adverse reaction db 16:15 Drug: diphenhydrAMINE IVP 25 mg Route: IVP; Site: right antecubital; db 19:13 Follow up: Response: No adverse reaction db 16:15 Drug: NS 0.9% IV 1000 ml Route: IV; Rate: 500 ml/hr; Site: right antecubital; db 19:13 Follow up: Response: No adverse reaction; IV Status: Completed infusion; IV Intake: db 1000ml 18:08 Drug: Ondansetron IVP 4 mg Route: IVP; Site: left antecubital; db 19:14 Follow up: Response: No adverse reaction db 01/29 00:14 Follow up: Response: No adverse reaction ad6 01/28 18:08 Drug: morphine IVP or IV 4 mg Route: IVP; Infused Over: 4 mins; Site: left antecubital; db 19:13 Follow up: Response: No adverse reaction db 01/29 00:14 Follow up: Response: No adverse reaction ad6 01/28 22:29 Drug: Ondansetron IVP 4 mg Route: IVP; Site: left forearm; ad6 01/29 00:13 Follow up: Response: No adverse reaction ad6 Intake: 01/28 19:13 IV: 1000ml; Total: 1000ml. db Outcome: 21:54 Discharge ordered by . cp 22:20 Condition: improved pf1 22:20 Discharged to home ambulatory. pf1 22:20 Instructed on discharge instructions, follow up and referral plans. Demonstrated pf1 understanding of instructions, follow-up care, medications, Prescriptions given X 2. 23:07 Patient left the ED. pf1 Signatures: Dispatcher [employer] EDMS Jad Birmingham PA PA cp Benton, Danielle, RN RN db Agustina Lazcano RN RN pf1 Lenora Willson RN RN ad6 Fani Hooper RN RN nj1 Arabella Humphrey PAS PAS ts1 Corrections: (The following items were deleted from the chart) 23:06 23:05 Discharged to home ambulatory, pf1 pf1 23:06 23:05 Condition: improved pf1 pf1
[2023-01-28 23:40] VITALS: TEMP 97.9
[2023-01-28 23:50] VITALS: BP 170/88; O2SAT 96
--- NOTE | 2023-01-30 18:02 | EKG ---
Test Date: 2023-01-28 Test Time: 16:22:53 Nailhead Puncher: DANIS MEASUREMENT RESULTS: Intervals: Rate: 72 MA: 146 QRSD: 74 QT: 410 QTc: 448 [place]: P: 40 MA: 146 QRS: 81 T: 44 INTERPRETIVE STATEMENTS: Sinus rhythm with marked sinus arrhythmia Otherwise normal ECG Compared to ECG 10/03/2022 15:16:31 No significant changes Electronically Signed On 01-30-23 17:57:52 CDT by Lavelle Tirado
== END 2023-01-28 23:07 | disposition home or self-care (01) ==
LOC: ER 14:58
DX: R10.10 Upper abdominal pain, unspecified (principal); R11.2 Nausea with vomiting, unspecified; E11.9 Type 2 diabetes mellitus without complications; I10 Essential (primary) hypertension; E78.00 Pure hypercholesterolemia, unspecified; M10.9 Gout, unspecified; Z20.822 Contact with and (suspected) exposure to COVID-19
CPT/HCPCS: 93005; 85025; 81001; 80048; 36415; 83735; 80076; 84484; 83690; 87635; 87804 ×2; 74177; 71045; 99284; Q9967; J2765; J1200; J2405 ×2; J7030

== ENCOUNTER 2024-03-18 11:24 | Inpatient (IN) | payer OTHER, BC ==
[2024-03-18] MEDS ORDERED: NA CHLORIDE 0.9% 1,000 ML ONE ×2 (12:03→14:01)
[2024-03-18] MEDS ORDERED: ONDANSETRON 4 MG/2 ML VIAL ONE (12:03)
[2024-03-18] MEDS ORDERED: MORPHINE 4 MG/ML SYR ONE (12:03)
[2024-03-18 12:12] LABS: PT Prothrombin Time 12.2 SECONDS (9.4-12.5); Protime INR 1.09
[2024-03-18 12:14] LABS: Absolute Basophils 0.1 K/uL (0-0.5); Absolute Eosinophils 0.3 K/uL (0-0.5); Absolute Monocytes 1.1 K/uL (0.1-1.3); Absolute Neutrophil 6.3 K/uL (1.8-8.0); Basophils % 0.9 % (0-1.3); Eosinophils % 2.5 % (0-4.4); Hematocrit 38.1 % (36.0-45.0); Hemoglobin 12.1 g/dL (12.0-15.0); Lymphocytes % 33.9 % (15.3-44.8); MCH 26.4 pg (27.0-35.0); MCHC 31.7 g/dL (32.0-36.0); MCV 83.5 fL (80-100); MPV 8.1 fL (7.6-11.3); Monocytes % 9.2 % (3.3-12.3); Neutrophils % 53.5 % (41.7-73.7); Platelets 398 thou/uL (152-406); RBC Red Blood Cell Count 4.56 M/uL (3.86-4.86); Red Cell Distribution Width 17.7 % (12.1-15.2)
[2024-03-18 12:39] LABS: ALT/SGPT 26 U/L (13-56); AST/SGOT 16 U/L (15-37); Albumin 3.5 g/dL (3.4-5.0); Albumin/Globulin Ratio 0.8 (1.1-1.8); Alkaline Phosphatase 91 U/L (45-117); BUN Blood Urea Nitrogen 34 mg/dL (7-18); Bicarbonate 24 mEq/L (21-32); Bilirubin Total 0.4 mg/dL (0.2-1.0); Globulin 4.2 g/dL (2.3-3.5); Glomerular Filtration Rate 49 ml/min (=/>90); Glucose Level 157 mg/dL (74-106); Magnesium 1.6 mg/dL (1.6-2.4); NT PRO-BNP 284 pg/mL (<125); Protein, Total 7.7 g/dL (6.4-8.2); Sodium Level 139 mEq/L (136-145)
[2024-03-18 12:42] LABS: Bilirubin Direct < 0.2 mg/dL (0-0.2); Bilirubin Indirect, Calculated 0.2 mg/dL (0.2-0.8)
[2024-03-18] MEDS ORDERED: HYDROMORPHONE HCL 1 MG/ML INJ ONE ×2 (12:54→14:01)
--- NOTE | 2024-03-18 13:09 | ER ---
Nurse's Notes [facility] Name: Guerita Loza Age: 58 yrs Sex: Female : 1965 Arrival Date: 03/18/2024 Time: 11:24 Bed 16 Private MD: Diagnosis: Displaced fracture of base of neck of left femur, initial encounter for closed fracture;Obesity, unspecified Presentation: 03/18 11:40 Chief complaint: EMS states: LEFT HIP PAIN AFTER FELT POP WHEN WALKING. PT REPORTS db WAKING UP IN PAIN FOR A FEW DAYS AND USING A CANE. DENIES RECENT FALLS. DENIES RECENT TRAUMA OR INJURY. EMS GAVE ZOFRAN 4 MG AND FENTANYL 100 MCG ( 50 MCG IV AND 50 MCG IM). Coronavirus screen: Client denies travel out of the [place] in the last 14 days. At this time, the client does not indicate any symptoms associated with coronavirus-19. Ebola Screen: Patient negative for fever greater than or equal to 101.5 degrees Fahrenheit, and additional compatible Ebola Virus Disease symptoms Patient denies exposure to infectious person. Patient denies travel to an Ebola-affected area in the 21 days before illness onset. No symptoms or risks identified at this time. Initial Sepsis Screen: Does the patient meet any 2 criteria? No. Patient's initial sepsis screen is negative. Does the patient have a suspected source of infection? No. Patient's initial sepsis screen is negative. Risk Assessment: Do you want to hurt yourself or someone else? Patient reports no desire to harm self or others. Onset of symptoms was March 18, 2024. Care prior to arrival: Medication(s) given: zofran 4 mg, IV initiated. 18 GA, in the right antecubital area, Glucose check: 158. 11:40 Method Of Arrival: EMS: [facility] db 11:40 Acuity: BELEN 3 db Triage Assessment: 11:40 General: Appears in no apparent distress. uncomfortable, Behavior is calm, cooperative. db Pain: Complains of pain in left leg. 11:48 Neuro: Level of Consciousness is awake, alert, obeys commands, Oriented to person, db place, time, situation, Speech is normal. Respiratory: Airway is patent Respiratory effort is even, unlabored, Respiratory pattern is regular, symmetrical. Historical: - Allergies: 11:48 Jardiance; db 11:48 ozempic; db 11:48 Scopolamine HBr; db 11:48 unknown medication for dizziness; db - PMHx: 11:48 Gastroparesis; Gout; High Cholesterol; Diabetes - NIDDM; Hypertension; db - PSHx: 11:48 section; section; Cholecystectomy; db - Immunization history:: Adult Immunizations unknown. - Infectious Disease History:: Denies. - Social history:: Smoking status: Patient denies any tobacco usage or history of. - Family history:: not pertinent. Screenin:21 [facility] ED Fall Risk Assessment (Adult) History of falling in the last 3 months, db including since admission No falls in past 3 months (0 pts) Confusion or Disorientation No (0 pts) Intoxicated or Sedated No (0 pts) Impaired Gait Yes (1 pt) Mobility Assist Device Used Yes (1 pt) Altered Elimination No (0 pt) Score/Fall Risk Level 0 - 2 = Low Risk Oriented to surroundings, Maintained a safe environment. Abuse screen: Denies threats or abuse. Denies injuries from another. Nutritional screening: No deficits noted. Tuberculosis screening: No symptoms or risk factors identified. Assessment: 12:00 Reassessment: Patient appears in no apparent distress at this time. Patient and/or db family updated on plan of care and expected duration. Pain level reassessed. Patient is alert, oriented x 3, equal unlabored respirations, skin warm/dry/pink. SEE TRIAGE FOR INITIAL ASSESSMENT. 12:25 General: Appears in no apparent distress. comfortable. db 12:30 Reassessment: PATIENT REFUSED GOWN AT THIS TIME DUE TO PAIN. db 12:55 Reassessment: Patient and/or family updated on plan of care and expected duration. Pain db level reassessed. Patient is alert, oriented x 3, equal unlabored respirations, skin warm/dry/pink. PATIENT REPORTS N/V SEE MAR FOR MEDICATION ADMINISTRATION. 13:20 Reassessment: Patient appears in no apparent distress at this time. Patient and/or db family updated on plan of care and expected duration. Pain level reassessed. Patient is alert, oriented x 3, equal unlabored respirations, skin warm/dry/pink. Patient states feeling better. Patient states symptoms have improved. 14:00 Reassessment: Patient appears in no apparent distress at this time. Patient and/or db family updated on plan of care and expected duration. Pain level reassessed. Patient is alert, oriented x 3, equal unlabored respirations, skin warm/dry/pink. 15:50 Reassessment: Patient appears in no apparent distress at this time. Patient and/or db family updated on plan of care and expected duration. Pain level reassessed. Patient is alert, oriented x 3, equal unlabored respirations, skin warm/dry/pink. PATIENT BRIEF AND SHEETS CHANGED. NOTED SKIN INTACT. Neuro: Level of Consciousness is awake, alert, obeys commands, Oriented to person, place, time, situation. Vital Signs: 11:40 BP 156 / 73; Pulse 91; Resp 18; Temp 98.3(O); Pulse Ox 98% ; Weight 108.86 kg; Height 5 db ft. 3 in. ; Pain 8/10; 12:00 BP 138 / 59; Pulse 84; Resp 18; Pulse Ox 99% on R/A; db 13:00 BP 146 / 80; Pulse 84; Resp 16; Pulse Ox 96% on R/A; db 14:00 BP 184 / 88; Pulse 87; Resp 22; Temp 98.2; Pulse Ox 95% ; db 15:30 BP 139 / 69; Pulse 97; Resp 18; Temp 98.2; Pulse Ox 97% on R/A; db 11:40 Body Mass Index 42.51 (108.86 kg, 160.02 cm) db 11:40 Pain Scale: Adult db Elijah Coma Score: 11:50 Eye Response: spontaneous(4). Motor Response: obeys commands(6). Verbal Response: michael oriented(5). Total: 15. ED Course: 11:40 Arm band placed on Patient placed in an exam room. db 11:44 Patient arrived in ED. db 11:46 Jad Garcia MD is Attending Physician. michael 11:47 Triage completed. db 11:55 Elham Hamilton, RACQUEL is Primary Nurse. db 12:00 Initial lab(s) drawn, by me, sent to lab. Maintain EMS IV. Dressing intact. Good blood db return noted. Site clean \T\ dry. Gauge \T\ site: 18 G RAC. Flushed with 10 mL NS. 13:05 Stormy Moreira MD is Hospitalizing Provider. michael 13:15 XRAY Chest (1 view) In Process Unspecified. EDMS 13:15 Pelvis XRAY In Process Unspecified. EDMS 13:15 Hip Left 2 View XRAY In Process Unspecified. EDMS 13:15 Femur Left XRAY In Process Unspecified. EDMS 13:38 1338 CM met with Mrs. Loza and her daughter Rach at the bedside in the ED exam ane room. Patient identified by name and . Demographic sheet confirmed. Rach states Ms. Loza lives in a 2 story town next door to her. Prior to admission, the patient performed ADLs independently until her hip pain became unbearable. Patient did not have a fall, her hip pain became so great that she came to the ER. states she was unable to ambulate for several days and ordered a walker and a cane from [employer]. Other DME in her home includes a a shower chair. Patient's PCP is and she sates she does not have an MPOA in place at this time. No HH, no home oxygen or other medical services at this time. Rach states the ultimate plan is for patient to return home upon discharge and that she may be able to stay with her sister in a one story home while she recovers. CM team will continue to follow and coordinate care during this hospital stay. 14:35 Patient has correct armband on for positive identification. Bed in low position. Call db light in reach. Side rails up X 1. Provided Education on: ADMISSION. Client placed on continuous cardiac and pulse oximetry monitoring. NIBP monitoring applied. panel monitor on. Pulse ox on. NIBP on. Warm blanket given. Pillow given. 15:52 No provider procedures requiring assistance completed. Patient admitted, IV remains in db place. Administered Medications: 12:05 Drug: NS 0.9% IV 1000 ml IV at 1 bolus Per protocol; 1000 mL bolus Route: IV; Rate: 1 db bolus; Site: right antecubital; 12:43 Follow up: Response: No adverse reaction; IV Status: Completed infusion; IV Intake: db 1000ml 12:05 Drug: morphine IVP or IV 4 mg IVP once over 4 mins Route: IVP; Infused Over: 4 mins; db Site: right antecubital; 12:43 Follow up: Response: No adverse reaction; Pain is decreased db 12:05 Drug: Ondansetron IVP 4 mg IVP once; over 2 minutes Route: IVP; Site: right antecubital;db 12:43 Follow up: Response: No adverse reaction db 12:56 Drug: HYDROmorphone IVP 1 mg IVP once Route: IVP; Site: right antecubital; db 13:30 Follow up: Response: No adverse reaction; Pain is decreased db 14:00 Drug: NS 0.9% IV 1000 ml IV at 1 bolus Per protocol; 1000 mL bolus Route: IV; Rate: 1 db bolus; Site: right antecubital; 15:53 Follow up: Response: No adverse reaction; IV Status: Completed infusion; IV Intake: db 1000ml 14:05 Drug: Promethazine IVP 12.5 mg IVP once Route: IVP; Site: right antecubital; db 15:53 Follow up: Response: No adverse reaction; Nausea is decreased db 14:05 Drug: Promethazine IVP 12.5 mg IVP once; to liter bag Route: IVP; Site: right db antecubital; 15:53 Follow up: Response: No adverse reaction; Nausea is decreased db 14:10 Drug: HYDROmorphone IVP 1 mg IVP once Route: IVP; Site: right antecubital; db 15:53 Follow up: Response: No adverse reaction; Pain is decreased db Medication: 14:35 VIS not applicable for this client. db Intake: 12:43 IV: 1000ml; Total: 1000ml. db 15:53 IV: 1000ml; Total: 2000ml. db Outcome: 13:09 Decision to Hospitalize by Provider. [facility] 15:52 Admitted to Med/surg accompanied by tech, via stretcher, room 215, Report called to db FAXED AND NOTIFIED PATIENT IS ON THE WAY 15:52 Condition: stable 15:52 Discharge instructions given to patient, Instructed on discharge instructions, follow up and referral plans. 15:53 Patient left the ED. db Signatures: Dispatcher [employer] EDIA Jad Garcia MD MD cha Benton, Danielle, RN RN db Elliott, Andie, RN RN ane Corrections: (The following items were deleted from the chart) 11:48 11:40 Chief complaint: EMS states: LEFT HIP PAIN AFTER FELT POP WHEN WALKING. PT db REPORTS WAKING UP IN PAIN FOR A FEW DAYS AND USING A CANE. DENIES RECENT FALLS. DENIES RECENT TRAUMA OR INJURY db 14:32 12:30 Reassessment: Patient appears in no apparent distress at this time. Patient db and/or family updated on plan of care and expected duration. Pain level reassessed. Patient is alert, oriented x 3, equal unlabored respirations, skin warm/dry/pink. Patient states feeling better. Patient states symptoms have improved. db 14:36 14:35 Client placed on continuous cardiac and pulse oximetry monitoring. NIBP db monitoring applied. panel monitor on. Pulse ox on. NIBP on. db 14:36 14:35 Provided Education on: TRANSFER. db db 14:37 14:34 Reassessment: CALLED [facility] [phone] TO GIVE PT REPORT FOR TRANSFER dbdb
--- NOTE | 2024-03-18 13:09 | EDPHYS ---
Physician Documentation [facility] Name: Guerita Loza Age: 58 yrs Sex: Female : 1965 Arrival Date: 03/18/2024 Time: 11:24 Bed 16 Private MD: CARLEEN Physician Jad Garcia HPI: 03/18 11:50 This 58 yrs old Female presents to ER via EMS with complaints of Hip Pain. michael 11:50 The patient or guardian reports decreased range of motion, pain. that occurred at home, michael sustained from unknown reason, There is no obvious deformity, The patient is not able to ambulate. Patient is not able to bear weight. There is no radiation of the patient's discomfort. The complaints affect the left femoral area and left hip. Modifying factors: The symptoms are alleviated by nothing, remaining still, the symptoms are aggravated by any movement. Severity of symptoms: At their worst the symptoms were moderate, in the emergency department the symptoms are unchanged. The patient has not experienced similar symptoms in the past. Historical: - Allergies: 11:48 Jardiance; db 11:48 ozempic; db 11:48 Scopolamine HBr; db 11:48 unknown medication for dizziness; db - PMHx: 11:48 Gastroparesis; Gout; High Cholesterol; Diabetes - NIDDM; Hypertension; db - PSHx: 11:48 section; section; Cholecystectomy; db - Immunization history:: Adult Immunizations unknown. - Infectious Disease History:: Denies. - Social history:: Smoking status: Patient denies any tobacco usage or history of. - Family history:: not pertinent. ROS: 11:50 Constitutional: Negative for fever, chills, and weight loss, Eyes: Negative for injury, michael pain, redness, and discharge, ENT: Negative for injury, pain, and discharge, Neck: Negative for injury, pain, and swelling, Cardiovascular: Negative for chest pain, palpitations, and edema, Respiratory: Negative for shortness of breath, cough, wheezing, and pleuritic chest pain, Abdomen/GI: Negative for abdominal pain, nausea, vomiting, diarrhea, and constipation, Back: Negative for injury and pain, : Negative for injury, bleeding, discharge, and swelling, Skin: Negative for injury, rash, and discoloration, Neuro: Negative for headache, weakness, numbness, tingling, and seizure, Psych: Negative for depression, anxiety, suicide ideation, homicidal ideation, and hallucinations, Allergy/Immunology: Negative for hives, rash, and allergies, Endocrine: Negative for neck swelling, polydipsia, polyuria, polyphagia, and marked weight changes, Hematologic/Lymphatic: Negative for swollen nodes, abnormal bleeding, and unusual bruising, 11:50 MS/extremity: Positive for decreased range of motion, 11:50 MS/extremity: Positive for pain, of the left hip, left gluteal fold, left inner thigh and left upper thigh and left leg, Exam: 11:50 Constitutional: This is a well developed, well nourished patient who is awake, alert, michael and in no acute distress. Head/Face: Normocephalic, atraumatic. Eyes: Pupils equal round and reactive to light, extra-ocular motions intact. Lids and lashes normal. Conjunctiva and sclera are non-icteric and not injected. Cornea within normal limits. Periorbital areas with no swelling, redness, or edema. ENT: Nares patent. No nasal discharge, no septal abnormalities noted. Tympanic membranes are normal and external auditory canals are clear. Oropharynx with no redness, swelling, or masses, exudates, or evidence of obstruction, uvula midline. Mucous membranes moist. Neck: Trachea midline, no thyromegaly or masses palpated, and no cervical lymphadenopathy. Supple, full range of motion without nuchal rigidity, or vertebral point tenderness. No Meningismus. Chest/axilla: Normal chest wall appearance and motion. Nontender with no deformity. No lesions are appreciated. Cardiovascular: Regular rate and rhythm with a normal S1 and S2. No gallops, murmurs, or rubs. Normal PMI, no JVD. No pulse deficits. Respiratory: Lungs have equal breath sounds bilaterally, clear to auscultation and percussion. No rales, rhonchi or wheezes noted. No increased work of breathing, no retractions or nasal flaring. Abdomen/GI: Soft, non-tender, with normal bowel sounds. No distension or tympany. No guarding or rebound. No evidence of tenderness throughout. Back: No spinal tenderness. No costovertebral tenderness. Full range of motion. Female : Normal external genitalia. Skin: Warm, dry with normal turgor. Normal color with no rashes, no lesions, and no evidence of cellulitis. Neuro: Awake and alert, GCS 15, oriented to person, place, time, and situation. Cranial nerves II-XII grossly intact. Motor strength 5/5 in all extremities. Sensory grossly intact. Cerebellar exam normal. Normal gait. Psych: Awake, alert, with orientation to person, place and time. Behavior, mood, and affect are within normal limits. 11:50 Musculoskeletal/extremity: Extremities: grossly normal except: noted in the left hip: decreased ROM, pain, ROM: limited active range of motion due to pain, limited passive range of motion due to pain, in the left hip, left gluteal fold, left inner thigh and left upper thigh, Circulation is intact in all extremities. DVT Exam: no swelling, no tenderness, negative Homans' sign noted on exam, no appreciated bluish discoloration, no erythema, no increased warmth, pain, tenderness, Calves: are non-tender, have equal circumference, Vital Signs: 11:40 BP 156 / 73; Pulse 91; Resp 18; Temp 98.3(O); Pulse Ox 98% ; Weight 108.86 kg; Height 5 db ft. 3 in. ; Pain 8/10; 12:00 BP 138 / 59; Pulse 84; Resp 18; Pulse Ox 99% on R/A; db 13:00 BP 146 / 80; Pulse 84; Resp 16; Pulse Ox 96% on R/A; db 14:00 BP 184 / 88; Pulse 87; Resp 22; Temp 98.2; Pulse Ox 95% ; db 15:30 BP 139 / 69; Pulse 97; Resp 18; Temp 98.2; Pulse Ox 97% on R/A; db 11:40 Body Mass Index 42.51 (108.86 kg, 160.02 cm) db 11:40 Pain Scale: Adult db Florence Coma Score: 11:50 Eye Response: spontaneous(4). Motor Response: obeys commands(6). Verbal Response: michael oriented(5). Total: 15. MDM: 11:46 Patient medically screened. michael 11:56 Differential diagnosis: hip fracture, intertrochanteric fracture, femoral neck michael fracture, femoral shaft fracture, arthritis, strain. Data reviewed: vital signs, nurses notes, EMS record, lab test result(s), EKG, radiologic studies, plain films. Consideration of Admission/Observation Escalation of care including admission/observation considered. I considered the following discharge prescriptions or medication management in the emergency department Medications were administered in the Emergency Department. See MAR. Independent interpretation of the following test(s) in the Emergency Department EKG: See my EKG interpretation above. Test considered but Not performed: Ultrasound no lower extremity usg. 03/18 11:49 Order name: Basic Metabolic Panel; Complete Time: 14:00 michael 03/18 11:49 Order name: CBC with Diff; Complete Time: 14:00 michael 03/18 11:49 Order name: LFT's; Complete Time: 14:00 michael 03/18 11:49 Order name: Magnesium; Complete Time: 14:00 michael 03/18 11:49 Order name: NT PRO-BNP; Complete Time: 14:00 michael 03/18 11:49 Order name: PT-INR; Complete Time: 14:00 michael 03/18 11:49 Order name: Troponin HS; Complete Time: 14:00 michael 03/18 13:40 Order name: Basic Metabolic Panel EDMS 03/18 13:40 Order name: Basic Metabolic Panel EDMS 03/18 13:40 Order name: Basic Metabolic Panel EDMS 03/18 13:40 Order name: Basic Metabolic Panel EDMS 03/18 13:40 Order name: Basic Metabolic Panel EDMS 03/18 13:40 Order name: Basic Metabolic Panel EDMS 03/18 13:40 Order name: Basic Metabolic Panel EDMS 03/18 13:40 Order name: Basic Metabolic Panel EDMS 03/18 13:40 Order name: CBC with Automated Diff EDMS 03/18 13:40 Order name: CBC with Automated Diff EDMS 03/18 13:40 Order name: CBC with Automated Diff EDMS 03/18 13:40 Order name: CBC with Automated Diff EDMS 03/18 13:40 Order name: CBC with Automated Diff EDMS 03/18 13:40 Order name: CBC with Automated Diff EDMS 03/18 13:41 Order name: CBC with Automated Diff EDMS 03/18 13:41 Order name: CBC with Automated Diff EDMS 03/18 13:41 Order name: Magnesium EDMS 03/18 13:41 Order name: Magnesium EDMS 03/18 13:41 Order name: Magnesium EDMS 03/18 13:41 Order name: Magnesium EDMS 03/18 13:41 Order name: Magnesium EDMS 03/18 13:41 Order name: Magnesium EDMS 03/18 13:41 Order name: Magnesium EDMS 03/18 13:41 Order name: Magnesium EDMS 03/18 13:41 Order name: Phosphorus EDMS 03/18 13:41 Order name: Phosphorus EDMS 03/18 13:41 Order name: Phosphorus EDMS 03/18 13:41 Order name: Phosphorus EDMS 03/18 13:41 Order name: Phosphorus EDMS 03/18 13:41 Order name: Phosphorus EDMS 03/18 13:41 Order name: Phosphorus EDMS 03/18 13:41 Order name: Phosphorus EDMS 03/18 14:29 Order name: Glucose, Ancillary Testing EDMS 03/18 11:49 Order name: XRAY Chest (1 view); Complete Time: 14:00 [facility] 03/18 11:49 Order name: Pelvis XRAY; Complete Time: 14:00 [facility] 03/18 11:49 Order name: Hip Left 2 View XRAY; Complete Time: 14:00 [facility] 03/18 11:49 Order name: Femur Left XRAY; Complete Time: 14:00 [facility] 03/18 11:49 Order name: EKG; Complete Time: 11:49 [facility] 03/18 13:40 Order name: CONS Physician Consult [facility] 03/18 11:49 Order name: Cardiac monitoring; Complete Time: 12:43 [facility] 03/18 11:49 Order name: EKG - Nurse/Tech; Complete Time: 12:43 [facility] 03/18 11:49 Order name: IV Saline Lock; Complete Time: 12:09 [facility] 03/18 11:49 Order name: Labs collected and sent; Complete Time: 12:09 [facility] 03/18 11:49 Order name: O2 Per Protocol; Complete Time: 12:09 [facility] 03/18 11:49 Order name: O2 Sat Monitoring; Complete Time: 12:09 [facility] Administered Medications: 12:05 Drug: NS 0.9% IV 1000 ml IV at 1 bolus Per protocol; 1000 mL bolus Route: IV; Rate: 1 db bolus; Site: right antecubital; 12:43 Follow up: Response: No adverse reaction; IV Status: Completed infusion; IV Intake: db 1000ml 12:05 Drug: morphine IVP or IV 4 mg IVP once over 4 mins Route: IVP; Infused Over: 4 mins; db Site: right antecubital; 12:43 Follow up: Response: No adverse reaction; Pain is decreased db 12:05 Drug: Ondansetron IVP 4 mg IVP once; over 2 minutes Route: IVP; Site: right antecubital;db 12:43 Follow up: Response: No adverse reaction db 12:56 Drug: HYDROmorphone IVP 1 mg IVP once Route: IVP; Site: right antecubital; db 13:30 Follow up: Response: No adverse reaction; Pain is decreased db 14:00 Drug: NS 0.9% IV 1000 ml IV at 1 bolus Per protocol; 1000 mL bolus Route: IV; Rate: 1 db bolus; Site: right antecubital; 15:53 Follow up: Response: No adverse reaction; IV Status: Completed infusion; IV Intake: db 1000ml 14:05 Drug: Promethazine IVP 12.5 mg IVP once Route: IVP; Site: right antecubital; db 15:53 Follow up: Response: No adverse reaction; Nausea is decreased db 14:05 Drug: Promethazine IVP 12.5 mg IVP once; to liter bag Route: IVP; Site: right db antecubital; 15:53 Follow up: Response: No adverse reaction; Nausea is decreased db 14:10 Drug: HYDROmorphone IVP 1 mg IVP once Route: IVP; Site: right antecubital; db 15:53 Follow up: Response: No adverse reaction; Pain is decreased db Disposition Summary: 03/18/24 13:09 Hospitalization Ordered Notes: Hospitalization Status: Inpatient Admission michael Provider: Stormy Moreira cha Location: Telemetry/MedSurg (Inpatient) michael Condition: Fair michael Problem: new michael Symptoms: have improved michael Bed/Room Type: Standard michael Room Assignment: 215(03/18/24 13:52) bd Diagnosis - Displaced fracture of base of neck of left femur, initial encounter for closed michael fracture - Obesity, unspecified michael Forms: - Medication Reconciliation Form michael - SBAR form michael - Leadership Thank You Letter michael Signatures: Dispatcher [employer] EDMS Reyna Springer Corey, MD MD cha Benton, Danielle RN RN db Corrections: (The following items were deleted from the chart) 11:49 11:49 Pelvis+RAD.RAD.BRZ ordered. EDMS EDMS 11:49 11:49 Hip Left 2 View+RAD.RAD.BRZ ordered. EDMS EDMS 1149 11:49 Femur Left+RAD.RAD.BRZ ordered. EDMS EDMS 13:52 13:09 [facility]
--- NOTE | 2024-03-18 13:24 | RAD REPORT ---
EXAMINATION: ONE VIEW CHEST XR CLINICAL INDICATION: Female, 58 years old.,COUGH TECHNIQUE: Frontal chest projection is submitted. Examination is limited by patient positioning and t echnique. COMPARISON: 01/28/2023 FINDINGS: The lungs are well inflated and clear of focal opacities. Stable central interstitial prominence. No pneumothorax or sizable effusion. The heart is normal in size. IMPRESSION: Stable mild central interstitial prominence, may reflect mild central congestion. Findings exacerbate d by poor inspiratory effort
--- NOTE | 2024-03-18 13:25 | P.HP ---
Certification for Inpatient Patient admitted to: Inpatient With expected LOS: >2 Midnights Patient will require the following post-hospital care: None Practitioner: I am a practitioner with admitting privileges, knowledge of patient current condition, hospital course, and medical plan of care. Services: Services provided to patient in accordance with Admission requirements found in Title 42 Section 412.3 of the Code of Federal Regulations Patient History Date of Service: 03/18/24 Reason for admission: Acute left femoral neck fracture History of Present Illness: Guerita Loza is a 58 year old female with Pmhx gastroparesis, gout, hypercholesterolemia, diabetes melitisNIDDM, hypertension who presents to the ED with chief complaint of left hip pain, decreased range of motion, and unable to ambulate. She reports going to an urgent care on and Monday where xrays resulted negative for an injury. Family at bedside reports Guerita felt a pop this morning experiencing worse pain. Pelvic, femur, hip x-rays show left femoral neck fractures. On examination, she is vomiting and dry heaving. Pain was slightly relieved but nausea continued. She was able to position herself in bed, 2+ peripheral pulses present. Pelvic x-ray reports "No pelvic fracture identified. Left proximal humerus fracture. Reference dedicated left hip radiograph." Left Femur x-ray report "Mildly displaced left femoral neck fracture. Other chronic findings as above." Left Hip x-ray reports "Mildly displaced fracture at the base of the left femoral neck." Chest xray reports "Stable mild central interstitial prominence, may reflect mild central congestion. Findings exacerbated by poor inspiratory effort." Guerita will be admitted to hospitalist service for further treatment of left femoral neck fracture, Dr. Delvalle consulted Allergies scopolamine Adverse Reaction (Verified 10/01/22 17:39) dizziness Home Medications: Allopurinol 100 mg PO DAILY 10/01/22 Atorvastatin Calcium 10 mg PO BEDTIME 10/01/22 Lisinopril/Hydrochlorothiazide [Lisinopril-Hctz 20-12.5 mg Tab] 1 each PO DAILY 10/01/22 Metformin ER [Glucophage ER*] 1,000 mg PO BID 10/01/22 Montelukast [Singulair*] 10 mg PO DAILY 10/01/22 Pioglitazone [Actos*] 15 mg PO DAILY 10/01/22 Dapagliflozin Propanediol [Farxiga] 10 mg PO DAILY 03/18/24 Insulin Regular, Human [Humulin R U-500 Kwikpen] 75 - 80 unit SQ BEDTIME 03/18/24 Insulin Regular, Human [Humulin R U-500 Kwikpen] 85 unit SQ DAILY 03/18/24 Lansoprazole 30 mg PO DAILY 03/18/24 - Past Medical/Surgical History Diabetic: Yes -: Diabetes -: Hypertension -: Gout -: Morbid obesity -: x2 -: trino - Family History Father -: Diabetes Mother -: Heart disease, Hypertension, Diabetes Brother -: Hypertension, Diabetes Sister -: Diabetes - Social History Smoking Status: Never smoker Alcohol use: No CD- Drugs: No Caffeine use: Yes Review of Systems Gastrointestinal: Nausea, Vomiting Musculoskeletal: Other (Left hip pain) Physical Examination - Physical Exam General: Alert, Oriented x3, Acute distress HEENT: Atraumatic, Normocephalic, PERRLA Neck: Supple, 2+ carotid pulse no bruit Respiratory: Clear to auscultation bilaterally, Normal air movement Cardiovascular: Normal pulses, Regular rate/rhythm, Normal S1 S2 Capillary refill: <2 Seconds Gastrointestinal: Normal bowel sounds, Soft and benign, No tenderness Musculoskeletal: No clubbing Integumentary: No rashes Neurological: Normal speech, Normal tone - Studies Laboratory Data (last 24 hrs) 03/18/24 03/18/24 03/18/24 12:00 12:00 12:00 WBC 11.80 H Hgb 12.1 Hct 38.1 Plt Count 398 PT 12.2 INR 1.09 Sodium 139 Potassium 4.0 BUN 34 H Creatinine 1.26 H Glucose 157 H Magnesium 1.6 Total Bilirubin 0.4 AST 16 ALT 26 Alkaline Phosphatase 91 Assessment and Plan - Plan Assessment and plan Acute left femoral neck fracture Nausea/vomiting -Pelvic x-ray reports "No pelvic fracture identified. Left proximal humerus fracture. Reference dedicated left hip radiograph." -Left Femur x-ray report "Mildly displaced left femoral neck fracture. Other chronic findings as above." -Left Hip x-ray reports "Mildly displaced fracture at the base of the left femoral neck." -Dr. Delvalle consulted -N.p.o. at midnight -Pain control -Zofran -IV fluids Diabetes mellitusIDDM -Accu-Chek with sliding scale insulin Hypertension Hypercholesterolemia Gout Gastroparesis -Continue home medication -Supportive care -Monitor vitals Q4 DVT ppx SCD Full code LOS 2-3 days - Advance Directives Does patient have a Living Will: No Does patient have a Durable POA for Healthcare: No
--- NOTE | 2024-03-18 13:26 | RAD REPORT ---
EXAMINATION: Hip Left 2 View CLINICAL INDICATION: Female, 58 years old. [facility] MAIN PAIN Bed Name: 16 TECHNIQUE: 2 view radiograph of the left hip were obtained. COMPARISON: No prior exam. FINDINGS: Mildly displaced fracture at the base of the left femoral neck, with some abduction of the femoral head/neck. Normal alignment. No evidence of periosteal reaction or a focal suspicious osseous lesion. Moderate degenerative changes of the hip joint. Soft tissues are unremarkable. IMPRESSION: Mildly displaced fracture at the base of the left femoral neck.
--- NOTE | 2024-03-18 13:29 | RAD REPORT ---
EXAMINATION: Femur Left CLINICAL INDICATION: Female, 58 years old. PAIN TECHNIQUE: 2 view radiograph of the left femur were obtained. COMPARISON: No prior exam. FINDINGS: Mildly displaced left femoral base of neck fracture. No suspicious focal osseous lesion. Mo derate degenerative changes of the femoral acetabular joint. Enthesopathy at the quadriceps tendon attachment. Soft tissues are unremarkable. IMPRESSION: Mildly displaced left femoral neck fracture. Other chronic findings as above.
[2024-03-18] MEDS ORDERED: ACETAMINOPHEN 325 MG TABLET PO PRN (13:35)
--- NOTE | 2024-03-18 13:41 | RAD REPORT ---
EXAMINATION: XR PELVIS CLINICAL INDICATION: Female, 58 years old. PAIN TECHNIQUE: Frontal view of the pelvis [id number]. COMPARISON: No prior exam. FINDINGS: Left hip fracture as noted on the dedicated left hip radiograph. No pelvic fractures identi fied. Both hips appear located.. Bilateral acetabular degenerative changes. Degenerative changes are present in the lower spine. IMPRESSION: No pelvic fracture identified. Left proximal humerus fracture. Reference dedicated left hip radiograp h.
[2024-03-18] MEDS ORDERED: PROMETHAZINE INJ 25 MG/ML AMP ONE (14:01)
[2024-03-18] MEDS ORDERED: D50W 25 GM/50 ML SYRINGE IV PRN (14:58)
[2024-03-18] MEDS ORDERED: GLUCAGON 1 MG/VIAL IV PRN (14:59)
[2024-03-18] MEDS ORDERED: D10W 125 ML IV PRN (15:00)
[2024-03-18] MEDS: INSULIN REGULAR (HUMAN) 100 UNIT/ML SQ SCH (16:30)
[2024-03-18] MEDS: NA CHLORIDE 0.9% 1,000 ML IV SCH (16:31)
[2024-03-18 16:52] VITALS: BMI 42.5
[2024-03-18] MEDS: HYDROCODONE/APAP 7.5/325 MG TAB PO PRN (19:32)
[2024-03-18] MEDS: HYDROMORPHONE HCL 1 MG/ML INJ IV PRN (20:38)
[2024-03-19] MEDS: ONDANSETRON 4 MG/2 ML VIAL IV PRN (04:12)
[2024-03-19 06:13] LABS: Absolute Basophils 0.1 K/uL (0-0.5); Absolute Eosinophils 0.2 K/uL (0-0.5); Absolute Lymphocytes (CBC) 4.2 K/uL (0.7-4.9); Absolute Monocytes 1.3 K/uL (0.1-1.3); Basophils % 0.5 % (0-1.3); Eosinophils % 1.7 % (0-4.4); Hematocrit 36.8 % (36.0-45.0); Hemoglobin 11.4 g/dL (12.0-15.0); Lymphocytes % 30.5 % (15.3-44.8); MCH 26.3 pg (27.0-35.0); MCHC 31.1 g/dL (32.0-36.0); MCV 84.8 fL (80-100); MPV 8.5 fL (7.6-11.3); Monocytes % 9.3 % (3.3-12.3); Platelets 371 thou/uL (152-406); RBC Red Blood Cell Count 4.34 M/uL (3.86-4.86); Red Cell Distribution Width 17.8 % (12.1-15.2)
[2024-03-19 06:35] LABS: Magnesium 1.7 mg/dL (1.6-2.4); Phosphorus 3.3 mg/dL (2.5-4.9)
[2024-03-19] MEDS ORDERED: ONDANSETRON 4 MG/2 ML VIAL ONE (09:40)
[2024-03-19] MEDS ORDERED: propofoL 200 MG/20 ML VIAL IV ONE (09:40)
[2024-03-19] MEDS ORDERED: LIDOCAINE 2% MPF 5 ML VIAL ONE (09:40)
[2024-03-19] MEDS ORDERED: FENTANYL CITR 100 MCG/2 ML ONE (09:42)
[2024-03-19] MEDS ORDERED: MIDAZOLAM HCL 2 MG/2 ML INJ ONE (09:42)
[2024-03-19] MEDS: ROPLVACAINE HCL 20 ML ONE ×2 (10:25→10:27)
[2024-03-19] MEDS: SUCCINYLCHOLINE 20 MG/ML (10 ML) IV ONE (10:26)
[2024-03-19] MEDS ORDERED: ROCURONIUM 50 MG/5 ML VIAL IV ONE ×2 (10:29→11:40)
[2024-03-19] MEDS: TRANEXAMIC ACID 1,000 MG/10 ML VIAL IV ONE ×2 (10:31→10:36)
[2024-03-19] MEDS: CEFAZOLIN SODIUM 2 GM/VIAL ONE (10:31)
[2024-03-19] MEDS ORDERED: EPINEPHRINE 1 MG/ML VIAL ONE (10:34)
[2024-03-19] MEDS ORDERED: dexAMETHasone 10 MG/ML VIAL ONE (10:34)
[2024-03-19] MEDS: SUGAMMADEX SODIUM 200 MG/2 ML VIAL IV ONE (11:10)
[2024-03-19] MEDS ORDERED: EPHEDRINE SULF 50 MG/ML VIAL ONE (11:27)
[2024-03-19] MEDS: 0.9 % SODIUM CHLORIDE 1,000 ML IV ONE (11:40)
--- NOTE | 2024-03-19 12:30 | EKG ---
Test Date: 2024-03-18 Test Time: 12:30:30 Noc Technician: DARIAN MEASUREMENT RESULTS: Intervals: Rate: 81 MA: 162 QRSD: 72 QT: 388 QTc: 450 [place]: P: 59 MA: 162 QRS: 71 T: 32 INTERPRETIVE STATEMENTS: Normal sinus rhythm Normal ECG Compared to ECG 01/28/2023 16:22:53 Sinus arrhythmia no longer present Electronically Signed On 03-19-24 12:26:37 CDT by Rasheed Gudino
--- NOTE | 2024-03-19 12:35 | P.PN ---
Date of Service: 03/19/24 Subjective: C/O left leg pain No acute events overnight Awaiting operative management for femur fracture ROS: 10 point ROS as noted above, otherwise negative Physical exam GEN: Alert, oriented, NAD HEENT: Normal conjunctiva, sclera anicteric CV: Regular rate and rhythm, no edema Pulm: Nonlabored respirations on room air ABD: Soft, nontender, nondistended MSK: No joint tenderness Integumentary: No rashes Neuro: Normal speech, normal affect Vitals reviewed Assessment and plan Acute left femoral neck fracture Nausea/vomiting -Dr. Delvalle consulted -PT consult when appropriate per ortho Diabetes mellitusIDDM -Accu-Chek with sliding scale insulin Hypertension Hypercholesterolemia Gout Gastroparesis -Continue home medication -Supportive care DVT ppx SCD Full code LOS 2-3 days Time Spent Managing Pts Care (In Minutes): 35
--- NOTE | 2024-03-19 12:54 | P.BOP ---
Preoperative diagnosis: left hip basicervical fracture Postoperative diagnosis: same Primary procedure: CR IM kelly left hip Estimated blood loss: 100ccs Anesthesia: General Complications: None Transferred to: Recovery Room Condition: Good
[2024-03-19] MEDS: HYDROMORPHONE HCL 1 MG/ML INJ ONE ×2 (13:35→13:41)
[2024-03-19] MEDS: ONDANSETRON 4 MG/2 ML VIAL ONE (14:11)
[2024-03-19] MEDS: LABETALOL 20 MG/4ML SYRINGE IV ONE (14:18)
[2024-03-19] MEDS: PROMETHAZINE INJ 25 MG/ML AMP ONE (14:18)
--- NOTE | 2024-03-19 14:56 | RAD REPORT ---
EXAM: Fluoroscopy use, Hip in OR Left 2 View HISTORY: [facility] MAIN LT HIP IM RODDING COMPARISON: None FINDINGS: A total of 66 images were sent to PACS, during a fluoroscopically guided left hip internal fixation. No radiologist was involved in protocoling or performance of the study, and no radiologist was present for the duration of the procedure. No interpretation of the saved images will be provided. Total fluoroscopy time: 3.5 minutes. IMPRESSION: Documentation of fluoroscopy use as above.
[2024-03-19] MEDS: MAGNESIUM SULFATE 1 gm IVPB 1 GM/100 ML BAG IV ONE ×2 (15:10→15:25)
[2024-03-19] MEDS: CEFAZOLIN 1 GM in NA CHLORIDE 0.9% 50 ML IVPB SCH (16:27)
--- NOTE | 2024-03-19 22:50 | OP ---
Date of Procedure: 03/19/2024 Surgeon: Tommy Delvalle MD Preoperative Diagnosis: Left basicervical fracture of the femur. Postoperative Diagnosis: Left basicervical fracture of the femur. Procedure Performed: Left hip closed reduction with intramedullary fixation of basicervical fracture . Estimated Blood Loss: 100 cc. Complications: There were no complications. Indications For Operation: Ms. Loza is a 58-year-old female, who has had trouble with both of he r hips for quite some time including her low back. She does have a relatively high BMI. She says he r left hip started hurting her more and more, where it got very difficult for even to ambulate and wh en she was going to bed, she felt something shift or move when she had tremendous pain. She was then taken to the emergency room, where x-rays were taken which demonstrated a slightly displaced basicer vical fracture of the femur. There does not appear to be any pathologic changes associated with this and risks, benefits, and alternatives to different methods of treating this have been discussed with her including nonoperative management, open reduction and internal fixation, intramedullary kelly fixa tion, and calcar replacing total hip arthroplasty. Based on her young age and her ability to work an d ambulate prior to this injury, decision was made to retain the paimiut hip and treat the fracture an d intramedullary fixation is selected. Risks associated with this were again discussed with her. Sai jaimes states she understands things as presented and wishes to proceed. Description Of Procedure: The patient was taken to the operating room and placed in supine position. General anesthesia was easily obtained by the Anesthesia staff. Following this, she was then trans ferred to the fracture table, where she was appropriately positioned. She has an absolutely ideal re duction with the use of the C-arm. However, given her large BMI, there was some concern that we may have some displacement as we were placing the nail or intraoperatively and great care was taken to no t exaggerate the fracture. This does necessitate a little bit of abduction to maintain the reduction . She was then prepped and draped in a normal sterile fashion and the position of the greater trocha nter was marked out. It is slightly larger than normal. Incision was made superior to the greater t rochanter carefully through skin and soft tissues. Meticulous hemostasis maintained. The fascia was encountered. A small stab wound was made there. This allows for placement of the starting guide. The starting guide was then placed appropriately not wanting to go across the fracture site. It was a little bit more lateral than normal. The starting awl was then placed and attempts were made to pl efrain the guide kelly. Given the patient's abducted position as well as the very deep position of the tr ochanter, this was somewhat difficult and it does necessitate a little bit of abduction in order to p ass the guide kelly. The guide kelly was then eventually passed. It was then brought back out to a posi tion of abduction to reduce the fracture again and the ice handler was used. The ice handler has the same problem as the guide and it does have to be a little bit abducted, which does displace the frac ture slightly, however, the ice handler was placed. After this, the kelly was then placed and again we have to abduct a little to place the kelly. The kelly passed at the fracture site. It was abducted sli ghtly again as it takes quite a while to progress the kelly down past this and there was a little bit o f change at the fracture site. Her femoral neck was quite small. However, the guide pin was easily placed for the cephalomedullary screw. The cephalomedullary screw was placed. 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 The antirotation drill bit was removed and the fracture was compressed using compression feat ure, did not appear to be enough space to place the antirotation screw as this was very superior in t he neck because she has a very small femoral neck. Decision was made therefore to eventually lock th e cephalomedullary screw which does have a very good bite. The distal interlock was placed and the g uide was removed. Following this, the locking screw was placed to help avoid rotation. After this, the wounds were closed in a watertight fashion. She was placed in Aquacel dressing, awakened, and taken to recovery room in good condition. No complications . SE/MODL Voice ID: [id number] Report ID: [id number]
--- NOTE | 2024-03-20 02:53 | CON ---
Date of Consultation: 03/18/2024 History Of Present Illness: This is my first time I am seeing this patient to my knowledge. She is a 58-year-old female, who says she has had trouble with her back as well as both of her hips for quit e some time. She said she had increasing pain related to her left hip. Over time, she has been told there is nothing that can be done about this, however, I have not told her that, but unfortunately, her pain began to get worse and worse and she says that she was walking with increased pain and it be came so painful that it was difficult for her to walk and she says she was trying to move herself fro m the bed whenever she felt a click or suddenly move her hip and then had increased pain and was brou ght to the emergency department. She specifically denies any fall or other major trauma related to h er hip. Physical Examination: All of her long bones and joints are palpated without pain or crepitation with the exception of pain with movement of her left hip. She is neurovascularly intact. She does have a high BMI. Imaging Data: Review of her x-rays reveal a slightly displaced fracture of the basicervical area of the femur. It is closely examined for any sign of pathologic lesion on this x-ray as her history is somewhat non-supportive of obtaining this fracture. However, there is no sign of any suspicious osse ous lesion or periosteal reaction. Assessment: A 58-year-old female with high BMI, now with left basicervical fracture. Risks, benefit s, and alternatives of different methods of treating this have been discussed with the patient. She says she understands things as presented and will proceed with closed or open reduction with intramed ullary fixation being most likely tomorrow. The risks, benefits, and alternatives associated with th is particular procedure again discussed. She says she understands things as presented. All of her ques tions were answered. WALI Voice ID: [id number] Report ID: [id number]
[2024-03-20 04:44] LABS: Absolute Basophils 0.1 K/uL (0-0.5); Absolute Lymphocytes (CBC) 2.6 K/uL (0.7-4.9); Absolute Monocytes 1.3 K/uL (0.1-1.3); Absolute Neutrophil 10.6 K/uL (1.8-8.0); Basophils % 0.6 % (0-1.3); Hematocrit 36.5 % (36.0-45.0); Hemoglobin 11.1 g/dL (12.0-15.0); Lymphocytes % 17.8 % (15.3-44.8); MCH 25.7 pg (27.0-35.0); MCHC 30.5 g/dL (32.0-36.0); MCV 84.4 fL (80-100); MPV 8.1 fL (7.6-11.3); Monocytes % 8.7 % (3.3-12.3); Neutrophils % 72.9 % (41.7-73.7); Platelets 347 thou/uL (152-406); RBC Red Blood Cell Count 4.32 M/uL (3.86-4.86)
[2024-03-20 04:59] LABS: Anion Gap 11.8 mEq/L (5.0-15.0); Magnesium 2.2 mg/dL (1.6-2.4); Phosphorus 3.1 mg/dL (2.5-4.9); Potassium 4.8 mEq/L (3.5-5.1)
[2024-03-20] MEDS: INSULIN REGULAR (HUMAN) 100 UNIT/ML SQ SCH ×2 (08:52→20:16)
[2024-03-20] MEDS: PIOGLITAZONE 15 MG TAB PO SCH (08:54)
[2024-03-20] MEDS: PANTOPRAZOLE 40MG TABLET PO SCH (08:54)
[2024-03-20] MEDS: METFORMIN ER 500 MG TAB PO SCH (08:54)
[2024-03-20] MEDS: allopurinoL 100 MG TAB PO SCH (08:55)
[2024-03-20] MEDS: MONTELUKAST 10 MG TAB PO SCH (08:55)
[2024-03-20] MEDS: HOME MED 1 EA UNK (Lisinopril/Hydrochlorothiazide [Lisinopril-Hctz 20-12.5 Mg Tab] Tablet) PO SCH (09:00)
[2024-03-20] MEDS: HOME MED 1 EA UNK (Dapagliflozin Propanediol [Farxiga] 10 MG Tablet) PO SCH (09:00)
[2024-03-20] MEDS: ENOXAPARIN 40 MG/0.4 ML SQ SCH (09:08)
--- NOTE | 2024-03-20 09:11 | P.PN ---
Date of Service: 03/20/24 Subjective: C/O left leg pain S/P IM kelly left femur 03/19 ROS: 10 point ROS as noted above, otherwise negative Physical exam GEN: Alert, oriented, NAD HEENT: Normal conjunctiva, sclera anicteric CV: Regular rate and rhythm, no edema Pulm: Nonlabored respirations on room air ABD: Soft, nontender, nondistended MSK: No joint tenderness, dressing LLE CDI Integumentary: No rashes Neuro: Normal speech, normal affect Vitals reviewed Assessment and plan Acute left femoral neck fracture -Dr. Delvalle consulted -PT ordered TDWB LLE-await PT eval -As needed pain meds Diabetes mellitusIDDM -Accu-Chek with sliding scale insulin -Home meds resumed Hypertension Hypercholesterolemia Gout Gastroparesis -Continue home medication -Supportive care DVT ppx SCD Full code LOS 2-3 days Time Spent Managing Pts Care (In Minutes): 35
--- NOTE | 2024-03-20 14:42 | DS ---
The patient was seen today. She is resting comfortably in bed. She says she still has a little numb ness in her leg, most likely from the block. Her dressing is clean, dry, and intact. Gentle motion of her hip is without significant problems. She is getting up with therapy. At this time, she would continue touchdown weightbearing. Blood thinner is usually recommended for 3 weeks followed by 3 we eks of aspirin. As far as discharge planning goes, she will work with the hospitalist, insurance, an d Physical Therapy, and social work. We will need to see her back 2 weeks from time of surgery for s uture removal. Although she is having this done by Home Health, I will remove the dressing only as n howard. All of her questions had been answered today. WALI Voice ID: [id number] Report ID: [id number]
[2024-03-20] MEDS: ATORVASTATIN 10 MG TAB PO SCH (20:23)
[2024-03-21 04:46] LABS: Absolute Basophils 0.1 K/uL (0-0.5); Absolute Eosinophils 0.2 K/uL (0-0.5); Absolute Lymphocytes (CBC) 6.2 K/uL (0.7-4.9); Absolute Monocytes 1.4 K/uL (0.1-1.3); Absolute Neutrophil 7.8 K/uL (1.8-8.0); Basophils % 0.9 % (0-1.3); Hemoglobin 10.7 g/dL (12.0-15.0); Lymphocytes % 39.7 % (15.3-44.8); MCH 26.5 pg (27.0-35.0); MCHC 31.4 g/dL (32.0-36.0); MCV 84.3 fL (80-100); MPV 8.4 fL (7.6-11.3); Monocytes % 8.8 % (3.3-12.3); Neutrophils % 49.6 % (41.7-73.7); Platelets 333 thou/uL (152-406); RBC Red Blood Cell Count 4.04 M/uL (3.86-4.86); Red Cell Distribution Width 17.6 % (12.1-15.2)
[2024-03-21 04:56] LABS: Anion Gap 9.9 mEq/L (5.0-15.0); Magnesium 1.6 mg/dL (1.6-2.4); Phosphorus 2.8 mg/dL (2.5-4.9); Potassium 3.9 mEq/L (3.5-5.1)
[2024-03-21] MEDS ORDERED: INSULIN REGULAR (HUMAN) 100 UNIT/ML SQ SCH (09:00)
--- NOTE | 2024-03-21 09:41 | RAD REPORT ---
EXAMINATION: ONE VIEW CHEST XR CLINICAL INDICATION: Female, 58 years old.Cough, leukocytosis TECHNIQUE: 1 View, AP supine, X-ray of the chest was performed. [id number]. COMPARISON: 03/18/2024 FINDINGS: Lungs and pleura: Clear lungs. No effusion. Heart and mediastinum: Normal heart size. Unremarkable mediastinal contours. Osseous structures: No acute abnormality. Tubes/lines: None Other: None. IMPRESSION: No acute intrathoracic abnormality.
[2024-03-21] MEDS: LISINOPRIL HCTZ PO SCH (09:52)
[2024-03-21] MEDS: Dapagliflozin Propanediol [Farxiga] 10 MG Tablet *PT OWN MED PO SCH (09:52)
[2024-03-21] MEDS ORDERED: SODIUM CHLORIDE 0.9% 10ML INJ IV PRN (13:44)
--- NOTE | 2024-03-21 13:48 | P.PN ---
Date of Service: 03/21/24 Subjective: C/O left leg pain S/P IM kelly left femur 03/19 Did a little better with PT today, limited by pain and nausea ROS: 10 point ROS as noted above, otherwise negative Physical exam GEN: Alert, oriented, NAD HEENT: Normal conjunctiva, sclera anicteric CV: Regular rate and rhythm, no edema Pulm: Nonlabored respirations on room air ABD: Soft, nontender, nondistended MSK: No joint tenderness, dressing LLE CDI Integumentary: No rashes Neuro: Normal speech, normal affect Vitals reviewed Assessment and plan Acute left femoral neck fracture -Dr. Delvalle consulted -PT ordered TDWB LLE-await PT eval -As needed pain meds Nausea and vomiting -Had more nausea and vomiting today when working with PT -Will trial PPI -eval CMP and lipase in the morning Leukocytosis -afebrile, reports cough -CXR today negative for acute findings Diabetes mellitusIDDM -Accu-Chek with sliding scale insulin -Home meds resumed Hypertension Hypercholesterolemia Gout Gastroparesis -Continue home medication -Supportive care DVT ppx SCD Full code LOS 2-3 days Time Spent Managing Pts Care (In Minutes): 35
[2024-03-22 08:03] LABS: Absolute Basophils 0.1 K/uL (0-0.5); Absolute Eosinophils 0.3 K/uL (0-0.5); Absolute Lymphocytes (CBC) 4.4 K/uL (0.7-4.9); Absolute Monocytes 1.2 K/uL (0.1-1.3); Absolute Neutrophil 7.1 K/uL (1.8-8.0); Basophils % 0.9 % (0-1.3); Eosinophils % 2.5 % (0-4.4); Hematocrit 35.5 % (36.0-45.0); Hemoglobin 11.2 g/dL (12.0-15.0); Lymphocytes % 33.6 % (15.3-44.8); MCH 26.8 pg (27.0-35.0); MCHC 31.6 g/dL (32.0-36.0); MCV 84.7 fL (80-100); MPV 8.3 fL (7.6-11.3); Monocytes % 9.3 % (3.3-12.3); Neutrophils % 53.7 % (41.7-73.7); Nucleated Red Blood Cells % 0.1 % (0-0); Platelets 345 thou/uL (152-406); RBC Red Blood Cell Count 4.19 M/uL (3.86-4.86); Red Cell Distribution Width 17.5 % (12.1-15.2)
[2024-03-22 08:20] LABS: Albumin 3.3 g/dL (3.4-5.0); Albumin/Globulin Ratio 0.8 (1.1-1.8); Anion Gap 11.9 mEq/L (5.0-15.0); Bilirubin Total 0.5 mg/dL (0.2-1.0); Globulin 4.2 g/dL (2.3-3.5); Magnesium 1.5 mg/dL (1.6-2.4); Phosphorus 4.2 mg/dL (2.5-4.9); Potassium 3.9 mEq/L (3.5-5.1); Protein, Total 7.5 g/dL (6.4-8.2)
[2024-03-22] MEDS ORDERED: PANTOPRAZOLE 40 MG INJ IVP SCH (09:00)
[2024-03-22 10:27] VITALS: O2SAT 93
--- NOTE | 2024-03-22 13:22 | P.PN ---
Date of Service: 03/22/24 Subjective: C/O left leg pain S/P IM kelly left femur 03/19 Did a little better with PT today ROS: 10 point ROS as noted above, otherwise negative Physical exam GEN: Alert, oriented, NAD HEENT: Normal conjunctiva, sclera anicteric CV: Regular rate and rhythm, no edema Pulm: Nonlabored respirations on room air ABD: Soft, nontender, nondistended MSK: No joint tenderness, dressing LLE CDI Integumentary: No rashes Neuro: Normal speech, normal affect Vitals reviewed Assessment and plan Acute left femoral neck fracture -Dr. Delvalle consulted -PT ordered TDWB LLE-await PT eval -As needed pain meds -volunteer services supervisor consult for SNF placed 03/22 Nausea and vomiting -Had more nausea and vomiting today when working with PT -Will trial PPI -eval CMP and lipase in the morning -Improved, patient deals with vertigo occasionally as well as some nausea after pain medicines -Tolerating diet now Leukocytosis -afebrile, reports cough -CXR today negative for acute findings -Improved today, monitor CBC daily for now Diabetes mellitusIDDM -Accu-Chek with sliding scale insulin -Home meds resumed Hypertension Hypercholesterolemia Gout Gastroparesis -Continue home medication -Supportive care DVT ppx SCD Full code LOS 2-3 days Time Spent Managing Pts Care (In Minutes): 35
[2024-03-23 06:59] LABS: Absolute Basophils 0.1 K/uL (0-0.5); Absolute Eosinophils 0.3 K/uL (0-0.5); Absolute Lymphocytes (CBC) 5.1 K/uL (0.7-4.9); Absolute Monocytes 1.3 K/uL (0.1-1.3); Absolute Neutrophil 7.4 K/uL (1.8-8.0); Basophils % 0.6 % (0-1.3); Eosinophils % 1.9 % (0-4.4); Hematocrit 36.3 % (36.0-45.0); Hemoglobin 11.5 g/dL (12.0-15.0); Lymphocytes % 36.1 % (15.3-44.8); MCH 26.8 pg (27.0-35.0); MCHC 31.6 g/dL (32.0-36.0); MPV 8.5 fL (7.6-11.3); Monocytes % 9.1 % (3.3-12.3); Neutrophils % 52.3 % (41.7-73.7); Platelets 358 thou/uL (152-406); RBC Red Blood Cell Count 4.27 M/uL (3.86-4.86); Red Cell Distribution Width 17.7 % (12.1-15.2)
[2024-03-23 07:07] LABS: Magnesium 1.9 mg/dL (1.6-2.4); Phosphorus 4.8 mg/dL (2.5-4.9)
[2024-03-23 11:36] LABS: Differential Total Cells Count 100; Eosinophils 2 % (0-3); Lymphocytes 38 % (15-42); Monocytes 6 % (0-10); Segmented Neutrophils 54 % (40-80)
[2024-03-23 11:37] LABS: Anisocytosis 1+; Blood Morphology Comment NOTED (NOT SEEN); Platelet Estimate ADEQ
--- NOTE | 2024-03-23 13:13 | P.PN ---
Date of Service: 03/23/24 Subjective: C/O left leg pain S/P IM kelly left femur 03/19 No acute events overnight ROS: 10 point ROS as noted above, otherwise negative Physical exam GEN: Alert, oriented, NAD HEENT: Normal conjunctiva, sclera anicteric CV: Regular rate and rhythm, no edema Pulm: Nonlabored respirations on room air ABD: Soft, nontender, nondistended MSK: No joint tenderness, dressing LLE CDI Integumentary: No rashes Neuro: Normal speech, normal affect Vitals reviewed Assessment and plan Acute left femoral neck fracture -Dr. Delvalle consulted -PT ordered TDWB LLE-await PT eval -As needed pain meds -student services dean consult for inpatient rehab placed 03/22 Nausea and vomiting -Improved, patient deals with vertigo occasionally as well as some nausea after pain medicines -Tolerating diet now Leukocytosis -afebrile, reports cough -CXR today negative for acute findings -Persistently elevated, previous visits reviewed also with leukocytosis -Afebrile, no signs of infection -Added slides for pathology review for tomorrow -Recommend outpatient follow-up with hematology as well, this was discussed with patient Diabetes mellitusIDDM -Accu-Chek with sliding scale insulin -Home meds resumed Hypertension Hypercholesterolemia Gout Gastroparesis -Continue home medication -Supportive care DVT ppx SCD Full code LOS 2-3 days Time Spent Managing Pts Care (In Minutes): 35
[2024-03-24 04:52] LABS: Absolute Basophils 0.1 K/uL (0-0.5); Absolute Eosinophils 0.3 K/uL (0-0.5); Absolute Lymphocytes (CBC) 5.6 K/uL (0.7-4.9); Absolute Monocytes 1.4 K/uL (0.1-1.3); Absolute Neutrophil 8.4 K/uL (1.8-8.0); Basophils % 0.6 % (0-1.3); Eosinophils % 2.1 % (0-4.4); Hematocrit 34.8 % (36.0-45.0); Hemoglobin 11.3 g/dL (12.0-15.0); Lymphocytes % 35.4 % (15.3-44.8); MCH 27.2 pg (27.0-35.0); MCHC 32.6 g/dL (32.0-36.0); MCV 83.5 fL (80-100); MPV 7.6 fL (7.6-11.3); Monocytes % 8.7 % (3.3-12.3); Neutrophils % 53.2 % (41.7-73.7); Nucleated Red Blood Cells % 0.2 % (0-0); Platelets 349 thou/uL (152-406); RBC Red Blood Cell Count 4.17 M/uL (3.86-4.86); Red Cell Distribution Width 17.8 % (12.1-15.2)
[2024-03-24 05:13] LABS: Anion Gap 8.7 mEq/L (5.0-15.0); Magnesium 1.8 mg/dL (1.6-2.4); Potassium 3.7 mEq/L (3.5-5.1)
[2024-03-24] MEDS: MAGNESIUM SULFATE 1 gm IVPB 1 GM/100 ML BAG IV ONE (06:47)
[2024-03-24] MEDS: POTASSIUM CL SA 10 MEQ TAB PO ONE (08:04)
--- NOTE | 2024-03-24 13:02 | P.PN ---
Date of Service: 03/24/24 Subjective: C/O left leg pain having intermittent nausea and vomiting S/P IM kelly left femur 03/19 No acute events overnight Working well and progressing with PT ROS: 10 point ROS as noted above, otherwise negative Physical exam GEN: Alert, oriented, NAD HEENT: Normal conjunctiva, sclera anicteric CV: Regular rate and rhythm, no edema Pulm: Nonlabored respirations on room air ABD: Soft, nontender, nondistended MSK: No joint tenderness, dressing LLE CDI Integumentary: No rashes Neuro: Normal speech, normal affect Vitals reviewed Assessment and plan Acute left femoral neck fracture -Dr. Delvalle consulted -child protective services social worker consult for inpatient rehab placed 03/22 -15'x2 with MIN assist using a RW on 03/23, improving daily -She continues to be a great candidate for inpatient rehab as she requires aggressive multidisciplinary therapy services of at least 3 hours duration with 24hr nursing care and physician oversight Nausea and vomiting -Improved, patient deals with vertigo occasionally as well as some nausea after pain medicines -Tolerating diet now -Having near daily episodes of nausea and vomiting requiring IV medications to control symptoms -Continue PPI Leukocytosis -afebrile, reports cough -CXR today negative for acute findings -Persistently elevated, previous visits reviewed also with leukocytosis -Afebrile, no signs of infection -Added slides for pathology review which are pending -Recommend outpatient follow-up with hematology as well, this was discussed with patient -Continue to monitor daily cbc in for the next few days to trend -Watch for fevers Diabetes mellitusIDDM -Accu-Chek with sliding scale insulin Hypertension Hypercholesterolemia Gout Gastroparesis -Continue home medication -Supportive care DVT ppx SCD Full code LOS 2-3 days Time Spent Managing Pts Care (In Minutes): 35
[2024-03-25 05:38] LABS: Absolute Basophils 0.2 K/uL (0-0.5); Absolute Eosinophils 0.3 K/uL (0-0.5); Absolute Lymphocytes (CBC) 6.1 K/uL (0.7-4.9); Absolute Monocytes 1.2 K/uL (0.1-1.3); Absolute Neutrophil 7.5 K/uL (1.8-8.0); Basophils % 1.3 % (0-1.3); Eosinophils % 1.9 % (0-4.4); Hematocrit 36.1 % (36.0-45.0); Hemoglobin 11.2 g/dL (12.0-15.0); Lymphocytes % 39.7 % (15.3-44.8); MCH 26.4 pg (27.0-35.0); MCHC 31.1 g/dL (32.0-36.0); MCV 84.9 fL (80-100); MPV 8.4 fL (7.6-11.3); Monocytes % 8.1 % (3.3-12.3); Platelets 345 thou/uL (152-406); RBC Red Blood Cell Count 4.25 M/uL (3.86-4.86); Red Cell Distribution Width 17.6 % (12.1-15.2)
[2024-03-25 05:58] LABS: Anion Gap 8.1 mEq/L (5.0-15.0); Magnesium 1.8 mg/dL (1.6-2.4); Phosphorus 3.6 mg/dL (2.5-4.9); Potassium 4.1 mEq/L (3.5-5.1)
--- NOTE | 2024-03-25 08:59 | P.PN ---
Date of Service: 03/25/24 Subjective: C/O left leg pain having intermittent nausea and vomiting S/P IM kelly left femur 03/19 No acute events overnight Working well and progressing with PT ROS: 10 point ROS as noted above, otherwise negative Physical exam GEN: Alert, oriented, NAD HEENT: Normal conjunctiva, sclera anicteric CV: Regular rate and rhythm, no edema Pulm: Nonlabored respirations on room air ABD: Soft, nontender, nondistended MSK: No joint tenderness, dressing LLE CDI Integumentary: No rashes Neuro: Normal speech, normal affect Vitals reviewed Assessment and plan Acute left femoral neck fracture -Dr. Delvalle consulted -director of professional services consult for inpatient rehab placed 03/22 -15'x2 with MIN assist using a RW on 03/23, improving daily -She continues to be a great candidate for inpatient rehab as she requires aggressive multidisciplinary therapy services of at least 3 hours duration with 24hr nursing care and physician oversight -Patient also lives alone in a home with 2 flights of stairs to get in, will be unable to get up the stairs in her current state Nausea and vomiting -Improved, patient deals with vertigo occasionally as well as some nausea after pain medicines -Tolerating diet now -Having near daily episodes of nausea and vomiting requiring IV medications to control symptoms -Continue PPI Leukocytosis -afebrile, reports cough -CXR today negative for acute findings -Persistently elevated, previous visits reviewed also with leukocytosis -Afebrile, no signs of infection -Added slides for pathology review which are pending -Recommend outpatient follow-up with hematology as well, this was discussed with patient -Continue to monitor daily cbc in for the next few days to trend -Watch for fevers Diabetes mellitusIDDM -Accu-Chek with sliding scale insulin Hypertension Hypercholesterolemia Gout Gastroparesis -Continue home medication -Supportive care DVT ppx SCD Full code LOS 2-3 days Time Spent Managing Pts Care (In Minutes): 35
[2024-03-25] MEDS: LANSOPRAZOLE 30 MG PO SCH (12:55)
--- NOTE | 2024-03-26 18:19 | P.PN ---
Date of Service: 03/26/24 Subjective: Awake, no new complaints some pain to left lower extremity working with therapy ROS: 10 point ROS as noted above, otherwise negative Physical exam GEN: AAO x3, NAD HEENT: Normal conjunctiva, sclera anicteric CV: Regular rate and rhythm, no edema Pulm: Nonlabored respirations, on room air, clear BBS ABD: Soft and benign on palpation, ND/NT MSK: No joint tenderness, dressing LLE CDI Integumentary: No rashes Neuro: Normal speech, normal affect Vitals reviewed Assessment and plan Acute left femoral neck fracture -Dr. Delvalle consulted -custodial services manager consult for inpatient rehab, awaiting bed -15'x2 with MIN assist using a RW on 03/23, improving daily -She continues to be a great candidate for inpatient rehab as she requires aggressive multidisciplinary therapy services of at least 3 hours duration with 24hr nursing care and physician oversight -Patient also lives alone in a home with 2 flights of stairs to get in, will be unable to get up the stairs in her current state Nausea and vomiting -Improved, patient deals with vertigo occasionally as well as some nausea after pain medicines -Tolerating diet now -Having daily episodes of nausea and vomiting requiring IV medications to control symptoms -Continue PPI Leukocytosis -afebrile, reports cough -CXR today negative for acute findings -Persistently elevated, previous visits reviewed also with leukocytosis -Afebrile, no signs of infection -Added slides for pathology review which are pending -Recommend outpatient follow-up with hematology as well, this was discussed with patient -Continue to monitor daily cbc in for the next few days to trend -afebrile Diabetes mellitusIDDM -Accu-Chek with sliding scale insulin Hypertension Hypercholesterolemia Gout Gastroparesis -Continue home medication -Supportive care DVT ppx SCD Full code LOS 2-3 days
[2024-03-27 05:59] LABS: Absolute Basophils 0.2 K/uL (0-0.5); Absolute Eosinophils 0.2 K/uL (0-0.5); Absolute Lymphocytes (CBC) 4.7 K/uL (0.7-4.9); Absolute Monocytes 1.2 K/uL (0.1-1.3); Absolute Neutrophil 7.3 K/uL (1.8-8.0); Basophils % 1.1 % (0-1.3); Eosinophils % 1.7 % (0-4.4); Hematocrit 33.5 % (36.0-45.0); Lymphocytes % 34.3 % (15.3-44.8); MCH 27.4 pg (27.0-35.0); MCHC 32.9 g/dL (32.0-36.0); MCV 83.3 fL (80-100); MPV 8.2 fL (7.6-11.3); Monocytes % 9.1 % (3.3-12.3); Neutrophils % 53.8 % (41.7-73.7); Nucleated Red Blood Cells % 0.1 % (0-0); Platelets 377 thou/uL (152-406); RBC Red Blood Cell Count 4.02 M/uL (3.86-4.86); Red Cell Distribution Width 17.5 % (12.1-15.2)
[2024-03-27 06:04] LABS: Anion Gap 11.1 mEq/L (5.0-15.0); Magnesium 1.8 mg/dL (1.6-2.4); Phosphorus 4.9 mg/dL (2.5-4.9); Potassium 4.1 mEq/L (3.5-5.1)
--- NOTE | 2024-03-27 08:26 | P.DS ---
Admission Date: 03/18/24 Discharge Date: 03/27/24 Disposition: TRANSFER TO INPATIENT REHAB Discharge Condition: GOOD Reason for Admission: Acute left femoral neck fracture Brief History of Present Illness: Diagnosis HPI 03/18/2024 Guerita Loza is a 58 year old female with Pmhx gastroparesis, gout, hypercholesterolemia, diabetes melitisNIDDM, hypertension who presents to the ED with chief complaint of left hip pain, decreased range of motion, and unable to ambulate. She reports going to an urgent care on and Monday where xrays resulted negative for an injury. Family at bedside reports Guerita felt a pop this morning experiencing worse pain. Pelvic, femur, hip x-rays show left femoral neck fractures. On examination, she is vomiting and dry heaving. Pain was slightly relieved but nausea continued. She was able to position herself in bed, 2+ peripheral pulses present. Pelvic x-ray reports "No pelvic fracture identified. Left proximal humerus fracture. Reference dedicated left hip radiograph." Left Femur x-ray report "Mildly displaced left femoral neck fracture. Other chronic findings as above." Left Hip x-ray reports "Mildly displaced fracture at the base of the left femoral neck." Chest xray reports "Stable mild central interstitial prominence, may reflect mild central congestion. Findings exacerbated by poor inspiratory effort." Guerita will be admitted to hospitalist service for further treatment of left femoral neck fracture, Dr. Delvalle consulted Hospital Course: [text] is a pleasant [text] with a past medical history significant for [text] who was admitted to the [facility] on [text] for [text]. [text] On [date], [text] was seen on morning rounds and deemed medically stable for discharge. [text] was discharged with instructions to schedule follow-up appointments with [text]. [text] was provided prescriptions for [place]. General: AAOx3, NAD HEENT: mucus membranes moist, nare normal Head/Neck: Normocephalic, atraumatic, neck supple Respiratory: symmetrical chest expansion, no accessory muscles used, lungs clear on ausultation Cardiac: RRR, no murmurs or gallops noted Extremities: No edema present, peripheral pulses 2+ Abdominal: soft, NT/ND Skin: warm pink and dry Neurological: clear speech, appropriate Psych: normal mood and affect, Judgement appropriate Vital Signs/Physical Exam: Temp Pulse Resp BP Pulse Ox 97.4 F 84 16 108/55 L 94 03/27/24 04:00 03/27/24 04:00 03/27/24 04:45 03/27/24 04:00 03/27/24 04:00 Laboratory Data at Discharge: WBC 13.60 thou/uL (4.3-10.9) H 03/27/24 05:24 Hgb 11.0 g/dL (12.0-15.0) L 03/27/24 05:24 Hct 33.5 % (36.0-45.0) L 03/27/24 05:24 Plt Count 377 thou/uL (152-406) 03/27/24 05:24 PT 12.2 SECONDS (9.4-12.5) 03/18/24 12:00 INR 1.09 03/18/24 12:00 Sodium 132 mEq/L (136-145) L 03/27/24 05:24 Potassium 4.1 mEq/L (3.5-5.1) 03/27/24 05:24 BUN 44 mg/dL (7-18) H 03/27/24 05:24 Creatinine 1.40 mg/dL (0.55-1.02) H 03/27/24 05:24 Glucose 217 mg/dL (74-106) H 03/27/24 05:24 Phosphorus 4.9 mg/dL (2.5-4.9) 03/27/24 05:24 Magnesium 1.8 mg/dL (1.6-2.4) 03/27/24 05:24 Total Bilirubin 0.5 mg/dL (0.2-1.0) 03/22/24 07:38 AST 24 U/L (15-37) 03/22/24 07:38 ALT 29 U/L (13-56) 03/22/24 07:38 Alkaline Phosphatase 85 U/L (45-117) 03/22/24 07:38 Lipase 19 U/L (13-75) 03/22/24 07:38 Home Medications: Allopurinol 100 mg PO DAILY 10/01/22 Atorvastatin Calcium 10 mg PO BEDTIME 10/01/22 Lisinopril/Hydrochlorothiazide [Lisinopril-Hctz 20-12.5 mg Tab] 1 each PO DAILY 10/01/22 Metformin ER [Glucophage ER*] 1,000 mg PO BID 10/01/22 Montelukast [Singulair*] 10 mg PO DAILY 10/01/22 Pioglitazone [Actos*] 15 mg PO DAILY 10/01/22 Dapagliflozin Propanediol [Farxiga] 10 mg PO DAILY 03/18/24 Insulin Regular, Human [Humulin R U-500 Kwikpen] 75 - 80 unit SQ BEDTIME 03/18/24 Insulin Regular, Human [Humulin R U-500 Kwikpen] 85 unit SQ DAILY 03/18/24 Lansoprazole 30 mg PO DAILY 03/18/24 Hydrocodone 7.5/APAP 325 [[place] 7.5/325 mg*] 1 tab PO Q4H PRN tab 03/27/24 Physician Discharge Instructions: 1. Please call and schedule a follow-up appointment with your PCP in 3-5 days - Please follow-up with your PCP for medication refills/adjustments 2. Please call and schedule a follow-up appointment Dr. Delvalle with in one week 3. Continue diabetic diet 4. activity restrictions, fall precautions 5. Return to the ED if symptoms worsen New medications [place] 7.5 Q4h for severe pain Diet: ADA Activity: Fall precautions Followup: DEREK SCHMIDT [Primary Care Provider] - Tommy Delvalle MD [ACTIVE - CAN ADMIT] -
[2024-03-27] MEDS ORDERED: MAGNESIUM SULFATE 1 gm IVPB 1 GM/100 ML BAG IV ONE (09:00)
[2024-03-27 12:42] VITALS: BP 115/56; TEMP 97.1
== END 2024-03-27 11:48 | DRG 481 ==
LOC: ER 11:24 → ERHOLD 13:35 → 2ND 14:26
PROVIDERS: ADMIT Nurse Practitioner; ATTEND Internal Medicine
PROC: 0QS736Z Reposition Left Upper Femur with Intramedullary Internal Fixation Device, Percutaneous Approach (ICD-10-PCS; principal; 2024-03-19 11:30)
DX: S72.042A Displaced fracture of base of neck of left femur, initial encounter for closed fracture (principal); Z68.41 Body mass index [BMI] 40.0-44.9, adult; E66.9 Obesity, unspecified; M10.9 Gout, unspecified; I10 Essential (primary) hypertension; E78.00 Pure hypercholesterolemia, unspecified; E11.43 Type 2 diabetes mellitus with diabetic autonomic (poly)neuropathy; K31.84 Gastroparesis; Z60.2 Problems related to living alone; Z79.4 Long term (current) use of insulin; Z88.8 Allergy status to other drugs, medicaments and biological substances; Z90.49 Acquired absence of other specified parts of digestive tract; Z79.84 Long term (current) use of oral hypoglycemic drugs; Z79.899 Other long term (current) drug therapy
CPT/HCPCS: 36415; 71045; 72170; 80048; 80053; 80076; 82947; 83690; 83735; 83880; 84100; 84484; 85025; 85610; 93005; 96361; 96374; 96375; 97110; 97116; 97161; 97530; 97542; 99285; J0171; J0690; J1100; J1170; J1650; J2001; J2250; J2405; J2550; J2704; J3010; J3475; J7030

== ENCOUNTER 2024-03-27 07:36 | Inpatient (IN) | payer OTHER, BC ==
[2024-03-27 12:27] VITALS: BMI 44.0
[2024-03-27] MEDS ORDERED: GLUCAGON 1 MG/VIAL IM PRN (12:52)
[2024-03-27 13:16] LABS: Specific Gravity 1.022 (1.005-1.030); Sqamous Epithelial <5 /HPF (None Seen); Transitional Epithelial <5 /HPF (None Seen); Urine Bacteria <20 /HPF (<20); Urine Bilirubin NEGATIVE (Negative); Urine Blood Negative (Negative); Urine Clarity Clear (Clear); Urine Color Light-Yellow (Yellow); Urine Culture Reflex Order REFLEXED; Urine Glucose 4+ (Over) (Negative); Urine Ketones NEGATIVE (Negative); Urine Micro Reflex YN NO BILL MICROSCOPIC; Urine Mucus Slight /HPF (None Seen); Urine Nitrite NEGATIVE (Negative); Urine Protein NEGATIVE (Negative); Urine RBC <5 /HPF (None Seen); Urine Urobilinogen Normal (Normal)
[2024-03-27] MEDS ORDERED: INSULIN REGULAR (HUMAN) 100 UNIT/ML SQ SCH (16:30)
[2024-03-27] MEDS: INSULIN REGULAR (HUMAN) 100 UNIT/ML SQ SCH (16:30)
[2024-03-27] MEDS: METFORMIN HCL 500 MG TAB PO SCH (17:07)
[2024-03-27] MEDS ORDERED: LANSOPRAZOLE 30 MG PO SCH (20:00)
[2024-03-27] MEDS: ATORVASTATIN 10 MG TAB PO SCH (21:00)
[2024-03-27] MEDS: CRANBERRY FRUIT EXTRACT 200 MG CAP PO SCH (21:00)
[2024-03-27] MEDS: GABAPENTIN 100 MG CAP PO SCH (21:00)
[2024-03-27] MEDS: INSULIN GLARGINE 100 UNIT/ML SQ SCH (21:01)
[2024-03-27] MEDS: HYDROCODONE/APAP 7.5/325 MG TAB PO PRN (21:01)
[2024-03-27] MEDS: DOCUSATE NA/SENNA CONC 1 TAB PO SCH (21:01)
[2024-03-27] MEDS: LIDOCAINE 4% PATCH TOP SCH (21:01)
[2024-03-27] MEDS: MAGNESIUM OXIDE 400 MG TAB PO SCH (21:01)
--- NOTE | 2024-03-28 00:12 | HP ---
Date of Admission: 03/27/2024 Time Of Service: 1:45 p.m. Chief Complaint: "I fell and broke my left hip and had surgery." History Of Present Illness: Ms. Loza is a 58-year-old right-handed patient with diabetes mellitu s, hypertension, gout with morbid obesity, who presented to emergency department after had worsening hip pain that had progressed over several months. Workup identified a left femoral neck fracture. I n addition, she had gastroparesis, as noted hypertension, gout, diabetes mellitus, dyslipidemia, naus ea, and morbid obesity. Orthopedic Service was consulted and the decision was made for surgery. Aft er she was cleared for surgery, she had left hip closed reduction and intramedullary kelly fixation wit h a cervical fracture. She had the pain following surgery addressed. Her comorbid conditions also a ddressed. She did have elevated white blood cell count, BUN, and glucose and anemia post surgery. S he was put at a touchdown weightbearing status after surgery. Prior to her hospitalization, she was independent with all activities, no restrictions, ambulating up and down steps, driving and working f ull time. Currently, minimum to contact guard assistance for mobilization, transfers, and teaching h ow to manage her touchdown weightbearing status with her left femoral neck fracture. Surgery is requ ired. She is performing well below her baseline level of functioning and to help her reduce the risk of hospitalization and to return to her prior level of function. She is admitted to the inpatient r ehabilitation unit for physical and occupational therapy. Past Medical History: As noted above. Allergies: SCOPOLAMINE AND SEMAGLUTIDE. Medications: Allopurinol 100 mg daily, Tylenol 650 mg every 4 hours as needed, Lipitor 10 mg at bedt stan, Lovenox 40 mg subcutaneously daily, ferrous sulfate 325 mg daily, gabapentin 100 mg twice daily, [place] 7.5/325 every 4 hours as needed, Semglee insulin 10 units at bedtime, insulin sliding scale on board, magnesium oxide 400 mg twice daily, metformin 1000 mg twice daily, Singulair 10 mg at bedtime , Hemocyte Plus 1 tablet daily, Zofran 4 mg every 4 hours as needed, Actos 15 mg daily with breakfast , and Senokot 2 at bedtime. Laboratory Studies: White blood cell count 15.4, hemoglobin 11.2, hematocrit 36.1, platelets 345. S odium 132, potassium 4.1, glucose 184, BUN 34, creatinine 1.01, calcium 9.7, magnesium 1.2. X-ray/imaging: Chest x-ray on 03/18, mild central interstitial prominence may reflect mild central c ongestion. X-ray again on 03/18 of the femur, mildly displaced left femoral neck fracture. Other ch ronic findings were noted. X-ray on 03/18 of the hip, mildly displaced fracture of the base of the l eft femoral neck. Chest x-ray on 03/21, no acute intrathoracic process. EKG on 03/18, normal sinus rhythm, normal EKG. Family History: Noncontributory. Social History: The patient works and lives in single family home and no alcohol, tobacco, or IV abida g use. Review of Systems: She does report some mild to moderate pain in the left femoral neck when she does therapy. Medicatio ns were adjusted to account for that. She has mild myalgias, arthralgias, as well. Other snow, no fevers, chills. She denies any nausea, vomiting. No rash. No active psychiatric issues. Current Level Of Functioning: Eating, supervision. Oral hygiene, supervision. Moderate assistance for toileting, showering. Contact guard for upper body dressing. Moderate assistance for lower body dressing and donning and doffing footwear. For rolling [id number], [id number], sit to lying a nd lying to sitting at edge of bed, moderate assistance. For [id number]-wu-[id number], moderate assistance. Tra nsfer from bed to chair to toilet to shower, moderate assistance. Ambulation, rolling walker, she co ed 15 feet with moderate assistance. Physical Examination: Vital Signs: Blood pressure is 126/68, pulse 85, respiratory rate 18, temperature 97.4, oxygen satur ation 95%. Weight 232 pounds, height 5 feet 1 inch, BMI 44.0. General: Ms. Loza is in bed in between therapy sessions. HEENT: She appears normocephalic, atraumatic. Sclerae anicteric. Oropharynx pink, moist. Neck: Supple. Chest: Clear. Heart: Regular. Extremities: She has good hemostasis at the surgical site on the left femoral neck area. No bleedin g or loss of hemostasis is noted. Rehab And Medical Assessment And Plan: Ms. Loza is admitted to inpatient rehabilitation unit wit h impairment category 07, orthopedic, lower extremity fracture. Her impairment group code is 08.11, status post unilateral hip fracture. Etiologic diagnosis, left femoral neck fracture. Comorbid cond itions of decreased mobility, decreased physical functioning, diabetes mellitus, gout, hypertension, dyslipidemia, nausea. She also has muscle spasms in the lower extremity. Plan: She will have physical and occupational therapy 3 hours a day, 5 of 7 days. She will continue for DVT prophylaxis with Lovenox 40 mg subcutaneous daily, Lipitor for dyslipidemia, allopurinol for gout, Tylenol and [place] for pain, gabapentin added for neuropathic coverage. Continue with insulin 10 units at bedtime when adjustments will be made to Semglee insulin. She has a mild sliding scale a dded. Continue metformin 1000 mg twice daily for diabetes along with Actos 15 mg daily with breakfas t, Senokot for constipation, Zofran for nausea, multivitamin and Hemocyte Plus for anemia, Singulair for her allergies, magnesium oxide for muscle spasms. Comorbidities That Are Impacting Rehabilitation: She does have of course diabetes mellitus. At home , she had much higher insulin dosages, however, with physical therapy that is the exercise, her blood sugars are likely to go down and Semglee insulin will be adjusted. On review of the chart, she did on a 24-hour period on the acute care floor recede a total of 20 units of regular insulin and she was started on the Semglee insulin 10 units at bedtime and again will be titrated along with a mild slid ing scale. She does have of course a high risk of falling. Fall precautions adhered to at all times with gait belt and walker and wheelchair until she ambulates with a walker and therapist at bedside all times. Rehab Specific Plan: Ms. Loza will have physical and occupational therapy to help her improve he r ability to transfer from bed to chair to a walker to a wheelchair onto the toilet and off and to sh ower and out, perform toileting and showering and perform activities of daily living. Ms. Loza has a good understanding of the process of admission to the inpatient rehabilitation [facility] and how she will benefit from physical and occupational therapy. She will have 24 hours a day, 7 d ays a week skilled rehabilitation and nursing, daily physician evaluation and management, and she hilaria l have social security assessor evaluation and management for discharge planning, home equipment, followup wit h therapy as needed. If need be, additional help from the Hospitalist Service, Orthopedic Service wi ll be consulted. Barriers To Discharge: Currently, if she is doing as she is able to, she would have very few barrier s of stopping, either would stop her from discharging home which will be a plan. Management of blood sugars may require extra time in hospitalization. However, currently there is no foreseeable pam r that should prevent her from staying on the regular time. Length Of Stay: Expected to be about 12 to 14 days. Disposition: Home with family and continuing therapy via Home Health or outpatient depending on how well she does. Prognosis: Good. Rehab Specific Goals: 1.Become independent with upper and lower body dressing and donning and doffing footwear. 2.Independently ambulate 250 feet with a rolling walker. 3.Independently propel a wheelchair 250 feet. 4.Independently go up and down 10 steps with bilateral handrails. 5.Independently perform all grooming activities of daily living or other activities. The above goals were reviewed with Ms. Loza and she is in agreement. By signing this document, I acknowledge I personally performed a full physical examination on Ms. Brina watson no later than 24 hours after her admission to the inpatient rehabilitation unit and determined that she is able to tolerate the above course of treatment at an intensive level for a reasonable per iod of time. A detailed individualized plan of care for her will be completed by hospital day 4 based on the preadmission screen, history and phy sical, and therapy evaluations. SENDY Voice ID: [id number]
[2024-03-28 06:40] LABS: Absolute Basophils 0.1 K/uL (0-0.5); Absolute Eosinophils 0.2 K/uL (0-0.5); Absolute Lymphocytes (CBC) 5.7 K/uL (0.7-4.9); Absolute Monocytes 1.3 K/uL (0.1-1.3); Absolute Neutrophil 6.7 K/uL (1.8-8.0); Basophils % 0.7 % (0-1.3); Eosinophils % 1.5 % (0-4.4); Hemoglobin 11.5 g/dL (12.0-15.0); Lymphocytes % 40.5 % (15.3-44.8); MCHC 31.9 g/dL (32.0-36.0); MCV 84.8 fL (80-100); MPV 9.3 fL (7.6-11.3); Monocytes % 9.5 % (3.3-12.3); Neutrophils % 47.8 % (41.7-73.7); Nucleated Red Blood Cells % 0.1 % (0-0); Platelets 369 thou/uL (152-406); RBC Red Blood Cell Count 4.25 M/uL (3.86-4.86); Red Cell Distribution Width 17.7 % (12.1-15.2)
[2024-03-28 06:59] LABS: Albumin 3.2 g/dL (3.4-5.0); Anion Gap 13.2 mEq/L (5.0-15.0); Magnesium 1.9 mg/dL (1.6-2.4); Potassium 4.2 mEq/L (3.5-5.1); Prealbumin 16.9 mg/dL (20-40)
[2024-03-28] MEDS ORDERED: LIDOCAINE 4% PATCH TOP SCH (08:00)
[2024-03-28] MEDS ORDERED: lisinopriL 20 MG TAB PO SCH (08:00)
[2024-03-28] MEDS ORDERED: hydroCHLOROthiazide 12.5 MG CAP PO SCH (08:00)
[2024-03-28] MEDS: LANSOPRAZOLE 30 MG PO SCH (08:24)
[2024-03-28] MEDS: LISINOPRIL HCTZ PO SCH (08:24)
[2024-03-28] MEDS: FARXIGA 10 MG PO SCH (08:25)
[2024-03-28] MEDS: FERROUS SULFATE 325 MG TAB PO SCH (08:26)
[2024-03-28] MEDS: allopurinoL 100 MG TAB PO SCH (08:26)
[2024-03-28] MEDS: LIDOCAINE 4% PATCH TOP SCH (08:26)
[2024-03-28] MEDS: PIOGLITAZONE 15 MG TAB PO SCH (08:26)
[2024-03-28] MEDS: FE SULF/FA/VIT B COMP & C TAB PO SCH (08:26)
[2024-03-28] MEDS: ENOXAPARIN 40 MG/0.4 ML SQ SCH (08:27)
[2024-03-28] MEDS ORDERED: DOCUSATE NA/SENNA CONC 1 TAB PO PRN (17:42)
[2024-03-28] MEDS: MONTELUKAST 10 MG TAB PO SCH (19:57)
[2024-03-29] MEDS: ONDANSETRON 4 MG (ODT) TAB PO PRN (10:40)
--- NOTE | 2024-03-29 13:50 | P.RH.PN ---
Estimated Length of Stay: 9 Expected Discharge Date: 04/02/24 Discharge Disposition Plan: Home [facility] Goal: Mobility, Transfers, Self Care Vital Signs: Last Vital Signs Temp 98.1 F 03/29/24 08:00 Pulse 87 03/29/24 08:00 Resp 16 03/29/24 09:14 BP 143/64 H 03/29/24 08:00 Pulse Ox 95 03/29/24 09:14 Laboratory: Laboratory Last Values WBC 14.00 thou/uL (4.3-10.9) H 03/28/24 04:48 RBC 4.25 M/uL (3.86-4.86) 03/28/24 04:48 Hgb 11.5 g/dL (12.0-15.0) L 03/28/24 04:48 Hct 36.0 % (36.0-45.0) 03/28/24 04:48 MCV 84.8 fL (80-100) 03/28/24 04:48 MCH 27.0 pg (27.0-35.0) 03/28/24 04:48 MCHC 31.9 g/dL (32.0-36.0) L 03/28/24 04:48 RDW 17.7 % (12.1-15.2) H 03/28/24 04:48 Plt Count 369 thou/uL (152-406) 03/28/24 04:48 MPV 9.3 fL (7.6-11.3) 03/28/24 04:48 Neutrophils % 47.8 % (41.7-73.7) 03/28/24 04:48 Lymphocytes % 40.5 % (15.3-44.8) 03/28/24 04:48 Monocytes % 9.5 % (3.3-12.3) 03/28/24 04:48 Eosinophils % 1.5 % (0-4.4) 03/28/24 04:48 Basophils % 0.7 % (0-1.3) 03/28/24 04:48 Absolute Neutrophils 6.7 K/uL (1.8-8.0) 03/28/24 04:48 Absolute Lymphocytes 5.7 K/uL (0.7-4.9) H 03/28/24 04:48 Absolute Monocytes 1.3 K/uL (0.1-1.3) 03/28/24 04:48 Absolute Eosinophils 0.2 K/uL (0-0.5) 03/28/24 04:48 Absolute Basophils 0.1 K/uL (0-0.5) 03/28/24 04:48 Sodium 135 mEq/L (136-145) L 03/28/24 04:48 Potassium 4.2 mEq/L (3.5-5.1) 03/28/24 04:48 Chloride 101 mEq/L (98-107) 03/28/24 04:48 Carbon Dioxide 25 mEq/L (21-32) 03/28/24 04:48 Anion Gap 13.2 mEq/L (5.0-15.0) 03/28/24 04:48 BUN 33 mg/dL (7-18) H 03/28/24 04:48 Creatinine 1.09 mg/dL (0.55-1.02) H 03/28/24 04:48 Est GFR (CKD-EPI) 59 ml/min (=/>90) L 03/28/24 04:48 Glucose 189 mg/dL (74-106) H 03/28/24 04:48 POC Glucose 198 mg/dL (65-120) H 03/29/24 12:13 Calcium 9.4 mg/dL (8.5-10.1) 03/28/24 04:48 Magnesium 1.9 mg/dL (1.6-2.4) 03/28/24 04:48 Albumin 3.2 g/dL (3.4-5.0) L 03/28/24 04:48 Prealbumin 16.9 mg/dL (20-40) L 03/28/24 04:48 Urine Color Light-yellow (Yellow) 03/27/24 12:35 Urine Clarity Clear (Clear) 03/27/24 12:35 Urine pH 5.0 (5.0-7.0) 03/27/24 12:35 Ur Specific [place] 1.022 (1.005-1.030) 03/27/24 12:35 Glucose (UA)(Auto) 4+ (over) (Negative) H 03/27/24 12:35 Urine Ketones Negative (Negative) 03/27/24 12:35 Urine Blood Negative (Negative) 03/27/24 12:35 Urine Nitrite Negative (Negative) 03/27/24 12:35 Urine Bilirubin Negative (Negative) 03/27/24 12:35 Urine Urobilinogen Normal (Normal) 03/27/24 12:35 Ur Leukocyte Esterase 25 Mayra/uL (Negative) H 03/27/24 12:35 Urine RBC <5 /HPF (None Seen) 03/27/24 12:35 Urine WBC 10-20 /HPF (<5) H 03/27/24 12:35 Ur Squamous Epith Cells <5 /HPF (None Seen) 03/27/24 12:35 Ur Transition Epith Cell <5 /HPF (None Seen) 03/27/24 12:35 Urine Bacteria <20 /HPF (<20) 03/27/24 12:35 Urine Mucus Slight /HPF (None Seen) 03/27/24 12:35 Urine Culture Reflexed Reflexed 03/27/24 12:35 Urine Total Protein Negative (Negative) 03/27/24 12:35 Weight: 233 lb Closed Surgical Incision Present: Yes Physician Update: Labs reviewed and WBC is 14 with normal neutrophils. Mild to moderate pain in the left hip. Limited by pain and TDWB of the left lower extremity. Sit to stand and transfers, supervision. Sit to supine CGA. RW 20-30' with CGA and verbal queing. WC 200' with supervision. Summary: Patient's care plan and occupational therapy manager goals have been reviewed and revised as necessary. Please see the Rehabilitation Signature page for all necessary signatures.
[2024-03-29 16:20] LABS: Absolute Basophils 0.1 K/uL (0-0.5); Absolute Monocytes 1.5 K/uL (0.1-1.3); Absolute Neutrophil 15.8 K/uL (1.8-8.0); Basophils % 0.4 % (0-1.3); Hemoglobin 11.1 g/dL (12.0-15.0); Lymphocytes % 10.2 % (15.3-44.8); MCH 26.7 pg (27.0-35.0); MCHC 31.6 g/dL (32.0-36.0); MCV 84.3 fL (80-100); Monocytes % 7.6 % (3.3-12.3); Neutrophils % 81.8 % (41.7-73.7); Platelets 392 thou/uL (152-406); RBC Red Blood Cell Count 4.15 M/uL (3.86-4.86); Red Cell Distribution Width 17.5 % (12.1-15.2)
--- NOTE | 2024-03-29 16:46 | RAD REPORT ---
Exam:Hip Left 2 View HISTORY: Left hip pain FINDINGS: Compression screw and intramedullary kelly affixes a subacute femoral fracture. No acute fracture seen. No dislocation
[2024-03-29] MEDS: PIPER TAZO 3.375 GM in NA CHLORIDE 0.9% 100 ML IV SCH (18:00)
[2024-03-29] MEDS: VANCOMYCIN 2.75 GM in NA CHLORIDE 0.9% 500 ML IVPB ONE (19:00)
[2024-03-29] MEDS: Meropenem 1,000 MG in NA CHLORIDE 0.9% 100 ML IV SCH (19:00)
[2024-03-29] MEDS ORDERED: NA CHLORIDE 0.9% 250 ML ONE (19:28)
[2024-03-29] MEDS: GABAPENTIN 300 MG CAP PO SCH (20:12)
[2024-03-29] MEDS: ACETAMINOPHEN 325 MG TABLET PO PRN (20:15)
[2024-03-29] MEDS ORDERED: NA CHLORIDE 0.9% 500 ML IV ONE (20:40)
[2024-03-29 20:51] VITALS: BP 83/44; TEMP 99.7
[2024-03-29] MEDS ORDERED: NA CHLORIDE 0.9% 1,000 ML IV SCH (21:00)
[2024-03-30] MEDS ORDERED: Mupirocin NASAL 2 APPL/1 GM TUBE NAS SCH (08:00)
[2024-03-30] MEDS ORDERED: VANCOMYCIN 2 GM in NA CHLORIDE 0.9% 500 ML IVPB SCH (13:00)
--- NOTE | 2024-04-15 07:44 | DS ---
Date of Discharge: 03/29/2024 Allergies: SCOPOLAMINE AND SEMAGLUTIDE. Discharge Condition: Serious. She is discharged to the acute care floor because of leukocytosis wit h fever, abdominal pain, and hypotension with diagnosis of sepsis. Other discharge diagnosis: Status post unilateral hip replacement for left fracture, decreased mobil ity, decreased physical functioning, diabetes mellitus, gout, hypertension, dyslipidemia, nausea, mus norberto spasms of lower extremities. Medications: Allopurinol 100 mg daily, lansoprazole 30 mg daily, Farxiga 10 mg daily, atorvastatin 1 0 mg at bedtime, Singulair 10 mg daily, Glucophage extended release 500 mg twice daily, lisinopril/hy drochlorothiazide 20/12.5 daily, Actos 15 mg daily, tramadol 50 mg every 4 hours as needed, and cranb erry food extract 200 mg twice daily. Laboratory Studies: White blood cell count decreased to 19.3 with neutrophils 81.8, hemoglobin 11.1, platelets 392. Sodium 135, potassium 4.2, chloride 101, carbon dioxide 25, BUN 33, creatinine 1.09, glucose ranged from 170 to 278. Lactic acid 1.3. Procalcitonin 0.10. X-ray/imaging: Hip x-ray done on 03/29/2024 shows no dislocation, no acute fracture. Compression sc rew and intramedullary kelly affixes the subacute femoral fracture. Synopsis Of Events That Led To Admission: Ms. Loza is a 58-year-old patient with multiple medica l problems as noted above, who had worsening hip pain over several months, but was not initially eval uated. Workup identified the left femoral neck fracture. Furthermore, she had gastroparesis, hypert ension, diabetes, gout, dyslipidemia, nausea, morbid obesity. Orthopedic Service evaluated the patie nt and determined that surgery was appropriate. She had left closed reduction and intramedullary kelly fixation of basicervical neck fracture. She did have postoperative pain and of course number of com orbid conditions were noted above and managed. She was put at a touchdown weightbearing status and w as sent to the inpatient rehabilitation unit to begin physical and occupational therapy along with me dical management. Hospital Course: As noted during hospitalization, she developed fever, abdominal pain, leukocytosis, elevated procalcitonin, and was very worrisome for sepsis. The hospitalist service was consulted. The patient was transferred to the acute care floor for higher level of care. Progress Made With Physical And Occupational Therapy: By time of discharge, bed mobility, poor endur ance, poor head and trunk control, decreased strength, decreased endurance, pain was limiting her. S he tried to ambulate with a rolling walker, but was not able to do very much. She covered about 25 f eet with touchdown weightbearing status. Again improved balance. Unable to do steps. Again, she wa s transferred to acute care floor because of sepsis. Regarding her occupational therapy, similarly s o, unable to perform any meaningful therapy as she had to be transferred to the acute care floor; how ever, she did do a mvb-jr-nkizr and with supervision, ambulated 120 feet with a rolling walker with r est breaks. Again, she was in pain, shivering and having chills due to the fever, abdominal pain, an d sepsis. Of course follow up with Hospitalist Service, GI Service as well, and Orthopedic Service. ESAU/JEREYM Voice ID: [id number] Report ID: [id number]
== END 2024-03-29 22:34 | disposition short-term general hospital (02) | DRG 561 ==
LOC: 5TH 11:58
PROVIDERS: ADMIT Psychiatry & Neurology Neurology with Special Qualifications in Child Neurology; ATTEND Psychiatry & Neurology Neurology with Special Qualifications in Child Neurology
DX: S72.002D Fracture of unspecified part of neck of left femur, subsequent encounter for closed fracture with routine healing (principal); E11.9 Type 2 diabetes mellitus without complications; I10 Essential (primary) hypertension; M10.9 Gout, unspecified; E66.01 Morbid (severe) obesity due to excess calories; E78.5 Hyperlipidemia, unspecified
CPT/HCPCS: 36415; 80048; 81001; 82040; 82947; 83605; 83735; 84134; 84145; 85025; 87040; 87077; 87086; 87088; 87186; 87205; 94010; 97110; 97116; 97161; 97165; 97530; 97542; J1650; J2185; J2543; J7040; J7050; Q0162

== ENCOUNTER 2024-03-29 20:23 | Inpatient (IN) | payer OTHER, BC ==
--- NOTE | 2024-03-30 01:27 | P.HP ---
Certification for Inpatient Patient admitted to: Inpatient With expected LOS: >2 Midnights Practitioner: I am a practitioner with admitting privileges, knowledge of patient current condition, hospital course, and medical plan of care. Services: Services provided to patient in accordance with Admission requirements found in Title 42 Section 412.3 of the Code of Federal Regulations Patient History Date of Service: 03/30/24 Reason for admission: Fever/chills History of Present Illness: 58 year old female with Pmhx gastroparesis, gout, hypercholesterolemia, diabetes melitisNIDDM, hypertension recent hip fracture who underwent surgery and has been recuperating from the surgery in the rehab , noted to have fever and chills with generalized body pain, was consulted for further management. Patient noted to be dehydrated and subsequently admitted to [facility] telemetry for further management Patient denies any chest pain or shortness of breath Feeling nauseous on and off No bleeding Allergies scopolamine Adverse Reaction (Verified 10/01/22 17:39) dizziness semaglutide [From Ozempic] Adverse Reaction (Verified 03/19/24 10:33) Nausea/Vomiting Home medications list reviewed: Yes Home Medications: Allopurinol 100 mg PO DAILY 10/01/22 Atorvastatin Calcium 10 mg PO BEDTIME 10/01/22 Lisinopril/Hydrochlorothiazide [Lisinopril-Hctz 20-12.5 mg Tab] 1 each PO DAILY 10/01/22 Metformin ER [Glucophage ER*] 1,000 mg PO BID 10/01/22 Montelukast [Singulair*] 10 mg PO DAILY 10/01/22 Pioglitazone [Actos*] 15 mg PO DAILY 10/01/22 Dapagliflozin Propanediol [Farxiga] 10 mg PO DAILY 03/18/24 Insulin Regular, Human [Humulin R U-500 Kwikpen] 75 - 80 unit SQ BEDTIME 03/18/24 Insulin Regular, Human [Humulin R U-500 Kwikpen] 85 unit SQ DAILY 03/18/24 Lansoprazole 30 mg PO DAILY 03/18/24 Hydrocodone 7.5/APAP 325 [[place] 7.5/325 mg*] 1 tab PO Q4H PRN tab 03/27/24 - Past Medical/Surgical History Diabetic: Yes Past Medical History: Reviewed- Non-Contributory -: Diabetes -: Hypertension -: Gout -: Morbid obesity -: HLD -: Gastroparesis -: Vertigo -: H-pylori Past Surgical History: Reviewed- Non-Contributory -: x2 -: trino - Family History Family History: Reviewed- Non-Contributory - Family History Father -: Diabetes Mother -: Heart disease, Hypertension, Diabetes Brother -: Hypertension, Diabetes Sister -: Diabetes - Social History Smoking Status: Never smoker Alcohol use: No CD- Drugs: No Caffeine use: Yes Review of Systems 10-point ROS is otherwise unremarkable Physical Examination - Vital Signs Temperature: 99.8 F Blood Pressure: 121/63 Pulse: 105 Respirations: 18 Pulse Ox (%): 92 - Physical Exam General: Alert, Oriented x3, Mild distress HEENT: Atraumatic, Normocephalic Neck: Supple, JVD not distended Respiratory: Clear to auscultation bilaterally, Normal air movement Cardiovascular: Normal pulses, Regular rate/rhythm, Normal S1 S2 Capillary refill: <2 Seconds Gastrointestinal: Soft and benign, W/out hepatosplenomegaly Musculoskeletal: No clubbing, No swelling Integumentary: No rashes Neurological: Other (Alert, Awae , non focal) Lymphatics: No axilla or inguinal lymphadenopathy Assessment and Plan - Plan Possible sepsis/UTI/ Patient looks dehydrated Started on IV hydration Monitor closely Lactic acid levels monitor Acute left femoral neck fracture Appreciate help from Dr. Delvalle Status post surgery Appreciate help from rehab Monitor closely Pain control UTI Started on IV antibiotic Obtain cultures Change antibiotic as per sensitivity Diabetes mellitusIDDM Accu-Chek with sliding scale insulin Hypertension Hypercholesterolemia Gout Gastroparesis Continue home medication Supportive care GI/DVT prophylaxis Advanced directive full code Discharge Plan: Half-Way Plan to discharge in: 48 Hours - Advance Directives Does patient have a Living Will: No Does patient have a Durable POA for Healthcare: No - Code Status/Comfort Care Code Status: Full Code Time Spent Managing Pts Care (In Minutes): 48
[2024-03-30] MEDS ORDERED: ONDANSETRON 4 MG/2 ML VIAL IV PRN (01:28)
[2024-03-30] MEDS: VANCOMYCIN 1 GM in NA CHLORIDE 0.9% 250 ML IVPB SCH (02:00)
[2024-03-30] MEDS: NA CHLORIDE 0.9% 1,000 ML IV SCH (03:34)
[2024-03-30] MEDS: HYDROCODONE/APAP 5/325 MG TAB PO PRN (03:34)
--- NOTE | 2024-03-30 03:45 | RAD REPORT ---
EXAM DESCRIPTION: Chest Single View CLINICAL HISTORY: PICC line placement COMPARISON: None. FINDINGS: 1 view(s) of the chest. Tubes and lines: Right arm PICC with tip in the SVC. Cardiomediastinal silhouette: Atherosclerotic calcification of thoracic aorta. Heart is not enlarged. Lungs: No consolidation, pneumothorax, or pleural effusion. Bones: No acute osseous abnormality. Degenerative change of the spine and shoulders. Upper abdomen: No abnormality identified. IMPRESSION: Right arm PICC with tip in the SVC. Electronically signed by: Warren Harper DO 03/30/2024 03:39 AM CDT 4ZDM Due to temporary technical issues with the PACS/[employer] reporting system, reports are being jacobo d by the in-house radiologist without review as a courtesy to ensure prompt reporting the interpreting radiologist is fully responsible for the content of the report. Transcribed Date/Time: 03/30/2024 3:45 AM
[2024-03-30 03:53] VITALS: BMI 45.3
[2024-03-30] MEDS: VANCOMYCIN 2 GM in NA CHLORIDE 0.9% 500 ML IVPB SCH (05:00)
[2024-03-30] MEDS: VANCOMYCIN 1 GM/VIAL ONE (05:02)
[2024-03-30] MEDS: NA CHLORIDE 0.9% 500 ML ONE (05:03)
[2024-03-30] MEDS: MORPHINE 2 MG/ML SYR IV PRN (05:46)
[2024-03-30 07:53] LABS: Absolute Lymphocytes (CBC) 3.1 K/uL (0.7-4.9); Absolute Monocytes 1.1 K/uL (0.1-1.3); Absolute Neutrophil 17.4 K/uL (1.8-8.0); Hematocrit 32.1 % (36.0-45.0); Hemoglobin 10.4 g/dL (12.0-15.0); Lymphocytes % 14.4 % (15.3-44.8); MCH 27.1 pg (27.0-35.0); MCHC 32.4 g/dL (32.0-36.0); MCV 83.7 fL (80-100); MPV 8.3 fL (7.6-11.3); Monocytes % 4.9 % (3.3-12.3); Neutrophils % 80.7 % (41.7-73.7); Platelets 356 thou/uL (152-406); RBC Red Blood Cell Count 3.83 M/uL (3.86-4.86); Red Cell Distribution Width 17.6 % (12.1-15.2)
[2024-03-30 08:06] LABS: ALT/SGPT 20 U/L (13-56); Albumin 2.8 g/dL (3.4-5.0); Albumin/Globulin Ratio 0.7 (1.1-1.8); Alkaline Phosphatase 76 U/L (45-117); Anion Gap 11.2 mEq/L (5.0-15.0); BUN Blood Urea Nitrogen 28 mg/dL (7-18); Bicarbonate 26 mEq/L (21-32); Bilirubin Total 0.5 mg/dL (0.2-1.0); Glomerular Filtration Rate 59 ml/min (=/>90); Glucose Level 218 mg/dL (74-106); Potassium 4.2 mEq/L (3.5-5.1); Protein, Total 6.8 g/dL (6.4-8.2); Sodium Level 133 mEq/L (136-145)
[2024-03-30] MEDS: Meropenem 1,000 MG in NA CHLORIDE 0.9% 100 ML IV SCH (08:09)
[2024-03-30] MEDS: ENOXAPARIN 40 MG/0.4 ML SQ SCH (08:10)
[2024-03-30] MEDS: Mupirocin NASAL 2 APPL/1 GM TUBE NAS SCH (08:10)
[2024-03-30 08:36] LABS: AST/SGOT < 10 U/L (15-37)
[2024-03-30] MEDS ORDERED: Meropenem 500 MG in NA CHLORIDE 0.9% 100 ML IV SCH (09:00)
[2024-03-30 09:35] LABS: Blood Morphology Comment NOT SEEN (NOT SEEN); Platelet Estimate ADEQ; White Blood Cell Scan OK (OK)
[2024-03-30] MEDS: INSULIN REGULAR (HUMAN) 100 UNIT/ML SQ SCH (12:16)
--- NOTE | 2024-03-30 14:29 | P.PN ---
Date of Service: 03/30/24 Patient seen and examined. She is complaining of left hip pain No recorded fever. Urine culture grew Klebsiella pneumonia. Recent hip surgery Severe leukocytosis. Continue current antibiotics Follow blood cultures. Transition IV meropenem to IV Rocephin once blood culture shows no growth. Analgesics as needed
[2024-03-30] MEDS: ATORVASTATIN 10 MG TAB PO SCH (20:10)
[2024-03-30] MEDS: ACETAMINOPHEN 325 MG TABLET PO PRN (20:10)
[2024-03-31 04:53] LABS: Absolute Basophils 0.1 K/uL (0-0.5); Absolute Eosinophils 0.2 K/uL (0-0.5); Absolute Lymphocytes (CBC) 3.6 K/uL (0.7-4.9); Absolute Monocytes 1.1 K/uL (0.1-1.3); Basophils % 0.4 % (0-1.3); Hematocrit 30.5 % (36.0-45.0); Hemoglobin 9.6 g/dL (12.0-15.0); Lymphocytes % 24.1 % (15.3-44.8); MCH 26.5 pg (27.0-35.0); MCHC 31.4 g/dL (32.0-36.0); MCV 84.5 fL (80-100); MPV 9.2 fL (7.6-11.3); Monocytes % 7.5 % (3.3-12.3); Platelets 277 thou/uL (152-406); RBC Red Blood Cell Count 3.61 M/uL (3.86-4.86); Red Cell Distribution Width 17.6 % (12.1-15.2)
[2024-03-31 05:01] LABS: Albumin 2.6 g/dL (3.4-5.0); Albumin/Globulin Ratio 0.6 (1.1-1.8); Anion Gap 10.8 mEq/L (5.0-15.0); Bilirubin Total 0.4 mg/dL (0.2-1.0); Globulin 4.1 g/dL (2.3-3.5); Magnesium 1.8 mg/dL (1.6-2.4); Phosphorus 2.4 mg/dL (2.5-4.9); Potassium 3.8 mEq/L (3.5-5.1); Protein, Total 6.7 g/dL (6.4-8.2)
[2024-03-31] MEDS: MAGNESIUM SULFATE 1 gm IVPB 1 GM/100 ML BAG IV ONE (05:56)
[2024-03-31 06:29] LABS: Specific Gravity 1.019 (1.005-1.030); Sqamous Epithelial <5 /HPF (None Seen); Urine Bacteria <20 /HPF (<20); Urine Bilirubin NEGATIVE (Negative); Urine Blood Negative (Negative); Urine Clarity Clear (Clear); Urine Color Light-Yellow (Yellow); Urine Culture Reflex Order NOT NEEDED; Urine Glucose 4+ (Over) (Negative); Urine Ketones 2+ (Negative); Urine Microscopic Reflex YN ORDER UMIC; Urine Mucus Slight /HPF (None Seen); Urine Nitrite NEGATIVE (Negative); Urine Protein TRACE (Negative); Urine RBC <5 /HPF (None Seen); Urine Urobilinogen Normal (Normal)
[2024-03-31] MEDS: MONTELUKAST 10 MG TAB PO SCH (07:57)
[2024-03-31] MEDS: allopurinoL 100 MG TAB PO SCH (07:58)
[2024-03-31] MEDS ORDERED: POTASSIUM CL SA 10 MEQ TAB PO ONE (08:00)
[2024-03-31] MEDS: **PT MED**Dapagliflozin Propanediol [Farxiga] 10 MG Tablet PO SCH (09:11)
[2024-03-31] MEDS: POTASSIUM PHOS IN 0.9 % NACL 15 MMOL/250 ML BAG IV ONE (09:11)
--- NOTE | 2024-03-31 11:23 | P.PN ---
Date of Service: 03/31/24 Subjective Awake eating breakfast reports working with PT yesterday no new complaints ROS 10 point ROS as noted above, otherwise negative Physical Exam General: Alert and Oriented x3, NAD, conversing HEENT: Atraumatic, Normocephalic Neck: Supple, JVD not distended Respiratory: Clear to auscultation bilaterally, Normal air movement, on RA Cardiovascular: Normal pulses, NSR, Normal S1 S2 Capillary refill: <2 Seconds Gastrointestinal: Soft on palpation, bowel sounds present, nontender Musculoskeletal: No clubbing, No swelling Integumentary: No rashes Neurological: grossly afoccal Lymphatics: No axilla or inguinal lymphadenopathy Vitals Reviewed Problem list Sepsis 2/2 UTI and bacteremia Severe leukocytosis Bacteremia Acute left femoral neck fracture S/P intramedullary fixation of basicervial fracture (03/19) Diabetes mellitusIDDM Hypertension Hypercholesterolemia Gout Gastroparesis Assessment and Plan sepsis 2/2 UTI and bacteremia Severe leukocytosis Bacteremia -Sepsis criteria WBC 21.6, HR 108, UTI/bactermia -continue on IV hydration -Monitor closely -Continue Merrem -Urine culture growing klebsiella pneumonia -Blood cultures growing gram negative, sensitivity pending Acute left femoral neck fracture S/P intramedullary fixation of basicervial fracture -Status post surgery 03/19/24 -Monitor closely -Pain control -continue PT -Plan to return to [facility] Diabetes mellitusIDDM -Accu-Chek with sliding scale insulin Hypertension Hypercholesterolemia Gout Gastroparesis -Continue home medication -Supportive care GI/DVT prophylaxis Advanced directive full code Discharge Plan: [facility] Plan to discharge in: 48 Hours <Tori Phan - Last Filed: 03/31/24 10:56> Patient seen and examined. Plan of care discussed with Ms. Phan. Urine culture grew Klebsiella pneumonia. Blood culture: Gram-negative rods. Antibiotics switched to IV Rocephin. Follow blood cultures Patient is clinically improved. She is ambulatory with a walker with minimal assist. Patient should be a good candidate to [facility] to [facility]. Patient to complete at least 1 week of IV antibiotic. <norma fatima - Last Filed: 03/31/24 16:22>
[2024-03-31] MEDS: CEFTRIAXONE 2,000 MG in NA CHLORIDE 0.9% 100 ML IV SCH (13:03)
[2024-03-31] MEDS: METFORMIN ER 500 MG TAB PO SCH (16:53)
[2024-03-31] MEDS: PANTOPRAZOLE 40MG TABLET PO SCH (19:04)
[2024-04-01] MEDS ORDERED: VANCOMYCIN 2 GM in NA CHLORIDE 0.9% 500 ML IVPB SCH (09:00)
[2024-04-01 09:14] LABS: Absolute Basophils 0.1 K/uL (0-0.5); Absolute Eosinophils 0.2 K/uL (0-0.5); Absolute Lymphocytes (CBC) 3.1 K/uL (0.7-4.9); Absolute Monocytes 1.2 K/uL (0.1-1.3); Basophils % 0.6 % (0-1.3); Eosinophils % 1.3 % (0-4.4); Hematocrit 32.1 % (36.0-45.0); Hemoglobin 10.4 g/dL (12.0-15.0); Lymphocytes % 23.1 % (15.3-44.8); MCH 27.2 pg (27.0-35.0); MCHC 32.4 g/dL (32.0-36.0); MPV 8.9 fL (7.6-11.3); Monocytes % 8.8 % (3.3-12.3); Neutrophils % 66.2 % (41.7-73.7); Nucleated Red Blood Cells % 0.1 % (0-0); Platelets 345 thou/uL (152-406); RBC Red Blood Cell Count 3.82 M/uL (3.86-4.86); Red Cell Distribution Width 17.2 % (12.1-15.2)
[2024-04-01 09:25] LABS: Anion Gap 9.2 mEq/L (5.0-15.0); Magnesium 1.5 mg/dL (1.6-2.4); Phosphorus 2.8 mg/dL (2.5-4.9); Potassium 4.2 mEq/L (3.5-5.1)
[2024-04-01] MEDS: Magnesium Sulfate 2gm IVPB 2 G/50 ML BAG IV ONE (09:50)
--- NOTE | 2024-04-01 12:24 | P.DS ---
Admission Date: 03/29/24 Discharge Date: 04/01/24 Disposition: TRANSFER TO INPATIENT REHAB Discharge Condition: FAIR Reason for Admission: Fever/chills Brief History of Present Illness: Diagnosis Sepsis 2/2 UTI and bacteremia Severe leukocytosis Bacteremia Acute left femoral neck fracture S/P intramedullary fixation of basicervial fracture (03/19) Diabetes mellitusIDDM Hypertension Hypercholesterolemia Gout Gastroparesis HPI 03/30/24 Guerita Loza is a 58 year old female with Pmhx gastroparesis, gout, hypercholesterolemia, diabetes melitisNIDDM, hypertension recent hip fracture who underwent surgery and has been recuperating from the surgery in the rehab , noted to have fever and chills with generalized body pain, was consulted for further management. Patient noted to be dehydrated and subsequently admitted to [facility] telemetry for further management Patient denies any chest pain or shortness of breath Feeling nauseous on and off No bleeding Hospital Course: Guerita Loza is a pleasant 58 year old female with a past medical history significant for gastroparesis, gout, hypercholesterolemia, diabetes melitisNIDDM, hypertension recent hip fracture who was admitted to the [facility] on 03/30/2024 for fever, chills, and general malaise. Guerita presented as a direct admit from inpatient rehab on the fifth floor due to fever, chills, and generalized malaise. During this admission she is found to be dehydrated with a urinary tract infection. Urine and blood cultures both grew Klebsiella pneumoniae which is sensitive to Rocephin. She has tolerated IV antibiotics and IV fluids. White count has trended down from 21.6 to 13.6 today. She has remained afebrile during this admission, and has worked with physical therapy. She is tolerating p.o. diet, urinating without difficulty, and hemodynamically stable for discharge. On 04/01/24, Guerita was seen on morning rounds and deemed medically stable for discharge to inpatient rehab. Guerita was discharged with instructions to schedule follow-up appointments with PCP and Dr. Delvalle. Guerita was provided prescriptions for Eliquis and will continue IV Rocephin x 6 days last dose on 04/07/2024. Physical Exam General: AAO x3, NAD, conversing HEENT: Atraumatic, Normocephalic Neck: Supple, JVD not distended Respiratory: Clear to auscultation bilaterally, Normal air movement, on RA Cardiovascular: Normal pulses, RRR, Normal S1 S2 present Capillary refill: <2 Seconds Gastrointestinal: Soft and benign on palpation, active bowel sounds, nontender Musculoskeletal: No clubbing, No swelling, 2+ peripheral pulses Integumentary: No rashes Neurological: grossly afoccal Lymphatics: No axilla or inguinal lymphadenopathy Vital Signs/Physical Exam: Temp Pulse Resp BP Pulse Ox 98.2 F 82 16 138/68 95 04/01/24 08:00 04/01/24 08:00 04/01/24 08:00 04/01/24 08:00 04/01/24 08:00 Laboratory Data at Discharge: WBC 13.60 thou/uL (4.3-10.9) H 04/01/24 08:55 Hgb 10.4 g/dL (12.0-15.0) L 04/01/24 08:55 Hct 32.1 % (36.0-45.0) L 04/01/24 08:55 Plt Count 345 thou/uL (152-406) 04/01/24 08:55 Sodium 135 mEq/L (136-145) L 04/01/24 08:55 Potassium 4.2 mEq/L (3.5-5.1) 04/01/24 08:55 BUN 18 mg/dL (7-18) 04/01/24 08:55 Creatinine 0.67 mg/dL (0.55-1.02) 04/01/24 08:55 Glucose 182 mg/dL (74-106) H 04/01/24 08:55 Phosphorus 2.8 mg/dL (2.5-4.9) 04/01/24 08:55 Magnesium 1.5 mg/dL (1.6-2.4) L 04/01/24 08:55 Total Bilirubin 0.4 mg/dL (0.2-1.0) 03/31/24 04:17 AST 15 U/L (15-37) 03/31/24 04:17 ALT 22 U/L (13-56) 03/31/24 04:17 Alkaline Phosphatase 79 U/L (45-117) 03/31/24 04:17 Home Medications: Allopurinol 100 mg PO DAILY 10/01/22 Atorvastatin Calcium 10 mg PO BEDTIME 10/01/22 Lisinopril/Hydrochlorothiazide [Lisinopril-Hctz 20-12.5 mg Tab] 1 each PO DAILY 10/01/22 Metformin ER [Glucophage ER*] 1,000 mg PO BID 10/01/22 Montelukast [Singulair*] 10 mg PO DAILY 10/01/22 Pioglitazone [Actos*] 15 mg PO DAILY 10/01/22 Dapagliflozin Propanediol [Farxiga] 10 mg PO DAILY 03/18/24 Insulin Regular, Human [Humulin R U-500 Kwikpen] 65 - 75 unit SQ BEDTIME 03/18/24 Insulin Regular, Human [Humulin R U-500 Kwikpen] 85 unit SQ DAILY 03/18/24 Lansoprazole 30 mg PO DAILY 03/18/24 Apixaban [Eliquis] 5 mg PO BID #42 tab 04/01/24 Ceftriaxone [Rocephin] 2,000 mg IV DAILY #6 vial 04/01/24 Hydrocodone 5/APAP 325 [[place] 5/325*] 1 tab PO Q4H PRN tab 04/01/24 Insulin Regular, Human [Novolin R] See Protocol SQ ACHS ml 04/01/24 Mupirocin Calcium [Bactroban Nasal*] 1 appl UV BID tube 04/01/24 New Medications: Apixaban [Eliquis] 5 mg PO BID #42 tab Ceftriaxone [Rocephin] 2,000 mg IV DAILY #6 vial Diet: ADA Activity: Fall precautions
[2024-04-01 21:27] VITALS: BP 132/60; TEMP 98.7
[2024-04-01 22:41] VITALS: O2SAT 97
== END 2024-04-01 22:30 | DRG 872 ==
LOC: 4TH 20:23
PROVIDERS: ADMIT Family Medicine; ATTEND Internal Medicine
PROC: 02HV33Z Insertion of Infusion Device into Superior Vena Cava, Percutaneous Approach (ICD-10-PCS; principal; 2024-03-30)
DX: A41.9 Sepsis, unspecified organism (principal); Z68.42 Body mass index [BMI] 45.0-49.9, adult; N39.0 Urinary tract infection, site not specified; E66.01 Morbid (severe) obesity due to excess calories; E11.43 Type 2 diabetes mellitus with diabetic autonomic (poly)neuropathy; K31.84 Gastroparesis; E86.0 Dehydration; M10.9 Gout, unspecified; E78.00 Pure hypercholesterolemia, unspecified; I10 Essential (primary) hypertension; S72.002D Fracture of unspecified part of neck of left femur, subsequent encounter for closed fracture with routine healing; B96.1 Klebsiella pneumoniae [K. pneumoniae] as the cause of diseases classified elsewhere; Z79.4 Long term (current) use of insulin; Z79.84 Long term (current) use of oral hypoglycemic drugs; Z79.899 Other long term (current) drug therapy
CPT/HCPCS: 36415; 71045; 80048; 80053; 81001; 82947; 83036; 83735; 84100; 84132; 85025; 94760; 97116; 97161; 97530; J0696; J1650; J2185; J2270; J3475; J7030; J7040

== ENCOUNTER 2024-04-01 19:00 | Inpatient (IN) | payer OTHER, BC ==
[2024-04-02] MEDS ORDERED: ACETAMINOPHEN 500 MG TAB PO PRN (00:32)
[2024-04-02] MEDS ORDERED: MELATONIN 5 MG TABLET PO PRN (00:38)
[2024-04-02] MEDS ORDERED: DOCUSATE NA/SENNA CONC 1 TAB PO PRN (00:47)
[2024-04-02 01:44] VITALS: BMI 45.3
[2024-04-02 02:24] LABS: Specific Gravity 1.015 (1.005-1.030); Sqamous Epithelial <5 /HPF (None Seen); Urine Bacteria <20 /HPF (<20); Urine Bilirubin NEGATIVE (Negative); Urine Blood Negative (Negative); Urine Clarity Clear (Clear); Urine Color Colorless (Yellow); Urine Culture Reflex Order NOT NEEDED; Urine Glucose 4+ (Over) (Negative); Urine Ketones TRACE (Negative); Urine Micro Reflex YN NO BILL MICROSCOPIC; Urine Mucus Slight /HPF (None Seen); Urine Nitrite NEGATIVE (Negative); Urine Protein NEGATIVE (Negative); Urine RBC <5 /HPF (None Seen); Urine Urobilinogen Normal (Normal); Urine WBC <5 /HPF (<5)
[2024-04-02] MEDS ORDERED: ACETAMINOPHEN 325 MG TABLET PO PRN (03:39)
[2024-04-02 05:45] LABS: Absolute Eosinophils 0.2 K/uL (0-0.5); Absolute Lymphocytes (CBC) 3.8 K/uL (0.7-4.9); Absolute Monocytes 1.2 K/uL (0.1-1.3); Absolute Neutrophil 4.3 K/uL (1.8-8.0); Basophils % 0.4 % (0-1.3); Hematocrit 31.1 % (36.0-45.0); Hemoglobin 10.4 g/dL (12.0-15.0); Lymphocytes % 39.8 % (15.3-44.8); MCH 27.6 pg (27.0-35.0); MCHC 33.3 g/dL (32.0-36.0); MCV 83.1 fL (80-100); MPV 8.3 fL (7.6-11.3); Monocytes % 12.9 % (3.3-12.3); Neutrophils % 44.9 % (41.7-73.7); Nucleated Red Blood Cells % 0.1 % (0-0); Platelets 370 thou/uL (152-406); RBC Red Blood Cell Count 3.75 M/uL (3.86-4.86); Red Cell Distribution Width 17.1 % (12.1-15.2)
[2024-04-02 06:02] LABS: Albumin 2.7 g/dL (3.4-5.0); Anion Gap 7.9 mEq/L (5.0-15.0); Magnesium 1.6 mg/dL (1.6-2.4); Potassium 3.9 mEq/L (3.5-5.1); Prealbumin 11.8 mg/dL (20-40)
[2024-04-02] MEDS: INSULIN REGULAR (HUMAN) 100 UNIT/ML SQ SCH (07:30)
[2024-04-02] MEDS: METFORMIN ER 500 MG TAB PO SCH (07:47)
[2024-04-02] MEDS: PANTOPRAZOLE 40MG TABLET PO SCH (07:47)
[2024-04-02] MEDS: GABAPENTIN 100 MG CAP PO SCH (07:48)
[2024-04-02] MEDS: PIOGLITAZONE 15 MG TAB PO SCH (07:48)
[2024-04-02] MEDS: CEFTRIAXONE 2,000 MG in NA CHLORIDE 0.9% 100 ML IV SCH (07:48)
[2024-04-02] MEDS: allopurinoL 100 MG TAB PO SCH (07:48)
[2024-04-02] MEDS: CRANBERRY FRUIT EXTRACT 200 MG CAP PO SCH (07:48)
[2024-04-02] MEDS: APIXABAN 2.5 MG TABLET PO SCH (07:48)
[2024-04-02] MEDS: MONTELUKAST 10 MG TAB PO SCH (07:49)
[2024-04-02] MEDS: lisinopriL 20 MG TAB PO SCH (07:49)
[2024-04-02] MEDS: hydroCHLOROthiazide 25 MG TAB PO SCH (07:57)
[2024-04-02] MEDS: INSULIN GLARGINE 100 UNIT/ML SQ SCH (08:08)
[2024-04-02] MEDS: MUPIROCIN 2% OINT 22GM TUBE TOP SCH ×2 (08:09→20:20)
[2024-04-02] MEDS: TRAMADOL HCL 50 MG TAB PO PRN (08:10)
[2024-04-02] MEDS: FARXIGA 10 MG PO SCH (10:22)
[2024-04-02] MEDS ORDERED: MUPIROCIN 2% OINT 22GM TUBE TOP SCH (20:00)
[2024-04-02] MEDS: ATORVASTATIN 10 MG TAB PO SCH (20:20)
--- NOTE | 2024-04-02 20:37 | HP ---
Date of Admission: 04/01/2024 Time Of Service: 1 p.m. Chief Complaint: "I'm back to finish my therapy after I had a bladder infection." History Of Present Illness: Ms. Loza is a 58-year-old right-handed patient with hyperte nsion, diabetes, gout, morbid obesity, who originally presented to the emergency department with comp laints of left hip pain that worsened over several months. She was admitted and evaluated and determ ined to have a fracture in the left hip. Her left femoral neck fracture was treated by closed reduct ion and intramedullary kelly fixation and basicervical fracture. She was admitted following that to in patient rehabilitation for therapy. However, on presentation, she had significant urinary tract infe ction that turned into sepsis. She had criteria with procalcitonin, fever of 102, tachycardia, very elevated white count with neutrophils, and she was treated with multiple antibiotics and transferred to the acute care floor on telemetry under the care of Hospitalist Service. She completed the acute treatment, which included also treatment for dyslipidemia, gout, gastroparesis. She received IV flui ds. Monitor blood sugar. After completing her therapy, her symptoms resolved significantly and back to baseline. Prior to the original hospitalization, she was independent with activities of daily li ving, work full-time and drove independently. Currently, she requires minimum to moderate assistance for bed mobilization, [id number] transfers to the commode, and ambulation of about 70 feet with a rolling walker. She is functioning well below her baseline and would benefit significantly from impr oving her condition with physical and occupational therapy. That will help her to decrease her risk of rehospitalization and to help her return to her prior level of functioning. Past Medical History: As noted above. Past Surgical History: x2 and cholecystectomy. Allergies: SCOPOLAMINE AND SEMAGLUTIDE. X-rays: She had a chest x-ray on 03/30 showing right arm PICC line in the tip of the superior vena c adrianna. Medications: Tylenol 650 mg every 6 hours as needed, [place] 5/325 every 4 hours as needed, allopurino l 100 mg daily, Eliquis 2.5 mg twice daily, Lipitor 10 mg at bedtime, Rocephin 2000 mg daily to compl ete from 04/02 to 04/08, gabapentin 100 mg twice daily, hydrochlorothiazide 25 mg daily, Semglee insu savage 10 units at bedtime, lisinopril 40 mg daily, melatonin 5 mg at bedtime, metformin 1000 mg twice d aily, Singulair 10 mg daily, Bactroban 2% ointment apply topically daily to wound, Protonix 40 mg shantanu ly, Actos 15 mg with breakfast, Senokot-S 2 at bedtime, tramadol 50 mg every 4 hours as needed. Laboratory Studies: White blood cell count 9.6, hemoglobin 10.4, platelets 370. Blood sugars ranged from 159 to 224. Procalcitonin done today is 0.23. Noted she was treated already as noted and stil l ongoing antibiotic treatment. Sodium 139, potassium 3.9, chloride 106, carbon dioxide 29, BUN 16, creatinine 0.69, hemoglobin A1c of 7.8, lactic acid is normal at 0.8, calcium 9.3, magnesium 1.6, alb umin 2.7, prealbumin 11.8. Urinalysis shows trace ketones, 4+ glucose, otherwise normal. Family History: Noncontributory. Review of Systems: She does report some left hip pain that is well mitigated by medications. Some mild myalgias, arthra lgias. She denies any rash, any psychiatric issues, and no other complaints on a 10-point review of systems. Current Level Of Functioning: Supervision for eating, oral hygiene as well. Moderate assistance for toileting, showering. Contact guard for upper body dressing. Moderate assistance for lower body dr essing and donning and doffing of footwear. Rolling [id number], sit to lying and lying to sitting on the side of bed moderate assistance. Oen-pj-zggow and transfer from bed to chair with moderate a ssistance. Toilet transfer, moderate assistance. Ambulation, she covered 70 feet with a rolling wal ker and moderate assistance. Physical Examination: Vital Signs: Blood pressure is 129/60, pulse 85, respiratory rate 16, temperature 98.0, oxygen satur ation 96%. General: Ms. Loza is resting in bed in between therapy sessions. HEENT: She is normocephalic, atraumatic. Sclerae anicteric. Oropharynx pink, moist. Neck: Supple. Chest: Clear. Extremities: No significant edema or cyanosis. Postoperative changes noted in her left lower extrem ity where she had the left femoral neck fracture. There is good hemostasis. Her ubaldo were remove d as she is now over 2 weeks out from surgery. She has mild diffuse weakness in upper and lower extr emities. No focal deficits. Rehab And Medical Assessment And Plan: Ms. Loza is admitted to the inpatient rehabilitation unit with impairment category 07, orthopedic, lower extremity fracture. Her impairment group code is 08. 11, status post unilateral hip fracture. Etiologic diagnosis, left femoral neck fracture. Comorbidi ties are decreased mobility, decreased physical functioning, diabetes mellitus, gout, hypertension, h ypercholesterolemia, leukocytosis, treated sepsis. Plan: 1.She will have physical and occupational therapy 3 hours a day, 5 of 7 days. 2.For diabetes mellitus, multiple modalities will be used to address that including Actos with break fast, metformin twice daily, Semglee insulin at night, and mild insulin sliding scale. Blood pressur e is addressed with Prinivil and HydroDIURIL. Withhold parameters for systolic blood pressure less t quiñones 120. Dyslipidemia addressed with Lipitor 10 mg at bedtime, Eliquis 2.5 mg twice daily for DVT pr ophylaxis, gout treated with allopurinol 100 mg daily, [place], Tylenol, and if need be, gabapentin hilaria l be added for pain control along with tramadol, which she already has on board. Melatonin 5 mg at n ight for insomnia, allergies treated with Singulair 10 mg daily, and she has a topical antibiotic on board. Constipation treated with Senokot. Comorbidities That Are Impacting Rehabilitation: As noted, she had sepsis with urinary tract infecti on. She will have the ongoing IV antibiotics out to her discharge. She has a PICC line in place and that will be continued. She of course has diabetes mellitus and is at risk for additional worsening blood sugars. She is on multiple treatment modalities for that and will be having a glucose check a .c. and h.s. Rehab Specific Plan: Ms. Loza will have physical and occupational therapy for 3 hours a day, 5 o f 7 days, to improve her ability to transfer from bed to chair to a walker to toilet and to shower an d to perform toileting and showering, dressing upper body, and mobilizing more than household distanc es. She will have occupational therapy to work on her activities of daily living. Ms. Loza has a good understanding of the process of admission to the inpatient rehabilitation [facility] and how she will benefit from physical and occupational therapy. She will have 24 hours a day, 7 days a week skilled rehabilitation and nursing, daily physician evaluation and management, and [facility] ial services evaluation and management for discharge planning, home equipment, and followup along wit h therapy after discharge. If need be, the Hospitalist Service and additional help may be required f rom the Infectious Disease Service as needed. Barriers To Discharge: Currently, she does have the IV medication going and will continue until the , today is . If possible, may have to be converted to oral antibiotics prior to discharge ho me. However currently, she will be in hospital until that. Length Of Stay: About 10 days. Disposition: Expected to be home with family and continue therapy via outpatient if she is doing suzanne y well. Prognosis: Good. Rehab Specific Goals: 1.Become independent with upper and lower body dressing and donning and doffing footwear. 2.Independently ambulate 250 feet with a rolling walker. 3.Independently propel a wheelchair 250 feet. 4.Independently go up and down 10 steps with bilateral handrails. 5.Independently perform cognitive functioning. The above goals were reviewed with Ms. Loza and she is in agreement. By signing this document, I acknowledge I personally performed a full physical examination on Ms. Brina watson no later than 24 hours after her admission to the inpatient rehabilitation facility and errol meierd that she is able to tolerate the above course of treatment at an intensive level for a reasonable period of time. A detailed individualized plan of care for her will be completed by hospital day 4 based on the preadmission screen, history and phy sical, and therapy evaluations. SENDY Voice ID: [id number]
[2024-04-03] MEDS: Mupirocin NASAL 2 APPL/1 GM TUBE NAS SCH ×2 (08:00→12:45)
[2024-04-03] MEDS: HYDROCODONE/APAP 5/325 MG TAB PO PRN (10:48)
--- NOTE | 2024-04-03 12:37 | P.CNS ---
Date of Consult: 04/03/24 Reason for Consult: Painful toenails Allergies scopolamine Adverse Reaction (Verified 10/01/22 17:39) dizziness semaglutide [From Ozempic] Adverse Reaction (Verified 03/19/24 10:33) Nausea/Vomiting Home Medications: Allopurinol 100 mg PO DAILY 10/01/22 Atorvastatin Calcium 10 mg PO BEDTIME 10/01/22 Lisinopril/Hydrochlorothiazide [Lisinopril-Hctz 20-12.5 mg Tab] 1 each PO DAILY 10/01/22 Metformin ER [Glucophage ER*] 1,000 mg PO BID 10/01/22 Montelukast [Singulair*] 10 mg PO DAILY 10/01/22 Pioglitazone [Actos*] 15 mg PO DAILY 10/01/22 Dapagliflozin Propanediol [Farxiga] 10 mg PO DAILY 03/18/24 Insulin Regular, Human [Humulin R U-500 Kwikpen] 65 - 75 unit SQ BEDTIME 03/18/24 Insulin Regular, Human [Humulin R U-500 Kwikpen] 85 unit SQ DAILY 03/18/24 Lansoprazole 30 mg PO DAILY 03/18/24 Apixaban [Eliquis] 5 mg PO BID #42 tab 04/01/24 Hydrocodone 5/APAP 325 [[place] 5/325*] 1 tab PO Q4H PRN tab 04/01/24 - Past Medical/Surgical History Diabetic: Yes -: Diabetes -: Hypertension -: Gout -: Morbid obesity -: HLD -: Gastroparesis -: Vertigo -: H-pylori -: x2 -: trino -: rt hip orif - Family History Father Medical History: Diabetes Mother Medical History: Heart disease, Hypertension, Diabetes Brother Medical History: Hypertension, Diabetes Sister Medical History: Diabetes - Social History Alcohol use: No CD- Drugs: No Caffeine use: Yes Place of Residence: Home Review of Systems 10-point ROS is otherwise unremarkable Physical Examination Temp Pulse Resp BP Pulse Ox 98.0 F 89 16 136/63 95 04/03/24 07:28 04/03/24 08:39 04/03/24 10:48 04/03/24 08:39 04/03/24 10:48 General: Alert, In no apparent distress, Oriented x3 Cardiovascular: No edema, Normal pulses Capillary refill: <2 Seconds Musculoskeletal: No clubbing, No swelling, No contractures, No erythema, No tenderness, No warmth Integumentary: No rashes, No breakdown, No significant lesion, No tenderness/swelling, No erythema, No warmth, No cyanosis, Other (Thickened hypertrophic nails with subungual debris x 10 ) Neurological: Sensation intact - Problems (1) Tinea unguium Current Visit: Yes Status: Acute Conclusions/Impression: Mechanical debridement of nails at bedside Physician Review: Patient Assessed, Agree with Above Assessment and Plan
[2024-04-03] MEDS: ONDANSETRON 4 MG (ODT) TAB PO PRN (14:38)
[2024-04-03] MEDS: GLUCERNA SHAKE 237 ML CAN PO SCH (19:44)
[2024-04-03] MEDS: SODIUM CHLORIDE 0.9% 10ML INJ IV SCH (19:46)
[2024-04-03] MEDS ORDERED: lisinopriL 20 MG TAB PO SCH (20:00)
[2024-04-04] MEDS ORDERED: NA CHLORIDE 0.9% 1,000 ML ONE (05:18)
[2024-04-04 06:49] LABS: Absolute Basophils 0.1 K/uL (0-0.5); Absolute Eosinophils 0.2 K/uL (0-0.5); Absolute Lymphocytes (CBC) 3.8 K/uL (0.7-4.9); Absolute Monocytes 0.9 K/uL (0.1-1.3); Absolute Neutrophil 6.8 K/uL (1.8-8.0); Basophils % 0.7 % (0-1.3); Eosinophils % 1.6 % (0-4.4); Hematocrit 32.8 % (36.0-45.0); Hemoglobin 10.7 g/dL (12.0-15.0); Lymphocytes % 32.3 % (15.3-44.8); MCH 27.1 pg (27.0-35.0); MCHC 32.7 g/dL (32.0-36.0); MCV 82.8 fL (80-100); MPV 8.5 fL (7.6-11.3); Monocytes % 7.8 % (3.3-12.3); Neutrophils % 57.6 % (41.7-73.7); Nucleated Red Blood Cells % 0.1 % (0-0); Platelets 449 thou/uL (152-406); RBC Red Blood Cell Count 3.96 M/uL (3.86-4.86); Red Cell Distribution Width 16.8 % (12.1-15.2)
[2024-04-04 07:22] LABS: Albumin 2.8 g/dL (3.4-5.0); Anion Gap 12.1 mEq/L (5.0-15.0); Magnesium 1.6 mg/dL (1.6-2.4); Potassium 4.1 mEq/L (3.5-5.1)
[2024-04-04] MEDS: lisinopriL 20 MG TAB PO SCH (07:42)
[2024-04-04] MEDS: hydroCHLOROthiazide 12.5 MG CAP PO SCH (07:43)
--- NOTE | 2024-04-04 12:13 | EKG ---
Test Date: 2024-04-04 Test Time: 07:57:52 [employer] Programmer: JIMMIE MEASUREMENT RESULTS: Intervals: Rate: 81 PA: 154 QRSD: 72 QT: 388 QTc: 450 [place]: P: 38 PA: 154 QRS: 66 T: 43 INTERPRETIVE STATEMENTS: Normal sinus rhythm Normal ECG Compared to ECG 03/18/2024 12:30:30 No significant changes Electronically Signed On 04-04-24 12:11:52 CDT by Rasheed Gudino
--- NOTE | 2024-04-04 19:22 | PN ---
Date of Progress Note: 04/04/2024 Time Of Service: 1:10 p.m. Subjective: Ms. Loza is resting comfortably in bed between therapy sessions. She is very happy with her therapy so far. Left hip not much pain that is where she has her left femoral neck fracture , status post repair. No symptoms of urinary tract infection. She is continuing on Rocephin antibio tic IV for urinary tract infection, which had transitioned into sepsis and she had to be sent down to the acute care unit, of course now back up to continue therapy. Review of Systems: She denies fevers, chills. No nausea, vomiting, myalgias, arthralgias. No psychiatric complaints. No focal neurological deficits and no significant pain at the surgical site in the left femoral neck region. Physical Examination: Vital Signs: Blood pressure 149/73, pulse 88, respiratory rate 16, temperature 98.9, oxygen saturati on 95%. General: Ms. Loza is resting comfortably in bed. HEENT: She is normocephalic, atraumatic. Sclerae anicteric. Oropharynx moist. Neck: Supple. Chest: Clear. Extremities: Good hemostasis at the left hip surgical site. Laboratory Studies: Her white blood cell count today did go up to 11.8 from 9.6 two days ago. Neutr ophils did go up slightly from 44.9 to 57.6, hemoglobin 10.7, hematocrit 32.8, platelets 449. Sodium 137, potassium 4.1, chloride 102, carbon dioxide 27, BUN 19, creatinine 0.8, glucose ranged from 177 to 218. Calcium 9.6, magnesium 1.6, albumin 2.8, prealbumin 14.0. Urinalysis from the ; glucos e 4+, trace ketones, otherwise normal. X-ray/imaging: She did have an electrocardiogram done today for worrying about possibility of atrial fibrillation. The study showed a normal sinus rhythm with a normal study. Consultations: She was seen by Dr. Angelito Mandel on the Podiatry Service and had debridement of the t oenails at the bedside. Progress Made With Physical And Occupational Therapy: With her physical therapy today, she did multi ple onbrtt-rn-tvh transfers with standby assistance, multiple yyc-qo-divti transfers with contact gua rd assistance, nksva-bd-bkgny transfers with a rolling walker with contact guard assistance. She amb ulated 50 feet twice, 60 feet once, and 35 feet twice with contact guard assistance and using a rolli ng walker. With occupational therapy, she was able to don and doff her footwear using a sock aid and shoes with independence. She mobilized from the bedroom to the gym area with supervision . She was able to use the leg clay artist to get her legs in and out of the tub for showering and did so with independence. In addition, supine to sit and gdc-aw-znrar, then edge of bed, she did those with supervision. She was independent for bathing, upper and lower body dressing, again donning and doff ing footwear she was independent. Assessment: Ms. Loza is a 58-year-old patient in rehabilitation unit with left femoral neck frac ture, status post surgical repair. She had recent episode of urinary tract infection and sepsis, was sent to the floor. Acute Care Floor is now back and doing therapy and is doing very well. Still co ntinuing on antibiotics. She has comorbidities of decreased mobility, decreased physical functioning , diabetes mellitus, gout, hypertension, dyslipidemia, leukocytosis, recent sepsis. Plan: 1.She will continue with physical and occupational therapy 3 hours a day, 5 of 7 days. 2.Continue management of her diabetic neuropathy with gabapentin 100 mg twice daily, [place] 5/325 ever ry 4 hours as needed for pain following hip surgery. Continue with the Rocephin 2 g daily until 03/13 8. Continue Eliquis 2.5 mg twice daily for DVT prophylaxis, allopurinol 100 mg daily for gout. 3.Insomnia, addressed with melatonin 5 mg at bedtime. 4.For her diabetes mellitus, metformin 1000 mg twice daily and Actos 15 mg with breakfast given with a mild sliding scale. She has tramadol in addition for pain, Protonix for GE reflux, Zofran for yuli sea. Comorbidities That Are Impacting Rehabilitation: She is of course on IV antibiotics and the IV's giv en at that time did not interfere with her therapy. Plan to complete IV antibiotics prior to her dis charge. ESAU/JEREMY Voice ID: [id number] Report ID: [id number]
--- NOTE | 2024-04-05 13:48 | P.RH.PN ---
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 Goal: Mobility, Transfers, Self Care Vital Signs: Last Vital Signs Temp 97.8 F 04/05/24 06:30 Pulse 87 04/05/24 12:14 Resp 18 04/05/24 07:56 BP 117/59 L 04/05/24 12:14 Pulse Ox 95 04/05/24 07:56 Laboratory: Laboratory Last Values WBC 11.80 thou/uL (4.3-10.9) H 04/04/24 05:27 RBC 3.96 M/uL (3.86-4.86) 04/04/24 05:27 Hgb 10.7 g/dL (12.0-15.0) L 04/04/24 05:27 Hct 32.8 % (36.0-45.0) L 04/04/24 05:27 MCV 82.8 fL (80-100) 04/04/24 05:27 MCH 27.1 pg (27.0-35.0) 04/04/24 05:27 MCHC 32.7 g/dL (32.0-36.0) 04/04/24 05:27 RDW 16.8 % (12.1-15.2) H 04/04/24 05:27 Plt Count 449 thou/uL (152-406) H 04/04/24 05:27 MPV 8.5 fL (7.6-11.3) 04/04/24 05:27 Neutrophils % 57.6 % (41.7-73.7) 04/04/24 05:27 Lymphocytes % 32.3 % (15.3-44.8) 04/04/24 05:27 Monocytes % 7.8 % (3.3-12.3) 04/04/24 05:27 Eosinophils % 1.6 % (0-4.4) 04/04/24 05:27 Basophils % 0.7 % (0-1.3) 04/04/24 05:27 Absolute Neutrophils 6.8 K/uL (1.8-8.0) 04/04/24 05:27 Absolute Lymphocytes 3.8 K/uL (0.7-4.9) 04/04/24 05:27 Absolute Monocytes 0.9 K/uL (0.1-1.3) 04/04/24 05:27 Absolute Eosinophils 0.2 K/uL (0-0.5) 04/04/24 05:27 Absolute Basophils 0.1 K/uL (0-0.5) 04/04/24 05:27 Sodium 137 mEq/L (136-145) 04/04/24 05:27 Potassium 4.1 mEq/L (3.5-5.1) 04/04/24 05:27 Chloride 102 mEq/L (98-107) 04/04/24 05:27 Carbon Dioxide 27 mEq/L (21-32) 04/04/24 05:27 Anion Gap 12.1 mEq/L (5.0-15.0) 04/04/24 05:27 BUN 19 mg/dL (7-18) H 04/04/24 05:27 Creatinine 0.80 mg/dL (0.55-1.02) 04/04/24 05:27 Est GFR (CKD-EPI) 85 ml/min (=/>90) L 04/04/24 05:27 Glucose 186 mg/dL (74-106) H 04/04/24 05:27 POC Glucose 217 mg/dL (65-120) H 04/05/24 11:01 Hemoglobin A1c 7.8 % (4.2-6.3) H 04/02/24 05:25 Lactic Acid 0.8 mmol/L (0.4-2.0) 04/02/24 05:25 Calcium 9.6 mg/dL (8.5-10.1) 04/04/24 05:27 Magnesium 1.6 mg/dL (1.6-2.4) 04/04/24 05:27 Albumin 2.8 g/dL (3.4-5.0) L 04/04/24 05:27 Prealbumin 14.0 mg/dL (20-40) L 04/04/24 05:27 Procalcitonin 0.23 ng/mL (<0.050) H 04/02/24 05:25 Urine Color Colorless (Yellow) 04/02/24 01:50 Urine Clarity Clear (Clear) 04/02/24 01:50 Urine pH 5.0 (5.0-7.0) 04/02/24 01:50 Ur Specific [place] 1.015 (1.005-1.030) 04/02/24 01:50 Glucose (UA)(Auto) 4+ (over) (Negative) H 04/02/24 01:50 Urine Ketones Trace (Negative) H 04/02/24 01:50 Urine Blood Negative (Negative) 04/02/24 01:50 Urine Nitrite Negative (Negative) 04/02/24 01:50 Urine Bilirubin Negative (Negative) 04/02/24 01:50 Urine Urobilinogen Normal (Normal) 04/02/24 01:50 Ur Leukocyte Esterase Negative Mayra/uL (Negative) 04/02/24 01:50 Urine RBC <5 /HPF (None Seen) 04/02/24 01:50 Urine WBC <5 /HPF (<5) 04/02/24 01:50 Ur Squamous Epith Cells <5 /HPF (None Seen) 04/02/24 01:50 U Non-Squamous Epi Cells <5 /HPF (None Seen) 04/02/24 01:50 Urine Bacteria <20 /HPF (<20) 04/02/24 01:50 Urine Mucus Slight /HPF (None Seen) 04/02/24 01:50 Urine Culture Reflexed Not needed 04/02/24 01:50 Urine Total Protein Negative (Negative) 04/02/24 01:50 Weight: 240 lb Closed Surgical Incision Present: Yes Negative Pressure Wound Therapy Present: No Physician Update: Labs reviewed and ae stable except WBC increased to 11.8. Will repeat CBC in the AM. Poor balance and left hip weight bearing status. Plan to D/C home with home health. Will increase long acting insulin to 15 units daily. Working on increasing to 150' with RW and SBA. She will require a tub transfer bench. Summary: Patient's care plan and long chain beamer goals have been reviewed and revised as necessary. Please see the Rehabilitation Signature page for all necessary signatures.
[2024-04-06] MEDS: INSULIN GLARGINE 100 UNIT/ML SQ SCH (08:41)
[2024-04-08 15:30] LABS: Absolute Basophils 0.1 K/uL (0-0.5); Absolute Eosinophils 0.2 K/uL (0-0.5); Absolute Lymphocytes (CBC) 4.8 K/uL (0.7-4.9); Absolute Monocytes 1.3 K/uL (0.1-1.3); Basophils % 1.2 % (0-1.3); Eosinophils % 1.3 % (0-4.4); Hematocrit 35.8 % (36.0-45.0); Hemoglobin 11.3 g/dL (12.0-15.0); Lymphocytes % 38.5 % (15.3-44.8); MCH 26.6 pg (27.0-35.0); MCHC 31.5 g/dL (32.0-36.0); MCV 84.4 fL (80-100); MPV 8.7 fL (7.6-11.3); Monocytes % 10.5 % (3.3-12.3); Neutrophils % 48.5 % (41.7-73.7); Nucleated Red Blood Cells % 0.1 % (0-0); Platelets 172 thou/uL (152-406); RBC Red Blood Cell Count 4.24 M/uL (3.86-4.86); Red Cell Distribution Width 17.3 % (12.1-15.2)
[2024-04-08 15:43] LABS: Anion Gap 10.9 mEq/L (5.0-15.0); Magnesium 1.4 mg/dL (1.6-2.4); Potassium 3.9 mEq/L (3.5-5.1)
[2024-04-08] MEDS: NA CHLORIDE 0.9% 1,000 ML IV SCH (17:04)
[2024-04-08] MEDS: MAGNESIUM SULFATE 1 gm IVPB 1 GM/100 ML BAG IV ONE (17:06)
[2024-04-08] MEDS: MAGNESIUM OXIDE 400 MG TAB PO SCH (19:26)
--- NOTE | 2024-04-08 21:40 | PN ---
Date of Progress Note: 04/08/2024 Time Of Service: 1 p.m. Subjective: Ms. Loza is sitting beside of bed. Physical therapist is working with her. She rep orts doing very well. Her left hip is showing at most pain 2 to 3/10, especially when she ambulates where she maintains touchdown weightbearing status. Able to ambulate 150 feet with a rolling walker and doing much better. Denies any significant issues such as myalgias, arthralgias, rash, weight michael nge, or any other issues. Review of Systems: Again, no fevers, chills, nausea, vomiting. No psychiatric complaints. No gastrointestinal or genit ourinary complaints. Physical Examination: Vital Signs: Blood pressure 125/63, pulse up to 94, respiratory rate 16, temperature 97.8, oxygen sa turation 95%. General: Ms. oLza again is sitting beside the bed. HEENT: She is normocephalic, atraumatic. Sclerae anicteric. Oropharynx is moist. Neck: Supple. Chest: Clear. Heart: Regular. Extremities: Show no significant clubbing, cyanosis, or edema. Postoperative changes expected in th e left lower extremity. Good hemostasis at surgical site. Laboratory Studies: White blood cell count did go up to 12.4 from 11.8, but neutrophils remained nor mal at 48.5, hemoglobin 11.3, hematocrit 35.8, and platelets 172. Her sodium is slightly low at 134, potassium 3.9, chloride 103, carbon dioxide 24, BUN 24, creatinine 1.2, blood glucose ranged from 17 7 to 207, calcium 9.9, and magnesium is low at 2.14. She is actually receiving now a gram of magnesi um and will have a liter of normal saline to help with her hydration as noted by the creatinine again and the magnesium being low. X-ray/imaging: No new x-rays or imaging. Medications: As noted, she is receiving a gram of magnesium, receiving sodium chloride a liter, Ultr am 50 mg every 4 hours as needed, she will have that for discharge, continue Actos, Protonix, Singula ir, Zofran, metformin, melatonin, magnesium oxide, Prinivil, Semglee insulin, hydrochlorothiazide, ga bapentin, Glucerna, Lipitor, Eliquis, allopurinol, and Tylenol. Progress Made With Physical And Occupational Therapy: With physical therapy today, she was able to d o ddeqzs-cr-cmm transfers independently, multiple wlj-xl-eohok transfers done independently. She amb ulated 165 feet twice and 40 feet once independently. She ascended and descended 4 steps with a roll ing walker with independence. She does note that at work when she is back to work, has to go up abou t 8 to 10 steps multiple times a day, actually up to about 16, and she will follow with Dr. Delvalle , her orthopedic surgeon, prior to returning to work and he made a release for nonweightbearing statu s based on her healing. With occupational therapy, she did lar-lv-pwplq transfers independently, toileting, bathing, upper an d lower body dressing, donning and doffing footwear, all done independently. She is set for discharg e home in the morning, will continue therapy via Home Health. Assessment: Ms. Loza is a 58-year-old patient in the rehabilitation unit with left femoral neck fracture, status post surgical repair. She does have a significantly low magnesium and dehydration a nd is being addressed with magnesium 1 g and sodium chloride 1 L that is normal saline. She will rec eive oral hydration which is increased as well. Comorbidities are decreased mobility, decreased phys ical functioning, diabetes mellitus, gout, hypertension, dyslipidemia, leukocytosis. Plan: 1.She will continue with physical and occupational therapy 3 hours a day, 5 of 7 days until discharg e. 2.Her medications which are noted above will be continued for comorbid conditions. Again, magnesium and normal saline to be given. LB/MODL Voice ID: [id number] Report ID: [id number]
[2024-04-09 06:03] LABS: Absolute Basophils 0.1 K/uL (0-0.5); Absolute Eosinophils 0.1 K/uL (0-0.5); Absolute Lymphocytes (CBC) 3.2 K/uL (0.7-4.9); Absolute Monocytes 0.9 K/uL (0.1-1.3); Basophils % 1.4 % (0-1.3); Eosinophils % 1.8 % (0-4.4); Hematocrit 35.1 % (36.0-45.0); Hemoglobin 11.4 g/dL (12.0-15.0); Lymphocytes % 38.2 % (15.3-44.8); MCH 27.1 pg (27.0-35.0); MCHC 32.6 g/dL (32.0-36.0); MCV 83.1 fL (80-100); MPV 7.9 fL (7.6-11.3); Monocytes % 10.6 % (3.3-12.3); Nucleated Red Blood Cells % 0.1 % (0-0); Platelets 459 thou/uL (152-406); RBC Red Blood Cell Count 4.23 M/uL (3.86-4.86); Red Cell Distribution Width 17.3 % (12.1-15.2)
[2024-04-09 06:27] LABS: Magnesium 1.8 mg/dL (1.6-2.4)
[2024-04-09 07:58] VITALS: TEMP 98.3
[2024-04-09 09:04] VITALS: BP 119/61
--- NOTE | 2024-04-15 04:28 | DS ---
Date of Discharge: 04/09/2024 Allergies: SCOPOLAMINE AND SEMAGLUTIDE. Discharge Condition: Good. Discharge Diagnoses: Left femoral neck fracture, status post repair; decreased mobility; decreased p hysical functioning; morbid obesity; hypertension; gout; hypercholesterolemia; leukocytosis; and daisy jeremy sepsis. Medications: Actos 15 mg daily, Singulair 10 mg daily, Glucophage 1000 mg twice daily, hydrochloroth iazide, lisinopril 1 daily, lansoprazole 30 mg daily, Farxiga 10 mg daily, atorvastatin 10 mg at bedt stan, allopurinol 100 mg daily, Ultram 50 mg every 4 hours, cranberry extract 200 mg twice daily. Laboratory Studies: White blood cell count 8.3, hemoglobin 11.4, platelets 459. Sodium 138, potassi um 4.0, chloride 106, BUN 17, creatinine 0.78, glucose ranged from 177 to 207, calcium 9.5, magnesium 1.8. Urinalysis: Ketones trace, 4+ glucose, otherwise unremarkable. X-ray/imaging: No x-rays or imaging done. There is an electrocardiogram done on 04/04/2024. [address] udy showed normal sinus rhythm, normal ECG. Synopsis Of Events That Led To Admission: Ms. Loza is a 58-year-old patient with medical problem s as noted, who initially came to the emergency department with significant pain of several months in the left hip. She was identified as having a left femoral neck fracture and then had closed reducti on and intramedullary kelly fixation. She was initially admitted to rehabilitation unit, however, just on presentation was found to have urinary tract infection with sepsis. Elevated procalcitonin, feve r 102 with tachycardia, and high white count with neutrophils. She was therefore transferred to the acute care floor for higher level of care. She was there monitored and treated with antibiotics and managed by the orthopedic service and eventually returned toward baseline functioning. At that point , she was then returned to the inpatient rehabilitation unit to cover her therapy where she could ret urn back to her prior level of functioning prior to the fracture. Hospital Course: Throughout hospitalization, she maintained an afebrile status. White blood cell co unt was followed, hemoglobin and hematocrit followed, and kidney function followed. Pain was managed . Sleep, hydration, and nutrition also managed. Progress Made With Physical And Occupational Therapy: At time of discharge, regarding her physical t herapy, she was able to do touchdown weightbearing status, ambulated 160 feet with good tolerance, up and down 4 steps with bilateral handrails, did have some difficulty with weightbearing. In terms of her wheelchair mobilization, covered 250 feet with good tolerance. Car transfer done very well. Di d meet all of her short-term and long-term goals and durable medical equipment needs were met and she was discharged to continue therapy on outpatient basis. Regarding her occupational therapy, by the time of discharge, showering independent; eating, grooming, bathing, upper and lower body dressing al l independent; donning and doffing footwear all independent. Did meet all of her long-term and short -term goals and was discharged home. She will be continuing therapy via home health. Furthermore, s he will follow up with orthopedic surgeon as scheduled. ESAU/JEREMY Voice ID: [id number] Report ID: [id number]
== END 2024-04-09 10:40 | disposition home or self-care (01) | DRG 559 ==
LOC: 5TH 22:20
PROVIDERS: ADMIT Psychiatry & Neurology Neurology with Special Qualifications in Child Neurology; ATTEND Psychiatry & Neurology Neurology with Special Qualifications in Child Neurology
PROC: 0HBRXZZ Excision of Toe Nail, External Approach (ICD-10-PCS; principal; 2024-04-03)
PROC: 0HBRXZZ Excision of Toe Nail, External Approach (ICD-10-PCS; 2024-04-03)
PROC: 0HBRXZZ Excision of Toe Nail, External Approach (ICD-10-PCS; 2024-04-03)
PROC: 0HBRXZZ Excision of Toe Nail, External Approach (ICD-10-PCS; 2024-04-03)
PROC: 0HBRXZZ Excision of Toe Nail, External Approach (ICD-10-PCS; 2024-04-03)
PROC: 0HBRXZZ Excision of Toe Nail, External Approach (ICD-10-PCS; 2024-04-03)
PROC: 0HBRXZZ Excision of Toe Nail, External Approach (ICD-10-PCS; 2024-04-03)
PROC: 0HBRXZZ Excision of Toe Nail, External Approach (ICD-10-PCS; 2024-04-03)
PROC: 0HBRXZZ Excision of Toe Nail, External Approach (ICD-10-PCS; 2024-04-03)
PROC: 0HBRXZZ Excision of Toe Nail, External Approach (ICD-10-PCS; 2024-04-03)
DX: S72.002D Fracture of unspecified part of neck of left femur, subsequent encounter for closed fracture with routine healing (principal); A41.9 Sepsis, unspecified organism; Z68.42 Body mass index [BMI] 45.0-49.9, adult; N39.0 Urinary tract infection, site not specified; I10 Essential (primary) hypertension; E11.9 Type 2 diabetes mellitus without complications; M10.9 Gout, unspecified; E66.01 Morbid (severe) obesity due to excess calories; E78.5 Hyperlipidemia, unspecified; B35.1 Tinea unguium; E83.42 Hypomagnesemia; E86.0 Dehydration
CPT/HCPCS: 36415; 80048; 81001; 82040; 82947; 83036; 83605; 83735; 84134; 84145; 85025; 87086; 87088; 93005; 94010; 97110; 97116; 97161; 97165; 97530; 97542; A4216; J0696; J3475; J7030; Q0162

== ENCOUNTER 2025-03-05 19:32 | Emergency (ER) | payer OTHER, BC ==
[2025-03-05] MEDS ORDERED: ONDANSETRON 4 MG/2 ML VIAL ONE (22:01)
[2025-03-05] MEDS ORDERED: NA CHLORIDE 0.9% 1,000 ML ONE (22:01)
[2025-03-05 22:10] LABS: Absolute Lymphocytes (CBC) 2.7 K/uL (0.7-4.9); Hematocrit 40.9 % (36.0-45.0); Hemoglobin 13.4 g/dL (12.0-15.0); MCH 25.0 pg (27.0-35.0); MCHC 32.7 g/dL (32.0-36.0); MCV 76.5 fL (80-100); MPV 7.9 fL (7.6-11.3); Nucleated RBC Absolute Count 0.0 (0-0); Nucleated Red Blood Cells % 0.0 % (0-0); RBC Red Blood Cell Count 5.36 M/uL (3.86-4.86); White Blood Count 18.70 thou/uL (4.3-10.9)
[2025-03-05 22:28] LABS: ALT/SGPT 25.0 U/L (13-56); AST/SGOT 11.0 U/L (15-37); Albumin 3.7 g/dL (3.4-5.0); Albumin/Globulin Ratio 0.8 (1.1-1.8); Alkaline Phosphatase 96.0 U/L (45-117); Anion Gap 12.9 mEq/L (5.0-15.0); BUN Blood Urea Nitrogen 33.0 mg/dL (7-18); Globulin 4.8 g/dL (2.3-3.5); Glucose Level 189.0 mg/dL (74-106); Lipase 11.0 U/L (13-75); Potassium 3.9 mEq/L (3.5-5.1)
[2025-03-05] MEDS ORDERED: HYDROMORPHONE HCL 1 MG/ML INJ ONE (22:56)
--- NOTE | 2025-03-05 23:52 | RAD REPORT ---
EXAM: CT Abdomen and Pelvis With Intravenous Contrast CLINICAL HISTORY: The patient is 59 years old and is Female; Elevated WBC 18K;Abd pain TECHNIQUE: Axial computed tomography images of the abdomen and pelvis with intravenous contrast. Sagittal an d coronal reformatted images were created and reviewed. This CT exam was performed using one or more of the following dose reduction techniques: automated exposure control, adjustment of the mA a nd/or kV according to patient size, and/or use of iterative reconstruction technique. COMPARISON: February 19, 2023 FINDINGS: LUNG BASES: A left lower lobe pulmonary nodule measuring 1.4 cm is present. Atelectasis within th e left lower lobe is noted. ABDOMEN: LIVER: The liver is enlarged and fatty. GALLBLADDER AND BILE DUCTS: Surgical clips are present in the right upper quadrant, consistent wi th previous cholecystectomy. PANCREAS: No ductal dilation. No mass. SPLEEN: Unremarkable. ADRENALS: Unremarkable. No mass. KIDNEYS AND URETERS: Unremarkable. The kidneys enhance symmetrically. No obstructing renal or ure teral calculus is seen. No hydronephrosis or hydroureter. No perinephric fluid or stranding. STOMACH AND BOWEL: The stomach is minimally filled with fluid and air. The small bowel is normal in caliber. Stool is present throughout the colon. There is no mucosal thickening or evidence of obstruction. PELVIS: APPENDIX: The appendix is normal in caliber without surrounding inflammation. BLADDER: The bladder is moderately distended. REPRODUCTIVE: Calcification within the uterus is noted. ABDOMEN and PELVIS: INTRAPERITONEAL SPACE: Unremarkable. No free air. No significant fluid collection. BONES/JOINTS: Postsurgical change of the proximal left femur is present. There is no acute fractu re. SOFT TISSUES: The soft tissues are normal. VASCULATURE: Atherosclerosis of the vasculature is present. The vessels are normal in caliber. No abdominal aortic aneurysm. LYMPH NODES: Unremarkable. No enlarged lymph nodes. IMPRESSION: 1. No acute findings on this contrast CT of the abdomen and pelvis to explain the patient's symptom s. 2. Left lower lobe pulmonary nodule. Left solid pulmonary nodule measuring 14 mm detected on incomp lete chest CT. Per Fleischner Society Guidelines, recommend prompt non-contrast Chest CT for further evaluation. These guidelines do not apply to immunocompromised patients and patients with can cer. Follow up in patients with significant comorbidities as clinically warranted. For lung cancer screening, adhere to Lung-RADS guidelines. Reference: Radiology. 2017; 284(1):228-43. Electronically signed by: Digna Brown MD 03/05/2025 11:48 PM CDT RP Due to temporary technical issues with the PACS/[employer] reporting system, reports are being jacobo d by the in-house radiologist without review as a courtesy to ensure prompt reporting the interpreting radiologist is fully responsible for the content of the report. Transcribed Date/Time: 03/06/2025 7:20 AM
--- NOTE | 2025-03-06 00:03 | EDPHYS ---
Physician Documentation [facility] Name: Guerita Loza Age: 59 yrs Sex: Female : 1965 Arrival Date: 03/05/2025 Time: 19:32 Bed 14 Private MD: ED Physician Mandy Loredo HPI: 03/05 20:24 This 59 yrs old Female presents to ER via Ambulatory with complaints of sp3 Vomiting. 20:24 59-year-old female with history of diabetes, gastroparesis, hyperlipidemia, sp3 hypertension, status post cholecystectomy and appendicitis now presents to the ED with chief complaint vomiting and mild abdominal pain after starting Mounjaro. She had similar reactions to other semaglutide type medications. She believes this is associated with the medication. She denies any other symptoms including headache, fever, neck pain, chest pain, shortness of breath, diarrhea, syncope, no CP, bleeding, melena, or any other signs or symptoms on ROS at this time.. Historical: - Allergies: 19:57 Jardiance; dd2 19:57 ozempic; dd2 19:57 Scopolamine HBr; dd2 19:57 unknown medication for dizziness; dd2 - PMHx: 19:57 Diabetes - NIDDM; Gastroparesis; Gout; High Cholesterol; Hypertension; dd2 - PSHx: 19:57 section; Cholecystectomy; dd2 - Immunization history:: Adult Immunizations up to date. - Infectious Disease History:: Denies. - Social history:: Smoking status: Patient denies any tobacco usage or history of. ROS: 20:26 Constitutional: Negative for fever, chills, and weight loss, Eyes: Negative for injury, sp3 pain, redness, and discharge, Neck: Negative for injury, pain, and swelling, Cardiovascular: Negative for chest pain, palpitations, and edema, Respiratory: Negative for shortness of breath, cough, wheezing, and pleuritic chest pain, Back: Negative for injury and pain, MS/Extremity: Negative for injury and deformity, Skin: Negative for injury, rash, and discoloration, Neuro: Negative for headache, weakness, numbness, tingling, and seizure, Psych: Negative for depression, anxiety, suicide ideation, homicidal ideation, and hallucinations, Allergy/Immunology: Negative for hives, rash, and allergies, Endocrine: Negative for neck swelling, polydipsia, polyuria, polyphagia, and marked weight changes, 20:26 All other systems are negative, Exam: 20:27 Constitutional: This is a well developed, well nourished patient who is awake, alert, sp3 and in no acute distress. Head/Face: Normocephalic, atraumatic. Eyes: Pupils equal round and reactive to light, extra-ocular motions intact. Lids and lashes normal. Conjunctiva and sclera are non-icteric and not injected. Cornea within normal limits. Periorbital areas with no swelling, redness, or edema. Neck: Trachea midline, no thyromegaly or masses palpated, and no cervical lymphadenopathy. Supple, full range of motion without nuchal rigidity, or vertebral point tenderness. No Meningismus. Chest/axilla: Normal chest wall appearance and motion. Nontender with no deformity. No lesions are appreciated. Cardiovascular: Regular rate and rhythm with a normal S1 and S2. No gallops, murmurs, or rubs. Normal PMI, no JVD. No pulse deficits. Respiratory: Lungs have equal breath sounds bilaterally, clear to auscultation and percussion. No rales, rhonchi or wheezes noted. No increased work of breathing, no retractions or nasal flaring. Back: No spinal tenderness. No costovertebral tenderness. Full range of motion. Skin: Warm, dry with normal turgor. Normal color with no rashes, no lesions, and no evidence of cellulitis. MS/ Extremity: Pulses equal, no cyanosis. Neurovascular intact. Full, normal range of motion. Neuro: Awake and alert, GCS 15, oriented to person, place, time, and situation. Cranial nerves II-XII grossly intact. Motor strength 5/5 in all extremities. Sensory grossly intact. Cerebellar exam normal. Normal gait. Psych: Awake, alert, with orientation to person, place and time. Behavior, mood, and affect are within normal limits. 20:27 Abdomen/GI: Abdomen soft minimally tender without peritoneal signs, rebound or guarding. No active emesis or dry heaving noted., Vital Signs: 19:53 BP 154 / 74; Pulse 103; Resp 16; Temp 98.3; Pulse Ox 95% on R/A; Weight 113.4 kg; dd2 Height 5 ft. 1 in. ; Pain 4/10; 22:26 BP 160 / 81; Pulse 98; Resp 18 S; Pulse Ox 95% on R/A; kt5 23:03 BP 153 / 83; Pulse 91; Resp 18 S; Pulse Ox 91% on R/A; kt5 03/06 00:08 BP 161 / 85; Pulse 98; Resp 18 S; Temp 98.9(O); Pulse Ox 98% ; Pain 0/10; kt5 00:17 BP 140 / 79; Pulse 92; Resp 18; Pulse Ox 97% ; kt5 03/05 19:53 Body Mass Index 47.24 (113.40 kg, 154.94 cm) dd2 03/05 19:53 Pain Scale: Adult dd2 03/06 00:08 Pain Scale: Adult kt5 MDM: 03/05 20:00 Medical Screening Exam initiated sp3 20:27 Data reviewed: vital signs, nurses notes, lab test result(s). ED course: 59-year-old sp3 female with PMH above now with mild abdominal pain and nausea. Patient recently started Mounjaro. Differential diagnosis includes Mounjaro side effects, other viral illness, gastritis, electrolyte disturbance, colitis, or other intra-abdominal pathology. I am not highly suspicious of RETAIL DIRECTOR, or other vascular pathology at this time. Workup will include general labs, IV fluids and ondansetron with probable discharge home if workup negative.. 22:40 ED course: Patient surface grinder tender and WBC is elevated. Will add on CT scan of the abdomen sp3 pelvis with IV contrast and administer Dilaudid 1 mg IV for symptomatic control.. 03/06 00:01 ED course: CT demonstrates no significant acute findings. Pulmonary nodule present and sp3 patient has been notified. Will discharge patient on tramadol and ondansetron and follow-up with PCP. I have advised her to stop Mounjaro.. 03/05 20:00 Order name: CBC with Diff; Complete Time: 22:37 sp3 03/05 20:00 Order name: CMP; Complete Time: 22:37 sp3 03/05 20:00 Order name: Lipase; Complete Time: 22:37 sp3 03/05 20:01 Order name: Lactate w/ 2H reflex if indic.; Complete Time: 22:37 sp3 03/05 22:38 Order name: CT Abd/Pelvis - IV Contrast Only sp3 03/05 20:00 Order name: IV Saline Lock; Complete Time: 22:08 sp3 03/05 20:00 Order name: Labs collected and sent; Complete Time: 22: sp3 Administered Medications: 03/05 22:12 Drug: Ondansetron IVP 4 mg IVP once; over 2 minutes Route: IVP; Site: left forearm; kt5 03/06 00:24 Follow up: Response: No adverse reaction; Nausea is decreased kt5 03/05 22:12 Drug: NS 0.9% IV 1000 ml IV at 1 bolus Per protocol; to be given as a bolus over 60 kt5 minutes Route: IV; Rate: 1 bolus; Site: left forearm; 03/06 00:24 Follow up: IV Status: Completed infusion; IV Intake: 1000ml kt5 Follow up: Response: No adverse reaction kt5 03/05 23:03 Drug: HYDROmorphone IVP 1 mg IVP once Route: IVP; Site: left forearm; kt5 03/06 00:24 Follow up: Response: No adverse reaction; Pain is decreased kt5 Disposition Summary: 03/06/25 00:02 Discharge Ordered Notes: Location: Home sp3 Condition: Stable sp3 Diagnosis - Abdominal pain, unspecified sp3 Followup: sp3 - With: Private Physician - When: Upon discharge from the Emergency Department - Reason: Continuance of care Discharge Instructions: - Discharge Summary Sheet sp3 - Abdominal Pain, Adult sp3 Forms: - Medication Reconciliation Form sp3 - Antibiotic Education sp3 - Prescription Opioid Use sp3 - Patient Portal Instructions sp3 - Leadership Thank You Letter sp3 - Work release form kt5 Prescriptions: - ondansetron 4 mg Oral Tablet,disintegrating - take 2 tablet ORAL route every 12 hours as needed for nausea and vomiting; 20 sp3 tablet; Refills: 0, Product Selection Permitted - Tramadol 50 mg Oral Tablet - take 1 tablet ORAL route every 8 hours as needed; 12 tablet; Refills: 0, sp3 Product Selection Permitted Signatures: Dispatcher [employer] Mandy Lock MD MD sp3 VANESSA LEONARD RN RN dd2 Eda Jones RN RN kt5
--- NOTE | 2025-03-06 00:03 | ER ---
Nurse's Notes [facility] Name: Guerita Loza Age: 59 yrs Sex: Female : 1965 Arrival Date: 03/05/2025 Time: 19:32 Bed 14 Private MD: Diagnosis: Abdominal pain, unspecified Presentation: 03/05 19:53 Chief complaint: Patient states: SHE WENT TO URGENT CARE LAST NIGHT FOR N/V. PT REPORTS dd2 SHE HAS BEEN TAKING THE MOUNJARO INJ AND HAS BEEN FEELING NAUSEOUS SINCE MONDAY. Coronavirus screen: At this time, the client does not indicate any symptoms associated with coronavirus-19. Ebola Screen: No symptoms or risks identified at this time. Initial Sepsis Screen: Does the patient meet any 2 criteria? No. Patient's initial sepsis screen is negative. Does the patient have a suspected source of infection? No. Patient's initial sepsis screen is negative. Risk Assessment: Do you want to hurt yourself or someone else? Patient reports no desire to harm self or others. Onset of symptoms was March 04, 2025. 19:53 Method Of Arrival: Ambulatory dd2 19:53 Acuity: BELEN 3 dd2 Triage Assessment: 19:57 General: Appears in no apparent distress. uncomfortable, Behavior is calm, cooperative, dd2 appropriate for age. Pain: Complains of pain in epigastric area Quality of pain is described as burning. GI: Pt is actively vomiting clear fluid, Reports epigastric pain, nausea, vomiting. Historical: - Allergies: 19:57 Jardiance; dd2 19:57 ozempic; dd2 19:57 Scopolamine HBr; dd2 19:57 unknown medication for dizziness; dd2 - PMHx: 19:57 Diabetes - NIDDM; Gastroparesis; Gout; High Cholesterol; Hypertension; dd2 - PSHx: 19:57 section; Cholecystectomy; dd2 - Immunization history:: Adult Immunizations up to date. - Infectious Disease History:: Denies. - Social history:: Smoking status: Patient denies any tobacco usage or history of. Screenin:35 [facility] ED Fall Risk Assessment (Adult) History of falling in the last 3 months, kt5 including since admission No falls in past 3 months (0 pts) Confusion or Disorientation No (0 pts) Intoxicated or Sedated No (0 pts) Impaired Gait Yes (1 pt) Mobility Assist Device Used Yes (1 pt) Altered Elimination No (0 pt) Score/Fall Risk Level 0 - 2 = Low Risk Oriented to surroundings, Maintained a safe environment. Abuse screen: Denies threats or abuse. Nutritional screening: No deficits noted. Tuberculosis screening: No symptoms or risk factors identified. Assessment: 21:35 General: Appears in no apparent distress. uncomfortable, Behavior is calm, cooperative, kt5 appropriate for age. Pain: Complains of pain in epigastric area, right upper quadrant and left upper quadrant Pain currently is 6 out of 10 on a pain scale. Quality of pain is described as pressure, sharp, Pain began 6 days ago Is continuous. Neuro: No deficits noted. Perez Agitation-Sedation Scale (RASS): 0 - Alert and Calm Level of Consciousness is awake, alert, obeys commands, Oriented to person, place, time, situation, Appropriate for age. Cardiovascular: No deficits noted. Denies chest pain, Heart tones S1 S2 Capillary refill < 3 seconds is brisk Clubbing of nail beds is absent JVD is absent Pulses are all present. Edema is absent. Respiratory: Airway is patent Trachea midline Respiratory effort is even, unlabored, Respiratory pattern is regular, symmetrical. GI: Abdomen is round non-distended, Bowel sounds present X 4 quads. Abd is soft X 4 quads Abdomen is tender to palpation X 4 quads. Reports nausea, vomiting. : No deficits noted. No signs and/or symptoms were reported regarding the genitourinary system. EENT: No deficits noted. No signs and/or symptoms were reported regarding the EENT system. Derm: No deficits noted. Skin is intact, is healthy with good turgor, Skin is dry, Skin is pink, warm \T\ dry. Musculoskeletal: No deficits noted. No signs and/or symptoms reported regarding the musculoskeletal system. 22:26 Reassessment: Patient appears in no apparent distress at this time. Patient and/or kt5 family updated on plan of care and expected duration. Pain level reassessed. Patient is alert, oriented x 3, equal unlabored respirations, skin warm/dry/pink. Patient states feeling better. Patient states symptoms have improved. 22:55 General: pt to ct with tech. kt5 23:03 General: pt back from ct, tolerated well, iv pain meds given, will monitor. kt5 23:20 Reassessment: Patient appears in no apparent distress at this time. Patient and/or kt5 family updated on plan of care and expected duration. Pain level reassessed. Patient is alert, oriented x 3, equal unlabored respirations, skin warm/dry/pink. Patient denies pain at this time. Patient states feeling better. Patient states symptoms have improved. 03/06 00:08 Reassessment: Patient appears in no apparent distress at this time. Patient and/or kt5 family updated on plan of care and expected duration. Pain level reassessed. Patient is alert, oriented x 3, equal unlabored respirations, skin warm/dry/pink. Patient denies pain at this time. Patient states feeling better. Patient states symptoms have improved. Vital Signs: 03/05 19:53 BP 154 / 74; Pulse 103; Resp 16; Temp 98.3; Pulse Ox 95% on R/A; Weight 113.4 kg; dd2 Height 5 ft. 1 in. ; Pain 4/10; 22:26 BP 160 / 81; Pulse 98; Resp 18 S; Pulse Ox 95% on R/A; kt5 23:03 BP 153 / 83; Pulse 91; Resp 18 S; Pulse Ox 91% on R/A; kt5 03/06 00:08 BP 161 / 85; Pulse 98; Resp 18 S; Temp 98.9(O); Pulse Ox 98% ; Pain 0/10; kt5 00:17 BP 140 / 79; Pulse 92; Resp 18; Pulse Ox 97% ; kt5 03/05 19:53 Body Mass Index 47.24 (113.40 kg, 154.94 cm) dd2 03/05 19:53 Pain Scale: Adult dd2 03/06 00:08 Pain Scale: Adult kt5 ED Course: 03/05 19:34 Patient arrived in ED. mr 19:35 Mandy Loredo MD is Attending Physician. sp3 19:57 Triage completed. dd2 19:57 Arm band placed on right wrist. dd2 21:24 Eda Jones, RN is Primary Nurse. kt5 21:35 Bed in low position. Call light in reach. Side rails up X 1. Adult w/ patient. Client kt5 placed on continuous cardiac and pulse oximetry monitoring. NIBP monitoring applied. Door closed. Noise minimized. Warm blanket given. Pillow given. 22:08 Initial lab(s) drawn, by bundle tier and labeler, sent to lab. Inserted saline lock: 22 gauge in left ts3 forearm, using aseptic technique. Blood collected. Flushed with 10 mL NS. 22:12 Lactate w/ 2H reflex if indic. Sent. kt5 23:02 CT Abd/Pelvis - IV Contrast Only In Process Unspecified. [facility] 03/06 00:09 Provided Education on: follow up and meds. kt5 00:09 IV discontinued, intact, bleeding controlled, No redness/swelling at site. Pressure kt5 dressing applied. 00:24 No provider procedures requiring assistance completed. kt5 Administered Medications: 03/05 22:12 Drug: Ondansetron IVP 4 mg IVP once; over 2 minutes Route: IVP; Site: left forearm; kt5 03/06 00:24 Follow up: Response: No adverse reaction; Nausea is decreased kt5 03/05 22:12 Drug: NS 0.9% IV 1000 ml IV at 1 bolus Per protocol; to be given as a bolus over 60 kt5 minutes Route: IV; Rate: 1 bolus; Site: left forearm; 03/06 00:24 Follow up: IV Status: Completed infusion; IV Intake: 1000ml kt5 00:25 Follow up: Response: No adverse reaction kt5 03/05 23:03 Drug: HYDROmorphone IVP 1 mg IVP once Route: IVP; Site: left forearm; kt5 03/06 00:24 Follow up: Response: No adverse reaction; Pain is decreased kt5 Medication: 03/05 21:35 VIS not applicable for this client. kt5 Intake: 03/06 00:24 IV: 1000ml; Total: 1000ml. kt5 Outcome: 00:02 Discharge ordered by . sp3 00:23 Discharged to home ambulatory, with family, kt5 00:23 Condition: improved 00:23 Discharge instructions given to patient, Instructed on discharge instructions, follow up and referral plans. Demonstrated understanding of instructions, follow-up care, medications, Prescriptions given X 2, 00:25 Patient left the ED. kt5 Signatures: Dispatcher [employer] [facility] Guerita Franco, Reg Reg Mandy Frazier MD MD sp3 VANESSA LEONARD, RN RN dd2 Minnie Armijo ts3 Karen, Eda, RN RN kt5
[2025-03-06 00:49] VITALS: TEMP 98.9
[2025-03-06 00:50] VITALS: BP 140/79; O2SAT 97
== END 2025-03-06 00:25 | disposition home or self-care (01) ==
LOC: ER 19:32
DX: R10.9 Unspecified abdominal pain (principal); R11.10 Vomiting, unspecified; Z90.49 Acquired absence of other specified parts of digestive tract
CPT/HCPCS: 96361; 85025; 36415; 83605; 83690; 80053; 74177; 96375; 96374; 99284; Q9967; J1171; J2405; J7030

== ENCOUNTER 2025-03-07 09:52 | Inpatient (IN) | payer OTHER, BC ==
[2025-03-07] MEDS ORDERED: NA CHLORIDE 0.9% 1,000 ML ONE (10:44)
[2025-03-07 10:49] LABS: Absolute Lymphocytes (CBC) 3.3 K/uL (0.7-4.9); Hematocrit 42.5 % (36.0-45.0); Hemoglobin 13.5 g/dL (12.0-15.0); MCH 24.4 pg (27.0-35.0); MCHC 31.7 g/dL (32.0-36.0); MCV 77.0 fL (80-100); MPV 8.2 fL (7.6-11.3); Nucleated RBC Absolute Count 0.0 (0-0); Nucleated Red Blood Cells % 0.0 % (0-0); RBC Red Blood Cell Count 5.52 M/uL (3.86-4.86); White Blood Count 16.80 thou/uL (4.3-10.9)
[2025-03-07 11:13] LABS: ALT/SGPT 28.0 U/L (13-56); AST/SGOT 13.0 U/L (15-37); Albumin 3.5 g/dL (3.4-5.0); Albumin/Globulin Ratio 0.7 (1.1-1.8); Alkaline Phosphatase 102.0 U/L (45-117); Anion Gap 16.8 mEq/L (5.0-15.0); BUN Blood Urea Nitrogen 28.0 mg/dL (7-18); Globulin 4.7 g/dL (2.3-3.5); Glucose Level 193.0 mg/dL (74-106); Lipase 11.0 U/L (13-75); Potassium 3.8 mEq/L (3.5-5.1)
[2025-03-07 11:47] LABS: PCO2, Venous Blood Gas 42 mmHg (41-51); PH, Venous Blood Gas 7.36 (7.32-7.42); PO2, Venous Blood Gas 51 mmHg (25-40)
[2025-03-07 11:48] LABS: Base Excess, VBG -1.7 mmol/L (-2.0-3.0); HCO3, Venous Blood Gas 23.7 mmol/L (21.0-29.0); O2 Saturation, VBG 84.1 % (40.0-70.0)
[2025-03-07] MEDS ORDERED: METOCLOPRAMIDE 10 MG/2mL INJ ONE (13:17)
--- NOTE | 2025-03-07 13:41 | ER ---
Nurse's Notes [facility] Name: Guerita Lzoa Age: 59 yrs Sex: Female : 1965 Arrival Date: 03/07/2025 Time: 09:52 Bed 18 Private MD: Diagnosis: Nausea with vomiting, unspecified;Adverse effect of unspecified drugs, medicaments and biological substances-GLP1 Presentation: 03/07 10:40 Chief complaint: Patient states: started Mounjaro a week ago and has been having n/v, iw abd pain since then. Coronavirus screen: At this time, the client does not indicate any symptoms associated with coronavirus-19. Ebola Screen: No symptoms or risks identified at this time. Initial Sepsis Screen: Does the patient meet any 2 criteria? No. Patient's initial sepsis screen is negative. Does the patient have a suspected source of infection?. Risk Assessment: Do you want to hurt yourself or someone else? Patient reports no desire to harm self or others. 10:40 Method Of Arrival: Ambulatory iw 10:40 Acuity: BELEN 3 iw Triage Assessment: 10:40 General: Appears in no apparent distress. obese, Behavior is cooperative, appropriate bp for age, anxious. Pain: Complains of pain in abdomen. EENT: No deficits noted. Neuro: No deficits noted. Cardiovascular: No deficits noted. Respiratory: No deficits noted. GI: Reports upper abdominal pain, nausea. : No signs and/or symptoms were reported regarding the genitourinary system. Derm: No deficits noted. Musculoskeletal: No deficits noted. Historical: - Allergies: 10:41 Jardiance; iw 10:41 ozempic; iw 10:41 Scopolamine HBr; iw - PMHx: 10:41 High Cholesterol; Gout; Gastroparesis; Diabetes - NIDDM; Hypertension; iw - PSHx: 10:41 Cholecystectomy; section; iw Screenin:40 [facility] ED Fall Risk Assessment (Adult) History of falling in the last 3 months, bp including since admission No falls in past 3 months (0 pts) Confusion or Disorientation No (0 pts) Intoxicated or Sedated No (0 pts) Impaired Gait No (0 pts) Mobility Assist Device Used No (0 pt) Altered Elimination No (0 pt) Score/Fall Risk Level 0 - 2 = Low Risk. Assessment: 10:40 General: SEE TRIAGE NOTE. bp 11:29 Reassessment: Patient appears in no apparent distress at this time. Patient is alert, bp oriented x 3, equal unlabored respirations, skin warm/dry/pink. GI: Abdomen is non-distended, obese. 15:00 Reassessment: No changes from previously documented assessment. Patient is alert, bp oriented x 3, equal unlabored respirations, skin warm/dry/pink. Vital Signs: 11:28 BP 143 / 69; Pulse 103; Resp 15; Pulse Ox 92% on R/A; bp 15:00 BP 178 / 87; Pulse 106; Resp 15; Pulse Ox 93% ; bp ED Course: 09:58 Patient arrived in ED. al6 09:59 [facility] Copeland [facility] sb4 09:59 Jad Garcia MD is Attending Physician. sb4 10:30 Alden Pryor, RN is Primary Nurse. bp 10:40 Patient has correct armband on for positive identification. bp 10:40 Initial lab(s) drawn, by ca, sent to lab. Inserted saline lock: 22 gauge in left bp forearm, using aseptic technique. Blood collected. Flushed with 10 mL NS. 10:41 Triage completed. iw 10:41 Arm band placed on. iw 13:40 Oscar Perales MD is Hospitalizing Provider. sb4 Administered Medications: 10:45 Drug: NS 0.9% IV 1000 ml IV at 1 bolus Per protocol; to be given as a bolus over 60 bp minutes Route: IV; Rate: 1 bolus; Site: left forearm; 15:02 Follow up: IV Status: Completed infusion bp 10:45 Drug: Droperidol IVP 1.25 mg IVP once Route: IVP; Site: left forearm; bp 15:02 Follow up: Response: No adverse reaction bp 13:15 Drug: metoCLOPramide IVP 10 mg IVP once; over 1 to 2 minutes Route: IVP; Site: left bp forearm; 15:01 Follow up: Response: No adverse reaction bp Outcome: 13:41 Decision to Hospitalize by Provider. sb4 16:53 Patient left the ED. sb4 Signatures: Asiya Muhammad RN RN iw Alden Pryor, RACQUEL RN bp Samina Copeland PA-C PA-C sb4 Carley, Mouna al6
--- NOTE | 2025-03-07 13:41 | EDPHYS ---
Physician Documentation [facility] Name: Guerita Loza Age: 59 yrs Sex: Female : 1965 Arrival Date: 03/07/2025 Time: 09:52 Bed 18 Private MD: Jad López HPI: 03/07 14:42 This 59 yrs old Female presents to ER via Ambulatory with complaints of sb4 Nausea/Vomiting, Abdominal Pain. 14:42 Patient reports nausea, vomiting, abdominal pain over the past week. States that she sb4 took her first Mounjaro injection of 2.5 mg 1 week ago and since then has been feeling very poorly. She came here a little over a day ago, had labs and a CAT scan done that were negative, felt better after IV fluids, pain medications and antiemetics. States that she was tolerating water and chicken broth, but tried to eat chicken noodle soup and now she has had pain and nausea and vomiting since. States that this also happened to her when she tried to use Ozempic in the past. Historical: - Allergies: 10:41 Jardiance; iw 10:41 ozempic; iw 10:41 Scopolamine HBr; iw - PMHx: 10:41 High Cholesterol; Gout; Gastroparesis; Diabetes - NIDDM; Hypertension; iw - PSHx: 10:41 Cholecystectomy; section; iw ROS: 14:42 Constitutional: Negative for fever, chills, and weight loss, sb4 14:42 Abdomen/GI: Positive for abdominal pain, nausea and vomiting, abdominal cramps, 14:42 All other systems are negative, Exam: 14:43 Head/Face: Normocephalic, atraumatic. Eyes: Extra-ocular motions intact. Periorbital sb4 areas with no swelling, redness, or edema. ENT: Mucous membranes moist. Cardiovascular: Regular rate and rhythm with a normal S1 and S2. Respiratory: No increased work of breathing, no retractions or nasal flaring. Skin: Warm, dry with normal turgor. Normal color with no rashes, no lesions, and no evidence of cellulitis. 14:43 Constitutional: The patient appears alert, awake, obese, uncomfortable, 14:43 Abdomen/GI: Inspection: abdomen appears normal, obese Bowel sounds: normal, Palpation: soft, mild abdominal tenderness, in all quadrants, Vital Signs: 11:28 BP 143 / 69; Pulse 103; Resp 15; Pulse Ox 92% on R/A; bp 15:00 BP 178 / 87; Pulse 106; Resp 15; Pulse Ox 93% ; bp MDM: 10:04 Medical Screening Exam initiated sb4 14:43 Differential diagnosis: gastritis, pancreatitis, Dehydration, electrolyte abnormality, sb4 kidney failure, gastroparesis. Data reviewed: vital signs, nurses notes, lab test result(s), and as a result, I will discharge patient. Consideration of Admission/Observation Patient was admitted/placed on observation. Test considered but Not performed: CT: CT abdomen pelvis done 48 hours ago, was unremarkable. Care significantly affected by the following chronic conditions: Diabetes, Hypertension, Obesity. Counseling: I had a detailed discussion with the patient and/or guardian regarding the historical points, exam findings, and any diagnostic results supporting the discharge/admit diagnosis, the presence of at least one elevated blood pressure reading (>120/80) during this emergency department visit, lab results, radiology results, the need for further work-up and treatment in the hospital. ED course: Patient still nauseated and very weak after hydration and 2 rounds of antiemetics. Labs are worse than they were on her prior visit. Will admit for further hydration and workup. 03/07 10:23 Order name: CBC with Diff; Complete Time: 10:54 sb4 03/07 10:23 Order name: CMP; Complete Time: 11:13 sb4 03/07 10:23 Order name: Lipase; Complete Time: 11:13 sb4 03/07 11:14 Order name: VBG; Complete Time: 11:54 sb4 03/07 10:23 Order name: IV Saline Lock; Complete Time: 10:52 sb4 03/07 10:23 Order name: Labs collected and sent; Complete Time: 10:52 sb4 Administered Medications: 10:45 Drug: NS 0.9% IV 1000 ml IV at 1 bolus Per protocol; to be given as a bolus over 60 bp minutes Route: IV; Rate: 1 bolus; Site: left forearm; 15:02 Follow up: IV Status: Completed infusion bp 10:45 Drug: Droperidol IVP 1.25 mg IVP once Route: IVP; Site: left forearm; bp 15:02 Follow up: Response: No adverse reaction bp 13:15 Drug: metoCLOPramide IVP 10 mg IVP once; over 1 to 2 minutes Route: IVP; Site: left bp forearm; 15:01 Follow up: Response: No adverse reaction bp Disposition Summary: 03/07/25 13:41 Hospitalization Ordered Notes: Hospitalization Status: Observation sb4 Provider: Oscar Perales sb4 Location: Telemetry/MedSurg (observation) sb4 Condition: Fair sb4 Problem: new sb4 Symptoms: are unchanged sb4 Bed/Room Type: Standard sb4 Room Assignment: 225(03/07/25 15:09) eb Diagnosis - Nausea with vomiting, unspecified sb4 - Adverse effect of unspecified drugs, medicaments and biological substances - GLP1 sb4 Forms: - Medication Reconciliation Form sb4 - SBAR form sb4 - Leadership Thank You Letter sb4 Signatures: Dispatcher [employer] EDAsiya Tai RN RN iw Alden Pryor RN RN bp Botello, Elizabeth eb Brown, Sophia, PA-C PAJunior sb4 Corrections: (The following items were deleted from the chart) 10:23 10:23 CBC+H.LAB.BRZ ordered. EDMS EDMS 10:23 10:23 COMPREHENSIVE METABOLIC PANEL+C.LAB.BRZ ordered. EDMS EDMS 10:23 10:23 LIPASE+C.LAB.BRZ ordered. EDMS EDMS 15:07 11:57 Fluid Challenge ordered. sb4 bp 15: 13:41 sb4 eb
[2025-03-07] MEDS ORDERED: ACETAMINOPHEN 325 MG TABLET PO PRN (14:28)
--- NOTE | 2025-03-07 14:54 | P.HP ---
Certification for Inpatient Patient admitted to: Observation With expected LOS: <2 Midnights Patient will require the following post-hospital care: None Practitioner: I am a practitioner with admitting privileges, knowledge of patient current condition, hospital course, and medical plan of care. Services: Services provided to patient in accordance with Admission requirements found in Title 42 Section 412.3 of the Code of Federal Regulations Patient History Date of Service: 03/07/25 Primary Care Provider: Dr Wagner Reason for admission: Intractable vomiting, JAYESH History of Present Illness: 59-year-old female patient with history of hyperlipidemia, gout, gastroparesis, insulin-dependent diabetes mellitus 2, hypertension presents for intractable nausea vomiting since Monday (3 days) after starting Mounjaro on Monday. She endorses last time she was able to tolerate any food was on Monday. She has not taken any of her p.o. medication since then. She has been compliant with her insulin regimen however. She endorses being able to take in small amounts of fluids, but is limited by severe nausea and vomiting. Denies diarrhea. Endorses chills and back pain. However, notes chronic back pain due to arthritis. Endorses trying what she believes to be Zofran at home without relief. Endorses some relief with IV medications that she has received since arriving. ER course: Patient arrived in the ED vital signs were taken which were grossly normal. She was noted to be slightly hypertensive with a SBP of 143. Vital signs were otherwise unremarkable on room air. No imaging was completed. Laboratory workup included CBC, BMP. Laboratory diagnostics noted for mild JAYESH with creatinine 1.1, leukocytosis with WBC of 16K, platelets of 435, sodium 134, anion gap 16.8, glucose 193. The VBG was included which showed pH of 7.36, pCO2 of 42, bicarb of 23. Allergies scopolamine Adverse Reaction (Verified 10/01/22 17:39) dizziness semaglutide [From Ozempic] Adverse Reaction (Verified 03/19/24 10:33) Nausea/Vomiting Home Medications: Allopurinol 100 mg PO DAILY 10/01/22 Atorvastatin Calcium 10 mg PO BEDTIME 10/01/22 Lisinopril/Hydrochlorothiazide [Lisinopril-Hctz 20-12.5 mg Tab] 1 each PO DAILY 10/01/22 Metformin ER [Glucophage ER*] 1,000 mg PO BID 10/01/22 Dapagliflozin Propanediol [Farxiga] 10 mg PO DAILY 03/18/24 - Past Medical/Surgical History Diabetic: Yes -: Diabetes -: Hypertension -: Gout -: Morbid obesity -: HLD -: Gastroparesis -: Vertigo -: H-pylori -: x2 -: trino -: rt hip orif - Family History Father -: Diabetes Mother -: Heart disease, Hypertension, Diabetes Brother -: Hypertension, Diabetes Sister -: Diabetes - Social History Alcohol use: No CD- Drugs: No Caffeine use: Yes Review of Systems 10-point ROS is otherwise unremarkable Physical Examination - Physical Exam General: Alert, Cooperative, Mild distress, Obese HEENT: Atraumatic, Normocephalic, Mucous membr. moist/pink Neck: Supple, 2+ carotid pulse no bruit, JVD not distended, No Thyromegaly Respiratory: Clear to auscultation bilaterally, Diminished (bases) Cardiovascular: No edema, Normal pulses, Regular rate/rhythm, Normal S1 S2 Capillary refill: <2 Seconds Gastrointestinal: Normal bowel sounds, Soft and benign, Non-distended, W/out hepatosplenomegaly, No ascites, No tenderness, No masses, No rebound, No guarding Musculoskeletal: No clubbing, No swelling, No contractures, No erythema Integumentary: No rashes, No breakdown, No significant lesion, No tenderness/swelling Neurological: Normal speech, Normal tone, Sensation intact, Cranial nerves 3-12 intact, Normal affect External genitalia: Deferred Rectal: Deferred - Studies Laboratory Data (last 24 hrs) 03/07/25 03/07/25 10:40 10:40 WBC 16.80 H Hgb 13.5 Hct 42.5 Plt Count 435 H Sodium 134 L Potassium 3.8 BUN 28 H Creatinine 1.10 H Glucose 193 H Total Bilirubin 0.7 AST 13 L ALT 28 Alkaline Phosphatase 102 Lipase 11 L Assessment and Plan - Plan 59-year-old female patient with history of hyperlipidemia, gout, gastroparesis, insulin-dependent diabetes mellitus 2, hypertension presents for intractable nausea vomiting since Monday (3 days) after starting Mounjaro on Monday. Plan: Leukocytosis, likely reactive Thrombocytosis, likely reactive WBC 16K Platelets 435 UA collected with reflex to culture Dehydration Hypovolemia Given 1 L normal saline bolus in ED x 1 Continue normal saline at 100 mL/h for IV fluid hydration Serum osmolality ordered Nausea with vomiting P.o. intolerance Maintain n.p.o. status initially, may advance diet as tolerated once N/V controlled Zofran 4 mg IV as needed, may increase to 8 mg if needed Phenergan 25 mg p.o. as needed, may consider suppository if needed Abdominal x-ray to rule out obstruction Consider NG tube for decompression pending abdominal x-ray results Acute kidney injury; likely prerenal in setting of dehydration/hypovolemia -Creatinine 1.1 , 0.75 Seems around baseline. - Consider renal ultrasound if no improvement -S pot urine for sodium, creatinine, urinalysis ordered, will follow. -Maintain euvolemia. -qAM BMP -Avoid nephrotoxins when possible. -Renally dose all medications. Hypertensive urgency Hypertension, chronic SBP 193 on exam Has not tolerate p.o. medications for approximately 4 days IV labetalol 10 mg every 6 hours as needed for systolic blood pressure greater than 160 Insulin-dependent diabetes mellitus type 2: -Hemoglobin A1c ordered - [facility] Accu-Cheks Insulin sliding scale Dispo: Tolerating p.o. Anticipate home and no need Discharge Plan: Home Plan to discharge in: 24 Hours - Advance Directives Does patient have a Living Will: No Does patient have a Durable POA for Healthcare: No - Code Status/Comfort Care Code Status Assessed: Yes (Full code) Critical Care: No Time Spent Managing Pts Care (In Minutes): 42
[2025-03-07 17:19] VITALS: O2SAT 97
[2025-03-07] MEDS: NA CHLORIDE 0.9% 1,000 ML IV SCH (17:25)
[2025-03-07] MEDS: ONDANSETRON 4 MG/2 ML VIAL IV PRN (17:25)
[2025-03-07 18:18] VITALS: BMI 43.4
--- NOTE | 2025-03-07 18:40 | RAD REPORT ---
Exam:Abdomen Single View Clinical history: Abdominal pain FINDINGS: The bowel gas pattern is unremarkable No significant calcification is displayed. Postsurgical changes left femur. Cholecystectomy.
[2025-03-07 20:27] LABS: Sqamous Epithelial <5 /HPF (None Seen); Urine Culture Reflex Order NOT NEEDED; Urine Microscopic Reflex YN ORDER UMIC; Urine Yeast (Budding) Occasional /HPF (None Seen)
[2025-03-08] MEDS: LABETALOL 20 MG/4ML SYRINGE IV PRN (03:51)
[2025-03-08 06:13] LABS: Absolute Lymphocytes (CBC) 3.2 K/uL (0.7-4.9); Hematocrit 38.6 % (36.0-45.0); Hemoglobin 12.4 g/dL (12.0-15.0); MCH 24.8 pg (27.0-35.0); MCHC 32.0 g/dL (32.0-36.0); MCV 77.7 fL (80-100); MPV 8.9 fL (7.6-11.3); Nucleated RBC Absolute Count 0.0 (0-0); Nucleated Red Blood Cells % 0.1 % (0-0); RBC Red Blood Cell Count 4.98 M/uL (3.86-4.86); White Blood Count 15.60 thou/uL (4.3-10.9)
[2025-03-08 06:25] LABS: Anion Gap 16.6 mEq/L (5.0-15.0); BUN Blood Urea Nitrogen 23.0 mg/dL (7-18); Glucose Level 152.0 mg/dL (74-106); Potassium 3.6 mEq/L (3.5-5.1)
[2025-03-08] MEDS ORDERED: SODIUM CHLORIDE 0.9% 10ML INJ IV PRN (07:13)
[2025-03-08] MEDS: PANTOPRAZOLE 40 MG INJ IVP ONE (07:37)
[2025-03-08] MEDS: ENOXAPARIN 40 MG/0.4 ML SQ SCH (07:41)
[2025-03-08] MEDS ORDERED: HOME MED 1 EA UNK (Lisinopril/Hydrochlorothiazide [Lisinopril-Hctz 20-12.5 Mg Tab] Tablet) PO SCH (09:00)
[2025-03-08] MEDS: INSULIN GLARGINE 100 UNIT/ML SQ SCH (10:00)
[2025-03-08] MEDS ORDERED: GLUCAGON 1 MG/VIAL IM PRN (13:15)
[2025-03-08] MEDS ORDERED: D10W 125 ML IV PRN (13:15)
--- NOTE | 2025-03-08 13:22 | P.PN ---
Subjective Date of Service: 03/08/25 Primary Care Provider: Dr Wagner Chief Complaint: Intractable vomiting, JAYESH Subjective: No new changes Assessed patient lying in bed on room air in no apparent distress. Patient endorses continued nausea. She denies any further dry heaving or vomiting. Additionally, she denies any further acute complaints. Clear liquid diet tray was recently delivered this morning states she has tried to take some sips, but is moving slowly. Discussed with bedside RN that there is concern for starvation ketoacidosis in setting of tirzepatide use due to VBG pH 3.6, elevated BHB, ketonuria, elevated anion gap. Plan is to change from normal sa line to D5W due to poor p.o. intake at present, start 5 units long-acting glargine and continue with every 6 Accu-Cheks as the patient was still n.p.o. Review of Systems 10-point ROS is otherwise unremarkable Physical Examination - Vital Signs Temperature: 97.9 F Blood Pressure: 176/80 Pulse: 89 Respirations: 14 Pulse Ox (%): 93 - Physical Exam General: Alert, In no apparent distress, Oriented x3, Cooperative, Other (Appears uncomfortable) HEENT: Atraumatic, Normocephalic, Mucous membr. moist/pink Neck: Supple, 2+ carotid pulse no bruit, JVD not distended, No Thyromegaly Respiratory: Clear to auscultation bilaterally, Normal air movement, Diminished (Basis) Cardiovascular: No edema, Normal pulses, Regular rate/rhythm, Normal S1 S2 Capillary refill: Brisk Gastrointestinal: Normal bowel sounds, Soft and benign, Non-distended, W/out hepatosplenomegaly Musculoskeletal: No clubbing, No swelling, No contractures, No erythema Integumentary: No breakdown, No significant lesion, No tenderness/swelling, No erythema Neurological: Normal speech, Normal tone, Sensation intact, Cranial nerves 3-12 intact, Normal affect External genitalia: Deferred Rectal: Deferred Assessment And Plan - Plan 59-year-old female patient with history of hyperlipidemia, gout, gastroparesis, insulin-dependent diabetes mellitus 2, hypertension presents for intractable nausea vomiting since Monday (3 days) after starting Mounjaro on Monday. Plan: Starvation ketoacidosis Glycosuria Ketonuria BHB 2.8 Anion gap 16.6 Lactic 1.2 Clear liquid diet ordered D5W at 100 as below for glucose Glargine 5 units daily Every 6 hour Accu-Cheks with sliding scale in setting of poor p.o. intake at present Leukocytosis, likely reactive Thrombocytosis, likely reactive, resolved WBC 15.6 K Platelets 355 UA negative for infection Dehydration Hypovolemia Given 1 L normal saline bolus in ED x 1 DC normal saline at 100 mL/h for IV fluid hydration Start D5W at 100 mL an hour Serum osmolality ordered Nausea with vomiting P.o. intolerance Maintain n.p.o. status initially, may advance diet as tolerated once N/V controlled Zofran 4 mg IV as needed, may increase to 8 mg if needed Phenergan 25 mg p.o. as needed, may consider suppository if needed Abdominal x-ray negative for obstruction Acute kidney injury; likely prerenal, resolved -Creatinine 0.85, 0.75 Seems around baseline. -Maintain euvolemia. -qAM BMP -Avoid nephrotoxins when possible. -Renally dose all medications. Hypertensive urgency Hypertension, chronic SBP 173 03/08 Restart home lisinopril/HCTZ now the patient tolerating minimal p.o. intake IV labetalol 10 mg every 6 hours as needed for systolic blood pressure greater than 160 Insulin-dependent diabetes mellitus type 2: -Hemoglobin A1c ordered - ACHS Accu-Cheks Insulin sliding scale Dispo: Tolerating p.o. Anticipate home and no need Discharge Plan: Home Plan to discharge in: 24 Hours - Code Status/Comfort Care Code Status Assessed: No Critical Care: No
[2025-03-08] MEDS: D5W 1,000 ML IV SCH (13:39)
[2025-03-08] MEDS: PROMETHAZINE 25 MG TABLET PO PRN (13:40)
[2025-03-08] MEDS: INSULIN REGULAR (HUMAN) 100 UNIT/ML SQ SCH (13:41)
[2025-03-08] MEDS ORDERED: D50W 25 GM/50 ML SYRINGE IV PRN (14:00)
[2025-03-08] MEDS: HYDRALAZINE HCL 20 MG/ML VIAL IV ONE (22:15)
[2025-03-09] MEDS: PROMETHAZINE INJ 25 MG/ML AMP IM ONE (04:48)
[2025-03-09 05:57] LABS: Absolute Lymphocytes (CBC) 3.3 K/uL (0.7-4.9); Hematocrit 39.2 % (36.0-45.0); Hemoglobin 12.5 g/dL (12.0-15.0); MCH 24.5 pg (27.0-35.0); MCHC 31.9 g/dL (32.0-36.0); MCV 76.8 fL (80-100); MPV 8.7 fL (7.6-11.3); Nucleated RBC Absolute Count 0.0 (0-0); Nucleated Red Blood Cells % 0.0 % (0-0); RBC Red Blood Cell Count 5.10 M/uL (3.86-4.86); White Blood Count 14.80 thou/uL (4.3-10.9)
[2025-03-09 06:19] LABS: Anion Gap 12.3 mEq/L (5.0-15.0); BUN Blood Urea Nitrogen 12.0 mg/dL (7-18); Glucose Level 248.0 mg/dL (74-106); Magnesium 1.5 mg/dL (1.6-2.4); Potassium 3.3 mEq/L (3.5-5.1)
--- NOTE | 2025-03-09 07:59 | P.PN ---
Date of Service: 03/09/25 Subjective Primary Care Provider: Dr Wagner Chief Complaint: Intractable vomiting, JAYESH Subjective: No new changes Assessed patient lying in bed on room air in no apparent distress. Patient endorses continued nausea that is the same as day of admission. She denies any further dry heaving or vomiting. Additionally, she denies any further acute complaints. Patient remains on clear liquid diet. Encouraged increasing p.o. intake as tolerated. Review of Systems 10-point ROS is otherwise unremarkable Physical Examination - Vital Signs Temperature: 98.1 F Blood Pressure: 143/66 Pulse: 91 Respirations: 18 Pulse Ox (%): 94 - Physical Exam General: Alert, In no apparent distress, Oriented x3, Cooperative, Other (Appears uncomfortable) HEENT: Atraumatic, Normocephalic, Mucous membr. moist/pink Neck: Supple, 2+ carotid pulse no bruit, JVD not distended, No Thyromegaly Respiratory: Clear to auscultation bilaterally, Normal air movement, Diminished (Basis) Cardiovascular: No edema, Normal pulses, Regular rate/rhythm, Normal S1 S2 Capillary refill: Brisk Gastrointestinal: Normal bowel sounds, Soft and benign, Non-distended, W/out hepatosplenomegaly, nontender to palpation Musculoskeletal: No clubbing, No swelling, No contractures, No erythema Integumentary: No breakdown, No significant lesion, No tenderness/swelling, No erythema Neurological: Normal speech, Normal tone, Sensation intact, Cranial nerves 3-12 intact, Normal affect Assessment And Plan - Plan 59-year-old female patient with history of hyperlipidemia, gout, gastroparesis, insulin-dependent diabetes mellitus 2, hypertension presents for intractable nausea vomiting since Monday (3 days) after starting Mounjaro on Monday found to be in starvation ketoacidosis. Plan: Starvation ketoacidosis, resolved BHB 2.8 on 03/08 Anion gap 16.6 on admission, improved to 12.3 Lactic 1.2 Clear liquid diet ordered, encourage p.o. intake D5W at 100 as below for glucose Glargine 5 units daily Every 6 hour Accu-Cheks with sliding scale in setting of poor p.o. intake at present Hypomagnesia Hypokalemia Hypophosphatemia K3.3, mag 1.5, phosphate 2.3 Replace with 2 packets of Neutra-Phos to replete potassium and phosphate 2 mg IV potassium ordered to replete magnesium Every morning BMP Leukocytosis, likely reactive, slowly improving Thrombocytosis, likely reactive, resolved WBC 14.8 K Platelets 351 UA negative for infection Dehydration Hypovolemia Given 1 L normal saline bolus in ED x 1 DC normal saline at 100 mL/h for IV fluid hydration Start D5W at 100 mL an hour Serum osmolality ordered, Nausea with vomiting P.o. intolerance Maintain n.p.o. status initially, may advance diet as tolerated once N/V controlled Zofran 4 mg IV as needed, may increase to 8 mg if needed Phenergan 25 mg p.o. as needed, may consider suppository if needed Abdominal x-ray negative for obstruction Acute kidney injury; likely prerenal, resolved -Creatinine 0.85, 0.75 Seems around baseline. -Maintain euvolemia. -qAM BMP -Avoid nephrotoxins when possible. -Renally dose all medications. Hypertensive urgency Hypertension, chronic SBP 143 on 03/08, required IV hydralazine overnight Restart home lisinopril/HCTZ now the patient tolerating minimal p.o. intake to improve blood pressure control IV labetalol 10 mg every 6 hours as needed for systolic blood pressure greater than 160 Increased lisinopril to 40 mg daily Insulin-dependent diabetes mellitus type 2: -Hemoglobin A1c ordered, pending - ACHS Accu-Cheks Insulin sliding scale Dispo: Tolerating p.o. Anticipate home and no need Discharge Plan: Home Plan to discharge in: 24 Hours - Code Status/Comfort Care Code Status Assessed: No Critical Care: No
[2025-03-09] MEDS: Magnesium Sulfate 2gm IVPB 2 G/50 ML BAG IV ONE (08:01)
[2025-03-09] MEDS: POTASS/SODIUM PHOSPHATE 1 PKT POWD.PACK PO ONE (08:02)
[2025-03-09] MEDS: METOCLOPRAMIDE 10 MG/2mL INJ IV PRN (11:05)
[2025-03-09] MEDS: PANTOPRAZOLE 40MG TABLET PO SCH (17:00)
[2025-03-09] MEDS: ATORVASTATIN 10 MG TAB PO SCH (21:43)
[2025-03-10 07:17] LABS: Magnesium 1.8 mg/dL (1.6-2.4)
[2025-03-10] MEDS ORDERED: HOME MED 1 EA UNK (Lansoprazole [Lansoprazole] 30 MG Capsule.Dr) PO SCH (09:00)
--- NOTE | 2025-03-10 12:11 | P.DS ---
Admission Date: 03/07/25 Discharge Date: 03/10/25 Primary Care Provider: Dr Wagner Disposition: ROUTINE DISCHARGE Discharge Condition: GOOD Reason for Admission: Intractable vomiting, JAYESH Consultations: None Procedures: None Brief History of Present Illness: 59-year-old female patient with history of hyperlipidemia, gout, gastroparesis, insulin-dependent diabetes mellitus 2, hypertension presents for intractable nausea vomiting since Monday (3 days) after starting Mounjaro on Monday. She endorses last time she was able to tolerate any food was on Monday. She has not taken any of her p.o. medication since then. She has been compliant with her insulin regimen however. She endorses being able to take in small amounts of fluids, but is limited by severe nausea and vomiting. Denies diarrhea. Endorses chills and back pain. However, notes chronic back pain due to arthritis. Endorses trying what she believes to be Zofran at home without relief. Endorses some relief with IV medications that she has received since arriving. ER course: Patient arrived in the ED vital signs were taken which were grossly normal. She was noted to be slightly hypertensive with a SBP of 143. Vital signs were otherwise unremarkable on room air. No imaging was completed. Laboratory workup included CBC, BMP. Laboratory diagnostics noted for mild JAYESH with c reatinine 1.1, leukocytosis with WBC of 16K, platelets of 435, sodium 134, anion gap 16.8, glucose 193. The VBG was included which showed pH of 7.36, pCO2 of 42, bicarb of 23. Hospital Course: Starvation ketoacidosis, resolved Secondary to p.o. intolerance, resolved Insetting of the GLP-1 initiation BHB was 2.8 on 03/08 Anion gap was 16.6 on admission, improved to 12.3 Lactic 1.2 To ensure tolerating p.o. intake prior to discharge, patient was initially n.p.o. and advance to diabetic diet D5W at 100 as below for glucose was given while patient was unable to tolerate p.o. intake Glargine 5 units daily was given to help with resolution of starvation ketoacidosis Every 6 hour Accu-Cheks with sliding scale in setting of poor p.o. intake while NPO, then advance to [facility] when tolerating p.o. intake Hypomagnesia, resolved Hypokalemia, resolved Hypophosphatemia, resolved Every morning BMP Electrolytes were repleted as necessary while advancing diet Leukocytosis, likely reactive, improving Thrombocytosis, likely reactive, resolved WBC 14.8 K, improved from 16K on admission Platelets 351 UA negative for infection Patient remained free of signs and symptoms of infection Dehydration, resolved Hypovolemia, resolved Serum osmolality elevated Given 1 L normal saline bolus in ED x 1 DC normal saline at 100 mL/h for IV fluid hydration Transitioned to D5W at 100 mL an hour as noted above. Discontinued once tolerating p.o. intake Nausea with vomiting, resolved Maintained n.p.o. status initially and advanced diet as tolerated once N/V controlled Zofran 4 mg IV as needed Phenergan 25 mg p.o. as needed initially ordered and then switched to scheduled Reglan every 6 hours to improve symptomatic control Abdominal x-ray negative for obstruction Acute kidney injury; likely prerenal, resolved -Creatinine 0.85, 0.75 Seems around baseline. -Maintained euvolemia. -qAM BMP -Avoided nephrotoxins when possible. -Renally dosed all medications. Hypertensive urgency, resolved Hypertension, chronic, stable SBP 143 on 03/08, required IV hydralazine and labetalol PRN Restaredt home lisinopril/HCTZ now the patient tolerating minimal p.o. intake to improve blood pressure control Increased lisinopril to 40 mg daily durign admission Insulin-dependent diabetes mellitus type 2:, Chronic/stable -Hemoglobin A1c ordered, 7.3% - [facility] Accu-Cheks Insulin sliding scale Vital Signs/Physical Exam: Temp Pulse Resp BP Pulse Ox 98.1 F 85 12 116/56 L 93 03/10/25 08:00 03/10/25 08:00 03/10/25 08:00 03/10/25 08:00 03/10/25 08:00 General: Alert, Oriented x3, Cooperative, Obese HEENT: Atraumatic, Normocephalic, Mucous membr. moist/pink Neck: Supple, JVD not distended, No Thyromegaly Respiratory: Clear to auscultation bilaterally, Normal air movement, Diminished (bases) Cardiovascular: Normal pulses, Regular rate/rhythm, Normal S1 S2, No gallops, No rubs, No murmurs Capillary refill: Brisk Gastrointestinal: Normal bowel sounds, Hypoactive, Non-distended Musculoskeletal: No clubbing, No contractures, No erythema, No tenderness Integumentary: No rashes, No breakdown, No significant lesion, No erythema Neurological: Normal speech, Normal strength at 5/5 x4 extr, Normal tone, Sensation intact Lymphatics: No axilla or inguinal lymphadenopathy External genitalia: Deferred Rectal: Deferred Laboratory Data at Discharge: WBC 14.80 thou/uL (4.3-10.9) H 03/09/25 05:29 Hgb 12.5 g/dL (12.0-15.0) 03/09/25 05:29 Hct 39.2 % (36.0-45.0) 03/09/25 05:29 Plt Count 351 thou/uL (152-406) 03/09/25 05:29 Sodium 129 mEq/L (136-145) L D 03/09/25 05:29 Potassium 3.3 mEq/L (3.5-5.1) L D 03/09/25 05:29 BUN 12 mg/dL (7-18) 03/09/25 05:29 Creatinine 0.81 mg/dL (0.55-1.02) 03/09/25 05:29 Glucose 248 mg/dL (74-106) H 03/09/25 05:29 Phosphorus 3.0 mg/dL (2.5-4.9) 03/10/25 06:46 Magnesium 1.8 mg/dL (1.6-2.4) 03/10/25 06:46 Total Bilirubin 0.7 mg/dL (0.2-1.0) 03/07/25 10:40 AST 13 U/L (15-37) L 03/07/25 10:40 ALT 28 U/L (13-56) 03/07/25 10:40 Alkaline Phosphatase 102 U/L (45-117) 03/07/25 10:40 Lipase 11 U/L (13-75) L 03/07/25 10:40 Home Medications: Allopurinol 100 mg PO DAILY 10/01/22 Atorvastatin Calcium 10 mg PO BEDTIME 10/01/22 Lisinopril/Hydrochlorothiazide [Lisinopril-Hctz 20-12.5 mg Tab] 1 each PO DAILY 10/01/22 Metformin ER [Glucophage ER*] 1,000 mg PO BID 10/01/22 Dapagliflozin Propanediol [Farxiga] 10 mg PO DAILY 03/18/24 Lansoprazole 30 mg PO DAILY 03/07/25 Montelukast [Singulair*] 10 mg PO DAILY 03/07/25 Tramadol HCl [Ultram] 50 mg PO Q6H PRN 03/07/25 Physician Discharge Instructions: PROBLEM: Starvation ketoacidosis due to recent initiation of GLP-1 and poor oral intake GOAL: Clear understanding of disease process INSTRUCTIONS: Discontinue Mounjaro and avoid future GLP-1 injectable medications. Follow-up with your PCP in the next 2 to 3 days. If you experience return of symptoms prior to being able to follow-up with PCP, please call them and let them know. Additionally, ensure that you get some type of oral intake with calories, even if it is fluids. Diet: Carb conscious diabetic diet Activity: You may resume normal activities as tolerated Diet: ADA Activity: Ad jarred Followup: Rodrigo Wagner DO, DO [Primary Care Provider] - 2-3 Days Time spent managing pt's care (in minutes): 39
[2025-03-10 12:34] VITALS: BP 113/55; TEMP 98.3
== END 2025-03-10 14:58 | disposition home or self-care (01) | DRG 638 ==
LOC: ER 09:52 → ERHOLD 14:26 → 2ND 15:47
PROVIDERS: ADMIT Hospitalist; ATTEND Hospitalist
DX: E11.10 Type 2 diabetes mellitus with ketoacidosis without coma (principal); N17.9 Acute kidney failure, unspecified; Z68.41 Body mass index [BMI] 40.0-44.9, adult; E66.01 Morbid (severe) obesity due to excess calories; E86.0 Dehydration; E86.1 Hypovolemia; I16.0 Hypertensive urgency; E78.00 Pure hypercholesterolemia, unspecified; M10.9 Gout, unspecified; D75.839 Thrombocytosis, unspecified; M47.9 Spondylosis, unspecified; I10 Essential (primary) hypertension; E87.6 Hypokalemia; E83.39 Other disorders of phosphorus metabolism; E83.42 Hypomagnesemia; T50.995A Adverse effect of other drugs, medicaments and biological substances, initial encounter; R82.4 Acetonuria; R81 Glycosuria; Z79.4 Long term (current) use of insulin; Z90.49 Acquired absence of other specified parts of digestive tract; Z79.85 Long-term (current) use of injectable non-insulin antidiabetic drugs; Z79.899 Other long term (current) drug therapy; Z88.8 Allergy status to other drugs, medicaments and biological substances; Z79.84 Long term (current) use of oral hypoglycemic drugs; Z96.641 Presence of right artificial hip joint
CPT/HCPCS: 36415; 74018; 80048; 80053; 81001; 82010; 82803; 82947; 83036; 83605; 83690; 83735; 83930; 84100; 84132; 85025; 96361; 96374; 96375; 99284; J0360; J1650; J1790; J1815; J2405; J2470; J2550; J2765; J3475; J7030; Q0169